=== PATIENT | female | born 2000 | race Caucasian/White ===

== ENCOUNTER 2022-11-02 23:27 | Emergency (ER) | payer MEDICAID, SELFPAY ==
--- NOTE | ~2022-11-02 | XR_ITS ---
EXAMINATION: XR FOOT, RIGHT XR ANKLE, RIGHT CLINICAL INFORMATION: Injury. Pain. Trauma. COMPARISON: None TECHNIQUE: 3 views of the right foot. 2 additional views of the right ankle. FINDINGS: Right foot: No fracture or dislocation. Alignment maintained. Joint spaces maintained. The soft tissues are unremarkable. Right ankle: No fracture or dislocation. The ankle mortise is congruent. No ankle joint effusion. The soft tissues are unremarkable. XR/XR ankle RT 2V IMPRESSION: No fracture or malalignment involving the right foot or ankle.
--- NOTE | ~2022-11-02 | XR_ITS ---
EXAMINATION: XR FOOT, RIGHT XR ANKLE, RIGHT CLINICAL INFORMATION: Injury. Pain. Trauma. COMPARISON: None TECHNIQUE: 3 views of the right foot. 2 additional views of the right ankle. FINDINGS: Right foot: No fracture or dislocation. Alignment maintained. Joint spaces maintained. The soft tissues are unremarkable. Right ankle: No fracture or dislocation. The ankle mortise is congruent. No ankle joint effusion. The soft tissues are unremarkable. XR/XR foot RT min 3V IMPRESSION: No fracture or malalignment involving the right foot or ankle.
[2022-11-02 23:39] VITALS: BP 138/95; PULSE 101; RESP 16; O2SAT 99; BMI 25.7
--- NOTE | 2022-11-02 23:54 | ED.LOWEXIN ---
HPI - Extremity Injury (Lower) General Chief Complaint: Extremity Injury, Lower Stated Complaint: R foot pain/Work Inj Time Seen by Provider: 11/02/22 23:48 Source: patient Mode of arrival: ambulatory Limitations: no limitations History of Present Illness HPI Narrative: 22-year-old female came in for evaluation of right foot/right ankle injury happened at work today. Patient was trying to push a metal door at work open using the dorsal aspect of the right foot, patient initially was able to ambulate and bear weight but progressively the pain is getting worse and patient now is unable to bear weight. Related Data Allergies Allergy/AdvReac Type Severity Reaction Status Date / Time No Known Allergies Allergy Verified 11/02/22 23:52 Review of Systems Review of Systems: All other systems are reviewed and are negative Constitutional: Reports as per HPI and Reports no additional constitutional complaints Eyes: Reports as per HPI and Reports no additional eye complaints Reports system reviewed and no additional complaints, except as documented Cardiovascular: Reports as per HPI and Reports no additional cardiovascular complaints Respiratory: Reports as per HPI and Reports no additional respiratory complaints Gastrointestinal: Reports as per HPI and Reports no additional gastrointestinal complaints Genitourinary: Reports no additional female genitourinary complaints Musculoskeletal: Reports no additional musculoskeletal complaints Skin/Breast: Reports system reviewed and no additional complaints, except as docu Psychiatric: Reports no additional psychiatric complaints Endocrine: Reports no additional endocrine complaints Hematologic/Lymphatic: Reports no additional hematologic/lymphatic complaints Allergic/Immunologic: Reports no additional allergic/immunologic complaints Reports system reviewed and no additional complaints, except as documented and Reports Abnormal speech present Physical Exam Vital Signs: Vital Signs: Last Vital Signs Pulse 101 H 11/02/22 23:39 Resp 16 11/02/22 23:39 BP 138/95 H 11/02/22 23:39 Pulse Ox 99 11/02/22 23:39 O2 Del Method 11/02/22 23:39 BMI result Body Mass Index 25.7 Vital signs have been reviewed as appeared to be correct. Blood pressure normal. Heart rate normal. Respiration rate normal. Temperature normal. Oxygen saturation normal. Appearance: Alert. Oriented X3. No acute distress. Head: Normal external exam. Normocephalic. Atraumatic. No Nam signs noted. No raccoon eyes noted Eyes: PERRLA. EOMI. Conjunctiva and sclera normal. Eyelids normal. ENT: TM's Normal. Pharynx normal. Uvula midline. Moist mucous membranes. No trismus noted. No drooling noted. No muffled voice noted. Neck: Normal inspection. Neck supple. FROM. No adenopathy. Thyroid Normal. No meningeal signs. No neck mass noted. CVS: Normal heart rate and rhythm. Heart sound normal. No murmurs noted. Pulses normal throughout. Respiratory: No respiratory distress. Painless inspiration. Breath sounds normal. No wheezes/rales/rhonchi noted. Chest nontender. No accessory muscle usage noted or decreased air movement noted. Abdomen: Soft and nontender. Bowel sounds normal in all 4 quadrants. No distention noted. No organomegaly noted. No visible injury noted. Back: No CVA tenderness. Full range of motion noted. Skin: Skin warm and dry. Normal skin color. Normal skin turgor. No rashes/lesions/lacerations noted. Extremities: Right foot/ankle exam, no deformity, normal neurovascular exam, full range of motion with tenderness, able to wiggle all toes. Neuro: Oriented X 3. Cranial nerve exam: II-XII are grossly intact No motor deficit. No sensory deficit. Reflexes normal. Course Course Course Narrative: 22-year-old female status post a work injury to the right foot, negative fracture on the x-ray. Mark bandage wrap, apply ice, NSAIDs. Medical Decision Making Differential Diagnosis Differential Diagnoses: The differential diagnosis associated with the presentation includes Right foot sprain, right ankle sprain, right foot fracture, right ankle fracture. Independent Interpretation I performed an independent interpretation of an: Plain X-Ray (Right foot/right ankle: No acute fracture or dislocation.) Radiology Impression Discussion of test interpretation with radiology: I have reviewed the radiologist's reading. Discharge Plan Discharge Clinical Impression: Ankle sprain and strain Patient Disposition: Home, Self-Care Instructions: Ankle Strain (ED) Referrals: Oliverio Moon MD [Physician] - Stand Alone Forms: Work/School Release
[2022-11-03] MEDS: Ibuprofen 600 MG TABLET PO (00:10)
--- NOTE | 2022-11-03 00:35 | MHC.EDTECH ---
ana lilia wrap applied to right ankle per Dr Rodriguez.
--- OUTSIDE RECORDS SUMMARY | 2022-11-03 00:36 | XMS_ITS | Continuity of Care Document ---
:2000 Author Organization Address [address] [place] [address]- Care Team Providers Name Role Phone Not on Staff, PCP Primary Care Physician Unavailable [place] [facility] [place]/09/22 - 04/10/[address] [address]- Discharge Disposition: A-D/C Home Attending Physician: Goldy Schuler MD Admitting Physician: Goldy Schuler MD Referring Physician: Not on Staff, Referring MD Allergies, Adverse Reactions, Alerts No Known Allergies Immunizations Given and Recorded Vaccine Date Status Refusal Reason Menactra (oldterm)1 08/18/11 Given Varicella Virus Vaccine2 08/18/11 Given Varicella Virus Vaccine 06/02/01 Given Tet/Diphth/Acel, Pertussis (oldterm)3 08/18/11 Given influenza virus vaccine, inactivated4 08/18/11 Given influenza virus vaccine, inactivated5 08/19/10 Given Measles/Mumps/Rubella Virus Vaccine 06/10/04 Given Measles/Mumps/Rubella Virus Vaccine 06/02/01 Given Poliovirus Vaccine, Inactivated 06/10/04 Given Poliovirus Vaccine, Inactivated 00 Given Poliovirus Vaccine, Inactivated 00 Given Poliovirus Vaccine, Inactivated 00 Given diphtheria/tetanus/pertussis, acel(DTaP) 05/16/04 Given diphtheria/tetanus/pertussis, acel(DTaP) 03/23/03 Given diphtheria/tetanus/pertussis, acel(DTaP) 03/18/01 Given diphtheria/tetanus/pertussis, acel(DTaP) 00 Given diphtheria/tetanus/pertussis, acel(DTaP) 00 Given Haemophilus B conjugate (HbOC) vaccine 01/03/02 Given Haemophilus B conjugate (HbOC) vaccine 00 Given Haemophilus B conjugate (HbOC) vaccine 00 Given Haemophilus B conjugate (HbOC) vaccine 00 Given hepatitis B pediatric vaccine 00 Given hepatitis B pediatric vaccine 00 Given hepatitis B pediatric vaccine 00 Given 1Admin Note: vis Admin Note: vis 11/24/82Admin Note: vis 08/01/84Admin Note: vis [id number] Note: vis 04/23/10 Medications Aerochamber Aerochamber, See Instructions, # 2 each, Refills 0, Tot. Refills 0, Maintenance, Please dispense onefor school and one for home. Dx: asthma, 08/18/11 11:18:51 Start Date: 08/18/11 Status: Orderedalbuterol CFC free 90 mcg/inh inhalation aerosol 2 puffs, Inhalation, Every 4 hours, PRN for wheezing, use with spacer chamber. (Please provide [place]er instructions, dispense 2 inhalers- one for school and one for home), # 2 each, 5 Refills, Maintenance, Aerosol Start Date: 09/09/12 Stop Date: 03/08/13 Status: Orderedfluoride 1 mg oral tablet, chewable 1 tablet = 1 mg, By Mouth, Daily at bedtime, (Please provide [place]er instructions), # 30 tablet, 11 Refills, Maintenance Start Date: 08/18/11 Stop Date: 08/12/12 Status: Orderedibuprofen 400 mg oral tablet 1 tablet = 400 mg, By Mouth, Every 6 hours, PRN for pain, with food or milk, # 60 tablet, 0 Refills,Maintenance, 03/11/15 21:08:06, Tablet Start Date: 03/11/15 Status: OrderedZofran 4 mg oral tablet 1 tablet = 4 mg, By Mouth, Every 8 hours, PRN as needed for nausea/vomiting, for 3 days, # 10 tablet, 0 Refills, Acute 04/12/22 23:39:00 EDT, 04/09/22 23:39:00 EDT, Tablet, [id number],Partial fill upon patient request if the prescrip... Start Date: 04/09/22 Stop Date: 04/12/22 Status: Ordered Problem List Condition Effective Dates Status Health Status Informant Asthma(Confirmed) Active Neutropenia(Confirmed) Active Proteinuria(Confirmed) Active Results Radiology Reports Exam Date Time Procedure Performing Provider Status 04/09/22 10:13 PM Chest 2 Views Frontal and Lat Leandro Greer (Verified) Notes:(Chest 2 Views Frontal and Lat) Reason For Exam: Shortness of Breath, Fever;Other:RESULT: Chest 2 Views Frontal and Lat Chest 2 Views Frontal and Lat Hx of Present Illness: Pt c o constipation , shortness of breath , chills, body aches with Nausea and vomiting for a couple of days. Pt reports she has had history of constipation for along time but has not seen GI Dr as of yet.; Reason: Other:; Shortness of Breath, Fever; Clinical Question(s): Pneumonia COMPARISON: None. FINDINGS: LINES AND TUBES: None. LUNGS AND PLEURA: Clear lungs. Normal pulmonary vascularity. No pleural effusion. No pneumothorax. HEART, MEDIASTINUM AND OLU: Heart is normal in size. Normal upper mediastinal and hilar contour. BONES AND SOFT TISSUES: No acute abnormality. IMPRESSION: No acute abnormality. WSN: [id number] Ordering Physician: Goldy Schuler Dictated By: Leonel Desouza MD Dictated Date/Time: 04/09/22 10:20 p Reviewed By: Leonel Desouza MD Signed By: Leonel Desouza MD Signed Date/Time: 04/09/22 10:20 pm Transcribed By: LUC Transcribed Date/Time: 04/09/22 10:20 pm Vital Signs Most recent to oldest 1 2 3 [Reference Range]: Height 160 cm 160 cm 160 cm (04/09/22 6:01 PM) (04/09/22 5:57 PM) (04/09/22 5:4 0 PM) Weight 64 kg 64 kg 64 kg (04/09/22 6:01 PM) (04/09/22 5:57 PM) (04/09/22 5:4 0 PM) Oxygen Saturation [94-100 100 % 99 % 100 % %] (04/09/22 11:37 PM) (04/09/22 8:34 PM) (04/09/22 7: 00 PM) Pulse Rate [55-90 bpm] 93 bpm 117 bpm 117 bpm *H* *H* *H* (04/09/22 11:37 PM) (04/09/22 8:34 PM) (04/09/22 7: 00 PM) Body Mass Index 25 25 [18.5-24.99] *H* *H* (04/09/22 5:57 PM) (04/09/22 2:56 PM) Blood Pressure 111/70 mm Hg 122/54 mm Hg 123/86 mm Hg [90-138/55-84 mm Hg] (04/09/22 11:37 PM) (04/09/22 8:34 PM) ( 7:00 PM) Respiratory Rate [16-30 18 br/min 16 br/min br/min] (04/09/22 5:57 PM) (04/09/22 2:56 PM) Temperature [96.8-100.4 100 DegF 99.2 DegF 99.0 Deg F DegF] (04/09/22 11:37 PM) (04/09/22 8:34 PM) (04/09/22 7: 00 PM) Mode of Delivery (Oxygen) Room air Room air Room a ir (04/09/22 11:37 PM) (04/09/22 8:34 PM) (04/09/22 7: 00 PM) Blood pressure sites Arm, left Arm, left Arm, left (04/09/22 11:37 PM) (04/09/22 8:34 PM) (04/09/22 7: 00 PM) Temperature Route Temporal Oral Oral (04/09/22 11:37 PM) (04/09/22 8:34 PM) (04/09/22 7: 00 PM) Dry Weight 64 kg 64 kg 64 kg (04/09/22 6:01 PM) (04/09/22 5:57 PM) (04/09/22 5:4 0 PM) Weight Obtained Via Patient/family stated (04/09/22 2:56 PM) Social History Social History Type Response Smoking Status Never smoker; Tobacco user i n household: No entered on: 11/09/15 Sex
--- OUTSIDE RECORDS SUMMARY | 2022-11-03 00:36 | XMS_ITS | Continuity of Care Document ---
:2000 Author Organization [facility] Address [address] [place] [address]- Care Team Providers Name Role Phone Not on Staff, PCP Primary Care Physician Unavailable Encounter [facility] Date(s): 01/23/20 - 01/23/[address] [address]- [facility] Encounter Diagnosis Knee sprain (Final) - 01/23/20 Discharge Disposition: A-D/C Home Attending Physician: Rosamaria Webster MD Admitting Physician: Rosamaria Webster MD Referring Physician: Not on Staff, Referring MD Allergies, Adverse Reactions, Alerts Substance Reaction Severity Status NKA Active Immunizations Given and Recorded Vaccine Date Status [...] vis 11/24/82Admin Note: vis 08/01/84Admin Note: vis [id number] Note: vis 04/23/10 Medications Aerochamber Aerochamber, See Instructions, # 2 each, Refills 0, Tot. Refills 0, Maintenance, Please dispense onefor school and one for home. Dx: asthma, 08/18/11 11:18:51 Start Date: 08/18/11 Status: Orderedalbuterol CFC free 90 mcg/inh inhalation aerosol 2 puffs, Inhalation, Every 4 hours, PRN for wheezing, use with spacer chamber. (Please provide [place] instructions, dispense 2 inhalers- one for school and one for home), # 2 each, 5 Refills, Maintenance, Aerosol Start Date: 09/09/12 Stop Date: 03/08/13 Status: Orderedfluoride 1 mg oral tablet, chewable 1 tablet = 1 mg, By Mouth, Daily at bedtime, (Please provide [place] instructions), # 30 tablet, 11 Refills, Maintenance Start Date: 08/18/11 Stop Date: 08/12/12 Status: Orderedibuprofen 400 mg oral tablet 1 tablet = 400 mg, By Mouth, Every 6 hours, PRN for pain, with food or milk, # 60 tablet, 0 Refills,Maintenance, 03/11/15 21:08:06, Tablet Start Date: 03/11/15 Status: OrderedZofran ODT 4 mg oral tablet, disintegrating 1 tablet = 4 mg, By Mouth, Every 8 hours, PRN Nausea & Vomiting, # 10 tablet, 0 Refills, Acute 08/25/25 12:00:00, 08/06/15 9:57:10, Tablet Start Date: 08/06/15 Stop Date: 08/25/25 Status: Ordered Problem List Condition Effective Dates Status Health Status Informant Asthma(Confirmed) Active Neutropenia(Confirmed) Active Proteinuria(Confirmed) Active Results Radiology Reports Exam Date Time Procedure Performing Provider Status 01/23/20 6:39 PM Knee 1 or 2 Views Left Laisha Palmer; Crispin (Verified) Notes:(Knee 1 or 2 Views Left) Reason For Exam: with Pain;TraumaRESULT: Knee 1 or 2 Views Left Knee 1 or 2 Views Left, 2 views Reason: Trauma; with Pain; Clinical Question(s): Fracture; COMPARISON: None. FINDINGS: There is no evidence of acute or healing fracture, dislocation or bone lesion. No arthritic changes. No osteochondral defects or intra-articular loose bodies. No evidence of joint effusion. IMPRESSION: No acute osseous injury identified. WSN: [id number] Ordering Physician: Ramon Hartman MD Dictated By: Luciano Alcantara MD Dictated Date/Time: 01/23/20 6:41 pm Reviewed By: Luciano Alcantara MD Signed By: Luciano Alcantara MD Signed Date/Time: 01/23/20 6:41 pm Transcribed By: LUC Transcribed Date/Time: 01/23/20 6:40 pm Vital Signs Most recent to oldest [Reference Range]: 1 2 Oxygen Saturation [94-100 %] 100 % 100 % (01/23/20 7:39 PM) (01/23/20 5:18 PM) Pulse Rate [55-90 bpm] 90 bpm 80 bpm (01/23/20 7:39 PM) (01/23/20 5:18 PM) Blood Pressure [90-138/55-84 mm Hg] 121/74 mm Hg (01/23/20 5:18 PM) Respiratory Rate [16-30 br/min] 18 br/min 14 br/mi n (01/23/20 7:39 PM) *L* (01/23/20 5:18 PM) Temperature [96.8-100.4 DegF] 99.1 DegF (01/23/20 5:18 PM) Mode of Delivery (Oxygen) Room air Room air (01/23/20 7:39 PM) (01/23/20 5:18 PM) Blood pressure sites Arm, right (01/23/20 5:18 PM) Temperature Route Oral (01/23/20 5:18 PM) Social History Social History Type Response Smoking Status Never smoker; Tobacco user i n household: No entered on: 11/09/15 Sex
== END 2022-11-03 00:53 | disposition home or self-care (01) ==
PROVIDERS: Emergency Provider Emergency Medicine
DX: M25.571 Pain in right ankle and joints of right foot (principal)
CPT/HCPCS: 73600; 73630; 99283

== ENCOUNTER 2023-02-12 15:20 | Outpatient (REF) | payer MEDICAID, SELFPAY ==
--- NOTE | ~2023-02-12 | US_ITS ---
EXAMINATION: US PELVIS CLINICAL INFORMATION: Pelvic and perineal pain. COMPARISON: None available. TECHNIQUE: Ultrasound of the pelvis is performed using both transabdominal and transvaginal transducers along with Doppler. Transvaginal imaging is performed due to inadequate visualization transabdominally. FINDINGS: Uterus: The uterus is anteverted, anteflexed and measures 8.1 x 3.1 x 4.6 cm. There is question of arcuate uterus based on fundal appearance. The double wall endometrial thickness is 0.3 cm. The uterus is smooth in contour and has normal myometrial echogenicity. No visible fibroid. There is trace fluid in the cervical canal. Adnexa: Both ovaries are visualized. There is normal color flow to the adnexa. There is no ovarian torsion. There is no pelvic ascites or fluid collection. Right ovary measures 3.4 x 1.9 x 1.7 cm and volume 5.8 mL. There is an ovoid mass similar to ovarian tissue. Likely paraovarian complex cyst, less likely solid mass. There are small follicles in the right ovary. Left ovary measures 3.6 x 1.4 x 1.9 cm and volume 5.0 mL. It appears unremarkable. There is no free fluid in the cul-de-sac. US/US pelvic and transvaginal IMPRESSION: Unremarkable uterus. Question arcuate uterus. Minimal fluid in the cervical canal. Unremarkable left ovary. Ovoid mass in right adnexa similar in appearance to ovary, question complex exophytic cyst, less likely solid mass.
== END 2023-02-12 15:21 | disposition home or self-care (01) ==
LOC: HO.US 15:20
PROVIDERS: PCP Registered Nurse; Visit Provider Registered Nurse
DX: R10.2 Pelvic and perineal pain (principal)
CPT/HCPCS: 76830; 76856

== ENCOUNTER 2024-10-12 15:53 | Outpatient (REF) | payer SELFPAY ==
[2024-10-12 17:35] LABS: MANUAL DIFF FLAG NO
--- OUTSIDE RECORDS SUMMARY | 2024-10-12 17:39 | XMS_ITS | Encounter Summary ---
Author Organization [email or web address] Address [address] [place] [address] [address] [place] [address] Care Team Providers Care Patent Agent Name Role Phone [facility] Primary Care Provider [phone] Reason for Visit * Reason Onset Date Comments triage 11/10/2022 Encounter Details Date Type Department Care Team ([facility] st Contact Info) Description 11/10/2022 Telephone [facility] [address] [place], [place] [phone] [facility] [address] [place], [place] [phone] triage Social History Tobacco Use Types Packs/Day Years Used Date Smoking Tobacco: Never Assessed Comments Unknown Sex and Gender Information Value Date Recorded Sex Assigned at Female 07/14/2022 10:40 AM EDT Legal Sex Female 10:40 AM EDT Gender Identity Choose not to disclose 10:40 AM EDT Sexual Orientation Choose not to disclose 2021 10:40 AM EDT COVID-19 Exposure Response Date Recorded In the last 10 days, have yo u been in contact with someone who was confirmed or suspected to have Coronavirus/COVID-19? No / Unsure 11/13/2022 3:04 PM EST documented as of this encounter Miscellaneous Notes * Telephone Encounter - Jolynn Eugene RN - 11/10/2022 1:12 PM EST Call returned to patient for triage. No answer LVM to return call to [facility] triage line. Nothing sooner with PCP than scheduled appt on 11/13/22 * Telephone Encounter - Daphne Hodgson - 11/10/2022 10:51 AM EST Symptom: Foot or Ankle Swelling Outcome: Schedule an urgent appointment (within 1 hour) or talk to a nurse or provider soon Reason: Trouble walking The caller accepted this outcome States has an appt 11/13/22 but would like to get sooner due to hurting her ankle this weekend again . documented in this encounter Plan of Treatment Not on file documented as of this encounter Visit Diagnoses Not on filedocumented in this encounter Care Teams Patent Agent Relationship Specialty Start Date End Date Inna Gallagher FNP [address] [place] [id number] PCP - General Family Medicine 07/03/22 documented as of this encounter
--- OUTSIDE RECORDS SUMMARY | 2024-10-12 17:39 | XMS_ITS | Encounter Summary ---
Author Organization [employer] Address [address] [facility] [address] [place] [address] Care Team Providers Care Spinner Frame Name Role Phone [facility] Primary Care Provider [phone] Encounter Details Date Type Department Care Team (Late st Contact Info) Description 10/12/2024 2:30 PM EST Office Visit [facility] [address] [place], [place] [address] [facility] [address] [place] [address] Acute lower GI bleeding (Primary Dx); Hemorrhoids, unspecified hemorrhoid type Social History Tobacco Use Types Packs/Day Years Used Date Smoking Tobacco: Never Passive Smoke Exposure: Never Smokeless Tobacco: Never Tobacco Cessation:Counseling Given: Not Answered Alcohol Use Standard Drinks/Week Comments Never 0 (1 standard drink = 0.6 oz pur e alcohol) Depression Answer Date Recorded Patient Health Questionnaire-9 Score 8 06/01/2024 Patient Health Questionnaire-9 Score 8 06/01/2024 Last PHQ-9: Questionnaire Data Not on file 0 06/01/2024 Housing Stability Answer Date Recorded What is your housing situation today? I have brenna winters 06/01/[address] you li ve. Do you have problems with any of the following? None of the above 06/01/2024 Food Insecurity Answer Date Recorded Within the past 12 months, y ou worried that your food would run out before you got money to buy more: Never True 06/01/2024 Within the past 12 months,th e food you bought just didn't last and you didn't have enough money to get more: Never True Transportation Answer Date Recorded In the past 12 months, has l ack of transportation kept you from medical appts, meetings, work or from getting things needed for daily living? No 06/01/2024 Utilities Answer Date Recorded In the past 12 months, has t he electric, gas, oil or water company threatened to shut off services in your home? No 06/01/2024 Depression Answer Date Recorded Patient Health Questionnaire-2 Score 2 06/01/2024 Internet Access Answer Date Recorded Internet Access Q1 Yes 06/01/2024 Internet Access Q2 Not on file 06/01/2024 Comments No Sex and Gender Information Value Date Recorded Sex Assigned at Female 07/14/2022 10:40 AM EDT Legal Sex Female 10:40 AM EDT Gender Identity Choose not to disclose 10:40 AM EDT Sexual Orientation Choose not to disclose 2021 10:40 AM EDT documented as of this encounter Last Filed Vital Signs Vital Sign Reading Time Taken Comments Blood Pressure 126/76 10/12/2024 2:47 PM EST Pulse 92 10/12/2024 2:47 PM EST Temperature 36.5 ??C (97.7 ??F) 10/12/2024 2:47 PM ES T Respiratory Rate 20 10/12/2024 2:47 PM EST Oxygen Saturation - - Inhaled Oxygen Concentration - - Weight 68.1 kg (150 lb 3.2 oz) 10/12/2024 2:47 P M EST Height 160 cm (5' 3 ) 10/12/2024 2:47 PM EST Body Mass Index 26.61 10/12/2024 2:47 PM EST documented in this encounter Plan of Treatment Scheduled Orders Name Type Priority Associated Diagnoses Orde r Schedule CBC auto differential Lab Routine Acute lower GI bleeding Expected: 10/12/2024 (Approximate), Expires: 10/12/2025 Comprehensive Metabolic Panel Lab Routine Acute lower GI bleeding Expected: 10/12/2024 (Approximate), Expires: 10/12/2025 Prothrombin Time-INR Lab Routine Acute lower GI bleeding Expected: 10/12/2024, Expires: 10/12/2025 documented as of this encounter Visit Diagnoses Diagnosis Acute lower GI bleeding- Primary Unspecified, hemorrhage of gastrointestinal tract Hemorrhoids, unspecified hemorrhoid type documented in this encounter Additional Health Concerns Assessment Noted Time PHQ-9 Depression Total Score: 8 06/01/20 24 11:29 AM EDT documented as of this encounter Care Teams Spinner Frame Relationship Specialty Start Date End Date Inna Gallagher FNP [address] [place] [id number] PCP - General Family Medicine 07/03/22 documented as of this encounter
--- OUTSIDE RECORDS SUMMARY | 2024-10-12 17:39 | XMS_ITS | Clinical Summary ---
Author Organization [employer] Address [address] [facility] 7t [place] [address] Care Team Providers Care Choir Teacher Name Role Phone Inna Gallagher SAMPLE EXAMINER Primary Care Provider Allergies No known active allergies Medications diphenhydrAMINE (BENADryl) 25 MG tabletIndication s:Insect stings, accidental or unintentional, initial encounter Take 1-2 tab(s) as needed, Carry with you in case of allergic reaction 20 tablet 03/03/20 23 Active cyclobenzaprine (Flexeril) 5 MG tabletIndication s:Muscle spasm Take 1 tablet (5 mg) by mouth at bedtime. 30 tablet 06/01/20 24 Active lidocaine (Lidoderm) 5 % patchIndications :Muscle spasm Apply topically to affected areas. Leave on for up to 12 hours 30 patch 1 06/01/20 24 Active albuterol (ProAir HFA) 108 (90 Base) MCG/ACT inhalerIndicatio ns:Mild intermittent asthma without complication INHALE 2 PUFFS BY MOUTH EVERY 4 HOURS IF NEEDED 18 g 3 07/11/20 24 Active albuterol (ProAir HFA) 108 (90 Base) MCG/ACT inhalerIndicatio ns:Mild intermittent asthma without complication Inhale 2 puffs every 4 (four) hours. 18 g 3 07/11/20 24 Active cetirizine (ZyrTEC) 10 MG tabletIndication s:Insect stings, accidental or unintentional, initial encounter Take 1 tablet (10 mg) by mouth Once per day. 90 tablet 3 07/11/20 24 025 Active budesonide-formo terol (Symbicort) 80-4.5 MCG/ACT inhalerIndicatio ns:Mild intermittent asthma without complication Inhale 2 puffs every 4-6 hours as needed for cough, shortness of breath 1 each 11 08/22/20 24 Active albuterol (2.5 MG/3ML) 0.083% nebulizer solutionIndicati ons:Mild intermittent asthma without complication Take 3 mL (2.5 mg) by nebulization every 4 (four) hours if needed for wheezing. 75 mL 3 08/22/20 24 025 Active escitalopram (Lexapro) 10 MG tabletIndication s:Anxiety Take 1 tablet (10 mg) by mouth Once per day. 30 tablet 2 08/29/20 24 025 Active hydrocortisone (Anusol-HC) 25 MG suppositoryIndic ations:Hemorrhoi ds, unspecified hemorrhoid type Insert 1 suppository (25 mg) into the rectum every 12 (twelve) hours for 5 days. 10 suppository 10/12/19 25 025 Active polycarbophil (FiberCon) 625 MG tabletIndication s:Hemorrhoids, unspecified hemorrhoid type Take 1 tablet (625 mg) by mouth Once per day. 30 tablet 11 10/12/19 25 026 Active Active Problems Problem Noted Date Diagnosed Date PTSD (post-traumatic stress disorder) 08/25/2024 Abnormal uterine bleeding 02/01/2023 Overview (02/01/2023): ?? Irregular menses since menarche ?? Menses q. 2-3 months and then will occur q. 2 weeks ?? CBC WNL 05/2022 Anxiety 02/01/2023 Overview (02/01/2023): ?? Established with therapist Chronic abdominal pain 11/14/2022 Overview (02/01/2023): ?? Hx of bloating/constipation ?? Referred to GI 05/2022 Asthma 06/03/2022 Overview (02/01/2023): ?? Mild intermittent ?? PRN albuterol Encounters Date Type Department Care Team Description 10/12/2024 2:30 PM EST Office Visit [facility] [address] [place] [address] [facility] Acute lower GI bleeding (Primary Dx); Hemorrhoids, unspecified hemorrhoid type 10/12/2024 Refill [facility] [address] [place] [address] [facility] Hemorrhoids, unspecified hemorrhoid type 10/12/2024 Travel 10/07/[address] [place] [address] [facility] Nurse Triage 08/29/2024 11:15 AM EST Telemedicine [facility] [place] [address] [facility] Anxiety (Primary Dx) 08/29/2024 Travel 08/22/2024 11:30 AM EST Office Visit [facility] [place] [address] [facility] Mild intermittent asthma without complication (Primary Dx); PTSD (post-traumatic stress disorder); Mild episode of recurrent major depressive disorder (CMS/HCC); Sprain of left ankle, unspecified ligament, initial encounter 08/22/2024 Travel 07/18/2024 Telephone [facility] [address] [place] [address] Crow[facility] telephone call 07/13/2024 2:00 PM EDT Procedure Visit [facility] [place] [address] Rukhsana Carmona CNM Family planning counseling (Primary Dx); Nexplanon insertion 07/13/2024 Travel from Last 3 Months Immunizations Name Administration Dates Next Due [id number] Combined 2000 HPV 9-Valent 06/05/2017,03/05/2016,05/11/2013 Hep A, ped/adol, 2 dose 03/05/2016 Hep B, Unspecified 2000,2000 HiB, unspecified 01/03/2002,2000 Hib (PRP-T) 2000 IPV 06/10/2004,2000,2000 Influenza injectable quadriv alent preservative free 06/03/2022 MMR 06/10/2004,06/02/2001 Meningococcal B, Omv 05/27/2019,04/26/2019,08/18 Meningococcal MCV4P ACYW-135 04/26/2019,08/18/20 Pfizer Covid-19 Vaccine 12+ 04/05/2022,0 10/30/2021,02/07/2021,12/20 Pneumococcal Conjugate PCV 13 03/11/2016 Tdap 03/05/2016,03/03/2014 Varicella 08/19/2011,06/02/2001 Social History Tobacco Use Types Packs/Day Years [...] not to disclose 2021 10:40 AM EDT Last Filed Vital Signs Vital Sign Reading Time Taken Comments Blood Pressure 126/76 10/12/2024 2:47 PM EST Pulse 92 10/12/2024 2:47 PM EST Temperature 36.5 ??C (97.7 ??F) 10/12/2024 2:47 PM ES T Respiratory Rate 20 10/12/2024 2:47 PM EST Oxygen Saturation 98% 08/22/2024 11:28 AM EST Inhaled Oxygen Concentration - - Weight 68.1 kg (150 lb 3.2 oz) 10/12/2024 2:47 P M EST Height 160 cm (5' 3 ) 10/12/2024 2:47 PM EST Body Mass Index 26.61 10/12/2024 2:47 PM EST Plan of Treatment Health Maintenance Due Date Last Done Comments Pneumococcal Vaccine: Pediatrics (0 to 5 Years) and At-Risk Patients (6 to 49) Years) (2 of 2 - PPSV23) 05/06/2016 03/11/2016 Hepatitis A Vaccines (2 of 2 - 2-dose series) 09/04/2016 03/05/2016 COVID-19 Vaccine ( season) 2024 04/05/2022, 10/30/2021, 02/07/2021, Additional history exists Influenza Vaccine (#1) 2024 2, 08/06/2015, 08/18/2011, Additional history exists Depression Screening 06/01/2025 06/01/2024, 06/01/20 24 SDOH Screening 06/01/2025 06/01/2024 Family Planning (PISQ) 07/13/2025 07/13/2024 Alcohol/Substance Use Screening 10/12/2025 10/12/2024 Tobacco Screening 10/12/2025 10/12/2024 Pap Smear 02/27/2026 02/27/2023, 02/27/2023 DTaP/Tdap/Td Vaccines (7 - Td or Tdap) 03/05/2026 03/05/2016, 03/03/2014, 05/16/2004, Additional history exists Zoster Vaccines (1 of 2) 2050 RSV Patients and Patients Aged 60 years or older (1 - 1-dose 75+ series) 2075 Hepatitis B Vaccines Completed 2000, 2000, 2000, Additional history exists HIB Vaccines Completed 01/03/2002, 10/2000, 2000, Additional history exists IPV Vaccines Completed 06/10/2004, 10/2000, 2000, Additional history exists HPV Vaccines Completed 06/05/2017, 02/13, 03/05/2016, Additional history exists Meningococcal Vaccine Completed 04/26/2019 , 03/05/2016, 08/18/2011, Additional history exists HIV Screening Completed 06/03/2022 Hepatitis C Screening Completed 06/03/2022 RSV under 20 months Aged Out No longe r eligible based on patient's age to complete this topic Rotavirus Vaccines Aged Out No longer eligible based on patient's age to complete this topic Procedures Procedure Name Priority Date/Time Associated Diagnosis Comments POCT , URINE Routine 07/13/2024 2:42 PM EDT Family planning counseling FIREAR[employer] SPECIALIST INSERTION/REMOVAL OF CONTRACEPTIVE CAPSULE Routine 07/13/2024 2:30 PM EDT Nexplanon insertion IMAGE-GUIDED PAP W/AGE BASED SCR,W/CT/NG/TRICH Routine 02/27/2023 2:22 PM EDT Cervical cancer screening ZZZ HISTORICAL HEPATITIS C AB W/REFL TO HCV RNA, QN, PCR Routine 06/03/2022 10:56 AM EDT HIV 1/2 ANTIGEN/ANTIBODY, FOURTH GENERATION W/RFL Routine 06/03/2022 10:56 AM EDT from Last 3 Months or Most Recently Relevant to Health Maintenance Results * POCT , urine manually resulted (07/13/2024 2:42 PM EDT) Preg Test, Ur Negative Negative, Indeterminate, None Detected, Invalid, Specimen unsatisfactory for evaluation, Weakly Positive QC Media Lot # [id number] Lot# Expiration Date ,360 Urine 07/13/2024 2:42 PM EDT us Rukhsana Carmona CNM POINT OF CARE TEST ENTER/ EDIT ORDERABLES Final Result * Insertion/Removal of Contraceptive Capsule (07/13/2024 2:30 PM EDT) Narrative Rukhsana Carmona CNM - 07/13/2024 2:30 PM EDT Rukhsana Carmona CNM ? 07/13/2024 ??3:06 PM Insertion/Removal of Contraceptive Capsule Date/Time: 07/13/2024 2:30 PM Performed by: Rukhsana Carmona CNM Authorized by: Rukhsana Carmona CNM ?? Confirmed correct patient, procedure, site, and patient consented: Yes ?? Participating Staff: ??Rukhsana Carmona CNM Consent: ??Consent obtained: ??Verbal and written ??Consent given by: ??Patient ??Procedural risks and benefits discussed: Yes ?Patient questions answered: yes ?Patient agrees, verbalizes understanding, and wants to proceed: yes ?Educational handouts given: yes ?Instructions and paperwork completed: yes ?? Indication: ??Indication: insertion of non-biodegradable drug delivery implant ?? Pre-procedure: ??Pre-procedure timeout performed: yes ?Prepped with: povidone-iodine ?Local anesthetic: 2ml 2% lidocaine. ??The site was cleaned and prepped in a sterile fashion: yes ?? Procedure: ??Procedure: ??Insertion ??Small stab incision was made in arm: no ?Left/right: ??Left ??Preloaded contraceptive capsule trocar was placed subdermally: yes ?Visualization of implant was obtained: yes ?Contraceptive capsule was inserted and trocar removed: yes ?Visualization of notch in stylet and palpation of device: yes ?Palpation confirms placement by provider and patient: yes ?Site was closed with steri-strips and pressure bandage applied: yes ?? Rukhsana Carmona CNM IN CLINIC/BEDSIDE ORDERAB LES Final Result * Image-Guided Pap with Age-Based Screening??with CT/NG,??Trichomonas (02/27/2023 2:22 PM EDT) Comment [facility] Comment: This order for age-based cervical cancer and STI screening follows ACOG guidelines(PB 168, 140, IOM236). See individual assays for performing site location. Clinical Information: None given [employer] Diagnost LMP: NONE GIVEN [employer] [place] Prev. PAP: NONE GIVEN [facility] Prev. BX: NONE GIVEN [employer] SOURCE: None given [facility] Statement Of Adequacy: [facility] Comment: Satisfactory for evaluation. Endocervical/transformation zone component absent. Interpretation/Re sult: Negative for intraepithelial lesion or malignancy. [facility] COMMENT: This Pap test has been evaluated with computer assisted technology. [facility] Customer Equipment Engineer: Oziel [employer] Comment: BK,CT(ASCP) CT screening location: [address] Review Customer Equipment Engineer: [employer] Comment: ALS, CT(ASCP) CT screening location: [address] ??[id number] (Always Message) [employer] [employer] Comment: EXPLANATORY NOTE: The Pap is a screening test for cervical cancer. It is not a diagnostic test and is subject to false negative and false positive results. It is most reliable when a satisfactory sample, regularly obtained, is submitted with relevant clinical findings and history, and when the Pap result is evaluated along with historic and current clinical information. Chlamydia trachomatis RNA, TMA, Urogenital NOT DETECTED NOT DETECTED [employer] Neisseria gonorrhoeae RNA, TMA, Urogenital NOT DETECTED NOT DETECTED [facility] [place] (Always Message) Que [facility] [place] [id number] Comment: The analytical performance characteristics of this assay, when used to test SurePath(TM) specimens have been determined by [facility]. The modifications have not been cleared or approved by the FDA. This assay has been validated pursuant to the CLIA regulations and is used for clinical purposes. For additional information, please refer to https://[employer].Artisoft/faq/GVJ567 (This link is being provided for information/ educational purposes only.) Trichomonas vaginalis, QL, TMA, PAP Vial NOT DETECTED NOT DETECTED [facility] Comment: The analytical performance characteristics of this assay have been determined by [facility]. The modifications have not been cleared or approved by the FDA. This assay has been validated pursuant to the CLIA regulations and is used for clinical purposes. For additional information, please refer to http://[employer]/ faq/Trichomonastma (This link is being provided for information/ educational purposes only.) Cervix 02/27/2023 2:22 PM EDT 02/28/2023 3:51 AM EDT [facility] LAB CYTOLOGY ORDERABLES Final Result [facility] [address], [place] [address] [facility] [place] [facility] [address] [place] [address] * HEPATITIS C AB W/REFL TO HCV RNA, QN, PCR (06/03/2022 10:56 AM EDT) HEPATITIS C ANTIBODY NON-REACT [facility] NON-REACT [facility] INDEX 0.04 <1.00 [facility] Comment: ?? HCV antibody was non-reactive. There is no laboratory ?? evidence of HCV infection. ?? In most cases, no further action is required. However, if recent HCV exposure is suspected, a test for HCV RNA (test code 79921) is suggested. ?? For additional information please refer to http://[employer].Artisoft/faq/PML00x4 (This link is being provided for informational/ educational purposes only.) ?? 06/03/2022 10:5 6 AM EDT [facility] SAMPLE EXAMINER HISTORICAL/NON ORDERABLE LABS Final Result Performing Organization Address [facility] de Phone Number [facility] [address] * HIV 1/2 ANTIGEN/ANTIBODY,FOURTH GENERATION W/RFL (06/03/2022 10:56 AM EDT) HIV-1/2 ANTIGEN AND ANTIBODIES, 4TH GENERATION W/ REFLEX NON-REACT NAYA NON-REACT NAYA [facility] Comment: HIV-1 antigen and HIV-1/HIV-2 antibodies were not detected. There is no laboratory evidence of HIV infection. ?? PLEASE NOTE: This information has been disclosed to you from records whose confidentiality may be protected by state law. ??If your state requires such protection, then the state law prohibits you from making any further disclosure of the information without the specific written consent of the person to whom it pertains, or as otherwise permitted by law. A general authorization for the release of medical or other information is NOT sufficient for this purpose. ? For additional information please refer to http://education.Artisoft/faq/TKG901 (This link is being provided for informational/ educational purposes only.) ? The performance of this assay has not been clinically validated in patients less than 2 years old. ?? 06/03/2022 10:5 6 AM EDT [facility] LAB BLOOD ORDERABLES Final Re sult Performing Organization Address [facility] de Phone Number [facility] [address] from Last 3 Months or Most Recently Relevant to Health Maintenance [facility] [place] [id number] [place] [id number] Care Teams Choir Teacher Relationship Specialty Start Date End Date Inna Gallagher FNP [address] [place] [phone] PCP - General Family Medicine 07/03/22
--- OUTSIDE RECORDS SUMMARY | 2024-10-12 17:39 | XMS_ITS | Encounter Summary ---
Author Organization [employer] Address [address] [facility] 7t [place] [address] Care Team Providers Care Health Club Manager Name Role Phone Inna Gallagher COMMERCIAL ACCOUNT EXECUTIVE Primary Care Provider [phone] Encounter Details Date Type Department Care Team (Latest Contact Info) Description 10/12/2024 Travel Social History Tobacco Use Types Packs/Day Years Used Date Smoking Tobacco: Never Passive Smoke Exposure: Never Smokeless Tobacco: Never Alcohol Use Standard Drinks/Week Comments Never 0 (1 standard drink = 0.6 oz pur e alcohol) Depression Answer Date Recorded Patient Health Questionnaire-9 Score 8 06/01/2024 Patient Health Questionnaire-9 Score 8 06/01/2024 Last PHQ-9: Questionnaire Data Not on file 0 06/01/2024 Housing Stability Answer Date Recorded What is your housing situation today? I have brennarachel winters 06/01/[address] you [...] AM EDT documented as of this encounter Plan of Treatment Not on file documented as of this encounter Visit Diagnoses Not on filedocumented in this encounter Additional Health Concerns Assessment Noted Time PHQ-9 Depression Total Score: 8 06/01/20 24 11:29 AM EDT documented as of this encounter Care Teams Health Club Manager Relationship Specialty Start Date End Date Inna Gallagher FNP [address] [place] [phone] PCP - General Family Medicine 07/03/22 documented as of this encounter
--- OUTSIDE RECORDS SUMMARY | 2024-10-12 17:39 | XMS_ITS | Encounter Summary ---
Author Organization [employer] Address [address] [facility] 7t [place] [address] Care Team Providers Care Field Care Coordinator Name Role Phone [facility] Primary Care Provider [phone] Reason for Visit * Reason Onset Date Comments Nurse Triage 10/07/2024 Encounter Details Date Type Department Care Team ([facility] st Contact Info) Description 10/07/2024 Telephone [facility] [address] [place], [place] [phone] [facility] [address] [place], [place] [phone] Nurse Triage Social History Tobacco Use Types Packs/Day Years Used Date Smoking Tobacco: Never Smokeless Tobacco: Never Alcohol Use Standard Drinks/Week Comments Never 0 (1 standard drink = 0.6 oz pur e alcohol) Depression Answer Date Recorded Patient Health Questionnaire-9 Score 8 06/01/2024 Patient Health Questionnaire-9 Score 8 06/01/2024 Last PHQ-9: Questionnaire Data Not on file 0 06/01/2024 Housing Stability Answer Date Recorded What is your housing situation today? I have brenna singh 06/01/[address] you li [...] AM EDT documented as of this encounter Miscellaneous Notes * Telephone Encounter - Elin Gibson RN - 10/11/2024 3:04 PM EST Called pt. No answer. Pt. Has been requesting appt. With PCP only and an opening came up for tomorrow 10/12/24 at 230pm with PCP. No answer but, I left a message for pt. That appt. Was made to see PCPtomorrow 10/12/24 at 230pm and if she cannot make appt. To please call back [facility] nurses to cancel appt. RE: Rectal Bleeding. Called pt. Back and she did get message and [facility] * Telephone Encounter - Jolynn Eugene RN - 10/10/2024 2:19 PM EST Incoming call form pt regarding below. Offered availability with team providers for tomorrow or Thursday as PCP has no openings. Wishes to see PCP only. Advsied sick on site for Thursday not yet available. Will need to call on Thursday for scheduling. Will set reminder for team to follow up. PCP [facility] on site Rectal bleeding. Declines [facility] or team provider visit. * Telephone Encounter - Elin Gibson RN - 10/10/2024 9:01 AM EST Called pt. No answer. Pt looking for appt Thursday-Thursday this week RE: Rectal bleeding. * Telephone Encounter - Elin Gibson RN - 10/07/2024 11:44 AM EST Called pt. She states that she has been bleeding x 2 weeks when she has a BM. There are blood clots, blood on toilet paper and some blood in toilet. Pt states she has BM's daily usually 1-2 times. Sometimes hard and she does have Hx. Of external hemorrhoids but cannot feel any. Wondering if she hasinternal hemorrhoids. Wants to see PCP. Pt. Only has rectal bleeding when she has a BM. No weaknessor dizziness noted. Advised to use Pear nectar daily from [employer] 1-2 ounces daily for a naturalalternative and to also increase water intake. Pt. Wants to see PCP and does not have availability today or tomorrow. Requesting appt. For Thursday -Thursday. Advised if worsens or gets faint, dizzy, sweaty to go to ED for evaluation or C walk in today or tomorrow.. Otherwise, I will keep pt. In my in basket and call her on 10/10/24 to book appt in 24-48 hour sick on site slot for next week with provider. Pt. Is in agreement. Protocol Used: Rectal Bleeding (Adult) Protocol-Based Disposition: See in Office or Video Visit Today Video visit offer not recorded Positive Triage Questions: * Moderate rectal bleeding (small blood clots, passing blood without stool, or toilet water turns red) * Rectal bleeding is minimal (e.g., blood just on toilet paper, a few drops in toilet bowl), and bleeding recurs 3 or more times using Care Advice * Rectal bleeding is a chronic symptom (recurrent or ongoing AND present > 4 weeks) * All higher-acuity triage questions were negative Care Advice Discussed: * Warm Saline Sitz Baths - For Rectal Symptoms * To Soften Stools and Treat Constipation * High Fiber Diet * Telephone Encounter - Ioana Nuñez - 10/07/2024 11:38 AM EST Symptom: Vaginal Bleeding - Not Outcome: Talk to a nurse or provider within 15 minutes Reason: Heavy bleeding The caller accepted this outcome. documented in this encounter Plan of Treatment Not on file documented as of this encounter Visit Diagnoses Not on filedocumented in this encounter Additional Health Concerns Assessment Noted Time PHQ-9 Depression Total Score: 8 06/01/20 11:29 AM EDT documented as of this encounter Care Teams Field Care Coordinator Relationship Specialty Start Date End Date Inna Gallagher FNP [address] [place] [phone] PCP - General Family Medicine 07/03/22 documented as of this encounter
[2024-10-12 17:58] LABS: INTERNATIONAL NORM RATIO 0.9 (0.9-1.1)
[2024-10-12 18:08] LABS: Alanine Aminotransferase 22 U/L (0-31); Albumin Level 4.5 g/dL (3.5-5.0); Alkaline Phosphatase 51 U/L (39-117); Anion Gap 9 (12-20); Aspartate Amino Transferase 18 U/L (5-31); Bilirubin Total 0.5 mg/dL (0.0-1.0); Blood Urea Nitrogen 9 mg/dL (9-16); Calcium 9.4 mg/dL (8.4-10.2); Carbon Dioxide 25 mmol/L (22-29); Chloride 106 mmol/L (96-108); Estimated Glomerular Filt Rate > 60; Glucose Random 115 mg/dL (60-115); Potassium 4.1 mmol/L (3.3-5.1); Sodium 136 mmol/L (135-145); Total Protein 7.7 g/dL (6.5-8.0)
[2024-10-12 18:21] LABS: Basophils Percent Auto 0.5 % (0-2); Eosinophils Absolute Auto 0.1 X10*3/uL (0.0-0.4); Eosinophils Percent Auto 1.8 % (0-4); Hematocrit 37.9 % (37.0-47.0); Hemoglobin 12.7 g/dl (12.0-16.0); Imm Gran Abs Auto 0.01 X10*3/uL (0.00-0.03); Imm Gran Pct Auto 0.3 % (0.0-0.4); Lymphocytes Absolute Auto 1.4 X10*3/uL (1.2-4.9); Lymphocytes Percent Auto 36.6 % (20-40); Mean Corpuscular HGB Conc 33.5 g/dl (31.0-35.0); Mean Corpuscular Hemoglobin 31.1 pg (27.0-33.0); Mean Corpuscular Volume 92.7 fL (80.0-98.0); Mean Platelet Volume 10.6 fL (9.4-12.3); Monocytes Absolute Auto 0.2 X10*3/uL (0.1-1.2); Monocytes Percent Auto 5.8 % (2-11); Neutrophils Absolute Auto 2.1 x10*3/uL (2.0-8.3); Platelet Count 227 X10*3/uL (160-400); Red Blood Count 4.09 X10*6/uL (4.20-5.50); Red Cell Distribution Width 13.5 % (11.0-16.0); White Blood Count 3.8 X10*3/uL (4.8-10.8)
== END 2024-10-12 15:54 | disposition home or self-care (01) ==
LOC: HO.HHCL 15:53
PROVIDERS: Visit Provider Registered Nurse
DX: K92.2 Gastrointestinal hemorrhage, unspecified (principal)
CPT/HCPCS: 36415; 80053; 85025; 85610

== ENCOUNTER 2024-11-03 09:56 | Outpatient (REF) | payer MEDICAID, SELFPAY ==
[2024-11-03 11:45] LABS: MANUAL DIFF FLAG NO
[2024-11-03 12:31] LABS: Basophils Percent Auto 0.8 % (0-2); Eosinophils Absolute Auto 0.1 X10*3/uL (0.0-0.4); Eosinophils Percent Auto 2.5 % (0-4); Hematocrit 38.2 % (37.0-47.0); Hemoglobin 13.1 g/dl (12.0-16.0); Imm Gran Abs Auto 0.01 X10*3/uL (0.00-0.03); Imm Gran Pct Auto 0.3 % (0.0-0.4); Lymphocytes Absolute Auto 1.3 X10*3/uL (1.2-4.9); Lymphocytes Percent Auto 31.6 % (20-40); Mean Corpuscular HGB Conc 34.3 g/dl (31.0-35.0); Mean Corpuscular Volume 93.4 fL (80.0-98.0); Mean Platelet Volume 10.4 fL (9.4-12.3); Monocytes Absolute Auto 0.2 X10*3/uL (0.1-1.2); Monocytes Percent Auto 5.3 % (2-11); Neutrophils Absolute Auto 2.4 x10*3/uL (2.0-8.3); Neutrophils Percent Auto 59.5 % (45-73); Platelet Count 249 X10*3/uL (160-400); Red Blood Count 4.09 X10*6/uL (4.20-5.50); Red Cell Distribution Width 13.6 % (11.0-16.0)
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
--- OUTSIDE RECORDS SUMMARY | 2024-11-03 12:35 | XMS_ITS ---
Care Plan - [facility] Created on: November 03, 2024 Sharla Gallegos : 2000 Sex: Female Author Organization [facility] Address [address] [place] [address] Phone Care Team Providers Care Kiln Setter Name Role Phone [facility], Unavailable [phone] [place] TRANSMISSION SUPERVISOR, Inna Primary Care Provider [phone]
--- OUTSIDE RECORDS SUMMARY | 2024-11-03 12:35 | XMS_ITS | Encounter Summary ---
Author Organization [employer] Address [address] [facility] 7t [place] [address] Care Team Providers Care Senior Business Development Manager Name Role Phone Inna Gallagher FINISHING AREA OPERATOR Primary Care Provider [phone] Encounter Details Date Type Department Care Team [...] documented as of this encounter Care Teams Senior Business Development Manager Relationship Specialty Start Date End Date Inna Gallagher FNP [address] [place] [phone] PCP - General Family Medicine 07/03/22 documented as of this encounter
--- OUTSIDE RECORDS SUMMARY | 2024-11-03 12:35 | XMS_ITS | Encounter Summary ---
Author Organization [employer] Address [address] [facility] 7t [place] [address] Care Team Providers Care Clerk To Justice Name Role Phone Inna Gallagher MANAGER CONTINUOUS IMPROVEMENT Primary Care Provider [phone] Reason for Visit * Reason Onset Date Comments Results 10/17/2024 Encounter Details Date Type Department Care Team ([facility] Contact Info) Description 10/17/[address] [facility] MEDICINE [address] [place] [address] Suzanne Sher, ROSALINA Results Social History Tobacco [...] 6:31 PM EST TC placed to patient [phone] in regards to below message. Patient verbalized understanding padma she already received a call with GI appointment date and time. Patient aware to repeat BW in 1-2 weeks and will receive a call with new results once available. Patient to f/u PRN. ----- Message from [employer] sent at 10/17/2024 9:18 AM EST ----- [...] provider as per below. VM left with [facility] contact info for return call. Will re attempt Re GI referral: approved for 6 visits. ----- Message from [employer] sent at 10/17/2024 9:18 AM EST ----- [...] as of this encounter Care Teams Clerk To Justice Relationship Specialty Start Date End Date Inna Gallagher FNP [address] [place] [id number] PCP - General Family Medicine 07/03/22 documented as of this encounter
--- OUTSIDE RECORDS SUMMARY | 2024-11-03 12:35 | XMS_ITS | Encounter Summary ---
Author Organization [employer] Address [address] [facility] 7t [place] [address] Care Team Providers Care Umbrella Supervisor Name Role Phone [place] [facility] Primary Care Provider [phone] Reason for Visit * Reason Comments Med Change Request Encounter Details Date Type Department Care Team ([facility] st Contact Info) Description 10/12/2024 Refill [facility] MEDICINE [address] [place] [address] [facility] [address] [place], [place] [phone] Hemorrhoids, unspecified hemorrhoid type Social History Tobacco [...] documented as of this encounter Care Teams Umbrella Supervisor Relationship Specialty Start Date End Date Inna Gallagher FNP [address] [place] [address] PCP - General Family Medicine 07/03/22 documented as of this encounter
--- OUTSIDE RECORDS SUMMARY | 2024-11-03 12:35 | XMS_ITS | Clinical Summary ---
Author Organization [employer] Address [address] [facility] 7t [place] [address] Care Team Providers Care Microfilm Technician Name Role Phone Inna Gallagher SERVICE CLERK Primary Care Provider [phone] Allergies No known active allergies Medications diphenhydrAMINE [...] Encounters Date Type Department Care Team Description 11/03/2024 Orders Only GENERIC EXTERNAL DATA DEPARTMENT Provider, Generic External Data 10/17/[address] [address] Suzanne Sher, RN Results 10/17/2024 Orders Only [facility] [address] [place] [address] Inna Gallagher FNP Leukopenia, unspecified type (Primary Dx) 10/12/2024 2:30 PM EST Office [address] [place] [address] Inna Gallagher FNP Acute lower GI bleeding (Primary Dx); Hemorrhoids, unspecified hemorrhoid type 10/12/[address] [address] Inna Gallagher FNP Hemorrhoids, unspecified hemorrhoid type 10/12/2024 Travel 10/07/2024 Telephone [facility] [place] [address] Inna Gallagher FNP Nurse Triage 08/29/2024 11:15 AM EST Telemedicine [address] [facility] [place] [address] Inna Gallagher FNP Anxiety (Primary Dx) 08/29/2024 Travel 08/22/2024 11:30 AM EST Office Visit [address] [place] [address] Inna Gallagher FNP Mild intermittent asthma without complication (Primary Dx); PTSD (post-traumatic stress disorder); Mild episode of recurrent major depressive disorder (CMS/HCC); Sprain of left ankle, unspecified ligament, initial encounter 08/22/2024 Travel from Last 3 Months Immunizations Name Administration Dates Next Due [id number] Combined 2000 HPV 9-Valent 06/05/2017,03/05/2016,05/11/2013 Hep A, [...] Diagnosis Comments CBC WITH AUTO DIFFERENTIAL Routine 11/03/2024 11:42 AM EST PROTHROMBIN TIME-INR Routine 10/12/2024 3:59 PM EST [...] Maintenance Results * (ABNORMAL) CBC auto differential (11/03/2024 11:42 AM EST) Only the most recent of2 resultswithin the time period is included. White Blood Count 4.0(L) 4.8 - 10.8 X10*3/uL [facility] Red Blood Count 4.09(L) 4.20 - 5.50 X10*6/uL [facility] Hemoglobin 13.1 12.0 - 16.0 g/dl [facility] Hematocrit 38.2 37.0 - 47.0 % [facility] Mean Corpuscular Volume 93.4 80.0 - 98.0 fL [facility] Mean Corpuscular Hemoglobin 32.0 27.0 - 33.0 pg [facility] Mean Corpuscular HGB Conc 34.3 31.0 - 35.0 g/dl [facility] Red Cell Distribution Width 13.6 11.0 - 16.0 % [facility] Platelet Count 249 160 - 400 X10*3/uL [facility] Mean Platelet Volume 10.4 9.4 - 12.3 fL [facility] Neutrophils Percent Auto 59.5 45 - 73 % [facility] Imm Gran Pct Auto 0.3 0.0 - 0.4 % [facility] Lymphocytes Percent Auto 31.6 20 - 40 % [facility] Monocytes Percent Auto 5.3 2 - 11 % [facility] Eosinophils Percent Auto 2.5 0 - 4 % [facility] Basophils Percent Auto 0.8 0 - 2 % [facility] NRBC Pct Auto 0.0 0.0 - 0.2 /100WBC [facility] Neutrophils Absolute Auto 2.4 2.0 - 8.3 x10*3/uL [facility] Imm Gran Abs Auto 0.01 0.00 - 0.03 X10*3/uL [facility] Lymphocytes Absolute Auto 1.3 1.2 - 4.9 X10*3/uL [facility] Monocytes Absolute Auto 0.2 0.1 - 1.2 X10*3/uL [facility] Eosinophils Absolute Auto 0.1 0.0 - 0.4 X10*3/uL [facility] Basophils Absolute Auto 0.0 0.0 - 0.2 X10*3/uL [facility] NRBC Abs Auto 0.000 0.0 - 0.012 X10*3/uL [facility] 11/03/2024 11:4 2 AM EST 11/03/2024 11:42 AM EST Generic External Data Provider LAB BLOOD ORDERAB LES Final Result [facility] [address] [place] [address] [phone] * Prothrombin Time-INR (10/12/2024 3:59 PM EST) Prothrombin Time 11.0 10.9 - 12.4 SEC [facility] INTERNATIONAL NORM RATIO 0.9 0.9 - 1.1 [facility] Comment:INTERNATIONAL NORMAL IZED RATIO (INR) [...] 3:59 PM EST 10/12/2024 5:32 PM EST [facility] LAB BLOOD ORDERABLES Final Re sult Performing Organization Address City/[facility]/ZIP Co de Phone Number [facility] [address] [place] [address] [phone] * (ABNORMAL) Comprehensive Metabolic Panel (10/12/2024 3:59 PM EST) Sodium 136 135 - 145 mmol/L [facility] Potassium 4.1 3.3 - 5.1 mmol/L [facility] Chloride 106 96 - 108 mmol/L [facility] Carbon Dioxide 25 22 - 29 mmol/L [facility] Anion Gap 9(L) 12 - 20 [facility] Urea Nitrogen (BUN) 9 9 - 16 mg/dL [facility] Creatinine, Serum 0.59 0.5 - 1.4 mg/dL [facility] Estimated Glomerular Filt Rate >60 [facility] Comment:Chronic Kidney Disea se: Estimated GFR < 60 mL/min/1.16p2Vzmxse Kidney Disease: Estimated GFR < 15 mL/min/1.73m2 Glucose 115 60 - 115 mg/dL [facility] Calcium 9.4 8.4 - 10.2 mg/dL [facility] Bilirubin, Total 0.5 0.0 - 1.0 mg/dL [facility] Aspartate Amino Transferase 18 5 - 31 U/L [facility] Alanine Aminotransferase 22 0 - 31 U/L [facility] Total Protein 7.7 6.5 - 8.0 g/dL [facility] Albumin Level 4.5 3.5 - 5.0 g/dL [facility] Alkaline Phosphatase 51 39 - 117 U/L [facility] Blood Venous blood specimen / Unknown 10/12/2024 3:59 PM EST 10/12/2024 5:32 PM EST [facility] LAB BLOOD ORDERABLES Final Re sult [facility] [address] [place] [address] [phone] * Image-Guided Pap with Age-Based Screening??with CT/NG,??Trichomonas (02/27/2023 2:22 PM EDT) Comment [employer] Comment: This order for age-based cervical cancer and STI screening follows ACOG guidelines(PB 168, 140, UTQ352). See individual assays for performing site location. Clinical Information: None given [facility] LMP: NONE GIVEN [employer] Prev. PAP: NONE GIVEN [employer] Prev. BX: NONE GIVEN [employer] SOURCE: None given [employer] Statement Of Adequacy: [employer] Comment: Satisfactory for evaluation. Endocervical/transformation zone component absent. Interpretation/Re sult: Negative for intraepithelial lesion or malignancy. [employer] COMMENT: This Pap test has been evaluated with computer assisted technology. [employer] [place] [employer] Human Performance Professor: [employer] Comment: BK,CT(ASCP) CT screening location: [address] Review Human Performance Professor: [employer] [place] [employer] Comment: ALS, CT(ASCP) CT screening location: [address] ??[phone] (Always Message) Que [employer] Comment: EXPLANATORY NOTE: The Pap is a [...] RNA, TMA, Urogenital NOT DETECTED NOT DETECTED [employer] Neisseria gonorrhoeae RNA, TMA, Urogenital NOT DETECTED NOT DETECTED [employer] (Always Message) Que st [employer] Comment: The analytical performance characteristics of this assay, when used to test SurePath(TM) specimens have been determined by [employer]. The modifications have not been cleared or approved by the FDA. This assay has been validated pursuant to the CLIA regulations and is used for clinical purposes. For additional information, please refer to https://JobApp.RedCap/faq/JAA853 (This link is being provided for information/ educational purposes only.) Trichomonas vaginalis, QL, TMA, PAP Vial NOT DETECTED NOT DETECTED [employer] - innovate | mentor | invest-[employer] Comment: The analytical performance characteristics of this assay have been determined by [employer]. The modifications have not been cleared or approved by the FDA. This assay has been validated pursuant to the CLIA regulations and is used for clinical purposes. For additional information, please refer to http://JobApp.RedCap/ faq/Trichomonastma (This link is being provided for information/ educational purposes only.) Cervix 02/27/2023 2:22 PM EDT 02/28/2023 3:51 AM EDT [facility] LAB CYTOLOGY ORDERABLES Final Result [facility] [address], [place] [address] [employer] [place] [employer] [address] [place] [address] * HEPATITIS C AB W/REFL TO HCV RNA, QN, PCR (06/03/2022 10:56 AM EDT) HEPATITIS C ANTIBODY NON-REACT NAYA NON-REACT NAYA [facility] INDEX 0.04 <1.00 [facility] Comment: ?? HCV antibody was non-reactive. There is no laboratory ?? evidence of HCV infection. ?? In most cases, no further action is required. However, if recent HCV exposure is suspected, a test for HCV RNA (test code 54913) is suggested. ?? For additional information please refer to http://JobApp.RedCap/faq/NTM55r8 (This link is being provided for informational/ educational purposes only.) ?? 06/03/2022 10:5 6 AM EDT us Inna Elliott SERVICE CLERK HISTORICAL/NON ORDERABLE LABS Final Result Performing Organization Address [facility]/ZIP Co de Phone Number [facility] [address] * HIV 1/2 ANTIGEN/ANTIBODY,FOURTH GENERATION W/RFL (06/03/2022 10:56 AM EDT) HIV-1/2 ANTIGEN AND ANTIBODIES, 4TH GENERATION W/ REFLEX NON-REACT NAYA NON-REACT NAYA [facility] Comment: HIV-1 antigen and HIV-1/HIV-2 [...] ? For additional information please refer to http://education.RedCap/faq/JKT421 (This link is being provided for informational/ educational purposes only.) ? The performance of this assay has not been clinically validated in patients less than 2 years old. ?? 06/03/2022 10:5 6 AM EDT [facility] SERVICE CLERK LAB BLOOD ORDERABLES Final Re sult Performing Organization Address [facility] de Phone Number [facility] [address] from Last 3 Months or Most Recently Relevant to [place] [id number] Care Teams Microfilm Technician Relationship Specialty Start Date End Date [place] Inna, [facility] [address] [place] [phone] PCP - General Family Medicine 07/03/22"
--- OUTSIDE RECORDS SUMMARY | 2024-11-03 12:35 | XMS_ITS | Encounter Summary ---
Author Organization [employer] Address [address] [facility] 7t [place] [address] Care Team Providers Care Framework Developer Name Role Phone [facility] Primary Care Provider [phone] Reason for Visit * Reason Onset Date Comments Nurse Triage 10/07/2024 Encounter Details Date Type Department Care Team ([facility] st Contact Info) Description 10/07/2024 Telephone [facility] [address] [place], [place] [phone] [facility] [address] [place], [place] [phone] Nurse Triage Social History Tobacco Use Types [...] appt. To please call back [facility] nurses to cancel appt. RE: Rectal Bleeding. Called pt. Back and she did get message and will be [facility] * Telephone Encounter - Jolynn [...] reminder for team to follow up. PCP [facility] on site Rectal bleeding. Declines [facility] or team provider visit. * Telephone [...] documented as of this encounter Care Teams Framework Developer Relationship Specialty Start Date End Date Inna Gallagher FNP [address] [place] [phone] PCP - General Family Medicine 07/03/22 documented as of this encounter
--- OUTSIDE RECORDS SUMMARY | 2024-11-03 12:35 | XMS_ITS | Encounter Summary ---
Author Organization [employer] Address [address] [facility] [address] 7t [place] [address] Care Team Providers Care Comptroller Name Role Phone [place] [facility] Primary Care Provider [phone] Encounter Details Date Type Department Care Team ([facility] st Contact Info) Description 10/17/2024 Orders Only [facility] [address] [place], [place] [phone] [facility] [address] [place] [address] Leukopenia, unspecified type (Primary Dx) Social History [...] documented as of this encounter Care Teams Comptroller Relationship Specialty Start Date End Date Inna Gallagher FNP [address] [place] [phone] PCP - General Family Medicine 07/03/22 documented as of this encounter
--- OUTSIDE RECORDS SUMMARY | 2024-11-03 12:35 | XMS_ITS | Encounter Summary ---
Author Organization [employer] Address [address] [place] [address] 7t [place] [address] Care Team Providers Care Creative Project Manager Name Role Phone [place] [facility] Primary Care Provider [phone] Reason for Visit * Reason Onset Date Comments triage 11/10/2022 Encounter Details Date Type Department Care Team ([facility] st Contact Info) Description 11/10/2022 Telephone [facility] [address] [place], [place] [phone] [facility] 230 [place], [place] [phone] triage Social History Tobacco Use Types Packs/Day [...] No answer LVM to return call to [facility] triage line. Nothing sooner with PCP [...] on filedocumented in this encounter Care Teams Creative Project Manager Relationship Specialty Start Date End Date Inna Gallagher FNP [address] [place] [phone] PCP - General Family Medicine 07/03/22 documented as of this encounter
--- OUTSIDE RECORDS SUMMARY | 2024-11-03 12:35 | XMS_ITS | Encounter Summary ---
Author Organization [employer] Address [address] [place] [address] 7 [place] [address] Care Team Providers Care Hat Presser Name Role Phone Inna Gallagher Primary Care Provider [phone] Reason for Referral * Consultation (STAT) - Authorized Specialty Diagnoses / Procedures Referred By Miya ragland Referred To Contact Gastroenterology Diagnoses Acute lower GI bleeding Inna Gallagher FNP [address] [place] [address] Phone: tel: fax: [facility] [address] [place] [address] 2nd Floor [place], [place] Phone: tel: fax: Referral ID Status Reason Start Date Expiration Date Visits Requested Visits Authorized [id number] Authorized Specialty Services Required 10/14/2024 10/14/2025 6 6 Encounter Details Date Type Department Care Team (Late st Contact Info) Description 10/12/2024 2:30 PM EST Office Visit [facility] [address] [place], [place] [phone] Inna Gallagher FNP [address] [place] [address] Acute lower GI bleeding (Primary Dx); Hemorrhoids, [...] documented in this encounter Progress Notes * [facility], LEARNING SUPPORT SERVICES DIRECTOR - 10/12/2024 2:30 PM EST SUBJECTIVE: Sharla [...] Temp: 97.7 ??F (36.5 ??C) Physical Exam Inspector And Tester present: declines. Constitutional: General: Sharla is not [...] Prothrombin Time 11.0 10.9 - 12.4 SEC [facility] INTERNATIONAL NORM RATIO 0.9 0.9 - 1.1 [facility] Comment:INTERNATIONAL NORMAL IZED RATIO (INR) [...] 3:59 PM EST 10/12/2024 5:32 PM EST [facility] LAB BLOOD ORDERABLES Final Re sult [facility] [address] [place] [address] [phone] * (ABNORMAL) Comprehensive Metabolic Panel (10/12/2024 3:59 PM EST) Sodium 136 135 - 145 mmol/L [facility] Potassium 4.1 3.3 - 5.1 mmol/L [facility] Chloride 106 96 - 108 mmol/L [facility] Carbon Dioxide 25 22 - 29 mmol/L [facility] Anion Gap 9(L) 12 - 20 [facility] Urea Nitrogen (BUN) 9 9 - 16 mg/dL [facility] Creatinine, Serum 0.59 0.5 - 1.4 mg/dL [facility] Estimated Glomerular Filt Rate >60 [facility] Comment:Chronic Kidney Disea se: Estimated GFR < 60 mL/min/1.21c6Vdmftm Kidney Disease: Estimated GFR < 15 mL/min/1.73m2 Glucose 115 60 - 115 mg/dL [facility] Calcium 9.4 8.4 - 10.2 mg/dL [facility] Bilirubin, Total 0.5 0.0 - 1.0 mg/dL [facility] Aspartate Amino Transferase 18 5 - 31 U/L [facility] Alanine Aminotransferase 22 0 - 31 U/L [facility] Total Protein 7.7 6.5 - 8.0 g/dL [facility] Albumin Level 4.5 3.5 - 5.0 g/dL [facility] Alkaline Phosphatase 51 39 - 117 U/L [facility] Blood Venous blood specimen / Unknown 10/12/2024 3:59 PM EST 10/12/2024 5:32 PM EST [facility] LAB BLOOD ORDERABLES Final Re sult [facility] [address] [place] [phone] [phone] * (ABNORMAL) CBC auto differential (10/12/2024 3:59 PM EST) White Blood Count 3.8(L) 4.8 - 10.8 X10*3/uL [facility] Red Blood Count 4.09(L) 4.20 - 5.50 X10*6/uL [facility] Hemoglobin 12.7 12.0 - 16.0 g/dl [facility] Hematocrit 37.9 37.0 - 47.0 % [facility] Mean Corpuscular Volume 92.7 80.0 - 98.0 fL [facility] Mean Corpuscular Hemoglobin 31.1 27.0 - 33.0 pg [facility] Mean Corpuscular HGB Conc 33.5 31.0 - 35.0 g/dl [facility] Red Cell Distribution Width 13.5 11.0 - 16.0 % [facility] Platelet Count 227 160 - 400 X10*3/uL [facility] Mean Platelet Volume 10.6 9.4 - 12.3 fL [facility] Neutrophils Percent Auto 55.0 45 - 73 % [facility] Imm Gran Pct Auto 0.3 0.0 - 0.4 % [facility] Lymphocytes Percent Auto 36.6 20 - 40 % [facility] Monocytes Percent Auto 5.8 2 - 11 % [facility] Eosinophils Percent Auto 1.8 0 - 4 % [facility] Basophils Percent Auto 0.5 0 - 2 % [facility] NRBC Pct Auto 0.0 0.0 - 0.2 /100WBC [facility] Neutrophils Absolute Auto 2.1 2.0 - 8.3 x10*3/uL [facility] Imm Gran Abs Auto 0.01 0.00 - 0.03 X10*3/uL [facility] Lymphocytes Absolute Auto 1.4 1.2 - 4.9 X10*3/uL [facility] Monocytes Absolute Auto 0.2 0.1 - 1.2 X10*3/uL [facility] Eosinophils Absolute Auto 0.1 0.0 - 0.4 X10*3/uL [facility] Basophils Absolute Auto 0.0 0.0 - 0.2 X10*3/uL [facility] NRBC Abs Auto 0.000 0.0 - 0.012 X10*3/uL [facility] Blood Venous blood specimen / Unknown 10/12/2024 3:59 PM EST 10/12/2024 5:32 PM EST [facility] LAB BLOOD ORDERABLES Final Re sult [facility] [address] [place] [phone] [phone] documented in this encounter Visit Diagnoses Diagnosis Acute lower GI bleeding- Primary Unspecified, hemorrhage of gastrointestinal tract Hemorrhoids, unspecified hemorrhoid type documented in this encounter Additional Health Concerns Assessment Noted Time PHQ-9 Depression Total Score: 8 06/01/20 24 11:29 AM EDT documented as of this encounter Care Teams Hat Presser Relationship Specialty Start Date End Date [place] LEARNING SUPPORT SERVICES DIRECTOR [address] [place] [address] PCP - General Family Medicine 07/03/22 documented as of this encounter
--- OUTSIDE RECORDS SUMMARY | 2024-11-03 12:35 | XMS_ITS | Clinical Summary ---
Author Organization [facility] Address [address] [place] [address] Phone Care Team Providers Care Solar Sales Advisor Name Role Phone [facility] Un[facility] [phone] [address]er PRODUCTION TOOL ENGINEER, Inna Primary Care Provider [phone] Reason for Visit and Chief Complaint Established Patient Plan of Treatment Pending Tests Order Diagnosis Results Due Ordering Nella york Follow Up - Appointment 1 Month Sprain o f medial collateral ligament of right knee, init 01/12/23 Maria Luisa DUNCAN Last Documented On 3 10:03AM ; [facility] In House X-Rays - X-Rays Calcameus, left, 2 views ([id number]) Sprain of medial collateral ligament of right knee, init 01/14/23 Maria Luisa DUNCAN Last Documented On 3 10:03AM ; [facility] Assessments Includes: Assessments from this encounter No Assessments Recorded Medical Equipment - Implanted Devices Includes: Current Devices No Medical Equipment Recorded Medications Includes: Medications discussed during this encounter and other current Medications Current Medications (continue as prescribed) Ibuprofen Oral Tablet 12/11/2022 Provider: Diagnosis: Last Documented On 3 10:55AM By Valerio Smith ; [facility] Medications Administered Includes: Administered Medications from this encounter No Administered Medications Recorded Vital Signs Includes: Vital Signs from this encounter Vital Name 01/12/2023 09:36A Blood Pressure Sitting (mmHg) 126/80 Pulse Rate-Sitting (bpm) 97 Temp-Temporal 98.1 Height (in) 66 Weight (lb) 149 Body Mass Index 24 Body Surface Area 1.8 Oxygen Saturation (%) 98 Last Documented: On 01/12/2023 9:37AM ; [facility], Results Includes: Results discussed during this encounter [...] of the fracture boot. She should continue [id number] analgesics as needed. Patient is cautioned to [...] Time Diagnosis Established Patient Maria Luisa DUNCAN [facility], 01/13/20 23 9:20AM 9:51AM Insurance Includes: Active Insurance Policies Plan Name Member ID Group # Subscriber Relationship Effect bernardo Dates 1 - Health Safety Net - [facility] [id number] Sharla Landis Clinical Notes Includes: Clinical Notes from this encounter * Progress note Date Encounter Last Documented by 01/12/2023 Established Patient Allan boyer on 01/12/2023; 10:04 AM, Maria Luisa DUNCAN; [facility], Physical Findings - Vitals taken 01/12/2023 09:36 am BP-Sitting 126/80 mmHg Pulse Rate-Sitting 97 bpm Temp-Temporal 98.1 F Height 66 in Weight 149 lbs Body Mass Index 24 kg/m2 Body Surface Area 1.8 m2 Oxygen Saturation 98 % Plan StartCited - Sprain of medial collateral ligament of right knee, init Follow Up/Appointment: 1 Month In House X-Rays/X-Rays: Calcameus, left, 2 views ([id number]) EndCited User Defined 4 Chief complaint: Right [...] of the fracture boot. She should continue mfvz-bze-kenahck analgesics as needed. Patient is cautioned to avoid reinjury. Patient should follow-up in 4 weeks with repeat x-rays right ankle 3 views. Patient understands agrees with this plan.
--- OUTSIDE RECORDS SUMMARY | 2024-11-03 12:36 | XMS_ITS | Clinical Summary ---
Author Organization [facility] Address [address] [place] [address] Phone Care Team Providers Care Tamping Machine Operator Road Forms Name Role Phone [facility] Un[facility] [phone] [place] DENTAL PRACTICE MANAGER, Inna Primary Care Provider [phone] Reason for Visit and Chief Complaint Established Patient Plan of Treatment 1. Resume activities as tolerated. 2. Discharge from our care 3. Return on an as-needed basis only - Last Documented On 02/18/2023 10:58AM ; [facility] Pending Tests Order Diagnosis Results Due Ordering [place] Follow Up - Appointment PRN Unsp fra cture of lower end of right tibia, init for clos fx 02/18/23 Hunter Cummins MD Last Documented On 10:58AM ; [facility] Assessments Includes: Assessments from this encounter No Assessments Recorded Medical Equipment - Implanted Devices Includes: Current Devices No Medical Equipment Recorded Medications Includes: Medications discussed during this encounter and other current Medications Current Medications (continue as prescribed) Ibuprofen Oral Tablet 12/11/2022 Provider: Diagnosis: Last Documented On 10:55AM By Valerio Smith ; [facility] Medications Administered Includes: Administered Medications from this encounter No Administered Medications Recorded Vital Signs Includes: Vital Signs from this encounter Vital Name 02/17/2023 10:34A Blood Pressure Sitting (mmHg) 141/70 Pulse Rate-Sitting (bpm) 83 Temp-Temporal 97.3 Height (in) 66 Weight (lb) 148 Body Mass Index 23.9 Body Surface Area 1.8 Oxygen Saturation (%) 99 Last Documented: On 02/17/2023 10:34A M ; [facility], Results Includes: Results discussed during this [...] Time Diagnosis Established Patient Hunter Cummins MD [facility], 02/18/20 10:20AM 11:15AM Insurance Includes: Active Insurance Policies Plan Name Member ID Group # Subscriber Relationship Effect bernardo Dates 1 - [facility] [id number] Sharla Baires Self Clinical Notes Includes: Clinical Notes from this encounter * Progress note Date Encounter Last Documented by 02/17/2023 Established Patient Allan boyer on 02/18/2023; 10:58 AM, Hunter Cummins MD; [facility], Chief Complaint 1. Nondisplaced intra-articular fracture involving [...]
--- OUTSIDE RECORDS SUMMARY | 2024-11-03 12:36 | XMS_ITS ---
Author Organization [facility] Address [address] [place] [address] Phone Care Team Providers Care Electrical Instrument Repairer Name Role Phone [facility] Unavailable [phone] [place] LODGE ATTENDANT, Inna Primary Care Provider [phone] Plan of Treatment No Plan of Treatment Recorded Assessments Includes: Assessments for all patient encounters No Assessments Recorded Medical Equipment - Implanted Devices Includes: Current and historical Devices No Medical Equipment Recorded Medications Includes: Current and historical Medications Current Medications (continue as prescribed) Ibuprofen Oral Tablet 12/11/2022 Provider: Diagnosis: Last Documented On 3 10:55AM By Valerio Smith ; [facility] [place] Medications Administered Includes: Administered Medications in patient's [...] Dates 1 - [employer] [facility] - [facility] [id number] Sharla Baires Self Clinical Notes Includes: Signed Clinical Notes starting from 08/24/2022 No Clinical Notes Recorded
[2024-11-03 13:13] LABS: Ferritin 49 ng/mL (10-122); TSH reflex Free T4 1.75 uIU/mL (0.32-4.0); Vitamin D 25-OH Total 17.7 ng/mL (>30)
[2024-11-03 13:21] LABS: Folate 12.6 ng/mL (> or = 4.0); Vitamin B12 357 pg/mL (200-900)
[2024-11-04 20:59] LABS: Transglutaminase IgA <1.0 U/mL
[2024-11-05 23:24] LABS: Immunoglobulin A 275 mg/dL (47-310)
== END 2024-11-03 09:57 | disposition home or self-care (01) ==
LOC: HO.LAB 09:56
PROVIDERS: PCP Registered Nurse; Visit Provider Internal Medicine Gastroenterology
DX: K59.09 Other constipation (principal); K62.5 Hemorrhage of anus and rectum
CPT/HCPCS: 36415; 82306; 82607; 82728; 82746; 82784; 84443; 85025; 86364

== ENCOUNTER 2024-11-03 09:56 | Outpatient (AMB) | payer MEDICAID, SELFPAY ==
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
[2024-11-03 10:21] VITALS: BP 127/83; PULSE 76; BMI 28.3
--- OUTSIDE RECORDS SUMMARY | 2024-11-03 10:48 | XMS_ITS ---
Care Plan - [facility] Created on: November 03, 2024 Sharla Gallegos : 2000 Sex: Female Author Organization [facility] Address [address] [place] [address] Phone Care Team Providers Care Church Administrator Name Role Phone [facility], Unavailable [phone] [place] FRONT DESK SPECIALIST, Inna Primary Care Provider [phone]
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
--- OUTSIDE RECORDS SUMMARY | 2024-11-03 10:49 | XMS_ITS | Encounter Summary ---
Author Organization [employer] Address [address] [place] [address] 7 [place] [address] Care Team Providers Care Sample Selector Name Role Phone Inna Gallagher Primary Care Provider [phone] Reason for Referral * Consultation (STAT) - Authorized Specialty Diagnoses / Procedures Referred By Miya ragland Referred To Contact Gastroenterology Diagnoses Acute lower GI bleeding Inna Gallagher FNP [address] [place] [address] Phone: tel: fax: [facility] [address] [place] [address] 2nd Floor [place], [place] Phone: tel: fax: Referral ID Status Reason Start Date Expiration Date Visits Requested Visits Authorized [id number] Authorized Specialty Services Required 10/14/2024 10/14/2025 6 6 Encounter Details Date Type Department Care Team (Late st Contact Info) Description 10/12/2024 2:30 PM EST Office Visit [facility] [address] [place], [place] [phone] Inna Gallagher FNP [address] [place] [address] Acute lower GI bleeding (Primary Dx); Hemorrhoids, [...] 2:47 PM EST documented in this encounter Progress Notes * [facility], TAX AUDITOR - 10/12/2024 2:30 PM EST SUBJECTIVE: Sharla Baires is a 24 y.o. year old adult with no significant past medical history who presents for evaluation of rectal bleeding. HPI Patient presents with daily painless rectal bleeding associated with bowel movements x 2 weeks. Blood appears bright red and stains entire toilet bowl. Has also had several episodes of small blood clots pass per rectum. Occasional spotting between bowel movements. Bowel movements are soft and occur1-2 times per day. She does have a history of hemorrhoids. Denies pain, burning, itching. No fever,chills. No recent travel. She does have a history of dyspepsia and abdominal bloating however the symptoms have remained unchanged since onset of rectal bleeding. Denies recent injury to rectum. No recent anal intercourse Patient Active Problem List Diagnosis Asthma Chronic abdominal pain Abnormal uterine bleeding Anxiety PTSD (post-traumatic stress disorder) Review of Systems Constitutional: Negative for activity change, appetite change, fatigue, fever and unexpected weightchange. HENT: Negative for ear pain and hearing loss. Eyes: Negative for pain and visual disturbance. Respiratory: Negative for chest tightness and shortness of breath. Cardiovascular: Negative for chest pain. Gastrointestinal: Positive for anal bleeding and blood in stool. Negative for abdominal pain, diarrhea, nausea and vomiting. Genitourinary: Negative. Musculoskeletal: Negative. Skin: Negative. Neurological: Negative for dizziness, weakness, light-headedness and headaches. Hematological: Negative. Psychiatric/Behavioral: Negative. OBJECTIVE: Vitals: 10/12/24 1447 BP: 126/76 Pulse: 92 Resp: 20 Temp: 97.7 ??F (36.5 ??C) Physical Exam [employer] Tr[employer] present: declines. Constitutional: General: Sharla is not in acute distress. Appearance: Normal appearance. HENT: Head: Normocephalic. Right Ear: External ear normal. Left Ear: External ear normal. Eyes: Conjunctiva/sclera: Conjunctivae normal. Cardiovascular: Rate and Rhythm: Normal rate and regular rhythm. Heart sounds: Normal heart sounds. Pulmonary: Effort: Pulmonary effort is normal. Abdominal: General: Bowel sounds are normal. There is no distension. Palpations: Abdomen is soft. There is no mass. Tenderness: There is no abdominal tenderness. There is no guarding or rebound. Hernia: No hernia is present. Genitourinary: Rectum: External hemorrhoid present. No mass, tenderness, anal fissure or internal hemorrhoid. Normal anal tone. Skin: General: Skin is warm and dry. Neurological: General: No focal deficit present. Mental Status: Sharla is alert and oriented to person, place, and time. Psychiatric: Mood and Affect: Mood normal. Behavior: Behavior normal. ASSESSMENT/PLAN 1. Acute lower GI bleeding (Primary) -Vital signs stable. Patient with no dizziness or weakness. - she showed picture of a blood clot that passed per rectum approximately 1 x 2 cm in size - Strong suspicion for acute diverticular lower GI bleed - Rectal exam with nonthrombosed external hemorrhoid. Exam otherwise unremarkable. I do not think that external hemorrhoid is etiology of bleed however will treat with Anusol and fiber. - blood work today to confirm hemodynamic stability -Stat referral to GI for colonoscopy -ED precautions advised - CBC auto differential; Future - Comprehensive Metabolic Panel; Future - Prothrombin Time-INR; Future - CBC auto differential - Comprehensive Metabolic Panel - Prothrombin Time-INR - Referral to Gastroenterology; Future - Referral to Gastroenterology 2. Hemorrhoids, unspecified hemorrhoid type - hydrocortisone (Anusol-HC) 25 MG suppository; Insert 1 suppository (25 mg) into the rectum every 12 (twelve) hours for 5 days. Dispense: 10 suppository; Refill: 0 - polycarbophil (FiberCon) 625 MG tablet; Take 1 tablet (625 mg) by mouth Once per day. Dispense: 30 tablet; Refill: 11 Follow Up: Pending lab results. Current Outpatient Medications on File Prior to Visit Medication Sig Dispense Refill albuterol (2.5 MG/3ML) 0.083% nebulizer solution Take 3 mL (2.5 mg) by nebulization every 4 (four) hours if needed for wheezing. 75 mL 3 albuterol (ProAir HFA) 108 (90 Base) MCG/ACT inhaler INHALE 2 PUFFS BY MOUTH EVERY 4 HOURS IF NEEDED 18 g 3 albuterol (ProAir HFA) 108 (90 Base) MCG/ACT inhaler Inhale 2 puffs every 4 (four) hours. 18 g 3 budesonide-formoterol (Symbicort) 80-4.5 MCG/ACT inhaler Inhale 2 puffs every 4- 6 hours as needed for cough, shortness of breath 1 each 11 cetirizine (ZyrTEC) 10 MG tablet Take 1 tablet (10 mg) by mouth Once per day. 90 tablet 3 cyclobenzaprine (Flexeril) 5 MG tablet Take 1 tablet (5 mg) by mouth at bedtime. 30 tablet 0 diphenhydrAMINE (BENADryl) 25 MG tablet Take 1-2 tab(s) as needed, Carry with you in case of allergic reaction 20 tablet 0 escitalopram (Lexapro) 10 MG tablet Take 1 tablet (10 mg) by mouth Once per day. 30 tablet 2 lidocaine (Lidoderm) 5 % patch Apply topically to affected areas. Leave on for up to 12 hours 30 patch 1 No current facility-administered medications on file prior to visit. documented in this encounter Plan of Treatment Scheduled Referrals Name Type Priority Associated Diagnoses Order Schedule Referral to Gastroenterology Outpatient Referral STAT Acute lower GI bleeding Expected: 10/12/2024 (Approximate), Expires: 10/12/2025 documented as of this encounter Procedures Procedure Name Priority Date/Time Associated Diagnosis Comments CBC WITH AUTO DIFFERENTIAL Routine 10/12/2024 3:59 PM EST Acute lower GI bleeding PROTHROMBIN TIME-INR Routine 10/12/2024 3:59 PM EST Acute lower GI bleeding COMPREHENSIVE METABOLIC PANEL Routine 10/12/2024 3:59 PM EST Acute lower GI bleeding documented in this encounter Results * Prothrombin Time-INR (10/12/2024 3:59 PM EST) Prothrombin Time 11.0 10.9 - 12.4 SEC [facility] INTERNATIONAL NORM RATIO 0.9 0.9 - 1.1 [facility] Comment:INTERNATIONAL NORMAL IZED RATIO (INR) REFERENCE RANGES Reference RangeFor patients not on anticoagulant therapy: 0.9 - 1.1INR ranges for oral anticoagulanttherapy:For prevention and treatment of venous thrombosis and pulmonary embolism: 2.0 - 3.0For acute myocardial infarction with aspirin therapy: 2.0 - 3.0For acute myocardial infarction without aspirin therapy: 3.0 - 4.0For patients with mechanical prosthetic heart valves: 2.5 - 3.5 Blood Venous blood specimen / Unknown 10/12/2024 3:59 PM EST 10/12/2024 5:32 PM EST [facility] LAB BLOOD ORDERABLES Final Re sult [facility] [address] [place] [address] [phone] * (ABNORMAL) Comprehensive Metabolic Panel (10/12/2024 3:59 PM EST) Sodium 136 135 - 145 mmol/L [facility] Potassium 4.1 3.3 - 5.1 mmol/L [facility] Chloride 106 96 - 108 mmol/L [facility] Carbon Dioxide 25 22 - 29 mmol/L [facility] Anion Gap 9(L) 12 - 20 [facility] Urea Nitrogen (BUN) 9 9 - 16 mg/dL [facility] Creatinine, Serum 0.59 0.5 - 1.4 mg/dL [facility] Estimated Glomerular Filt Rate >60 [facility] Comment:Chronic Kidney Disea se: Estimated GFR < 60 mL/min/[id number] Kidney Disease: Estimated GFR < 15 mL/min/1.73m2 Glucose 115 60 - 115 mg/dL [facility] Calcium 9.4 8.4 - 10.2 mg/dL [facility] Bilirubin, Total 0.5 0.0 - 1.0 mg/dL [facility] Aspartate Amino Transferase 18 5 - 31 U/L [facility] Alanine Aminotransferase 22 0 - 31 U/L [facility] Total Protein 7.7 6.5 - 8.0 g/dL [facility] Albumin Level 4.5 3.5 - 5.0 g/dL [facility] Alkaline Phosphatase 51 39 - 117 U/L [facility] Blood Venous blood specimen / Unknown 10/12/2024 3:59 PM EST 10/12/2024 5:32 PM EST [facility] BLOOD ORDERABLES Final Re sult [facility] [address] [place] [address] [phone] * (ABNORMAL) CBC auto differential (10/12/2024 3:59 PM EST) White Blood Count 3.8(L) 4.8 - 10.8 X10*3/uL [facility] Red Blood Count 4.09(L) 4.20 - 5.50 X10*6/uL [facility] Hemoglobin 12.7 12.0 - 16.0 g/dl [facility] Hematocrit 37.9 37.0 - 47.0 % [facility] Mean Corpuscular Volume 92.7 80.0 - 98.0 fL [facility] Mean Corpuscular Hemoglobin 31.1 27.0 - 33.0 pg [facility] Mean Corpuscular HGB Conc 33.5 31.0 - 35.0 g/dl [facility] Red Cell Distribution Width 13.5 11.0 - 16.0 % [facility] Platelet Count 227 160 - 400 X10*3/uL [facility] Mean Platelet Volume 10.6 9.4 - 12.3 fL [facility] Neutrophils Percent Auto 55.0 45 - 73 % [facility] Imm Gran Pct Auto 0.3 0.0 - 0.4 % [facility] Lymphocytes Percent Auto 36.6 20 - 40 % [facility] Monocytes Percent Auto 5.8 2 - 11 % [facility] Eosinophils Percent Auto 1.8 0 - 4 % [facility] Basophils Percent Auto 0.5 0 - 2 % [facility] NRBC Pct Auto 0.0 0.0 - 0.2 /100WBC [facility] Neutrophils Absolute Auto 2.1 2.0 - 8.3 x10*3/uL [facility] Imm Gran Abs Auto 0.01 0.00 - 0.03 X10*3/uL [facility] Lymphocytes Absolute Auto 1.4 1.2 - 4.9 X10*3/uL [facility] Monocytes Absolute Auto 0.2 0.1 - 1.2 X10*3/uL [facility] Eosinophils Absolute Auto 0.1 0.0 - 0.4 X10*3/uL [facility] Basophils Absolute Auto 0.0 0.0 - 0.2 X10*3/uL [facility] NRBC Abs Auto 0.000 0.0 - 0.012 X10*3/uL [facility] Blood Venous blood specimen / Unknown 10/12/2024 3:59 PM EST 10/12/2024 5:32 PM EST [facility] BLOOD ORDERABLES Final Re sult [facility] [address] [place] [address] [phone] documented in this encounter Visit Diagnoses Diagnosis Acute lower GI bleeding- Primary Unspecified, hemorrhage of gastrointestinal tract Hemorrhoids, unspecified hemorrhoid type documented in this encounter Additional Health Concerns Assessment Noted Time PHQ-9 Depression Total Score: 8 06/01/20 24 11:29 AM EDT documented as of this encounter Care Teams Sample Selector Relationship Specialty Start Date End Date [place] TAX AUDITOR [address] [place] [address] PCP - General Family Medicine 07/03/22 documented as of this encounter
--- OUTSIDE RECORDS SUMMARY | 2024-11-03 10:49 | XMS_ITS | Encounter Summary ---
Author Organization [employer] Address [address] [place] [address] Care Team Providers Care Director Internal Communications Name Role Phone Inna Gallagher ARNP Primary Care Provider [phone] Encounter Details Date Type Department Care Team [...] documented as of this encounter Care Teams Director Internal Communications Relationship Specialty Start Date End Date Inna Gallagher FNP [address] [place] [phone] PCP - General Family Medicine 07/03/22 documented as of this encounter
--- OUTSIDE RECORDS SUMMARY | 2024-11-03 10:49 | XMS_ITS | Clinical Summary ---
Author Organization [employer] Address [address] [facility] 7t [place] [address] Care Team Providers Care Lens Fabricating Machine Tender Name Role Phone Inna Gallagher RETIREMENT SPECIALIST Primary Care Provider [phone] Allergies No known active allergies Medications diphenhydrAMINE (BENADryl) 25 MG tabletIndicatio ns:Insect stings, accidental or unintentional, initial encounter Take 1-2 tab(s) as needed, Carry with you in case of allergic reaction 20 tablet 023 Active cyclobenzaprine (Flexeril) 5 MG tabletIndicatio ns:Muscle spasm Take 1 tablet (5 mg) by mouth at bedtime. 30 tablet 024 Active lidocaine (Lidoderm) 5 % patchIndication s:Muscle spasm Apply topically to affected areas. Leave on for up to 12 hours 30 patch 1 024 Active albuterol (ProAir HFA) 108 (90 Base) MCG/ACT inhalerIndicati ons:Mild intermittent asthma without complication INHALE 2 PUFFS BY MOUTH EVERY 4 HOURS IF NEEDED 18 g 3 024 Active albuterol (ProAir HFA) 108 (90 Base) MCG/ACT inhalerIndicati ons:Mild intermittent asthma without complication Inhale 2 puffs every 4 (four) hours. 18 g 3 024 Active cetirizine (ZyrTEC) 10 MG tabletIndicatio ns:Insect stings, accidental or unintentional, initial encounter Take 1 tablet (10 mg) by mouth Once per day. 90 tablet 3 024 2024 Active budesonide-form oterol (Symbicort) 80-4.5 MCG/ACT inhalerIndicati ons:Mild intermittent asthma without complication Inhale 2 puffs every 4-6 hours as needed for cough, shortness of breath 1 each 11 Active albuterol (2.5 MG/3ML) 0.083% nebulizer solutionIndicat ions:Mild intermittent asthma without complication Take 3 mL (2.5 mg) by nebulization every 4 (four) hours if needed for wheezing. 75 mL 3 024 2024 Active escitalopram (Lexapro) 10 MG tabletIndicatio ns:Anxiety Take 1 tablet (10 mg) by mouth Once per day. 30 tablet 2 024 2024 Active polycarbophil (FiberCon) 625 MG tabletIndicatio ns:Hemorrhoids, unspecified hemorrhoid type Take 1 tablet (625 mg) by mouth Once per day. 30 tablet 11 025 2025 Active hydrocortisone (Anusol-HC) 2.5 % rectal creamIndication s:Hemorrhoids, unspecified hemorrhoid type Insert Rectall EVERY TWELVE HOURS TIME 5 DAYS 30 g 025 Active hydrocortisone (Anusol-HC) 25 MG suppositoryIndi cations:Hemorrh oids, unspecified hemorrhoid type Insert 1 suppository (25 mg) into the rectum every 12 (twelve) hours for 5 days. 10 suppository 025 2024 Discontinued Active Problems Problem Noted Date Diagnosed Date [...] Encounters Date Type Department Care Team Description 10/17/2024 Telephone [facility] [address] [place] [phone] Suzanne Sher, RN Results 10/17/2024 Orders Only [facility] [address] [place] [address] [facility]ukopenia, unspecified type (Primary Dx) 10/12/2024 2:30 PM EST Office Visit [address] [address] ElliottInna argueta [facility] Acute lower GI bleeding (Primary Dx); Hemorrhoids, unspecified hemorrhoid type 10/12/[address] [address] [facility] Hemorrhoids, unspecified hemorrhoid type 10/12/2024 Travel 10/07/[address] [address] ElliottInna argueta [facility] Nurse Triage 08/29/2024 11:15 AM EST Telemedicine [address] [address] Inna Gallagher [facility] Anxiety (Primary Dx) 08/29/2024 Travel 08/22/2024 11:30 AM EST Office Visit [address] [address] ShinnstonInna [facility] Mild intermittent asthma without complication (Primary Dx); PTSD (post-traumatic stress disorder); Mild episode of recurrent major depressive disorder (CMS/HCC); Sprain of left ankle, unspecified ligament, initial encounter 08/22/2024 Travel from Last 3 Months Immunizations Name Administration Dates Next Due TDAI-HLS-FLP-HEPB Combined 2000 HPV 9-Valent 06/05/2017,03/05/2016,05/11/2013 Hep A, [...] t he electric, gas, oil or water [employer] threatened to shut off services in your [...] Procedure Name Priority Date/Time Associated Diagnosis Comments PROTHROMBIN TIME-INR Routine 10/12/2024 3:59 PM EST Acute lower GI bleeding COMPREHENSIVE METABOLIC PANEL Routine 10/12/2024 3:59 PM EST Acute lower GI bleeding CBC WITH AUTO DIFFERENTIAL Routine 10/12/2024 3:59 PM EST Acute lower GI bleeding IMAGE-GUIDED PAP W/AGE BASED SCR,W/CT/NG/TRICH Routine 02/27/2023 2:22 PM EDT Cervical cancer screening ZZZ HISTORICAL HEPATITIS C AB W/REFL TO HCV RNA, QN, PCR Routine 06/03/2022 10:56 AM EDT HIV 1/2 ANTIGEN/ANTIBODY, FOURTH GENERATION W/RFL Routine 06/03/2022 10:56 AM EDT from Last 3 Months or Most Recently Relevant to Health Maintenance Results * (ABNORMAL) CBC auto differential (10/12/2024 3:59 PM EST) White Blood Count 3.8(L) 4.8 - 10.8 X10*3/uL [facility] Red Blood Count 4.09(L) 4.20 - 5.50 X10*6/uL [facility] Hemoglobin 12.7 12.0 - 16.0 g/dl [facility] Hematocrit 37.9 37.0 - 47.0 % [facility] Mean Corpuscular Volume 92.7 80.0 - 98.0 fL [facility] Mean Corpuscular Hemoglobin 31.1 27.0 - 33.0 pg [facility] Mean Corpuscular HGB Conc 33.5 31.0 - 35.0 g/dl [facility] Red Cell Distribution Width 13.5 11.0 - 16.0 % [facility] Platelet Count 227 160 - 400 X10*3/uL [facility] Mean Platelet Volume 10.6 9.4 - 12.3 fL [facility] Neutrophils Percent Auto 55.0 45 - 73 % [facility] Imm Gran Pct Auto 0.3 0.0 - 0.4 % [facility] Lymphocytes Percent Auto 36.6 20 - 40 % [facility] Monocytes Percent Auto 5.8 2 - 11 % [facility] Eosinophils Percent Auto 1.8 0 - 4 % [facility] Basophils Percent Auto 0.5 0 - 2 % [facility] NRBC Pct Auto 0.0 0.0 - 0.2 /100WBC [facility] Neutrophils Absolute Auto 2.1 2.0 - 8.3 x10*3/uL [facility] Imm Gran Abs Auto 0.01 0.00 - 0.03 X10*3/uL [facility] Lymphocytes Absolute Auto 1.4 1.2 - 4.9 X10*3/uL [facility] Monocytes Absolute Auto 0.2 0.1 - 1.2 X10*3/uL [facility] Eosinophils Absolute Auto 0.1 0.0 - 0.4 X10*3/uL [facility] Basophils Absolute Auto 0.0 0.0 - 0.2 X10*3/uL [facility] NRBC Abs Auto 0.000 0.0 - 0.012 X10*3/uL [facility] Blood Venous blood specimen / Unknown 10/12/2024 3:59 PM EST 10/12/2024 5:32 PM EST [facility] LAB BLOOD ORDERABLES Final Re sult Performing Organization Address [facility] Co de Phone Number [facility] [address] [place] [phone] * Prothrombin Time-INR (10/12/2024 3:59 PM EST) Prothrombin Time 11.0 10.9 - 12.4 SEC [facility] INTERNATIONAL NORM RATIO 0.9 0.9 - 1.1 [facility] Comment:INTERNATIONAL NORMAL IZED RATIO (INR) [...] 3:59 PM EST 10/12/2024 5:32 PM EST [facility] LAB BLOOD ORDERABLES Final Re sult Performing Organization Address [facility]/ZIP Co de Phone Number [facility] [address] [place] [phone] * (ABNORMAL) Comprehensive Metabolic Panel (10/12/2024 3:59 PM EST) Sodium 136 135 - 145 mmol/L [facility] Potassium 4.1 3.3 - 5.1 mmol/L [facility] Chloride 106 96 - 108 mmol/L [facility] Carbon Dioxide 25 22 - 29 mmol/L [facility] Anion Gap 9(L) 12 - 20 [facility] Urea Nitrogen (BUN) 9 9 - 16 mg/dL [facility] Creatinine, Serum 0.59 0.5 - 1.4 mg/dL [facility] Estimated Glomerular Filt Rate >60 [facility] Comment:Chronic Kidney Disea se: Estimated GFR < 60 mL/min/1.21r1Lvcilo Kidney Disease: Estimated GFR < 15 mL/min/1.73m2 Glucose 115 60 - 115 mg/dL [facility] Calcium 9.4 8.4 - 10.2 mg/dL [facility] Bilirubin, Total 0.5 0.0 - 1.0 mg/dL [facility] Aspartate Amino Transferase 18 5 - 31 U/L [facility] Alanine Aminotransferase 22 0 - 31 U/L [facility] Total Protein 7.7 6.5 - 8.0 g/dL [facility] Albumin Level 4.5 3.5 - 5.0 g/dL [facility] Alkaline Phosphatase 51 39 - 117 U/L [facility] Blood Venous blood specimen / Unknown 10/12/2024 3:59 PM EST 10/12/2024 5:32 PM EST [facility] RETIREMENT SPECIALIST LAB BLOOD ORDERABLES Final Re sult [facility] [address] [place] [phone] [phone] * Image-Guided Pap with Age-Based Screening??with CT/NG,??Trichomonas (02/27/2023 2:22 PM EDT) Comment [facility] Comment: This order for age-based cervical cancer and STI screening follows ACOG guidelines(PB 168, 140, LNG747). See individual assays for performing site location. Clinical Information: None given [email or web address] LMP: NONE GIVEN [facility] [place] [facility] Prev. PAP: NONE GIVEN [facility] [place] [facility] Prev. BX: NONE GIVEN [facility] [place] [facility] SOURCE: None given [facility] [place] [facility] Statement Of Adequacy: [facility] [place] [facility] Comment: Satisfactory for evaluation. Endocervical/transformation zone component absent. Interpretation/Re sult: Negative for intraepithelial lesion or malignancy. [facility] [place] [facility] COMMENT: This Pap test has been evaluated with computer assisted technology. [facility] [place] [facility] Operations Research Analyst: [employer] [place] [facility] Comment: BK,CT(ASCP) CT screening location: [address] Review Operations Research Analyst: [facility] [place] [facility] Comment: ALS, CT(ASCP) CT screening location: [address] ??[phone] (Always Message) Que st [email or web address] [place] [facility] Comment: EXPLANATORY NOTE: The Pap is a [...] RNA, TMA, Urogenital NOT DETECTED NOT DETECTED [facility] [place] [facility] Neisseria gonorrhoeae RNA, TMA, Urogenital NOT DETECTED NOT DETECTED [facility] [place] [facility] (Always Message) Que st [facility] Comment: The analytical performance characteristics of this assay, when used to test SurePath(TM) specimens have been determined by [facility]. The modifications have not been cleared or approved by the FDA. This assay has been validated pursuant to the CLIA regulations and is used for clinical purposes. For additional information, please refer to https://education.[employer]/faq/GTD002 (This link is being provided for information/ educational purposes only.) Trichomonas vaginalis, QL, TMA, PAP Vial NOT DETECTED NOT DETECTED [facility] Comment: The analytical performance characteristics of this assay have been determined by [facility]. The modifications have not been cleared or approved by the FDA. This assay has been validated pursuant to the CLIA regulations and is used for clinical purposes. For additional information, please refer to http://[employer]/ faq/Trichomonastma (This link is being provided for information/ educational purposes only.) Cervix 02/27/2023 2:22 PM EDT 02/28/2023 3:51 AM EDT [facility] LAB CYTOLOGY ORDERABLES Final Result Performing Organization Address City/[facility]/ZIP Co de Phone Number [facility] [address], [place] [address] [facility] [address] [place] [address] * HEPATITIS C AB W/REFL TO HCV RNA, QN, PCR (06/03/2022 10:56 AM EDT) HEPATITIS C ANTIBODY NON-REACT NAYA NON-REACT NAYA [facility] INDEX 0.04 <1.00 [facility] Comment: ?? HCV antibody was non-reactive. There is no laboratory ?? evidence of HCV infection. ?? In most cases, no further action is required. However, if recent HCV exposure is suspected, a test for HCV RNA (test code 99085) is suggested. ?? For additional information please refer to http://[employer]/faq/MWV69j5 (This link is being provided for informational/ educational purposes only.) ?? 06/03/2022 10:5 6 AM EDT [facility] HISTORICAL/NON ORDERABLE LABS Final Result Performing Organization Address City/[facility]/ZIP Co de Phone Number [facility] [address] * HIV 1/2 ANTIGEN/ANTIBODY,FOURTH GENERATION W/RFL (06/03/2022 10:56 AM EDT) HIV-1/2 ANTIGEN AND ANTIBODIES, 4TH GENERATION W/ REFLEX NON-REACT NAYA NON-REACT NAYA [facility] Comment: HIV-1 antigen and HIV-1/HIV-2 [...] ? For additional information please refer to http://education.[employer]/faq/PYU914 (This link is being provided for informational/ educational purposes only.) ? The performance of this assay has not been clinically validated in patients less than 2 years old. ?? 06/03/2022 10:5 6 AM EDT [facility] LAB BLOOD ORDERABLES Final Re sult [facility] [address] from Last 3 Months or Most Recently Relevant to Health Maintenance Insurance [employer] [facility] [place] [address] Care Teams Lens Fabricating Machine Tender Relationship Specialty Start Date End Date [place] Inna, [facility] [address] [place] [phone] PCP - General Family Medicine 07/03/22
--- OUTSIDE RECORDS SUMMARY | 2024-11-03 10:49 | XMS_ITS | Encounter Summary ---
Author Organization [employer] Address [address] [facility] 7t [place] [address] Care Team Providers Care Mobile Home Installer Name Role Phone [facility] Primary Care Provider [phone] Reason for Visit * Reason Comments Med Change Request Encounter Details Date Type Department Care Team ([facility] st Contact Info) Description 10/12/2024 Refill [facility] [address] [place] [address] [facility] [address] [place], [place] [phone] Hemorrhoids, unspecified hemorrhoid type Social History Tobacco [...] encounter Miscellaneous Notes * Telephone Encounter - Barbara Narayan RN - 10/12/2024 5:03 PM EST Triage call to Pt regarding Pt portal message 10/07/24 with triage done. Pt reports already seen by PCP today. No further questions. Protocol Used: No Contact or Duplicate Contact Call (Adult) Protocol-Based Disposition: Duplicate Contact Call Positive Triage Question: * Caller has already spoken with the PCP (or office), and has no further questions * All higher-acuity triage questions were negative * Telephone Encounter - Barbara Narayan RN - 10/12/2024 5:01 PM EST ----- Message from Nurse Jolynn Ortega sent at 10/10/2024 2:21 PM EST ----- Regarding: Call for Sick on Site Inna 10/14/24 See Nurse Triage note 10/07/24. Pt only wishes to see PCP. Rectal Bleeding documented in this encounter Plan of Treatment Not on file documented as of this encounter Visit Diagnoses Diagnosis Hemorrhoids, unspecified hemorrhoid type documented in this encounter Additional Health Concerns Assessment Noted Time PHQ-9 Depression Total Score: 8 06/01/20 24 11:29 AM EDT documented as of this encounter Care Teams Mobile Home Installer Relationship Specialty Start Date End Date Inna Gallagher FNP [address] [place] [address] PCP - General Family Medicine 07/03/22 documented as of this encounter
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
--- OUTSIDE RECORDS SUMMARY | 2024-11-03 10:49 | XMS_ITS | Encounter Summary ---
Author Organization [employer] Address [address] [facility] [address] [place] [address] Care Team Providers Care Clerk Rating Name Role Phone Inna Gallagher QUALITY ASSURANCE CONSULTANT Primary Care Provider [phone] Reason for Visit * Reason Onset Date Comments Results 10/17/2024 Encounter Details Date Type Department Care Team ([facility] Contact Info) Description 10/17/2024 Telephone [facility] [address] [place] [address] Suzanne Sher, ROSALINA Results Social History Tobacco Use Types Packs/Day Years [...] encounter Miscellaneous Notes * Telephone Encounter - Keya Nuno RN - 10/17/2024 6:31 PM EST TC placed to patient [phone] in regards to below message. Patient verbalized understanding padma she already received a call with GI appointment date and time. Patient aware to repeat BW in 1-2 weeks and will receive a call with new results once available. Patient to f/u PRN. ----- Message from [employer] sent at 10/17/2024 9:18 AM EST ----- Please let patient know that labs did not show anemia. Her white blood cell count was low this may be due to recent illness please advise patient to come to lab to repeat in 1 to 2 weeks. Please alsocheck on status of stat GI referral due to concern for acute lower GI bleed. Thank you! * Telephone Encounter - Suzanne Sher RN - 10/17/2024 9:25 AM EST TC to pt to relay message from provider as per below. VM left with [facility] contact info for return call. Will re attempt Re GI referral: approved for 6 visits. ----- Message from [employer] sent at 10/17/2024 9:18 AM EST ----- Please let patient know that labs did not show anemia. Her white blood cell count was low this may be due to recent illness please advise patient to come to lab to repeat in 1 to 2 weeks. Please alsocheck on status of stat GI referral due to concern for acute lower GI bleed. Thank you! documented in this encounter Plan of Treatment Not on file documented as of this encounter Visit Diagnoses Not on filedocumented in this encounter Additional Health Concerns Assessment Noted Time PHQ-9 Depression Total Score: 8 06/01/20 24 11:29 AM EDT documented as of this encounter Care Teams Clerk Rating Relationship Specialty Start Date End Date Inna Gallagher FNP [address] [place] [phone] PCP - General Family Medicine 07/03/22 documented as of this encounter
--- OUTSIDE RECORDS SUMMARY | 2024-11-03 10:49 | XMS_ITS | Encounter Summary ---
Author Organization [employer] Address [address] [facility] [address] [facility] [address] [place] [address] Care Team Providers Care Interior Mechanic Name Role Phone [place] [facility] Primary Care Provider [phone] Encounter Details Date Type Department Care Team ([facility] st Contact Info) Description 10/17/2024 Orders Only [facility] [address] [place], [place] [phone] [facility] [address] [place] [address] Leukopenia, unspecified type (Primary Dx) Social History Tobacco Use Types Packs/Day Years [...] as of this encounter Plan of Treatment Scheduled Orders Name Type Priority Associated Diagnoses Orde r Schedule CBC auto differential Lab Routine Leukopenia, unspecified type Expected: 10/17/2024 (Approximate), Expires: 10/17/2025 documented as of this encounter Visit Diagnoses Diagnosis Leukopenia, unspecified type- Primary documented in this encounter Additional Health Concerns Assessment Noted Time PHQ-9 Depression Total Score: 8 06/01/20 24 11:29 AM EDT documented as of this encounter Care Teams Interior Mechanic Relationship Specialty Start Date End Date Inna Gallagher FNP [address] [place] [id number] PCP - General Family Medicine 07/03/22 documented as of this encounter
--- OUTSIDE RECORDS SUMMARY | 2024-11-03 10:49 | XMS_ITS | Encounter Summary ---
Author Organization [employer] Address [address] [facility] 7t [place] [address] Care Team Providers Care Code Number Stamper Name Role Phone [place] [facility] Primary Care Provider [phone] Reason for Visit * Reason Onset Date Comments Nurse Triage 10/07/2024 Encounter Details Date Type Department Care Team ([facility] st Contact Info) Description 10/07/2024 Telephone [facility] MEDICINE [address] [place], [place] [phone] [facility] [address] [place], [place] [phone] Nurse Triage Social History Tobacco Use Types [...] cannot make appt. To please call back [facility] nurses to cancel appt. RE: Rectal Bleeding. Called pt. Back and she did get message and [facility] * Telephone Encounter - [...] reminder for team to follow up. PCP [facility] on site Rectal bleeding. Declines [facility] or team provider visit. * Telephone Encounter [...] documented as of this encounter Care Teams Code Number Stamper Relationship Specialty Start Date End Date Inna Gallagher FNP [address] [place] [id number] PCP - General Family Medicine 07/03/22 documented as of this encounter
--- OUTSIDE RECORDS SUMMARY | 2024-11-03 10:49 | XMS_ITS ---
Author Organization [facility] [employer] Address [address] [place] [address] Phone Care Team Providers Care Surgical Technician Name Role Phone [facility] Unavailable [phone] [place] PHOTOLITHOGRAPHER, Inna Primary Care Provider [phone] Plan of Treatment No Plan of Treatment Recorded Assessments Includes: Assessments for all patient encounters No Assessments Recorded Medical Equipment - Implanted Devices Includes: Current and historical Devices No Medical Equipment Recorded Medications Includes: Current and historical Medications Current Medications (continue as prescribed) Ibuprofen Oral Tablet 12/11/2022 Provider: Diagnosis: Last Documented On 3 10:55AM By Valerio Smith ; [facility] Medications Administered Includes: Administered Medications in patient's chart No Administered Medications Recorded Results Includes: Results from 11/03/2023 through 11/03/2024 No Results Recorded For Specified Dates History of Present Illness History of Present Illness not supported for this document type No History of Present Illness Recorded Social History No Social History Recorded - Smoking Status Unknown Medical History Includes: Medical History in patient's chart No Medical History Recorded Family History Includes: Family History in patient's chart No Family History Recorded Review of Systems Review of Systems not supported for this document type No Review of Systems Recorded Mental Status No Mental Status Recorded Functional Status No Functional Status Recorded Physical Exam Physical Exam not supported for this document type No Physical Exam Recorded Insurance Includes: Active Insurance Policies Plan Name Member ID Group # Subscriber Relationship Effect bernardo Dates 1 - Health Safety Net - [facility] [id number] Sharla Baires Self Clinical Notes Includes: Signed Clinical Notes starting from 08/24/2022 No Clinical Notes Recorded
--- OUTSIDE RECORDS SUMMARY | 2024-11-03 10:49 | XMS_ITS | Encounter Summary ---
Author Organization [employer] Address [address] [place] [address] 7t [place] [address] Care Team Providers Care Orchid Superintendent Name Role Phone [place] [facility] Primary Care Provider [phone] Reason for Visit * Reason Onset Date Comments triage 11/10/2022 Encounter Details Date Type Department Care Team ([facility] st Contact Info) Description 11/10/2022 Telephone [facility] MEDICINE [address] [place], [place] [phone] [facility] [address] [place], [place] [phone] triage Social History Tobacco Use Types Packs/Day [...] No answer LVM to return call to [facility] triage line. Nothing sooner with PCP than [...] on filedocumented in this encounter Care Teams Orchid Superintendent Relationship Specialty Start Date End Date Inna Gallagher FNP [address] [place] [id number] PCP - General Family Medicine 07/03/22 documented as of this encounter
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
== END 2024-11-03 10:54 | disposition home or self-care (01) ==
PROVIDERS: PCP Registered Nurse; Visit Provider Internal Medicine Gastroenterology
DX: K62.5 Hemorrhage of anus and rectum (principal); K59.09 Other constipation
CPT/HCPCS: 99204

== ENCOUNTER 2025-02-05 08:58 | Emergency (ER) | payer MEDICAID, SELFPAY ==
[2025-02-05] VITALS (8 sets, daily range): BP systolic 109–141; BP diastolic 72–110; PULSE 68–88; RESP 14–99; TEMP 36.5–36.9; O2SAT 98–100; BMI 26.7
--- NOTE | ~2025-02-05 | CT_ITS ---
CLINICAL HISTORY: brbpr w clots. small ext hemorrhoids. abd pain CT angio abdomen and pelvis with and without contrast Comparison: None Findings: No consolidation at the lung bases. Unremarkable gallbladder and bladder. 2.1 cm fluid attenuation lesion in the right ovary is likely a dominant follicle. The other solid organs are unremarkable. No intraluminal increased attenuation which appears after the administration of intravenous contrast and changes or moves on the delayed images to indicate acute gastrointestinal hemorrhage. Dilated pelvic vessels are visualized adjacent to the rectum which are likely internal hemorrhoids. There is increased attenuation within the vagina on the postcontrast images. No bowel wall thickening or dilation. The appendix is not visualized. No secondary signs of acute appendicitis. No intramural hematoma, dissection flap, stenosis, occlusion or aneurysm. No calcified atherosclerotic disease. No lymphadenopathy. No ascites. No acute osseous abnormality. Impression: Internal hemorrhoids are present. Increased attenuation is present in the vagina on the postcontrast images which could be due to enhancement or blood pooling from external hemorrhoids. This document has been electronically signed by: Lani Scott MD on 02/05/2025 13:15:20
--- NOTE | 2025-02-05 09:29 | ED_ITS ---
HPI - GI Bleed General Chief complaint: GI Bleed Stated complaint: rectal bleeding Time Seen by Provider: 02/05/25 09:29 Source: patient, RN notes reviewed and old records reviewed Mode of arrival: ambulatory History of Present Illness ED Provider: Jayshree Merchant PA-C HPI Narrative: 24-year-old female with a past medical history PTSD, anxiety, asthma, presenting to the ED complaining of brbpr x this a.m. with clots. Reports lower abdominal cramping/discomfort. States this morning bleeding persisted for 1 hour after BM. Admits to similar symptoms in the past with history of hemorrhoids, was scheduled for colonoscopy, however missed appointment. Denies anticoagulation use. Reports associated lightheadedness/fatigue and nausea. Denies fever, chills, vomiting, vaginal bleeding, dysuria/hematuria Related Data Home Medications ?Medication ?Instructions ?Recorded ?Confirmed albuterol sulfate 2.5 mg/3 mL 2.5 mg inhalation Q4-6H PRN 10/25/24 11/03/24 (0.083 %) solution for nebulization albuterol sulfate 90 mcg/actuation 2 puff inhalation Q4-6H PRN 10/25/24 11/03/24 aerosol inhaler budesonide-formoterol HFA 80 2 puff inhalation BID 10/25/24 11/03/24 mcg-4.5 mcg/actuation aerosol inhaler (Symbicort) cetirizine 10 mg tablet (Zyrtec) 10 mg PO DAILY PRN 10/25/24 11/03/24 diphenhydramine HCl 25 mg capsule 25 mg PO BEDTIME PRN 10/25/24 11/03/24 (Benadryl) hydrocortisone acetate 25 mg 25 mg NC BID 10/25/24 11/03/24 rectal suppository (Anusol-HC) lidocaine 5 % topical patch 1 patch topical DAILY 10/25/24 11/03/24 (Lidoderm) Previous Rx's ?Medication ?Instructions ?Recorded hydrocortisone 2.5 % topical cream 1 appl NC BID-QID PRN hemorrhoids 11/03/24 with perineal applicator 30 days #30 grams sennosides 8.6 mg-docusate sodium 2 tab-cap (2 x 8.6-50 mg) PO 11/03/24 50 mg capsule (Senna Plus) BEDTIME 60 days #120 caps hydrocortisone 1 % topical cream 1 appl topical TID PRN hemorrhoids 02/05/25 (Preparation H Hydrocortisone) #28.35 grams Allergies Allergy/AdvReac Type Severity Reaction Status Date / Time No Known Allergies Allergy Verified 02/05/25 09:16 Review of Systems 2 Review of Systems: Yes all other systems are reviewed and are negative Constitutional: Constitutional: Reports as per [facility] Past Medical History Attestation statement: The following information was validated with the patient. Source: old records reviewed Surgical History History of facial surgery Family History Family History Maternal Grandfather Diabetes Mother Depression Anemia HTN (hypertension) Social History Social History Household Members: Family Alcohol intake: current Alcohol type: hard liquor Patient Tobacco Use Status: Never used Tobacco Substance Use Type: Marijuana Physical Exam 2 Vital Signs: Vital Signs: Last Vital Signs Temp 97.7 F 02/05/25 14:49 Pulse 87 02/05/25 14:49 Resp 14 02/05/25 14:49 BP 114/73 02/05/25 14:49 Pulse Ox 98 02/05/25 14:49 O2 Del Method Room Air 02/05/25 14:49 BMI result Body Mass Index 26.7 Const: General: cooperative, healthy appearing and no acute distress O rientation/consciousness: patient oriented x3 Limitations: no limitations HEENT: Head: Yes normal to inspection and Yes atraumatic Ears: hearing grossly normal bilaterally General nose exam: Normal external nose present Face and sinus: Yes normal facial exam Eyes: General: appearance normal, both eyes and all related structures EOM: EOMs intact bilaterally Neck: Neck: Yes normal visual inspection and Yes no meningeal signs Resp: Effort & Inspection: normal respiratory effort and no respiratory distress Cardio: Rate: regular rate GI: Inspection: Yes normal to inspection Palpation (GI): Soft to palpation, nontender, no guarding and not rigid Rectal Exam - Female: External hemorrhoid(s) present (Without thrombosis or active bleeding) and No fecal impaction : General: Yes no CVA tenderness Back/Spine/Pelvis: Back: no CVA tenderness Skin: Rashes: no rashes Wounds: no wounds Neuro: General: patient oriented x3, tone normal and no meningeal signs C ranial nerves: Yes CN's II-XII intact bilaterally Gait exam (Neuro): Normal gait present Extrem: General: Yes normal to inspection Course Course Course Narrative: -chronic leukopenia. H&H at patient's baseline. Labs otherwise reassuring. -UA with RBCs/blood, not infected -occult stool positive CT gi bleed abd pel wo/w IVcon Impression: Internal hemorrhoids are present. Increased attenuation is present in the vagina on the postcontrast images which could be due to enhancement or blood pooling from external hemorrhoids. > there is no vaginal bleeding on exam. H/H is stable, will obtain 4 hour repeat CBC. Bleeding confirmed to be hemorrhoidal in source. Patient denies active spontaneous bleeding since ED arrival, states only bleeds when has BM, otherwise reports bleeding has been improving -1445--H&H has remained stable, no drop upon repeat. Patient is safe for discharge home at this time with GI follow-up. Results discussed with patient including worrisome signs and symptoms and strict return precautions, and when to return to the emergency department. They verbalized understanding and feel safe for discharge at this time. Medications Administered Discontinued Medications Generic Name Dose Route Start Last Admin Trade Name Zoltanq PRN Reason Stop Dose Admin Sodium Chloride 1,000 mls @ 999 mls/hr 02/05/25 09:45 02/05/25 12:24 Ns IV 02/05/25 10:45 Infused .Q1H1M CRISTINO Infusion Iohexol 85 ml 02/05/25 11:02 02/05/25 11:02 Iohexol 350 Mg/Ml 100 Ml Infus..Btl IV 02/05/25 11:03 85 ml ONCE ONE Administration Medical Decision Making Medical Decision Making [facility] Narrative: 24-year-old female with a past medical history PTSD, anxiety, asthma, presenting to the ED complaining of brbpr x this a.m. with clots. States this morning bleeding persisted for 1 hour after BM. Reports associated lightheadedness/fatigue and nausea. On exam hypertensive, NAD, nontoxic appearing, abdomen is soft and nontender, on rectal exam small external hemorrhoids appreciated without thrombosis or active bleeding. Bright red blood noted on rectal. Concern for GI bleed vs hemorrhoidal bleeding. Rule out anemia and metabolic abnormalities. Lower suspicion for acute appendicitis/diverticulitis or ovarian pathology Plan: Labs, UA, , occult stool, CT AP, IVF, re-evaluate Please refer to course for remaining clinical decision making, interpretation of labs/imaging results, and discussions with consultants and/or family members. Differential Diagnosis Differential Diagnoses: The differential diagnosis associated with the presentation includes As above Admission/Observation Consideration of admission/observation: Escalation of care including admission/observation considered Lab Data MDM Lab Attestation statement: I reviewed the patient's lab results. 02/05/25 14:08 02/05/25 09:26 Labs: Lab Results 02/05/25 02/05/25 02/05/25 Range/Units 09:26 09:56 12:29 WBC 3.7 L (4.8-10.8) X10*3/uL RBC 4.16 L (4.20-5.50) X10*6/uL Hgb 13.5 (12.0-16.0) g/dl Hct 37.9 (37.0-47.0) % MCV 91.1 (80.0-98.0) fL MCH 32.5 (27.0-33.0) pg MCHC 35.6 H (31.0-35.0) g/dl RDW 13.1 (11.0-16.0) % Plt Count 253 (160-400) X10*3/uL MPV 9.5 (9.4-12.3) fL Immature Gran % (Auto) 0.0 (0.0-0.4) % Neut % (Auto) 62.9 (45-73) % Lymph % (Auto) 28.7 (20-40) % [place] % (Auto) 7.0 (2-11) % Eos % (Auto) 1.1 (0-4) % Baso % (Auto) 0.3 (0-2) % Lymph # (Auto) 1.1 L (1.2-4.9) X10*3/uL [place] # (Auto) 0.3 (0.1-1.2) X10*3/uL Eos # (Auto) 0.0 (0.0-0.4) X10*3/uL Baso # (Auto) 0.0 (0.0-0.2) X10*3/uL Abs Immat Gran (auto) 0.00 (0.00-0.03) X10*3/uL Absolute Neuts (auto) 2.3 (2.0-8.3) x10*3/uL Absolute Nucleated RBC 0.000 (0.0-0.012) X10*3/uL Nucleated RBC % (auto) 0.0 (0.0-0.2) /100WBC PT 12.1 (10.9-12.4) SEC INR 1.1 (0.9-1.1) Sodium 139 (135-145) mmol/L Potassium 4.3 (3.3-5.1) mmol/L Chloride 108 (96-108) mmol/L Carbon Dioxide 24 (22-29) mmol/L Anion Gap 11 L (12-20) BUN 10 (9-16) mg/dL Creatinine 0.51 (0.5-1.4) mg/dL Estim Creat Clear Calc 157.9 Estimated GFR > 60 Random Glucose 98 (60-115) mg/dL Calcium 9.4 (8.4-10.2) mg/dL Magnesium 1.8 (1.6-2.6) mg/dL Total Bilirubin 1.0 (0.0-1.0) mg/dL AST 18 (5-31) U/L ALT 22 (0-31) U/L Alkaline Phosphatase 52 (39-117) U/L Total Protein 7.6 (6.5-8.0) g/dL Albumin 4.7 (3.5-5.0) g/dL Lipase 8 (8-78) U/L Beta HCG, Quant < 2 mIU/mL Urine Color Yellow Urine Appearance Clear Urine pH 8.0 (5.0-9.0) Ur Specific [place] >= 1.030 H (1.005-1.025) Urine Protein Trace (Neg-Trace) mg/dL Urine Glucose (UA) Negative (Negative) mg/dL Urine Ketones Trace (Negative) mg/dL Urine Blood Large (3+) H (Negative) Urine Nitrite Negative (Negative) Ur Leukocyte Esterase Negative (Negative) Urine RBC 3-5 H (0-2) /HPF Urine WBC 0-5 (0-5) /HPF Ur Squamous Epith Cells 3-5 (0-2) /HPF Urine Bacteria 1+ (None Seen) Hyaline Casts 0-2 (0-2) /LPF Stool Occult Blood POSITIVE (NEGATIVE) 02/05/ Range/Units 14:08 WBC 3.9 L (4.8-10.8) X10*3/uL RBC 4.04 L (4.20-5.50) X10*6/uL Hgb 13.1 (12.0-16.0) g/dl Hct 36.2 L (37.0-47.0) % MCV 89.6 (80.0-98.0) fL MCH 32.4 (27.0-33.0) pg MCHC 36.2 H (31.0-35.0) g/dl RDW 12.9 (11.0-16.0) % Plt Count 242 (160-400) X10*3/uL MPV 9.8 (9.4-12.3) fL Immature Gran % (Auto) 0.3 (0.0-0.4) % Neut % (Auto) 57.5 (45-73) % Lymph % (Auto) 34.7 (20-40) % [place] % (Auto) 6.0 (2-11) % Eos % (Auto) 1.0 (0-4) % Baso % (Auto) 0.5 (0-2) % Lymph # (Auto) 1.3 (1.2-4.9) X10*3/uL [place] # (Auto) 0.2 (0.1-1.2) X10*3/uL Eos # (Auto) 0.0 (0.0-0.4) X10*3/uL Baso # (Auto) 0.0 (0.0-0.2) X10*3/uL Abs Immat Gran (auto) 0.01 (0.00-0.03) X10*3/uL Absolute Neuts (auto) 2.2 (2.0-8.3) x10*3/uL Absolute Nucleated RBC 0.000 (0.0-0.012) X10*3/uL Nucleated RBC % (auto) 0.0 (0.0-0.2) /100WBC PT (10.9-12.4) SEC INR (0.9-1.1) Sodium (135-145) mmol/L Potassium (3.3-5.1) mmol/L Chloride (96-108) mmol/L Carbon Dioxide (22-29) mmol/L Anion Gap (12-20) BUN (9-16) mg/dL Creatinine (0.5-1.4) mg/dL Estim Creat Clear Calc Estimated GFR Random Glucose (60-115) mg/dL Calcium (8.4-10.2) mg/dL Magnesium (1.6-2.6) mg/dL Total Bilirubin (0.0-1.0) mg/dL AST (5-31) U/L ALT (0-31) U/L Alkaline Phosphatase (39-117) U/L Total Protein (6.5-8.0) g/dL Albumin (3.5-5.0) g/dL Lipase (8-78) U/L Beta HCG, Quant mIU/mL Urine Color Urine Appearance Urine pH (5.0-9.0) Ur Specific [place] (1.005-1.025) Urine Protein (Neg-Trace) mg/dL Urine Glucose (UA) (Negative) mg/dL Urine Ketones (Negative) mg/dL Urine Blood (Negative) Urine Nitrite (Negative) Ur Leukocyte Esterase (Negative) Urine RBC (0-2) /HPF Urine WBC (0-5) /HPF Ur Squamous Epith Cells (0-2) /HPF Urine Bacteria (None Seen) Hyaline Casts (0-2) /LPF Stool Occult Blood (NEGATIVE) Independent Interpretation I performed an independent interpretation of an: CT Scan Radiology Impression Discussion of test interpretation with radiology: I have reviewed the radiologist's reading. External Record Review External record reviewed: Inpatient record, Office record, Outpatient record, Prior outpatient labs, Prior outpatient radiology, Primary care record and Outside ED record Tests considered The following testing was considered but not selected: As above Prescription Management I considered prescription management with: Pain Medication and Other Chronic Conditions Patient?s care impacted by: Other Social Determinants Patient?s care significantly limited by Social Determinants of Health including: Other Social Determinant of Health Discharge Plan Discharge Clinical Impression: Bleeding hemorrhoids Patient Disposition: Home, Self-Care Instructions: Rectal Bleeding (ED) Additional Instructions: Your blood work is reassuring. Your CAT scan confirms hemorrhoidal bleeding Please use hydrocortisone cream as prescribed You need to follow-up with gastroenterology. You need a colonoscopy If her symptoms persist or worsen, bleeding increases, you develop abdominal pain, rectal pain, you are unable to have a bowel movement, lightheadedness/dizziness or passing out episodes return to the ED Prescriptions: New hydrocortisone [Preparation H Hydrocortisone] 1 % cream 1 appl topical TID PRN (Reason: hemorrhoids) Qty: 28.35 0RF No Action albuterol sulfate 2.5 mg /3 mL (0.083 %) solution for nebulization 2.5 mg inhalation Q4-6H PRN albuterol sulfate 90 mcg/actuation HFA aerosol inhaler 2 puff inhalation Q4-6H PRN budesonide-formoterol [Symbicort] 80-4.5 mcg/actuation HFA aerosol inhaler 2 puff inhalation BID cetirizine [Zyrtec] 10 mg tablet 10 mg PO DAILY PRN diphenhydramine HCl [Benadryl] 25 mg capsule 25 mg PO BEDTIME PRN lidocaine [Lidoderm] 5 % adhesive patch,medicated 1 patch topical DAILY Rx Instructions: leave on most painful area for up to 12 hrs hydrocortisone acetate [Anusol-HC] 25 mg suppository 25 mg NC BID Senna Plus 8.6-50 mg capsule 2 tab-cap PO BEDTIME 60 Days Qty: 120 1RF hydrocortisone 2.5 % cream with perineal applicator 1 appl NC BID-QID PRN (Reason: hemorrhoids) 30 Days Qty: 30 1RF Referrals: [facility] – [place] [facility] [Provider Group] - 1 week Inna Gallagher FNP [Primary Care Provider] - 5 days Interventions: ED Discharge Assessment Last Done: 02/05/25 14:49 Discharge Date/Time: 02/05/25 14:59 Print Language: Finnish
[2025-02-05 09:31] LABS: MANUAL DIFF FLAG NO
[2025-02-05 09:32] LABS: Basophils Percent Auto 0.3 % (0-2); Eosinophils Percent Auto 1.1 % (0-4); Hematocrit 37.9 % (37.0-47.0); Hemoglobin 13.5 g/dl (12.0-16.0); Lymphocytes Absolute Auto 1.1 X10*3/uL (1.2-4.9); Lymphocytes Percent Auto 28.7 % (20-40); Mean Corpuscular HGB Conc 35.6 g/dl (31.0-35.0); Mean Corpuscular Hemoglobin 32.5 pg (27.0-33.0); Mean Corpuscular Volume 91.1 fL (80.0-98.0); Mean Platelet Volume 9.5 fL (9.4-12.3); Monocytes Absolute Auto 0.3 X10*3/uL (0.1-1.2); Neutrophils Absolute Auto 2.3 x10*3/uL (2.0-8.3); Neutrophils Percent Auto 62.9 % (45-73); Platelet Count 253 X10*3/uL (160-400); Red Blood Count 4.16 X10*6/uL (4.20-5.50); Red Cell Distribution Width 13.1 % (11.0-16.0); White Blood Count 3.7 X10*3/uL (4.8-10.8)
--- NOTE | 2025-02-05 09:37 | PC.NURSE ---
Patient presents to ED from home c/o rectal bleeding with lower abd cramping. Patient has hx of bleeding but says it usually stops on its own, blood is bright red, patient states I felt it dripping , no blood thinners. Patient was scheduled for colonoscopy but missed the appt. Patient slightly hypertensive but all other VSS. Jayshree provider in with patient at this time.
[2025-02-05 09:53] LABS: Alanine Aminotransferase 22 U/L (0-31); Albumin Level 4.7 g/dL (3.5-5.0); Alkaline Phosphatase 52 U/L (39-117); Anion Gap 11 (12-20); Aspartate Amino Transferase 18 U/L (5-31); Blood Urea Nitrogen 10 mg/dL (9-16); Calcium 9.4 mg/dL (8.4-10.2); Carbon Dioxide 24 mmol/L (22-29); Chloride 108 mmol/L (96-108); Creatinine Clr Calc Pharmacy 157.9; Estimated Glomerular Filt Rate > 60; Glucose Random 98 mg/dL (60-115); Potassium 4.3 mmol/L (3.3-5.1); Sodium 139 mmol/L (135-145); Total Protein 7.6 g/dL (6.5-8.0)
[2025-02-05 09:54] LABS: Lipase 8 U/L (8-78); Magnesium 1.8 mg/dL (1.6-2.6)
[2025-02-05 10:24] LABS: HCG Quantitative < 2 mIU/mL
[2025-02-05 10:29] LABS: INTERNATIONAL NORM RATIO 1.1 (0.9-1.1); Prothrombin Time 12.1 SEC (10.9-12.4)
[2025-02-05] MEDS: 0.9 % Sodium Chloride 1,000 ML 999 ML IV (10:49)
--- NOTE | 2025-02-05 10:51 | PC.NURSE ---
IV 20G placed in Right forearm Currently infusing 1L NaCL on pause r/t patient receiving CT scan
[2025-02-05 10:54] LABS: OBS Int Ctl Valid YES; OBS1 POSITIVE (NEGATIVE)
[2025-02-05] MEDS: iohexoL 350 MG/ML 100 ML INFUS..BTL 85 ML IV (11:02)
--- NOTE | 2025-02-05 12:28 | PC.NURSE ---
Urine sample collected, urine pale yellow no sediment, sent to lab
[2025-02-05 12:35] LABS: Appearance Urine Clear; Color Urine Yellow; Glucose Urine UA Negative (Negative); Leukocyte Esterase Urine Negative (Negative); Nitrite Urine Negative (Negative); Specific Gravity - Urine >= 1.030 (1.005-1.025); UMIC TRIGGER UACC YES; Urine Blood Large (3+) (Negative); Urine Ketones Trace mg/dL (Negative); Urine Protein Trace mg/dL (Neg-Trace)
[2025-02-05 12:42] LABS: Bacteria Urine 1+ (None Seen); Hyaline Casts Urine 0-2 /LPF (0-2); WBC Urine 0-5 /HPF (0-5)
--- NOTE | 2025-02-05 14:10 | PC.NURSE ---
CT scan revealed internal hemorrhoids. blood collected/ sent.
[2025-02-05 14:20] LABS: MANUAL DIFF FLAG NO
[2025-02-05 14:23] LABS: Basophils Percent Auto 0.5 % (0-2); Hematocrit 36.2 % (37.0-47.0); Hemoglobin 13.1 g/dl (12.0-16.0); Imm Gran Abs Auto 0.01 X10*3/uL (0.00-0.03); Imm Gran Pct Auto 0.3 % (0.0-0.4); Lymphocytes Absolute Auto 1.3 X10*3/uL (1.2-4.9); Lymphocytes Percent Auto 34.7 % (20-40); Mean Corpuscular HGB Conc 36.2 g/dl (31.0-35.0); Mean Corpuscular Hemoglobin 32.4 pg (27.0-33.0); Mean Corpuscular Volume 89.6 fL (80.0-98.0); Mean Platelet Volume 9.8 fL (9.4-12.3); Monocytes Absolute Auto 0.2 X10*3/uL (0.1-1.2); Neutrophils Absolute Auto 2.2 x10*3/uL (2.0-8.3); Neutrophils Percent Auto 57.5 % (45-73); Platelet Count 242 X10*3/uL (160-400); Red Blood Count 4.04 X10*6/uL (4.20-5.50); Red Cell Distribution Width 12.9 % (11.0-16.0); White Blood Count 3.9 X10*3/uL (4.8-10.8)
== END 2025-02-05 14:59 | disposition home or self-care (01) ==
PROVIDERS: Physician Assistant; Emergency Provider Emergency Medicine; PCP Registered Nurse
DX: K64.8 Other hemorrhoids (principal); R10.2 Pelvic and perineal pain; R42 Dizziness and giddiness; R11.0 Nausea; R53.83 Other fatigue; Z79.899 Other long term (current) drug therapy
CPT/HCPCS: 36415; 74178; 80053; 81001; 82272; 83690; 83735; 84702; 85025; 85610; 96360; 96361; 99284; 99285; Q9967

== ENCOUNTER → 2025-02-05 09:45 | Outpatient (BNV) | payer MEDICAID, SELFPAY | PROVIDERS: Emergency Provider Emergency Medicine; PCP Registered Nurse; Visit Provider Radiology Diagnostic Radiology | DX: K64.9 Unspecified hemorrhoids (principal) | CPT/HCPCS: 74178 ==

== ENCOUNTER 2025-02-12 13:43 | Emergency (ER) | payer MEDICAID, SELFPAY ==
--- NOTE | 2025-02-12 13:46 | ED_ITS ---
HPI - General Adult General Chief complaint: Medical Clearance Stated complaint: ANXIETY ATTACK/SOB 100% RA,IN [employer] CUSTODY PER EMS Time Seen by Provider: 02/12/25 13:45 Source: patient, EMS and police Mode of arrival: EMS Limitations: no limitations History of Present Illness ED Provider: VIDA DUFFY PA-C HPI narrative: 24 year old female with pmhx significant for asthma, anxiety, PTSD presents to the ED today your PD custody for evaluation of panic attack . Patient states that while being arrested this afternoon, she began to feel anxious and started to have a panic attack. Reports hyperventilating with associated chest tightness. States she feels short of breath. PD then brought her to the emergency department to be medically cleared to continue booking. Admits to history of anxiety/depression/PTSD which used to be managed with lexapro. She is not currently on any medication for anxiety. She also endorses an abrasion to the outer aspect of her left ankle that she reports she sustained while being detained by PD. Reports burning sensation to the abrasion. Denies any difficulty or pain on ROM of left ankle. Denies any difficulty ambulating. Related Data Home Medications ?Medication ?Instructions ?Recorded ?Confirmed albuterol sulfate 2.5 mg/3 mL 2.5 mg inhalation Q4-6H PRN 10/25/24 11/03/24 (0.083 %) solution for nebulization albuterol sulfate 90 mcg/actuation 2 puff inhalation Q4-6H PRN 10/25/24 11/03/24 aerosol inhaler budesonide-formoterol HFA 80 2 puff inhalation BID 10/25/24 11/03/24 mcg-4.5 mcg/actuation aerosol inhaler (Symbicort) cetirizine 10 mg tablet (Zyrtec) 10 mg PO DAILY PRN 10/25/24 11/03/24 diphenhydramine HCl 25 mg capsule 25 mg PO BEDTIME PRN 10/25/24 11/03/24 (Benadryl) hydrocortisone acetate 25 mg 25 mg NE BID 10/25/24 11/03/24 rectal suppository (Anusol-HC) lidocaine 5 % topical patch 1 patch topical DAILY 10/25/24 11/03/24 (Lidoderm) Previous Rx's ?Medication ?Instructions ?Recorded hydrocortisone 2.5 % topical cream 1 appl NE BID-QID PRN hemorrhoids 11/03/24 with perineal applicator 30 days #30 grams sennosides 8.6 mg-docusate sodium 2 tab-cap (2 x 8.6-50 mg) PO 11/03/24 50 mg capsule (Senna Plus) BEDTIME 60 days #120 caps hydrocortisone 1 % topical cream 1 appl topical TID PRN hemorrhoids 02/05/25 (Preparation H Hydrocortisone) #28.35 grams Allergies Allergy/AdvReac Type Severity Reaction Status Date / Time No Known Allergies Allergy Verified 02/12/25 14:00 Review of Systems 2 Review of Systems: Constitutional: No fever, chills, fatigue, night sweats, weight changes ENT/Mouth: No ear pain, hearing loss, nasal congestion, sinus pain, rhinorrhea, sore throat Eyes: No eye pain, swelling, redness, vision changes, discharge Cardio: No chest pain, palpitations, COV[place]UBI[place], orthopnea, peripheral edema Pulm: No SOB, cough, sputum, wheezing, dyspnea, hemoptysis GI: No nausea, vomiting, hematemesis, abdominal pain, diarrhea, constipation, hematochezia, melena : No irregular bleeding, dysuria, frequency, urgency, hesitancy, hematuria, flank pain, urinary flow changes, urinary incontinence or retention MSK: No back pain, neck pain, joint pain, myalgias Skin: No lesions, rashes Neuro: No weakness, numbness, paresthesias, LOC, dizziness, headache Psych: No depression, SI/HI, AH/VH, +anxiety/panic All other systems reviewed and are negative. [facility] Past Medical History Attestation statement: The following information was validated with the patient. Source: old records reviewed and nursing notes reviewed Surgical History History of facial surgery Family History Family History Maternal Grandfather Diabetes Mother Depression Anemia HTN (hypertension) Social History Social History Household Members: Family Alcohol intake: current Alcohol type: hard liquor Patient Tobacco Use Status: Never used Tobacco Smoked in Last 30 Days: No Use of substances other than those prescribed or required for medical reasons: No Substance Use Type: Marijuana Advance Directives: No Advance Directives Information Provided: Yes Do you have a plan to hurt others: No Plan Physical Exam ED Vital Signs: Vital Signs - 24 hr 02/12/25 13:57 02/12/25 14:51 Temperature 98.3 F 99.2 F Pulse Rate 116 H 112 H Respiratory Rate 20 18 Blood Pressure 127/73 122/76 Pulse Oximetry 100 Oxygen Delivery Method Room Air Room Air BMI result Body Mass Index 25.8 patient is tachycardic, satting 100% on RA General: hyperventilating, appears anxious Skin: Warm, dry, intact. No rashes or lesions. Head: Normocephalic, atraumatic. EENT: Hearing is intact b/l. Conjunctiva clear. PERRLA. EOM intact. Moist mucous membranes.? Neck: Supple without LAD Cardiac: Chest wall symmetric. RRR Lungs: Normal respiratory effort without accessory muscle use. CTA bilaterally. Abdomen: Soft, non-tender, non-distended. No rebound tenderness or guarding. Positive BS x4. Ext: +two small abrasions noted to left lateral malleolus. no overlying swelling/deformity. no active bleeding. FROM intact to L ankle and all toes on L foot. 2+ dp pulse intact. Neuro: AOx3. Normal speech. Strength 5/5 intact throughout. Sensation intact to light touch. NV intact distally. Ambulating with steady gait. Course Course Course Narrative: CBC without leukocytosis or left shift. h&h stable. chemistry showing CO2 of 15, likey secondary to hyperventilation. no destiny. normal liver function. trop wnl. ekg showing sinus tachycardia, rate 128 bpm, no [id number]. > on re-evaluation, patient resting comfortably in bed. States she feels more relaxed, symptoms improved after receiving Atarax. Likely anxiety secondary to being arrested. asks What are we waiting on , would like to leave. I feel this is reasonable. she has remained tachycardic to low 110s. she tells me she has tachycardia at baseline, my hear trate elevates with certain movements . I do not have concern for ACS v PE. She will be discharged into PD custody, PD at bedside. Patient has remained stable throughout ED visit today. Discussed worrisome signs and symptoms and when to return to the ED. All questions answered at this time. Patient is agreeable with disposition and stable for discharge. Medications Administered Discontinued Medications Generic Name Dose Route Start Last Admin Trade Name Eunice PRN Reason Stop Dose Admin Bacitracin 1 appl 02/12/25 14:07 02/12/25 14:25 Bacitracin Oint 0.9 Gm Packet TOPICAL 02/12/25 14:08 1 appl ONCE ONE Administration Protocol Hydroxyzine HCl 25 mg 02/12/25 14:07 02/12/25 14:26 Hydroxyzine Hcl 25 Mg Tablet PO 02/12/25 14:08 25 mg ONCE ONE Administration Medical Decision Making Medical Decision Making [facility] Narrative: 24 year old female with pmhx significant for asthma, anxiety, PTSD presents to the ED today your [employer] custody for evaluation of panic attack . on arrival she is tachycardic to 110s, not hypoxic. She is quite anxious appearing, hyperventilating. satting 100% on RA. lungs are cta b/l without adventitious breath sounds. On exam of LLE, two small abrasions noted to left lateral malleolus. no overlying swelling/deformity. no active bleeding. FROM intact to L ankle and all toes on L foot. 2+ dp pulse intact. ambulating with steady gait. This patient presents with symptoms consistent with acute anxiety reaction / panic attack. Low suspicion for acute cardiopulmonary process including ACS, PE, or thoracic aortic dissection. Denies any ingestions or any other medical complaints. No evidence of alcohol withdrawal symptoms. Presentation not consistent with overt toxidrome or ingestion. Presentation not consistent with organic or medical emergency at this time. No acute indication for psychiatric consultation (denies SI/HI, AH/VH). Will obtain screening labs, EKG. Atarax ordered for anxiety. Will re-evaluate. Exam consistent with abrasion to left ankle. i do not have suspicion for fracture/discloation as she has full ROM, ambulating w/ steady gait. no imaging warranted at this time. bacitracin ordered, bandage applied. Differential Diagnosis Differential Diagnoses: The differential diagnosis associated with the presentation includes as above. Admission/Observation not indicated Lab Data [facility] Lab Attestation statement: I reviewed the patient's lab results. as above 02/12/25 14:25 02/12/25 14:25 Labs: Lab Results 02/12/25 Range/Units 14:25 WBC 7.7 (4.8-10.8) X10*3/uL RBC 4.19 L (4.20-5.50) X10*6/uL Hgb 13.6 (12.0-16.0) g/dl Hct 36.8 L (37.0-47.0) % MCV 87.8 (80.0-98.0) fL MCH 32.5 (27.0-33.0) pg MCHC 37.0 H (31.0-35.0) g/dl RDW 12.7 (11.0-16.0) % Plt Count 280 (160-400) X10*3/uL MPV 9.8 (9.4-12.3) fL Immature Gran % (Auto) 0.4 (0.0-0.4) % Neut % (Auto) 72.5 (45-73) % Lymph % (Auto) 20.5 (20-40) % [place] % (Auto) 6.1 (2-11) % Eos % (Auto) 0.1 (0-4) % Baso % (Auto) 0.4 (0-2) % Lymph # (Auto) 1.6 (1.2-4.9) X10*3/uL [place] # (Auto) 0.5 (0.1-1.2) X10*3/uL Eos # (Auto) 0.0 (0.0-0.4) X10*3/uL Baso # (Auto) 0.0 (0.0-0.2) X10*3/uL Abs Immat Gran (auto) 0.03 (0.00-0.03) X10*3/uL Absolute Neuts (auto) 5.6 (2.0-8.3) x10*3/uL Absolute Nucleated RBC 0.000 (0.0-0.012) X10*3/uL Nucleated RBC % (auto) 0.0 (0.0-0.2) /100WBC Sodium 141 (135-145) mmol/L Potassium 3.4 D (3.3-5.1) mmol/L Chloride 110 H (96-108) mmol/L Carbon Dioxide 15 L (22-29) mmol/L Anion Gap 19 (12-20) BUN 13 (9-16) mg/dL Creatinine 0.93 (0.5-1.4) mg/dL Estim Creat Clear Calc 85.2 Estimated GFR > 60 Random Glucose 104 (60-115) mg/dL Calcium 10.2 D (8.4-10.2) mg/dL Magnesium 1.7 (1.6-2.6) mg/dL Total Bilirubin 1.0 (0.0-1.0) mg/dL AST 23 (5-31) U/L ALT 19 (0-31) U/L Alkaline Phosphatase 60 (39-117) U/L Troponin I High Sens 8.3 (<3.5-17.0) ng/L Total Protein 7.7 (6.5-8.0) g/dL Albumin 4.9 (3.5-5.0) g/dL Independent Interpretation I performed an independent interpretation of an: EKG Interpretation: ekg showing sinus tachycardia, rate of 120 beats per minute, QT 308, QTC 449, no acute ischemic changes or ST elevation Independent Historian Clinical information obtained from an independent historian. History obtained from or confirmed by: EMS and Other (PD) Chronic Conditions Patient?s care impacted by: Other (anxiety, panic attacks, ptsd) Social Determinants Patient?s care significantly limited by Social Determinants of Health including: Other Social Determinant of Health Critical Care Time Critical Care Time Critical Care Time: No Discharge Plan Discharge Clinical Impression: Shortness of breath Patient Disposition: Home, Self-Care Instructions: Anxiety (ED) Additional Instructions: You were evaluated in the ED today for symptoms of a panic attack. Your symptoms improved with anti-anxiety meds today. Your work up is reassuring. Return with new or worsening symptoms. In the case of an emergency call 911. Prescriptions: No Action hydrocortisone [Preparation H Hydrocortisone] 1 % cream 1 appl topical TID PRN (Reason: hemorrhoids) Qty: 28.35 0RF albuterol sulfate 2.5 mg /3 mL (0.083 %) solution for nebulization 2.5 mg inhalation Q4-6H PRN albuterol sulfate 90 mcg/actuation HFA aerosol inhaler 2 puff inhalation Q4-6H PRN budesonide-formoterol [Symbicort] 80-4.5 mcg/actuation HFA aerosol inhaler 2 puff inhalation BID cetirizine [Zyrtec] 10 mg tablet 10 mg PO DAILY PRN diphenhydramine HCl [Benadryl] 25 mg capsule 25 mg PO BEDTIME PRN lidocaine [Lidoderm] 5 % adhesive patch,medicated 1 patch topical DAILY Rx Instructions: leave on most painful area for up to 12 hrs hydrocortisone acetate [Anusol-HC] 25 mg suppository 25 mg NE BID Senna Plus 8.6-50 mg capsule 2 tab-cap PO BEDTIME 60 Days Qty: 120 1RF hydrocortisone 2.5 % cream with perineal applicator 1 appl NE BID-QID PRN (Reason: hemorrhoids) 30 Days Qty: 30 1RF Referrals: [place] [Primary Care Provider] - Print Language: Turkmen
[2025-02-12 13:49] VITALS: BP 124/74; PULSE 106; O2SAT 100
[2025-02-12 13:57] VITALS: BP 127/73; PULSE 116; RESP 20; TEMP 36.8; O2SAT 100; BMI 25.8
--- NOTE | 2025-02-12 14:01 | ECG_ITS ---
Test Reason : PANIC ATTACK Blood Pressure : */* mmHG Vent. Rate : 128 BPM Atrial Rate : 128 BPM P-R Int : 122 ms QRS Dur : 74 ms QT Int : 308 ms P-R-T Axes : 46 51 18 degrees QTcB Int : 449 ms Sinus tachycardia Nonspecific ST and T wave abnormality Borderline ECG No previous ECGs available Referred By: Shona Lucas Electronically Signed By: CAROLINE GALLEGO
[2025-02-12] MEDS: Bacitracin Oint 0.9 GM PACKET 1 APPL TOPICAL (14:25)
[2025-02-12] MEDS: hydrOXYzine HCL 25 MG TABLET PO (14:26)
[2025-02-12 14:30] LABS: MANUAL DIFF FLAG NO
[2025-02-12 14:32] LABS: Basophils Percent Auto 0.4 % (0-2); Eosinophils Percent Auto 0.1 % (0-4); Hematocrit 36.8 % (37.0-47.0); Hemoglobin 13.6 g/dl (12.0-16.0); Imm Gran Abs Auto 0.03 X10*3/uL (0.00-0.03); Imm Gran Pct Auto 0.4 % (0.0-0.4); Lymphocytes Absolute Auto 1.6 X10*3/uL (1.2-4.9); Lymphocytes Percent Auto 20.5 % (20-40); Mean Corpuscular Hemoglobin 32.5 pg (27.0-33.0); Mean Corpuscular Volume 87.8 fL (80.0-98.0); Mean Platelet Volume 9.8 fL (9.4-12.3); Monocytes Absolute Auto 0.5 X10*3/uL (0.1-1.2); Monocytes Percent Auto 6.1 % (2-11); Neutrophils Absolute Auto 5.6 x10*3/uL (2.0-8.3); Neutrophils Percent Auto 72.5 % (45-73); Platelet Count 280 X10*3/uL (160-400); Red Blood Count 4.19 X10*6/uL (4.20-5.50); Red Cell Distribution Width 12.7 % (11.0-16.0); White Blood Count 7.7 X10*3/uL (4.8-10.8)
[2025-02-12 14:51] VITALS: BP 122/76; PULSE 112; RESP 18; TEMP 37.3
[2025-02-12 14:54] LABS: Troponin-I High Sensitivity 8.3 ng/L (<3.5-17.0)
[2025-02-12 14:55] LABS: Alanine Aminotransferase 19 U/L (0-31); Albumin Level 4.9 g/dL (3.5-5.0); Alkaline Phosphatase 60 U/L (39-117); Anion Gap 19 (12-20); Aspartate Amino Transferase 23 U/L (5-31); Blood Urea Nitrogen 13 mg/dL (9-16); Calcium 10.2 mg/dL (8.4-10.2); Carbon Dioxide 15 mmol/L (22-29); Chloride 110 mmol/L (96-108); Creatinine Clr Calc Pharmacy 85.2; Estimated Glomerular Filt Rate > 60; Glucose Random 104 mg/dL (60-115); Magnesium 1.7 mg/dL (1.6-2.6); Potassium 3.4 mmol/L (3.3-5.1); Sodium 141 mmol/L (135-145); Total Protein 7.7 g/dL (6.5-8.0)
--- NOTE | 2025-02-12 15:51 | PC.NURSE ---
Informed provider of pt. temp. Provider aware and no new orders.
[2025-02-12 15:52] VITALS: BP 122/76; PULSE 112; RESP 18; TEMP 37.3
== END 2025-02-12 15:54 | disposition home or self-care (01) ==
PROVIDERS: Physician Assistant Medical; Emergency Provider Emergency Medicine
DX: R06.02 Shortness of breath (principal); R07.89 Other chest pain; F41.0 Panic disorder [episodic paroxysmal anxiety]
CPT/HCPCS: 36415; 80053; 83735; 84484; 85025; 93005; 99283; 99284

== ENCOUNTER → 2025-02-12 14:01 | Outpatient (BNV) | payer MEDICAID, SELFPAY | PROVIDERS: Emergency Provider Emergency Medicine; Visit Provider Internal Medicine | DX: R00.0 Tachycardia, unspecified (principal) | CPT/HCPCS: 93010 ==

== ENCOUNTER 2025-06-13 13:04 | Outpatient (REF) | payer MEDICAID, SELFPAY ==
--- NOTE | ~2025-06-13 | US_ITS ---
CLINICAL HISTORY: PELVIC PAIN US pelvis transabdominal and transvaginal with Doppler Comparison: CT/SR - CT GI BLEED ABD PEL WO/W IVCON - 02/05/25 10:50 EDT US/NE/SR - US PELVIS TRANSABDOMINAL AND TRANSVAGINAL - 02/12/23 15:33 EDT Findings: Transabdominal scanning performed for overall anatomy. Transvaginal scanning performed for additional detail. Uterus is 8.6 cm length. Possible arcuate uterus. Normal myometrium. Endometrium 5 mm thickness. Right ovary 2.8 x 1.5 x 1.9 cm. 1.3 x 0.8 x 1.3 cm adnexal lesion with similar echotexture to the ovary, 1.5 x 1.1 x 1.4 cm on the prior ultrasound. Left ovary 4.7 x 3.2 x 3.2 cm. 3.2 x 2.2 x 2.6 cm simple cyst. Normal color Doppler with arterial/venous spectral tracing of both ovaries. No free fluid. IMPRESSION: No evidence of ovarian torsion. Possible arcuate uterus. Possible right supernumerary ovary. MRI evaluation as indicated. Left ovarian cyst. This document has been electronically signed by: Garrett Smith MD on 06/14/2025 14:17:12
--- OUTSIDE RECORDS SUMMARY | 2025-06-13 14:15 | XMS_ITS | Clinical Summary ---
Author Organization [employer] Address [address] [place] [address] 7t [place] [address] Care Team Providers Care Dance Master Name Role Phone Inna Gallagher DANCE MASTER Primary Care Provider Allergies No known active allergies Medications diphenhydrAMINE (BENADryl) 25 MG tabletIndication s:Insect stings, accidental or unintentional, initial encounter Take 1-2 tab(s) as needed, Carry with you in case of allergic reaction 20 tablet 3 Active Additional Information Patient not taking.Reported on 02/24/2025 cyclobenzaprine (Flexeril) 5 MG tabletIndication s:Muscle spasm Take 1 tablet (5 mg) by mouth at bedtime. 30 tablet 4 Active Additional Information Patient not taking.Reported on 02/24/2025 lidocaine (Lidoderm) 5 % patchIndications :Muscle spasm Apply topically to affected areas. Leave on for up to 12 hours 30 patch 1 4 Active albuterol (ProAir HFA) 108 (90 Base) MCG/ACT inhalerIndicatio ns:Mild intermittent asthma without complication INHALE 2 PUFFS BY MOUTH EVERY 4 HOURS IF NEEDED 18 g 3 4 Active albuterol (ProAir HFA) 108 (90 Base) MCG/ACT inhalerIndicatio ns:Mild intermittent asthma without complication Inhale 2 puffs every 4 (four) hours. 18 g 3 4 Active cetirizine (ZyrTEC) 10 MG tabletIndication s:Insect stings, accidental or unintentional, initial encounter Take 1 tablet (10 mg) by mouth Once per day. 90 tablet 3 4 025 Active Additional Information Patient not taking.Reported on 02/24/2025 budesonide-formo terol (Symbicort) 80-4.5 MCG/ACT inhalerIndicatio ns:Mild intermittent asthma without complication Inhale 2 puffs every 4-6 hours as needed for cough, shortness of breath 1 each 11 4 Active albuterol (2.5 MG/3ML) 0.083% nebulizer solutionIndicati ons:Mild intermittent asthma without complication Take 3 mL (2.5 mg) by nebulization every 4 (four) hours if needed for wheezing. 75 mL 3 4 025 Active Additional Information Patient not taking.Reported on 02/24/2025 escitalopram (Lexapro) 10 MG tabletIndication s:Anxiety Take 1 tablet (10 mg) by mouth Once per day. 30 tablet 2 4 Active polycarbophil (FiberCon) 625 MG tabletIndication s:Hemorrhoids, unspecified hemorrhoid type Take 1 tablet (625 mg) by mouth Once per day. 30 tablet 11 5 026 Active hydrocortisone (Anusol-HC) 2.5 % rectal creamIndications :Hemorrhoids, unspecified hemorrhoid type Insert Rectall EVERY TWELVE HOURS TIME 5 DAYS 30 g 5 Active Additional Information Patient not taking.Reported on 02/24/2025 ibuprofen 800 MG tabletIndication s:Menorrhagia with irregular cycle Take 1 tablet (800 mg) by mouth every 8 (eight) hours if needed for moderate pain. 30 tablet 2 5 026 Active Active Problems Problem Noted Date Diagnosed Date Neutropenia 11/24/2024 Proteinuria 11/24/2024 PTSD (post-traumatic stress disorder) 08/25/2024 Abnormal uterine bleeding 02/01/2023 Overview (02/01/2023): Irregular menses since menarche Menses q. 2-3 months and then will occur q. 2 weeks CBC WNL 05/2022 Anxiety 02/01/2023 Overview (02/01/2023): Established with therapist Chronic abdominal pain 11/14/2022 Overview (02/01/2023): Hx of bloating/constipation Referred to GI 05/2022 Asthma 06/03/2022 Overview (02/01/2023): Mild intermittent PRN albuterol Encounters Date Type Department Care Team Description 06/09/2025 Patient Outreach [facility] [address] [place] [address] Inna Gallagher FNP Care Management (C3CM- F/U call) 06/09/2025 Orders Only [facility] [address] [place] [address] Inna Gallagher FNP 06/08/[address] [address] Inna Gallagher FNP Medication Question 06/07/2025 11:00 AM EDT Office Visit [address] [address] Inna Gallagher FNP Menorrhagia with irregular cycle (Primary Dx); Pelvic pain 06/07/2025 Travel 06/05/[address] [address] Inna Gallagher FNP Nurse Triage 05/17/2025 Patient Outreach [address] [address] Inna Gallagher FNP Care Management (C3CM- F/U call # 2) 04/14/2025 Patient Outreach [address] [address] Inna Gallagher FNP Care Management (C3CM- F/U call # 2) 04/12/2025 Patient Outreach [address] [address] Inna Gallagher FNP Care Management (C3CM- F/U call # 2) 03/22/2025 4:00 PM EDT Telemedicine [address] [address] Inna Gallagher FNP Anxiety (Primary Dx); PTSD (post-traumatic stress disorder) 03/22/2025 Travel 03/13/2025 Orders Only [facility] [address] [place] [address] ElliottInna argueta FNP Encounter for routine eye and vision examination (Primary Dx) from Last 3 Months Immunizations Immunization Administration Dates Next Due [id number] Combined 2000 HPV 9-Valent 06/05/2017,03/05/2016,05/11/2013 Hep A, [...] Answer Date Recorded Patient Health Questionnaire-9 Score 6 02/24/2025 Patient Health Questionnaire-9 Score 6 02/24/2025 Last PHQ-9: Questionnaire Data Not on file 0 02/24/2025 Housing Stability Answer Date Recorded What is your housing situation today? I have brenna winters 06/01/[address] you li ve. Do you have problems with any of the following? None of the above 06/01/2024 Food Insecurity Answer Date Recorded Within the past 12 months, y ou worried that your food would run out before you got money to buy more: Sometimes True 2024 Within the past 12 months,th e food you bought just didn't last and you didn't have enough money to get more: Sometimes True 02/08/2025 Transportation Answer Date Recorded In the past 12 months, has l ack of transportation kept you from medical appts, meetings, work or from getting things needed for daily living? No 06/01/2024 Intimate Partner Violence Answer Date R ecorded Within the last year, have y ou been afraid of your partner or ex-partner? 2 02/27/2025 Within the last year, have y ou been humiliated or emotionally abused in other ways by your partner or ex-partner? 2 Within the last year, have y ou been kicked, hit, slapped, or otherwise physically hurt by your partner or ex-partner? 2 02/27/2025 Within the last year, have y ou been raped or forced to have any kind of sexual activity by your partner or ex-partner? 2 02/27/2025 Utilities Answer Date Recorded In the past 12 months, has t he electric, gas, oil or water company threatened to shut off services in your home? No 06/01/2024 Depression Answer Date Recorded Patient Health Questionnaire-2 Score 1 02/24/2025 Internet Access Answer Date Recorded Internet Access [...] Sign Reading Time Taken Comments Blood Pressure 110/80 06/07/2025 11:44 AM EDT Pulse 86 06/07/2025 11:44 AM EDT Temperature 36.7 C (98 F) 06/07/2025 11:44 AM EDT Respiratory Rate 12 06/07/2025 11:44 AM EDT Oxygen Saturation 98% 08/22/2024 11:28 AM EST Inhaled Oxygen Concentration - - Weight 65.3 kg (144 lb) 06/07/2025 11:44 AM EDT Height 160 cm (5' 3 ) 06/07/2025 11:44 AM EDT Body Mass Index 25.51 06/07/2025 11:44 AM EDT Plan of Treatment Upcoming Encounters Date Type Department Care Team (Late st Contact Info) Description 07/03/2025 11:15 AM EDT Office Visit [facility] [address] [place] [address] Elana Sabillon, OD [address] [place] [address] Health Maintenance Due Date Last Done Comments Disability Screening 2000 Pneumococcal Vaccine: Pediatrics (0 to 5 Years) and At-Risk Patients (6 to 49) Years (2 of 2 - PPSV23) 05/06/2016 03/11/2016 Hepatitis A Vaccines (2 of 2 - 2-dose series) 09/04/2016 03/05/2016 COVID-19 Vaccine ( - season) 2025 04/05/2022, 10/30/2021, 02/07/2021, Additional history exists Influenza Vaccine (#1) 2025 , 08/06/2015, 08/18/2011, Additional history exists Family Planning (PISQ) 07/13/2025 07/13/2024 Alcohol/Substance Use Screening 10/12/2025 10/12/2024 SDOH Screening 02/08/2026 02/08/2025 Depression Screening 02/24/2026 02/24/2025, 02/25/20 25 Pap Smear 02/27/2026 02/27/2023, 02/27/2023 DTaP/Tdap/Td Vaccines (7 - Td or Tdap) 03/05/2026 03/05/2016, 03/03/2014, 05/16/2004, Additional history exists Tobacco Screening 06/09/2026 06/09/2025 Zoster Vaccines (1 of 2) 2050 RSV [...] 04/26/2019 , 03/05/2016, 08/18/2011, Additional history exists Meningococcal B Vaccine Completed 05/27/20 19, 04/26/2019, 08/18/2001 HIV Screening Completed 06/03/2022 Hepatitis C Screening Completed 06/03/2022 RSV under 20 months Aged Out No longe r eligible based on patient's age to complete this topic Rotavirus Vaccines Aged Out No longer eligible based on patient's age to complete this topic Procedures Procedure Name Priority Date/Time Associated Diagnosis Comments IMAGE-GUIDED PAP W/AGE BASED SCR,W/CT/NG/TRICH Routine 02/27/2023 2:22 PM EDT Cervical cancer screening ZZZ HISTORICAL HEPATITIS C AB W/REFL TO HCV RNA, QN, PCR Routine 06/03/2022 10:56 AM EDT HIV 1/2 ANTIGEN/ANTIBODY, FOURTH GENERATION W/RFL Routine 06/03/2022 10:56 AM EDT from Last 3 Months or Most Recently Relevant to Health Maintenance Results * Image-Guided Pap with Age-Based Screening??with CT/NG,??Trichomonas (02/27/2023 2:22 PM EDT) Comment Make My plate Comment: This order for age-based cervical cancer and STI screening follows ACOG guidelines(PB 168, 140, FRZ063). See individual assays for performing site location. Clinical Information: None given [facility] LMP: NONE GIVEN [employer] Prev. PAP: NONE GIVEN [employer] Prev. BX: NONE GIVEN [facility] [place] [employer] SOURCE: None given [facility] [place] [employer] Statement Of Adequacy: [facility] [place] [facility] Comment: Satisfactory for evaluation. Endocervical/transformation zone component absent. Interpretation/Re sult: Negative for intraepithelial lesion or malignancy. [facility] [employer] [facility] COMMENT: This Pap test has been evaluated with computer assisted technology. [facility] Director Of Infection Prevention: Qu est [employer] [place] [facility] Comment: BK,CT(ASCP) CT screening location: [address] Review Director Of Infection Prevention: [facility] [place] [facility] Comment: ALS, CT(ASCP) CT screening location: [address] [address] (Always Message) Que st [employer] [place] [facility] Comment: EXPLANATORY NOTE: The Pap is a [...] RNA, TMA, Urogenital NOT DETECTED NOT DETECTED [facility] Neisseria gonorrhoeae RNA, TMA, Urogenital NOT DETECTED NOT DETECTED [facility] [place] [facility] (Always Message) Que st [employer] [place] [facility] Comment: The analytical performance characteristics of this assay, when used to test SurePath(TM) specimens have been determined by [facility]. The modifications have not been cleared or approved by the FDA. This assay has been validated pursuant to the CLIA regulations and is used for clinical purposes. For additional information, please refer to https://ShopYourWorld.SHIMAUMA Print System/faq/WRJ393 (This link is being provided for information/ educational purposes only.) Trichomonas vaginalis, QL, TMA, PAP Vial NOT DETECTED NOT DETECTED [facility] [place] [facility] Comment: The analytical performance characteristics of this assay have been determined by [facility]. The modifications have not been cleared or approved by the FDA. This assay has been validated pursuant to the CLIA regulations and is used for clinical purposes. For additional information, please refer to http://education.SHIMAUMA Print System/ faq/Trichomonastma (This link is being provided for information/ educational purposes only.) Cervix 02/27/2023 2:22 PM EDT 02/28/2023 3:51 AM EDT [facility] LAB CYTOLOGY ORDERABLES Final Result Performing Organization Address City/[facility]/ZIP Co de Phone Number [facility] [address], [place] [address] [facility] [address] [place] [address] * HEPATITIS C AB W/REFL TO HCV RNA, QN, PCR (06/03/2022 10:56 AM EDT) HEPATITIS C ANTIBODY NON-REACT NAYA NON-REACT NAYA [facility] INDEX 0.04 <1.00 [facility] Comment: HCV antibody was non-reactive. There is no laboratory evidence of HCV infection. In most cases, no further action is required. However, if recent HCV exposure is suspected, a test for HCV RNA (test code 26012) is suggested. For additional information please refer to http://ShopYourWorld.Luxoft.Design A/faq/LBL28t0 (This link is being provided for informational/ educational purposes only.) 06/03/2022 10:5 6 AM EDT [facility] HISTORICAL/NON ORDERABLE LABS Final Result [facility] [address] * HIV 1/2 ANTIGEN/ANTIBODY,FOURTH GENERATION W/RFL (06/03/2022 10:56 AM EDT) HIV-1/2 ANTIGEN AND ANTIBODIES, 4TH GENERATION W/ REFLEX NON-REACT NAYA NON-REACT NAYA [facility] Comment: HIV-1 antigen and HIV-1/HIV-2 antibodies were not detected. There is no laboratory evidence of HIV infection. PLEASE NOTE: This information has been disclosed to you from records whose confidentiality may be protected by state law. If your state requires such protection, then the state law prohibits you from making any further disclosure of the information without the specific written consent of the person to whom it pertains, or as otherwise permitted by law. A general authorization for the release of medical or other information is NOT sufficient for this purpose. For additional information please refer to http://education.Luxoft.Design A/faq/DRW517 (This link is being provided for informational/ educational purposes only.) The performance of this assay has not been clinically validated in patients less than 2 years old. 06/03/2022 10:5 6 AM EDT [facility] LAB BLOOD ORDERABLES Final Re sult [facility] [address] from Last 3 Months or Most Recently Relevant to Health Maintenance Insurance [employer] [facility] Care Teams Dance Master Relationship Specialty Start Date End Date [place] Inna [facility] [address] [place] [address] PCP - General Family Medicine 07/03/22
--- OUTSIDE RECORDS SUMMARY | 2025-06-13 14:15 | XMS_ITS | Encounter Summary ---
Author Organization [employer] Address [address] [place] [address] 7 [place] [address] Care Team Providers Care Stud Sheep Farmer Name Role Phone [facility] Primary Care Provider [phone] Reason for Visit * Reason Onset Date Comments triage 11/10/2022 Encounter Details Date Type Department Care Team ([facility] st Contact Info) Description 11/10/2022 Telephone [facility] [address] [place], [place] [phone] [facility] [address] [place], [place] [phone] triage Social History Tobacco Use Types Packs/Day [...] No answer LVM to return call to [facility] triage line. Nothing sooner with PCP [...] documented in this encounter Plan of Treatment Upcoming Encounters Date Type Department Care Team (Late st Contact Info) Description 07/03/2025 11:15 AM EDT Office Visit [facility] [address] [place] [address] Elana Sabillon OD [address] [place] [address] documented as of this encounter Visit Diagnoses Not on filedocumented in this encounter Care Teams Stud Sheep Farmer Relationship Specialty Start Date End Date Inna Gallagher FNP [address] [place] [address] PCP - General Family Medicine 07/03/22 documented as of this encounter
--- OUTSIDE RECORDS SUMMARY | 2025-06-13 14:16 | XMS_ITS ---
Author Organization [employer] Address [address] [place] [address] 7 [place] [address] Care Team Providers Care Law Examiner Name Role Phone [facility] Primary Care Provider [phone] CM Complex Status:Closed (Closed) Start date:12/20/2024 Enrollment date:02/24/2025 Enrollment reason:ADT Feed End date:06/09/2025 Close reason:Goals Met Overview ED- Pt went to [facility] ED on 12/19/24. Continued Care and Services Coordination
--- OUTSIDE RECORDS SUMMARY | 2025-06-13 14:16 | XMS_ITS | Encounter Summary ---
Author Organization [employer] Address [address] [facility] 7t [place] [address] Care Team Providers Care Oil Change Technician Name Role Phone [facility] Primary Care Provider [phone] Encounter Details Date Type Department Care Team ([facility] st Contact Info) Description 06/09/2025 Orders Only [facility] [address] [place], [place] [phone] [facility] [address] [place] [address] Social History Tobacco Use Types Packs/Day Years [...] as of this encounter Plan of Treatment Upcoming Encounters Date Type Department Care Team (Late st Contact Info) Description 07/03/2025 11:15 AM EDT Office Visit [facility] [address] [place] [address] Elana Sabillon, RICHARD [address] [place] [address] documented as of this encounter Visit Diagnoses Not on filedocumented in this encounter Additional Health Concerns Assessment Noted Time PHQ-9 Depression Total Score: 6 02/25/20 25 10:55 AM EDT documented as of this encounter Care Teams Oil Change Technician Relationship Specialty Start Date End Date [place] TEVIN Keith [address] [place] [address] PCP - General Family Medicine 07/03/22 documented as of this encounter
--- OUTSIDE RECORDS SUMMARY | 2025-06-13 14:16 | XMS_ITS ---
Author Organization [employer] Address [address] [place] [address] 7 [place] [address] Care Team Providers Care Red Hat Linux Administrator Name Role Phone Inna Gallagher [facility] Primary Care Provider [phone] [facility] Complex Status:Enrolled (Active) Start date:12/20/2024 Enrollment date:12/29/2024 Enrollment reason:ADT Feed Overview ED- Pt went to [facility] ED on 12/19/24. Case Team Name Relationship Phone Lorrie Pandey(Responsible Staff) [phone] Continued Care and Services Coordination
--- OUTSIDE RECORDS SUMMARY | 2025-06-13 14:16 | XMS_ITS | Encounter Summary ---
Author Organization [employer] Address [address] [facility] 7 [place] [address] Care Team Providers Care Sales Support Coordinator Name Role Phone [facility] Primary Care Provider [phone] Reason for Visit * Reason Comments Care Management C3CM- F/U call Encounter Details Date Type Department Care Team ([facility] Contact Info) Description 06/09/2025 Patient Outreach [facility] [address] [place] [address] [facility] [address] [place] [address] Care Management (C3CM- F/U call) Social History Tobacco Use Types Packs/Day Years [...] the past 12 months, has t he [employer], gas, oil or water [employer] threatened to shut off services in your [...] AM EDT documented as of this encounter Progress Notes * Mike Lowry RN - 06/09/2025 10:12 AM EDT RAYO Lowry RN placed outbound call to patient. Patient's name, and address confirmed. Patient states is doing well with no recent illnesses or emergency room visits. Patient reports experiencing severe ramps. Patient reports her menstrual cycle has been irregular for a while, but she recently got her period. Patient reports that she saw her PCP on 9/24/25, who recommended prescribing ibuprofen 800 mg for pain relief and ordering an ultrasound. This was suggested due to previous ultrasound from 2 years ago showed a small cyst. Patient reports that [facility] pharmacy has not yet received the prescription. Patient reports that her asthma is controlled. Patient reports that she is no longer having abdominal pain. Patient reports that her depression and anxiety is controlled. Patient continues speaking with her therapist. Patient reports that she is working again and is staying busy. Patient was informed by floor nurse that ibuprofen 800 mg prescription was sent to her pharmacy. CM reminded pt of eye exam on 07/03 @ 11:15 AM. CM informed pt that she is on the [facility] dental waiting list and should be receiving a call soon. CM informed pt that call was placed to [facility] office and wasleft to give CM a call back. No further questions or concerns. CM reinforced direct contact information or CHW for any additional questions or concerns. Education provided on Walk-In Urgent Care located in [facility] of [facility]. Patient provided with after-hours line for [facility], , which offer night time triage service and option to transfer to classification control clerk provider if needed. CM discussed with the patient progress made towards established goals. Patient notified is being graduated from the Care Management Program. Patient was educated on how to receive care management services in the future. Patient agrees with the plan and will contact us if any future needs arise. CM called [facility] to assist in rescheduling missed appointment from November 2024. No answer, LVM to RTC. CM called [facility] dental, spoke with Dania who state that pt is already on the wait list and should be receiving a call soon. * Mike Lowry RN - 06/09/2025 10:12 AM EDT RAYO Lowry RN, sent notification to PCP TEVIN Nguyen to inform that patient has completed [facility] program with goals partially/fully met at this time. documented in this encounter Plan of Treatment Upcoming Encounters Date Type Department Care Team (Late st Contact Info) Description 07/03/2025 11:15 AM EDT Office Visit [facility] [address] [place] [address] Elana Sabillon, OD [address] [place] [address] documented as of this encounter Visit Diagnoses Not on filedocumented in this encounter Additional Health Concerns Assessment Noted Time PHQ-9 Depression Total Score: 6 02/25/20 25 10:55 AM EDT documented as of this encounter Care Teams Sales Support Coordinator Relationship Specialty Start Date End Date Inna Gallagher FNP [address] [place] [address] PCP - General Family Medicine 07/03/22 documented as of this encounter
--- OUTSIDE RECORDS SUMMARY | 2025-06-13 14:16 | XMS_ITS | Encounter Summary ---
Author Organization [employer] Address [address] [facility] 7 [place] [address] Care Team Providers Care Coordinator Hotels Name Role Phone [facility] Primary Care Provider [phone] Reason for Visit * Reason Onset Date Comments Medication Question 06/08/2025 Encounter Details Date Type Department Care Team ([facility] st Contact Info) Description 06/08/2025 Telephone [facility] MEDICINE [address] [place], [place] [phone] [facility] [address] [place], [place] [phone] Medication Question Social History Tobacco Use Types Packs/Day Years [...] the past 12 months, has t he [employer], gas, oil or water company threatened to [...] Telephone Encounter - Keya Nuno RN - 06/09/2025 11:45 AM EDT TC placed to patient [phone] in regards to below message. Patient verbalized understanding. Patient to f/u PRN. * Telephone Encounter - Tran Pandey - 06/08/2025 10:08 AM EDT Tc from stating PCP inform her that she was going to prescribed medication Tylenol 800mg , pt when pick it up at the pharmacy and there nothing there. Contact pt at [phone] documented in this encounter Plan of Treatment Upcoming Encounters Date Type Department Care Team ([facility] st Contact Info) Description 07/03/2025 11:15 AM EDT Office Visit [facility] OPT[facility] [address] [place], [place] [phone] TarkaElana, OD [address] [place] [address] documented as of this encounter Visit Diagnoses Not on filedocumented in this encounter Additional Health Concerns Assessment Noted Time PHQ-9 Depression Total Score: 6 02/25/20 25 10:55 AM EDT documented as of this encounter Care Teams Coordinator Hotels Relationship Specialty Start Date End Date Inna Gallagher FNP [address] [place] [id number] PCP - General Family Medicine 07/03/22 documented as of this encounter
--- OUTSIDE RECORDS SUMMARY | 2025-06-13 14:16 | XMS_ITS | Encounter Summary ---
Author Organization [employer] Address [address] [place] [address] 7 [place] [address] Care Team Providers Care Chief Technology Officer Name Role Phone [facility] Primary Care Provider [phone] Reason for Visit * Reason Onset Date Comments Nurse Triage 06/05/2025 Encounter Details Date Type Department Care Team ([facility] st Contact Info) Description 06/05/2025 Telephone [facility] MEDICINE [address] [place], [place] [phone] [facility] [address] [place], [place] [phone] Nurse Triage Social History Tobacco Use Types [...] the past 12 months, has t he [employer], gas, oil or water company threatened to [...] Telephone Encounter - Barbara Narayan RN - 06/05/2025 11:28 AM EDT Triage call Pt reports 2-3 weeks ago sx of nausea, abdominal bloating and discomfort which radiatesto low back has been increasing. Pt reports periods have always been regular but, since April havebeen changing and irregular. Pt reports nexplanon for control last inserted 07/13/24 noted onchart. Pt denies vaginal discharge or odor but, does report that periods have had a brownish discharge toward the end . Pt denies has not been sexually active for last 4 months. ASK apt with PCP Elliott 06/07/25 @ 1100am. Pt agrees with this disposition and insurance is verified as activeprior to booking. Protocol Used: Nausea (Adult) Protocol-Based Disposition: See in Office or Video Visit within 3 Days Video visit not offered Positive Triage Question: * Nausea lasts > 1 week * All higher-acuity triage questions were negative Care Advice Discussed: * Drink Clear Fluids * Telephone Encounter - Julio De Paz - 06/05/2025 10:53 AM EDT Tc stating she is experiencing nausea , bloating , severe cramps , back pain Contact pt at [phone] documented in this encounter Plan of Treatment Upcoming Encounters Date Type Department Care Team (Late st Contact Info) Description 07/03/2025 11:15 AM EDT Office Visit [facility] OPTOMETRY [address] [place] [address] Elana Sabillon, OD [address] [place] [address] documented as of this encounter Visit Diagnoses Not on filedocumented in this encounter Additional Health Concerns Assessment Noted Time PHQ-9 Depression Total Score: 6 02/25/20 10:55 AM EDT documented as of this encounter Care Teams Chief Technology Officer Relationship Specialty Start Date End Date Inna Gallagher FNP [address] [place] [address] PCP - General Family Medicine 07/03/22 documented as of this encounter
== END 2025-06-13 13:05 | disposition home or self-care (01) ==
LOC: HO.US 13:04
PROVIDERS: PCP Registered Nurse; Visit Provider Registered Nurse
DX: R10.2 Pelvic and perineal pain (principal)
CPT/HCPCS: 76830; 76856

== ENCOUNTER → 2025-06-13 13:08 | Outpatient (BNV) | payer MEDICAID, SELFPAY | PROVIDERS: PCP Registered Nurse; Visit Provider Nuclear Medicine | DX: N83.202 Unspecified ovarian cyst, left side (principal); R10.2 Pelvic and perineal pain | CPT/HCPCS: 76830; 76856 ==

== ENCOUNTER 2025-07-20 12:18 | Outpatient (REF) | payer MEDICAID, SELFPAY ==
[2025-07-20 14:15] LABS: Hematocrit 39.1 % (37.0-47.0); Hemoglobin 13.5 g/dl (12.0-16.0); Mean Corpuscular HGB Conc 34.5 g/dl (31.0-35.0); Mean Corpuscular Hemoglobin 32.1 pg (27.0-33.0); Mean Corpuscular Volume 93.1 fL (80.0-98.0); NRBC Abs Auto 0.000 X10*3/uL (0.0-0.012); NRBC Pct Auto 0.0 /100WBC (0.0-0.2); Platelet Count 244 X10*3/uL (160-400); Red Blood Count 4.20 X10*6/uL (4.20-5.50); White Blood Count 5.3 X10*3/uL (4.8-10.8)
[2025-07-21 04:14] LABS: CT PCR NOT DETECTED (Not Detect.); NG PCR NOT DETECTED (Not Detect.)
== END 2025-07-20 12:19 | disposition home or self-care (01) ==
LOC: HO.LAB 12:18
PROVIDERS: PCP Registered Nurse; Visit Provider Obstetrics & Gynecology
DX: N94.89 Other specified conditions associated with female genital organs and menstrual cycle (principal); N93.9 Abnormal uterine and vaginal bleeding, unspecified
CPT/HCPCS: 36415; 84443; 84702; 85027; 87491; 87591; 87626; 88175; 99202

== ENCOUNTER 2025-07-20 12:18 | Outpatient (AMB) | payer MEDICAID, SELFPAY ==
[2025-07-20 12:21] VITALS: BP 120/56; BMI 26.2
--- NOTE | 2025-07-20 12:21 | MHC.OFFVIS ---
Vital Signs 07/20/25 12:21 Height 5 ft 3 in Weight 148 lb BMI 26.2 BP 120/56 L Blood Pressure Location Lt brachial Position Sitting Intake Visit Reasons: adnexal mass Intake Note: rt. side adnexal mass Research Laboratory Technician Required: No Allergies No Known Allergies Allergy (Verified 07/20/25 12:23) Medication List - Last Reconciled 07/20/25 by Gissel Ortega LPN albuterol sulfate 90 mcg/actuation 2 puffs inhalation Q4-6H PRN albuterol sulfate 2.5 mg inhalation Q4-6H PRN budesonide-formoterol 80-4.5 mcg/actuation (Symbicort) 2 puffs inhalation BID cetirizine (Zyrtec) 10 mg PO DAILY PRN diphenhydramine HCl (Benadryl) 25 mg PO BEDTIME PRN hydrocortisone 1% (Preparation H Hydrocortisone) 1 appl topical TID PRN hydrocortisone 2.5% 1 appl SD BID-QID PRN 30 days hydrocortisone acetate (Anusol-HC) 25 mg SD BID lidocaine 5% (Lidoderm) 1 patch topical DAILY sennosides-docusate sodium 8.6-50 mg (Senna Plus) 2 tab-caps (2 x 8.6-50 mg) PO BEDTIME 60 days Is last menstrual period known: Yes Last menstrual period: 06/28/25 Post menopausal: No Do you need a note to return to daycare/school/sports/work: Yes HPI Comments Details: Presenting referred from PCP regarding hormonal pelvic ultrasound finding. The patient is on Nexplanon is having irregular menstrual cycle. Pelvic ultrasound done on 06/14/2025 showed the following: Transabdominal scanning performed for overall anatomy. Transvaginal scanning performed for additional detail. Uterus is 8.6 cm length. Possible arcuate uterus. Normal myometrium. Endometrium 5 mm thickness. Right ovary 2.8 x 1.5 x 1.9 cm. 1.3 x 0.8 x 1.3 cm adnexal lesion with similar echotexture to the ovary, 1.5 x 1.1 x 1.4 cm on the prior ultrasound. Left ovary 4.7 x 3.2 x 3.2 cm. 3.2 x 2.2 x 2.6 cm simple cyst. Normal color Doppler with arterial/venous spectral tracing of both ovaries. No free fluid. IMPRESSION: No evidence of ovarian torsion. Possible arcuate uterus. Possible right supernumerary ovary. MRI evaluation as indicated. Left ovarian cyst. MRI of pelvis scheduled on 07/25/2025 [facility] Surgical History History of facial surgery Family History Maternal Grandfather Diabetes Mother Depression Anemia HTN (hypertension) Social History Household Members: Family Alcohol intake: current Alcohol type: hard liquor Patient Tobacco Use Status: Never used Tobacco Substance Use Type: Marijuana Female Reproductive History Menstrual Age of Menarche: 13 Duration of menses: other (3-10 days at times) Date of last menstrual period: 06/28/25 control method: implanted Total pregnancies: 0 History of abnormal pap smear: No History of STI: No Review of Systems Const All systems reviewed & are unremarkable except as noted in HPI and below Physical Exam Vital Signs: Last Vital Signs BP 120/56 L 07/20/25 12:21 BMI result Body Mass Index 26.2 General: Yes no CVA tenderness External Female Exam: normal external appearance and normal appearance of the urethra Speculum Exam - Vagina: normal appearance of the vagina, normal palpation, no lesions and no masses Speculum Exam - Cervix: normal appearance of the cervix, normal palpation, no lesions, no masses and nontender Bimanual exam- vagina & uterus: normal bimanual exam, normal palpation, uterine size normal, normal palpation, uterine shape normal, No Cervical tenderness present and non-tender Bimanual Exam- Adnexa, other: normal adnexae Back/Spine/Pelvis Back: no CVA tenderness Assessment & Plan Assessment & Plan (1) Abnormal uterine bleeding: Code(s): N93.9 - Abnormal uterine and vaginal bleeding, unspecified Category: Medical Plan: Pap done, GC and chlamydia taken CBC, TSH, HCG ordered. Discussed with the patient the different causes of abnormal bleeding including thyroid disorders, uterine and ovarian pathology and other potential causes. Discussed with the patient the work up including CBC (to r/o anemia), TSH, pelvic Ultrasound. All questions answered and the patient verbalized understanding. Instructed the patient to schedule an appointment for follow-up in 2 weeks. (2) Adnexal mass: Code(s): N94.89 - Other specified conditions associated with female genital organs and menstrual cycle Category: Medical Plan: Discussed with the patient the results the ultrasound, MRI scheduled on 07/25/2025. Instructions given the patient to schedule MRI follow-up appointment. All questions answered, the patient verbalized understanding Orders: Orders Complete Blood Count no Diff Today N93.9 - Abnormal uterine and vaginal bleeding, unspecified HCG Quantitative Today N93.9 - Abnormal uterine and vaginal bleeding, unspecified TSH reflex Free T4 Today N93.9 - Abnormal uterine and vaginal bleeding, unspecified Coding Level of Care Code New Pt Level 3 (42813) Diagnoses Abnormal uterine bleeding N93.9 Adnexal mass N94.89
--- OUTSIDE RECORDS SUMMARY | 2025-07-20 15:14 | XMS_ITS ---
Author Organization [employer] Address [address] [place] [address] 7 [place] [address] Care Team Providers Care Tradeshow Worker Name Role Phone Inna Gallagher [facility] Primary Care Provider [phone] [facility] Status:Enrolled (Active) Start date:12/20/2024 Enrollment date:12/29/2024 Enrollment reason:ADT Feed Overview ED- Pt went to [facility] ED on 12/19/24. Case Team Name Relationship Phone Lorrie Pandey(Responsible Staff) [phone] Continued Care and Services Coordination
--- OUTSIDE RECORDS SUMMARY | 2025-07-20 15:14 | XMS_ITS | Encounter Summary ---
Author Organization [employer] Address [address] [facility] [address] [place] [address] Care Team Providers Care Alumni Secretary Name Role Phone Inna Gallagher INFORMATION SCIENTIST Primary Care Provider [phone] Encounter Details Date Type Department Care Team ([facility] st Contact Info) Description 07/20/2025 Orders Only GENERIC EXTERNAL DATA DEPARTMENT Provider, Generic External Data Social History Tobacco Use Types Packs/Day Years [...] on file documented as of this encounter Procedures Procedure Name Priority Date/Time Associated Diagnosis Comments CBC Routine 07/20/2025 1:07 PM EST documented in this encounter Results * CBC (07/20/2025 1:07 PM EST) White Blood Count 5.3 4.8 - 10.8 X10*3/uL [facility] Red Blood Count 4.20 4.20 - 5.50 X10*6/uL [facility] Hemoglobin 13.5 12.0 - 16.0 g/dl [facility] Hematocrit 39.1 37.0 - 47.0 % [facility] Mean Corpuscular Volume 93.1 80.0 - 98.0 fL [facility] Mean Corpuscular Hemoglobin 32.1 27.0 - 33.0 pg [facility] Mean Corpuscular HGB Conc 34.5 31.0 - 35.0 g/dl [facility] Red Cell Distribution Width 12.6 11.0 - 16.0 % [facility] Platelet Count 244 160 - 400 X10*3/uL [facility] Mean Platelet Volume 10.3 9.4 - 12.3 fL [facility] NRBC Pct Auto 0.0 0.0 - 0.2 /100WBC [facility] NRBC Abs Auto 0.000 0.0 - 0.012 X10*3/uL [facility] 07/20/2025 1:07 PM EST 07/20/2025 1:07 PM EST us Generic External Data Provider LAB BLOOD ORDERAB LES Final Result [facility] [address] [place] [address] [phone] documented in this encounter Visit Diagnoses Not on filedocumented in this encounter Additional Health Concerns Assessment Noted Time PHQ-9 Depression Total Score: 6 02/25/20 25 10:55 AM EDT documented as of this encounter Care Teams Alumni Secretary Relationship Specialty Start Date End Date Inna Gallagher FNP [address] [place] [address] PCP - General Family Medicine 07/03/22 documented as of this encounter
--- OUTSIDE RECORDS SUMMARY | 2025-07-20 15:14 | XMS_ITS | Clinical Summary ---
Author Organization [employer] Address [address] [place] [address] 7[address] [place] [address] Care Team Providers Care Batch Analyst Name Role Phone Inna Gallagher FURNITURE L[employer]BER PRODUCTION WORKER Primary Care Provider [phone] Allergies No known active allergies Medications diphenhydrAMINE [...] Once per day. 90 tablet 3 4 Active Additional Information Patient not taking.Reported [...] Encounters Date Type Department Care Team Description 07/20/2025 Orders Only GENERIC EXTERNAL DATA DEPARTMENT Provider, Generic External Data 07/03/2025 11:15 AM EDT Office Visit [facility] [address] [place] [address] TarkaElana, OD Myopia, bilateral (Primary Dx); Encounter for examination of eyes and vision without abnormal findings 07/03/2025 Travel 06/19/2025 Results Follow-Up [facility] [address] [place] [phone] Inna Gallagher FNP US Pelvis Transvaginal 06/09/2025 Patient Outreach [facility] [address] [place], [place] [phone] Inna Gallagher FNP Care Management (C3CM- F/U call) 06/09/2025 Orders Only [facility] [address] [place] [address] Inna Gallagher FNP Adnexal mass (Primary Dx); Pelvic pain 06/08/2025 Telephone [facility] [address] [place] [phone] Inna Gallagher FNP Medication Question 06/07/2025 11:00 AM EDT Office Visit [facility] [address] [place] [phone] Inna Gallagher FNP Menorrhagia with irregular cycle (Primary Dx); Pelvic pain 06/07/2025 Travel 06/05/2025 Telephone [facility] [address] [place] [phone] Inna Gallagher FNP Nurse Triage 05/17/2025 Patient Outreach [address] [address] Inna Gallagher FNP Care Management (C3CM- F/U call # [phone]) from Last 3 Months Immunizations Immunization Administration Dates Next Due [id number]-HEPB Combined 2000 HPV 9-Valent 06/05/2017,03/05/2016,05/11/2013 Hep A, [...] 06/07/2025 11:44 AM EDT Plan of Treatment Health Maintenance Due Date Last Done Comments Disability Screening 2000 Family Planning (PISQ) 2015 Pneumococcal Vaccine: Pediatrics (0 to 5 Years) and At-Risk Patients (6 to 49) Years (2 of 2 - PPSV23) 05/06/2016 03/11/2016 Hepatitis A Vaccines (2 of 2 - 2-dose series) 09/04/2016 03/05/2016 COVID-19 Vaccine ( season) 2025 04/05/2022, 10/30/2021, 02/07/2021, Additional history exists Influenza Vaccine (#1) 2025 , 08/06/2015, 08/18/2011, Additional history exists Alcohol/Substance Use Screening 10/12/2025 10/12/2024 SDOH Screening 02/08/2026 02/08/2025 Depression Screening 02/24/2026 02/24/2025, 02/25/20 25 Pap Smear 02/27/2026 02/27/2023, 02/27/2023 DTaP/Tdap/Td Vaccines (7 - Td or Tdap) 03/05/2026 03/05/2016, 03/03/2014, 05/16/2004, Additional history exists Tobacco Screening 07/03/2026 07/03/2025 Zoster Vaccines (1 of 2) 2050 RSV [...] Comments CBC Routine 07/20/2025 1:07 PM EST US PELVIS TRANSVAGINAL Urgent 06/14/2025 2:17 PM EDT Pelvic pain IMAGE-GUIDED PAP W/AGE BASED SCR,W/CT/NG/TRICH Routine 02/27/2023 2:22 PM EDT Cervical cancer screening ZZZ HISTORICAL HEPATITIS C AB W/REFL TO HCV RNA, QN, PCR Routine 06/03/2022 10:56 AM EDT HIV 1/2 ANTIGEN/ANTIBODY, FOURTH GENERATION W/RFL Routine 06/03/2022 10:56 AM EDT from Last 3 Months or Most Recently Relevant to Health Maintenance Results * CBC (07/20/2025 1:07 PM EST) White Blood Count 5.3 4.8 - 10.8 X10*3/uL [facility] Red Blood Count 4.20 4.20 - 5.50 X10*6/uL [facility] Hemoglobin 13.5 12.0 - 16.0 g/dl [facility] Hematocrit 39.1 37.0 - 47.0 % [facility] Mean Corpuscular Volume 93.1 80.0 - 98.0 fL [facility] Mean Corpuscular Hemoglobin 32.1 27.0 - 33.0 pg [facility] Mean Corpuscular HGB Conc 34.5 31.0 - 35.0 g/dl [facility] Red Cell Distribution Width 12.6 11.0 - 16.0 % [facility] Platelet Count 244 160 - 400 X10*3/uL [facility] Mean Platelet Volume 10.3 9.4 - 12.3 fL [facility] NRBC Pct Auto 0.0 0.0 - 0.2 /100WBC [facility] NRBC Abs Auto 0.000 0.0 - 0.012 X10*3/uL [facility] 07/20/2025 1:07 PM EST 07/20/2025 1:07 PM EST us Generic External Data Provider LAB BLOOD ORDERAB LES Final Result Performing Organization Address City/State/[facility] Co de Phone Number [facility] [address] [place] [phone] * US Pelvis Transvaginal (06/14/2025 2:17 PM EDT) Anatomical Region Laterality Modality Pelvis Ultrasound 06/14/2025 2:17 PM EDT Narrative 06/14/2025 2:18 PM EDT [address] [address] Ultrasound Report Signed Patient: Sharla Loera MR#: [id number] : 2000 Acct:[id number] Age/Sex: 25 / F ADM Date: 06/13/25 Loc: HO. Attending Dr: Inna ABARCA Ordering Physician: Inna Gallagher Date of Service: 06/13/25 Procedure(s): US pelvic and transvaginal Accession Number(s): [id number] cc: Inna Gallagher FURNIT[employer]ODUCTION WORKER Reason for Exam: PELVIC PAIN CLINICAL HISTORY: PELVIC PAIN US pelvis transabdominal and transvaginal with Doppler Comparison: CT/SR - CT GI BLEED ABD PEL WO/W IVCON - 02/05/25 10:50 EDT US/NE/SR - US PELVIS TRANSABDOMINAL AND TRANSVAGINAL - 02/12/23 15:33 EDT Findings: Transabdominal scanning performed for overall anatomy. Transvaginal scanning performed for additional detail. Uterus is 8.6 cm length. Possible arcuate uterus. Normal myometrium. Endometrium 5 mm thickness. Right ovary 2.8 x 1.5 x 1.9 cm. 1.3 x 0.8 x 1.3 cm adnexal lesion with similar echotexture to the ovary, 1.5 x 1.1 x 1.4 cm on the prior ultrasound. Left ovary 4.7 x 3.2 x 3.2 cm. 3.2 x 2.2 x 2.6 cm simple cyst. Normal color Doppler with arterial/venous spectral tracing of both ovaries. No free fluid. IMPRESSION: No evidence of ovarian torsion. Possible arcuate uterus. Possible right supernumerary ovary. MRI evaluation as indicated. Left ovarian cyst. This document has been electronically signed by: Garrett Smith MD on 06/14/2025 14:17:12 Dictated By: Garrett Smith MD Signed By: <Electronically signed by Garrett Smith MD in OV> 06/14/251416 DD/ 16 TD/TT: 06/14/251416 Out Patient Therapist: Procedure Note Donotuseinterpreter, Image - 06/14/2025 [place] [id number] Ultrasound Report Signed Patient: Sharla Loera DMR#: [id number] : 2000Acct:[id number] Age/Sex: Date: 06/13/25 Loc: . Attending Dr: Inna ABARCA Ordering Physician: Inna Gallagher Date of Service: 06/13/25 Procedure(s): US pelvic and transvaginal Accession Number(s): [id number] cc: Inna Gallagher Reason for Exam: PELVIC PAIN CLINICAL HISTORY: PELVIC PAIN US pelvis transabdominal and transvaginal with Doppler Comparison: CT/SR - CT GI BLEED ABD PEL WO/W IVCON - 02/05/25 10:50 EDT US/NE/SR - US PELVIS TRANSABDOMINAL AND TRANSVAGINAL - 02/12/23 15:33 EDT Findings: Transabdominal scanning performed for overall anatomy. Transvaginal scanning performed for additional detail. Uterus is 8.6 cm length. Possible arcuate uterus. Normal myometrium. Endometrium 5 mm thickness. Right ovary 2.8 x 1.5 x 1.9 cm. 1.3 x 0.8 x 1.3 cm adnexal lesion with similar echotexture to the ovary, 1.5 x 1.1 x 1.4 cm on the prior ultrasound. Left ovary 4.7 x 3.2 x 3.2 cm. 3.2 x 2.2 x 2.6 cm simple cyst. Normal color Doppler with arterial/venous spectral tracing of both ovaries. No free fluid. IMPRESSION: No evidence of ovarian torsion. Possible arcuate uterus. Possible right supernumerary ovary. MRI evaluation as indicated. Left ovarian cyst. This document has been electronically signed by: Garrett Smith MD on 06/14/2025 14:17:12 Dictated By: Garrett Smith MD Signed By: <Electronically signed by Garrett Smith MD in OV> 06/14/251416 DD/ 16 TD/TT: 06/14/251416 Out Patient Therapist: [facility] IMG US PROCEDURES Final Resul t * Image-Guided Pap with Age-Based Screening??with CT/NG,??Trichomonas (02/27/2023 2:22 PM EDT) Comment [employer] Comment: This order for age-based cervical cancer and STI screening follows ACOG guidelines(PB 168, 140, XRV004). See individual assays for performing site location. Clinical Information: None given [employer] LMP: NONE GIVEN [employer] Prev. PAP: NONE GIVEN [employer] Prev. BX: NONE GIVEN [employer] SOURCE: None given [employer] Statement Of Adequacy: [employer] Comment: Satisfactory for evaluation. Endocervical/transformation zone component absent. Interpretation/Re sult: Negative for intraepithelial lesion or malignancy. [employer] COMMENT: This Pap test has been evaluated with computer assisted technology. [employer] Double Needle Operator: Oziel Plethorat Comment: BK,CT(ASCP) CT screening location: [address] Review Double Needle Operator: [employer] Comment: ALS, CT(ASCP) CT screening location: [address] [address] (Always Message) [employer] Comment: EXPLANATORY NOTE: The Pap is a [...] RNA, TMA, Urogenital NOT DETECTED NOT DETECTED [employer] Neisseria gonorrhoeae RNA, TMA, Urogenital NOT DETECTED NOT DETECTED [employer] Comment [employer] Comment: The analytical performance characteristics of this assay, when used to test SurePath(TM) specimens have been determined by [employer]. The modifications have not been cleared or approved by the FDA. This assay has been validated pursuant to the CLIA regulations and is used for clinical purposes. For additional information, please refer to https://[email or web address].WillCall/faq/SHO919 (This link is being provided for information/ educational purposes only.) Trichomonas vaginalis, QL, TMA, PAP Vial NOT DETECTED NOT DETECTED [employer] Comment: The analytical performance characteristics of this assay have been determined by [employer]. The modifications have not been cleared or approved by the FDA. This assay has been validated pursuant to the CLIA regulations and is used for clinical purposes. For additional information, please refer to http://[email or web address].WillCall/ faq/Trichomonastma (This link is being provided for information/ educational purposes only.) Cervix 02/27/2023 2:22 PM EDT 02/28/2023 3:51 AM EDT [facility] LAB CYTOLOGY ORDERABLES Final Result POLLY Love [address], [place] [address] [employer] [address] [place] [address] * HEPATITIS C AB W/REFL TO HCV RNA, QN, PCR (06/03/2022 10:56 AM EDT) HEPATITIS C ANTIBODY NON-REACT NAYA NON-REACT NAYA [facility] INDEX 0.04 <1.00 [facility] Comment: HCV antibody was non-reactive. There is no laboratory evidence of HCV infection. In most cases, no further action is required. However, if recent HCV exposure is suspected, a test for HCV RNA (test code 10482) is suggested. For additional information please refer to http://Lab21.WillCall/faq/OPX95w7 (This link is being provided for informational/ educational purposes only.) 06/03/2022 10:5 6 AM EDT [facility] HISTORICAL/NON ORDERABLE LABS Final Result [facility] [address] * HIV 1/2 ANTIGEN/ANTIBODY,FOURTH GENERATION W/RFL (06/03/2022 10:56 AM EDT) HIV-1/2 ANTIGEN AND ANTIBODIES, 4TH GENERATION W/ REFLEX NON-REACT NAYA NON-REACT NAYA [facility] Comment: HIV-1 antigen and HIV-1/HIV-2 [...] purpose. For additional information please refer to http://Lab21.WillCall/faq/TTA572 (This link is being provided for informational/ educational purposes only.) The performance of this assay has not been clinically validated in patients less than 2 years old. 06/03/2022 10:5 6 AM EDT [facility] LAB BLOOD ORDERABLES Final Re sult [facility] [address] from Last 3 Months or Most Recently Relevant to Health Maintenance Insurance [facility] [place] [id number] Care Teams Batch Analyst Relationship Specialty Start Date End Date [place] [facility] [address] [place] [phone] PCP - General Family Medicine 07/03/22
--- OUTSIDE RECORDS SUMMARY | 2025-07-20 15:14 | XMS_ITS | Encounter Summary ---
Author Organization [employer] Address [address] [place] [address] [address] [place] [address] Care Team Providers Care Pipe Processor Name Role Phone [place] [facility] Primary Care Provider [phone] Reason for Visit * Reason Onset Date Comments triage 11/10/2022 Encounter Details Date Type Department Care Team ([facility] st Contact Info) Description 11/10/2022 Telephone [facility] [address] [place], [place] [phone] [facility] [address] [place], [place] [phone] triage Social History Tobacco Use Types Packs/Day [...] No answer LVM to return call to [facility] triage line. Nothing sooner with [...] on filedocumented in this encounter Care Teams Pipe Processor Relationship Specialty Start Date End Date Inna Gallagher FNP [address] [place] [phone] PCP - General Family Medicine 07/03/22 documented as of this encounter
== END 2025-07-20 12:49 | disposition home or self-care (01) ==
LOC: HO.HWS 12:18
PROVIDERS: PCP Registered Nurse; Visit Provider Obstetrics & Gynecology
DX: N93.9 Abnormal uterine and vaginal bleeding, unspecified (principal); N94.89 Other specified conditions associated with female genital organs and menstrual cycle
CPT/HCPCS: 99203

== ENCOUNTER 2025-07-22 23:58 | Emergency (ER) | payer MEDICAID, SELFPAY ==
--- NOTE | ~2025-07-22 | CT_ITS ---
CLINICAL HISTORY: LUQ LLQ Pain; Left Flank Pain; N V CT abdomen and pelvis with IV contrast Comparison: US/SR - US PELVIC AND TRANSVAGINAL - 06/13/25 13:[address]/SR - CT GI BLEED ABD PEL WO/W IVCON - 02/05/25 10:50 EDT Findings: Lung bases show no active disease. No dependent layering pleural effusions. The heart is not enlarged. Liver normal size and contour. No focal hepatic lesions. Patent hepatic and portal veins. Physiologic distention of the gallbladder with no radiopaque gallstones. Homogeneous enhancement of the pancreas. No splenomegaly. Normal adrenal glands. Symmetrical renal excretion with no segmental or diffuse renal parenchymal disease or evidence of obstructive uropathy/hydroureteronephrosis. Normal caliber abdominal aorta. Bowel demonstrates a nonobstructive pattern. No free air. Increased stool burden. Appendix not visualized.No significant diverticular disease. No intraperitoneal, retroperitoneal, pelvic or inguinal masses lymphadenopathy or abnormal fluid collections. Normal CT appearance of the left ovary. 3 cm probable cyst right adnexa. Partially decompressed urinary bladder. No vertebral body compression fractures or spondylolisthesis. No bony destructive lesions. Impression: 1. No renal parenchymal disease or evidence of obstructive uropathy. 2. Increased stool burden. No significant diverticular disease. 3. Normal CT appearance left ovary. Right adnexal cyst. This document has been electronically signed by: Antony Purdy MD on 07/23/2025 07:58:58
[2025-07-23 00:01] VITALS: BP 118/66; PULSE 79; RESP 18; TEMP 36.7; O2SAT 99; BMI 24.8
[2025-07-23 00:36] LABS: MANUAL DIFF FLAG NO
[2025-07-23 00:37] LABS: Hematocrit 35.1 % (37.0-47.0); Hemoglobin 12.0 g/dl (12.0-16.0); Imm Gran Abs Auto 0.01 X10*3/uL (0.00-0.03); Imm Gran Pct Auto 0.2 % (0.0-0.4); Lymphocytes Absolute Auto 1.4 X10*3/uL (1.2-4.9); Mean Corpuscular HGB Conc 34.2 g/dl (31.0-35.0); Mean Corpuscular Hemoglobin 31.8 pg (27.0-33.0); Mean Corpuscular Volume 93.1 fL (80.0-98.0); NRBC Abs Auto 0.000 X10*3/uL (0.0-0.012); NRBC Pct Auto 0.0 /100WBC (0.0-0.2); Platelet Count 212 X10*3/uL (160-400); Red Blood Count 3.77 X10*6/uL (4.20-5.50); White Blood Count 5.3 X10*3/uL (4.8-10.8)
[2025-07-23 00:51] LABS: Alanine Aminotransferase 10 U/L (0-31); Albumin Level 4.3 g/dL (3.5-5.0); Alkaline Phosphatase 42 U/L (39-117); Anion Gap 11 (12-20); Aspartate Amino Transferase 16 U/L (5-31); Blood Urea Nitrogen 8 mg/dL (9-16); Calcium 9.1 mg/dL (8.4-10.2); Carbon Dioxide 23 mmol/L (22-29); Chloride 109 mmol/L (96-108); Creatinine Clr Calc Pharmacy 145.5; Estimated Glomerular Filt Rate > 60; Potassium 4.0 mmol/L (3.3-5.1); Sodium 139 mmol/L (135-145); Total Protein 6.7 g/dL (6.5-8.0)
--- OUTSIDE RECORDS SUMMARY | 2025-07-23 02:15 | XMS_ITS | Clinical Summary ---
Author Organization [employer] Address [address] [place] [address] 7t [place] [address] Care Team Providers Care Addiction Professional Name Role Phone Inna Gallagher PORTRAIT PAINTER Primary Care Provider [phone] Allergies No known active allergies Medications diphenhydrAMINE [...] Encounters Date Type Department Care Team Description 07/23/2025 Orders Only GENERIC EXTERNAL DATA DEPARTMENT Provider, Generic External Data 07/20/2025 Orders Only GENERIC EXTERNAL DATA DEPARTMENT Provider, Generic External Data 07/03/2025 11:15 AM EDT Office Visit [facility] [address] [place] [address] Elana Sabillon, OD Myopia, bilateral (Primary Dx); Encounter for examination of eyes and vision without abnormal findings 07/03/2025 Travel 06/19/2025 Results Follow-Up [facility] [address] [place] [phone] Inna Gallagher FNP US Pelvis Transvaginal 06/09/2025 Patient Outreach [facility] [address] [place], [place] [phone] Inna Gallagher FNP Care Management (C3CM- F/U call) 06/09/2025 Orders Only [facility] [address] [place] [address] Inna Gallagher FNP Adnexal mass (Primary Dx); Pelvic pain 06/08/2025 Telephone [facility] [address] [place] [phone] Inna Gallagher FNP Medication Question 06/07/2025 11:00 AM EDT Office Visit [address] [address] Inna Gallagher FNP Menorrhagia with irregular cycle (Primary Dx); Pelvic pain 06/07/2025 Travel 06/05/[address] [phone] Inna Gallagher FNP Nurse Triage 05/17/2025 Patient Outreach [address] [address] [facility] Care Management (C3CM- F/U call # [phone]) from Last 3 Months Immunizations Immunization Administration Dates Next Due LAON-FGF-IBA-HEPB Combined 2000 HPV 9-Valent 06/05/2017,03/05/2016,05/11/2013 Hep A, [...] the past 12 months, has t he [employer], gas, oil or water company threatened to [...] Procedure Name Priority Date/Time Associated Diagnosis Comments COMPREHENSIVE METABOLIC PANEL Routine 07/23/2025 12:32 AM EST CBC WITH AUTO DIFFERENTIAL Routine 07/23/2025 12:32 AM EST HCG, TOTAL, QN Routine 07/20/2025 1:07 PM EST TSH W/REFLEX TO FT4 Routine 07/20/2025 1 :07 PM EST CBC Routine 07/20/2025 1:07 PM EST CHLAMYDIA/N. GONORRHOEAE RNA, TMA, UROGENITAL Routine 07/20/2025 12:30 PM EST US PELVIS TRANSVAGINAL Urgent 2:17 PM EDT Pelvic pain IMAGE-GUIDED PAP W/AGE BASED SCR,W/CT/NG/TRICH Routine 02/27/2023 2:22 PM EDT Cervical cancer screening [facility] HISTORICAL HEPATITIS C AB W/REFL TO HCV RNA, QN, PCR Routine 06/03/2022 10:56 AM EDT HIV 1/2 ANTIGEN/ANTIBODY, FOURTH GENERATION W/RFL Routine 06/03/2022 10:56 AM EDT from Last 3 Months or Most Recently Relevant to Health Maintenance Results * (ABNORMAL) CBC auto differential (07/23/2025 12:32 AM EST) White Blood Count 5.3 4.8 - 10.8 X10*3/uL [facility] Red Blood Count 3.77(L) 4.20 - 5.50 X10*6/uL [facility] Hemoglobin 12.0 12.0 - 16.0 g/dl [facility] Hematocrit 35.1(L) 37.0 - 47.0 % [facility] Mean Corpuscular Volume 93.1 80.0 - 98.0 fL [facility] Mean Corpuscular Hemoglobin 31.8 27.0 - 33.0 pg [facility] Mean Corpuscular HGB Conc 34.2 31.0 - 35.0 g/dl [facility] Red Cell Distribution Width 12.7 11.0 - 16.0 % [facility] Platelet Count 212 160 - 400 X10*3/uL [facility] Mean Platelet Volume 10.0 9.4 - 12.3 fL [facility] Neutrophils Percent Auto 67.0 45 - 73 % [facility] Imm Gran Pct Auto 0.2 0.0 - 0.4 % [facility] Lymphocytes Percent Auto 25.8 20 - 40 % [facility] Monocytes Percent Auto 5.7 2 - 11 % [facility] Eosinophils Percent Auto 1.1 0 - 4 % [facility] Basophils Percent Auto 0.2 0 - 2 % [facility] NRBC Pct Auto 0.0 0.0 - 0.2 /100WBC [facility] Neutrophils Absolute Auto 3.5 2.0 - 8.3 x10*3/uL [facility] Imm Gran Abs Auto 0.01 0.00 - 0.03 X10*3/uL [facility] Lymphocytes Absolute Auto 1.4 1.2 - 4.9 X10*3/uL [facility] Monocytes Absolute Auto 0.3 0.1 - 1.2 X10*3/uL [facility] Eosinophils Absolute Auto 0.1 0.0 - 0.4 X10*3/uL [facility] Basophils Absolute Auto 0.0 0.0 - 0.2 X10*3/uL [facility] NRBC Abs Auto 0.000 0.0 - 0.012 X10*3/uL [facility] 07/23/2025 12:3 2 AM EST 07/23/2025 12:35 AM EST us Generic External Data Provider LAB BLOOD ORDERAB LES Final Result [facility] [address] [place] [address] [phone] * (ABNORMAL) Comprehensive Metabolic Panel (07/23/2025 12:32 AM EST) Sodium 139 135 - 145 mmol/L [facility] Potassium 4.0 3.3 - 5.1 mmol/L [facility] Chloride 109(H) 96 - 108 mmol/L [facility] Carbon Dioxide 23 22 - 29 mmol/L [facility] Anion Gap 11(L) 12 - 20 [facility] Urea Nitrogen (BUN) 8(L) 9 - 16 mg/dL [facility] Creatinine, Serum 0.53 0.5 - 1.4 mg/dL [facility] Creatinine Clr Calc Pharmacy 145.5 [facility] Comment:Provided height and weight: 160.02 cm,63.503 kg.eGFR (calculated from the MDRD study equation) and eCrCl(calculated from the Cockcroft-Gault equation) are based ondifferent parameters and may not yield comparable results.If eCrCl result is absurd, please check patient'sheight/weight. Estimated Glomerular Filt Rate >60 [facility] Comment:Chronic Kidney Disea se: Estimated GFR < 60 mL/min/1.56f1Eujtxw Kidney Disease: Estimated GFR < 15 mL/min/1.73m2 Glucose 107 60 - 115 mg/dL [facility] Calcium 9.1 8.4 - 10.2 mg/dL [facility] Bilirubin, Total 0.6 0.0 - 1.0 mg/dL [facility] Aspartate Amino Transferase 16 5 - 31 U/L [facility] Alanine Aminotransferase 10 0 - 31 U/L [facility] Total Protein 6.7 6.5 - 8.0 g/dL [facility] Albumin Level 4.3 3.5 - 5.0 g/dL [facility] Alkaline Phosphatase 42 39 - 117 U/L [facility] 07/23/2025 12:3 2 AM EST 07/23/2025 12:35 AM EST us Generic External Data Provider LAB BLOOD ORDERAB LES Final Result Performing Organization Address [facility]/ZIP Co de Phone Number [facility] [address] [place] [phone] * TSH with Reflex to Free T4 (07/20/2025 1:07 PM EST) Pathologist [facility] TSH reflex Free T4 0.51 0.32 - 4.0 uIU/mL [facility] 07/20/2025 1:07 PM EST 07/20/2025 1:07 PM EST Generic External Data Provider LAB BLOOD ORDERAB LES Final Result Performing Organization Address City/[facility] Co de Phone Number [facility] [address] [place] [phone] * CBC (07/20/2025 1:07 PM EST) Pathologist [facility] White Blood Count 5.3 4.8 - 10.8 X10*3/uL [facility] Red Blood Count 4.20 4.20 - 5.50 X10*6/uL [facility] Hemoglobin 13.5 12.0 - 16.0 g/dl [facility] Hematocrit 39.1 37.0 - 47.0 % [facility] Mean Corpuscular Volume 93.1 80.0 - 98.0 fL [facility] Mean Corpuscular Hemoglobin 32.1 27.0 - 33.0 pg [facility] Mean Corpuscular HGB Conc 34.5 31.0 - 35.0 g/dl [facility] Red Cell Distribution Width 12.6 11.0 - 16.0 % [facility] Platelet Count 244 160 - 400 X10*3/uL [facility] Mean Platelet Volume 10.3 9.4 - 12.3 fL [facility] NRBC Pct Auto 0.0 0.0 - 0.2 /100WBC [facility] NRBC Abs Auto 0.000 0.0 - 0.012 X10*3/uL [facility] 07/20/2025 1:07 PM EST 07/20/2025 1:07 PM EST Generic External Data Provider LAB BLOOD ORDERAB LES Final Result Performing Organization Address [facility] de Phone Number [facility] [address] [place] [phone] * hCG, Total, Quantitative (07/20/2025 1:07 PM EST) HCG Quantitative <2 mIU/mL [facility] Comment:Weeks post LMP Appro ximate hCG(Last Menstrual Period) Range (mIU/ml)3 - 4 weeks 9 - 1304 - 5 weeks 75 - 2,6005 - 6 weeks 850 - 20,8006 - 7 weeks 4000 - 100,2007 - 12 weeks 11,500 - 289,91434 - 16 weeks 18,300 - 137,95253 - 29 weeks (2nd trimester) 1,400 - 53,30986 - 41 weeks (3rd trimester) 940 - 60,000The Hugo B- hCG assay is used for the early detection ofpregnancy; it cannot be used to diagnose any conditionunrelated to . If a B-hCG level is not supportedby the clinical evidence, results should be confirmed by analternative method (qualitative urine hCG, for example). 07/20/2025 1:07 PM EST 07/20/2025 1:07 PM EST Generic External Data Provider LAB BLOOD ORDERAB LES Final Result Performing Organization Address [facility] Co de Phone Number [facility] [address] [place] [phone] * Chlamydia/N. Gonorrhoeae RNA, TMA, Urogenitial (07/20/2025 12:30 PM EST) CT PCR NOT DETECTED Not Detect. [facility] Comment:A not detected test result does not exclude the possibilityof infection because test results can be affected byimproper specimen collection, concurrent antibiotic therapy,or the number of organisms in the specimen which may bebelow the sensitivity of the test. As with many diagnostictests, results from the Xpert CT/NG assay should beinterpreted in conjunction with other laboratory andclinical data available to the clinician.Xpert CT/NG performance has not been evaluated in patientsless than 14 years of age. The assay should not be used forthe evaluationof suspected sexual abuse or for other medico-legalindications. Additional testing is recommended in anycircumstance when false positive or false negative resultscould lead to adverse medical, social or psychologicalconsequences. NG PCR NOT DETECTED Not Detect. [facility] Comment:A not detected test result does not exclude the possibilityof infection because test results can be affected byimproper specimen collection, concurrent antibiotic therapy,or the number of organisms in the specimen which may bebelow the sensitivity of the test. As with many diagnostictests, results from the Xpert CT/NG assay should beinterpreted in conjunction with other laboratory andclinical data available to the clinician.Xpert CT/NG performance has not been evaluated in patientsless than 14 years of age. The assay should not be used forthe evaluationof suspected sexual abuse or for other medico-legalindications. Additional testing is recommended in anycircumstance when false positive or false negative resultscould lead to adverse medical, social or psychologicalconsequences. 07/20/2025 12:3 0 PM EST 07/20/2025 3:11 PM EST us Generic External Data Provider LAB MICROBIOLOGY - GENERAL ORDERABLES Final Result [facility] [address] [place] [phone] * US Pelvis Transvaginal (06/14/2025 2:17 PM EDT) Anatomical Region Laterality Modality Pelvis Ultrasound 06/14/2025 2:17 PM EDT Narrative 06/14/2025 2:18 PM EDT [place] [address] Ultrasound Report Signed Patient: Sharla Loera MR#: [id number] : 2000 Acct:[id number] Age/Sex: 25 / F ADM Date: 06/13/25 Loc: HO.US Attending Dr: Inna ABARAC Ordering Physician: Inna Gallagher Date of Service: 06/13/25 Procedure(s): US pelvic and transvaginal Accession Number(s): [id number] cc: Inna Gallagher Reason for Exam: PELVIC PAIN CLINICAL HISTORY: PELVIC PAIN US pelvis transabdominal and transvaginal with Doppler Comparison: CT/SR - CT GI BLEED ABD PEL WO/W IVCON - 02/05/25 10:50 EDT US/NH/SR - US PELVIS TRANSABDOMINAL AND TRANSVAGINAL - [...] signed by Garrett Smith MD in OV> 06/14/25 1417 DD/ 16 TD/TT: 06/14/251416 Dental Ceramist: Procedure Note Donotuseinterpreter, Image - 06/14/2025 [place] [address] Ultrasound Report Signed Patient: Sharla Loera DMR#: [id number] : 2000Acct:[id number] Age/Sex: 25 / FADM Date: 06/13/25 Loc: HO.US Attending Dr: Inna ABARCA Ordering Physician: Inna Gallagher Date of Service: 06/13/25 Procedure(s): US pelvic and transvaginal Accession Number(s): [id number] cc: Inna Gallagher Reason for Exam: PELVIC PAIN CLINICAL HISTORY: PELVIC PAIN US pelvis transabdominal and transvaginal with Doppler Comparison: CT/SR - CT GI BLEED ABD PEL WO/W IVCON - 02/05/25 10:50 EDT US/NH/SR - US PELVIS TRANSABDOMINAL AND TRANSVAGINAL - [...] MD in OV> 06/14/251416 DD/ 16 TD/TT: 10/01/25 1417 Dental Ceramist: [facility] PORTRAIT PAINTER IMG US PROCEDURES Final Resul t * Image-Guided Pap with Age-Based Screening??with CT/NG,??Trichomonas (02/27/2023 2:22 PM EDT) Comment Light Extraction Comment: This order for age-based cervical cancer and STI screening follows ACOG guidelines(PB 168, 140, HZL251). See individual assays for performing site location. Clinical Information: None given [employer] LMP: NONE GIVEN ZAOZAOt Prev. PAP: NONE GIVEN ZAOZAOt Prev. BX: NONE GIVEN ZAOZAOt SOURCE: None given Light Extraction Statement Of Adequacy: Light Extraction Comment: Satisfactory for evaluation. Endocervical/transformation zone component absent. Interpretation/Re sult: Negative for intraepithelial lesion or malignancy. Light Extraction COMMENT: This Pap test has been evaluated with computer assisted technology. [employer] Manager: Etopus Comment: BK,CT(ASCP) CT screening location: [address] [employer] Manager: Z[employer]ZAOt Comment: ALS, CT(ASCP) CT screening location: [address] [address] (Always Message) [employer] Comment: EXPLANATORY NOTE: The Pap is a [...] RNA, TMA, Urogenital NOT DETECTED NOT DETECTED [employer] Neisseria gonorrhoeae RNA, TMA, Urogenital NOT DETECTED NOT DETECTED [employer] Comment Light Extraction Comment: The analytical performance characteristics of this assay, when used to test SurePath(TM) specimens have been determined by [employer]. The modifications have not been cleared or approved by the FDA. This assay has been validated pursuant to the CLIA regulations and is used for clinical purposes. For additional information, please refer to https://MyForce.appssavvy/faq/NWT770 (This link is being provided for information/ educational purposes only.) Trichomonas vaginalis, QL, TMA, PAP Vial NOT DETECTED NOT DETECTED Light Extraction Comment: The analytical performance characteristics of this assay have been determined by [employer]. The modifications have not been cleared or approved by the FDA. This assay has been validated pursuant to the CLIA regulations and is used for clinical purposes. For additional information, please refer to http://MyForce.appssavvy/ faq/Trichomonastma (This link is being provided for information/ educational purposes only.) Cervix 02/27/2023 2:22 PM EDT 02/28/2023 3:51 AM EDT [facility] LAB CYTOLOGY ORDERABLES Final Result [facility] [address], [place] [address] [employer] [facility] [address] [place] [phone] * HEPATITIS C AB W/REFL TO HCV RNA, QN, PCR (06/03/2022 10:56 AM EDT) HEPATITIS C ANTIBODY NON-REACT NAYA NON-REACT NAYA [facility] INDEX 0.04 <1.00 [facility] Comment: HCV antibody was non-reactive. There is no laboratory evidence of HCV infection. In most cases, no further action is required. However, if recent HCV exposure is suspected, a test for HCV RNA (test code 48025) is suggested. For additional information please refer to http://MyForce.appssavvy/faq/AUJ23b3 (This link is being provided for informational/ educational purposes only.) 06/03/2022 10:5 6 AM EDT [facility] HISTORICAL/NON ORDERABLE LABS Final Result Performing Organization Address [facility] Co de Phone Number [facility] [address] * HIV 1/2 ANTIGEN/ANTIBODY,FOURTH GENERATION W/RFL [...] purpose. For additional information please refer to http://education.appssavvy/faq/XMP980 (This link is being provided for informational/ educational purposes only.) The performance of this assay has not been clinically validated in patients less than 2 years old. 06/03/2022 10:5 6 AM EDT [facility] LAB BLOOD ORDERABLES Final Re sult Performing Organization Address [facility] Co de Phone Number [facility] [address] from Last 3 Months or Most Recently Relevant to Health Maintenance Insurance [email or web address] Care Teams Addiction Professional Relationship Specialty Start Date End Date Inna Gallagher FNP [address] [place] [address] PCP - General Family Medicine 07/03/22
--- OUTSIDE RECORDS SUMMARY | 2025-07-23 02:15 | XMS_ITS | Encounter Summary ---
Author Organization [employer] Address [address] [place] [address] 7 [place] [address] Care Team Providers Care Camp Head Counselor Name Role Phone Charlo [facility] Primary Care Provider [phone] Reason for Visit * Reason Onset Date Comments triage 11/10/2022 Encounter Details Date Type Department Care Team ([facility] st Contact Info) Description 11/10/2022 Telephone [facility] [address] [place], [place] [phone] [facility] [address] [place], [place] [phone] triage Social History Tobacco Use Types Packs/Day [...] No answer LVM to return call to [facility] triage line. Nothing sooner with PCP than [...] on filedocumented in this encounter Care Teams Camp Head Counselor Relationship Specialty Start Date End Date Inna Gallagher FNP [address] [place] [phone] PCP - General Family Medicine 07/03/22 documented as of this encounter
--- OUTSIDE RECORDS SUMMARY | 2025-07-23 02:15 | XMS_ITS ---
Author Organization [employer] Address [address] [place] [address] 7 [place] [address] Care Team Providers Care Dermatology Procedural Physician Name Role Phone Inna Gallagher [facility] Primary Care Provider [phone] [phone] Status:Enrolled (Active) Start date:12/20/2024 Enrollment date:12/29/2024 Enrollment reason:ADT Feed Overview ED- Pt went to [facility] ED on 12/19/24. Case Team Name Relationship Phone Lorrie Pandey(Responsible Staff) Continued Care and Services Coordination
--- OUTSIDE RECORDS SUMMARY | 2025-07-23 02:15 | XMS_ITS | Encounter Summary ---
Author Organization [employer] Address [address] [facility] 7[address] [place] [address] Care Team Providers Care Analytical Data Scientist Name Role Phone Inna Gallagher PRESSER HAND Primary Care Provider [phone] Encounter Details Date Type Department Care Team ([facility] st Contact Info) Description 07/20/2025 Orders Only [...] Procedure Name Priority Date/Time Associated Diagnosis Comments TSH W/REFLEX TO FT4 Routine 07/20/2025 1 :07 PM EST CBC Routine 07/20/2025 1:07 PM EST HCG, TOTAL, QN Routine 07/20/2025 1:07 PM EST CHLAMYDIA/N. GONORRHOEAE RNA, TMA, UROGENITAL Routine 07/20/2025 12:30 PM EST documented in this encounter Results * hCG, Total, Quantitative (07/20/2025 1:07 PM EST) HCG Quantitative <2 mIU/mL [facility] Comment:Weeks post LMP Appr oximate hCG(Last Menstrual Period) Range (mIU/ml)3 - 4 weeks 9 - 1304 - 5 weeks 75 - 2,6005 - 6 weeks 850 - 20,8006 - 7 weeks 4000 - 100,2007 - 12 weeks 11,500 - 289,19926 - 16 weeks 18,300 - 137,76144 - 29 weeks (2nd trimester) 1,400 - 53,97186 - 41 weeks (3rd trimester) 940 - 60,000The Hugo B-hCG assay is used for the early detection ofpregnancy; it cannot be used to diagnose any conditionunrelated to . If a B-hCG level is not supportedby the clinical evidence, results should be confirmed by analternative method (qualitative urine hCG, for example). 07/20/2025 1:07 PM EST 07/20/2025 1:07 PM EST Generic External Data Provider LAB BLOOD ORDERAB LES Final Result Performing Organization Address [facility]/ZIP Co de Phone Number [facility] [address] [place] [phone] * TSH with Reflex to Free T4 (07/20/2025 1:07 PM EST) Pathologist [facility] TSH reflex Free T4 0.51 0.32 - 4.0 uIU/mL [facility] 07/20/2025 1:07 PM EST 07/20/2025 1:07 PM EST Generic External Data Provider LAB BLOOD ORDERAB LES Final Result Performing Organization Address [facility]/ZIP Co de Phone Number [facility] [address] [place] [phone] * CBC (07/20/2025 1:07 PM EST) White Blood Count 5.3 4.8 - 10.8 X10*3/uL [facility] Red Blood Count 4.20 4.20 - 5.50 X10*6/uL [facility] Hemoglobin 13.5 12.0 - 16.0 g/dl [facility] Hematocrit 39.1 37.0 - 47.0 % [facility] Mean Corpuscular Volume 93.1 80.0 - 98.0 fL [facility] Mean Corpuscular Hemoglobin 32.1 27.0 - 33.0 pg [facility] Mean Corpuscular HGB Conc 34.5 31.0 - 35.0 g/dl [facility] Red Cell Distribution Width 12.6 11.0 - 16.0 % [facility] Platelet Count 244 160 - 400 X10*3/uL [facility] Mean Platelet Volume 10.3 9.4 - 12.3 fL [facility] NRBC Pct Auto 0.0 0.0 - 0.2 /100WBC [facility] NRBC Abs Auto 0.000 0.0 - 0.012 X10*3/uL [facility] 07/20/2025 1:07 PM EST 07/20/2025 1:07 PM EST us Generic External Data Provider LAB BLOOD ORDERAB LES Final Result [facility] [address] [place] [phone] * Chlamydia/N. Gonorrhoeae RNA, TMA, Urogenitial (07/20/2025 12:30 PM EST) CT PCR NOT DETECTED Not Detect. [facility] Comment:A not detected test result does [...] psychologicalconsequences. NG PCR NOT DETECTED Not Detect. [facility] Comment:A not detected test result does [...] LAB MICROBIOLOGY - GENERAL ORDERABLES Final Result [facility] [address] [place] [phone] documented in this encounter Visit Diagnoses Not on filedocumented in this encounter Additional Health Concerns Assessment Noted Time PHQ-9 Depression Total Score: 6 02/25/20 25 10:55 AM EDT documented as of this encounter Care Teams Analytical Data Scientist Relationship Specialty Start Date End Date Inna Gallagher FNP [address] [place] [phone] PCP - General Family Medicine 07/03/22 documented as of this encounter
--- OUTSIDE RECORDS SUMMARY | 2025-07-23 02:15 | XMS_ITS | Encounter Summary ---
Author Organization [employer] Address [address] [facility] [address] [place] [address] Care Team Providers Care Gwot Ia/Ilo Intelligence Support Name Role Phone Inna Gallagher NURSE SUBSTANCE ABUSE Primary Care Provider [phone] Encounter Details Date Type Department Care Team ([facility] st Contact Info) Description 07/23/2025 Orders Only GENERIC EXTERNAL DATA [...] Diagnosis Comments CBC WITH AUTO DIFFERENTIAL Routine 07/23/2025 12:32 AM EST COMPREHENSIVE METABOLIC PANEL Routine 07/23/2025 12:32 AM EST documented in this encounter Results * (ABNORMAL) Comprehensive Metabolic Panel (07/23/2025 12:32 AM EST) Sodium 139 135 - 145 mmol/L [facility] Potassium 4.0 3.3 - 5.1 mmol/L [facility] Chloride 109(H) 96 - 108 mmol/L [facility] Carbon Dioxide 23 22 - 29 mmol/L [facility] Anion Gap 11(L) 12 - 20 [facility] Urea Nitrogen (BUN) 8(L) 9 - 16 mg/dL [facility] Creatinine, Serum 0.53 0.5 - 1.4 mg/dL [facility] Creatinine Clr Calc Pharmacy 145.5 [facility] Comment:Provided height and weight: 160.02 cm,63.503 kg.eGFR (calculated from the MDRD study equation) and eCrCl(calculated from the Cockcroft-Gault equation) are based ondifferent parameters and may not yield comparable results.If eCrCl result is absurd, please check patient'sheight/weight. Estimated Glomerular Filt Rate >60 [facility] Comment:Chronic Kidney Disea se: Estimated GFR < 60 mL/min/1.78e9Gvryae Kidney Disease: Estimated GFR < 15 mL/min/1.73m2 Glucose 107 60 - 115 mg/dL [facility] Calcium 9.1 8.4 - 10.2 mg/dL [facility] Bilirubin, Total 0.6 0.0 - 1.0 mg/dL [facility] Aspartate Amino Transferase 16 5 - 31 U/L [facility] Alanine Aminotransferase 10 0 - 31 U/L [facility] Total Protein 6.7 6.5 - 8.0 g/dL [facility] Albumin Level 4.3 3.5 - 5.0 g/dL [facility] Alkaline Phosphatase 42 39 - 117 U/L [facility] 07/23/2025 12:3 2 AM EST 07/23/2025 12:35 AM EST us Generic External Data Provider LAB BLOOD ORDERAB LES Final Result [facility] [address] [place] [phone] * (ABNORMAL) CBC auto differential (07/23/2025 12:32 AM EST) White Blood Count 5.3 4.8 - 10.8 X10*3/uL [facility] Red Blood Count 3.77(L) 4.20 - 5.50 X10*6/uL [facility] Hemoglobin 12.0 12.0 - 16.0 g/dl [facility] Hematocrit 35.1(L) 37.0 - 47.0 % [facility] Mean Corpuscular Volume 93.1 80.0 - 98.0 fL [facility] Mean Corpuscular Hemoglobin 31.8 27.0 - 33.0 pg [facility] Mean Corpuscular HGB Conc 34.2 31.0 - 35.0 g/dl [facility] Red Cell Distribution Width 12.7 11.0 - 16.0 % [facility] Platelet Count 212 160 - 400 X10*3/uL [facility] Mean Platelet Volume 10.0 9.4 - 12.3 fL [facility] Neutrophils Percent Auto 67.0 45 - 73 % [facility] Imm Gran Pct Auto 0.2 0.0 - 0.4 % [facility] Lymphocytes Percent Auto 25.8 20 - 40 % [facility] Monocytes Percent Auto 5.7 2 - 11 % [facility] Eosinophils Percent Auto 1.1 0 - 4 % [facility] Basophils Percent Auto 0.2 0 - 2 % [facility] NRBC Pct Auto 0.0 0.0 - 0.2 /100WBC [facility] Neutrophils Absolute Auto 3.5 2.0 - 8.3 x10*3/uL [facility] Imm Gran Abs Auto 0.01 0.00 - 0.03 X10*3/uL [facility] Lymphocytes Absolute Auto 1.4 1.2 - 4.9 X10*3/uL [facility] Monocytes Absolute Auto 0.3 0.1 - 1.2 X10*3/uL [facility] Eosinophils Absolute Auto 0.1 0.0 - 0.4 X10*3/uL [facility] Basophils Absolute Auto 0.0 0.0 - 0.2 X10*3/uL [facility] NRBC Abs Auto 0.000 0.0 - 0.012 X10*3/uL [facility] 07/23/2025 12:3 2 AM EST 07/23/2025 12:35 AM EST us Generic External Data Provider LAB BLOOD ORDERAB LES Final Result [facility] [address] [place] [phone] documented in this encounter Visit Diagnoses Not on filedocumented in this encounter Additional Health Concerns Assessment Noted Time PHQ-9 Depression Total Score: 6 02/25/20 25 10:55 AM EDT documented as of this encounter Care Teams [employer] Support Relationship Specialty Start Date End Date Inna Gallagher FNP [address] [place] [phone] PCP - General Family Medicine 07/03/22 documented as of this encounter
[2025-07-23 02:19] VITALS: BP 100/56; PULSE 84; RESP 16; TEMP 36.8; O2SAT 100
--- NOTE | 2025-07-23 02:46 | ED_ITS ---
HPI - Abdominal Pain General Chief Complaint: Abdominal Pain Stated Complaint: ABD PAIN Time Seen by Provider: 07/23/25 02:44 Source: patient Mode of arrival: ambulatory Limitations: no limitations History of Present Illness ED Provider: Ryan DUNCAN HPI narrative: The patient is a 25-year-old female presenting to the ED for evaluation of left lower quadrant abdominal pain which radiates towards her left flank. The patient reports a history of recurrent constipation, reports she did move her bowels this morning, describes a paced like stool without associated hematochezia or melena. The patient reports associated nausea without associated vomiting. Patient denies associated fever/chills, chest pain, shortness of breath, dysuria, hematuria, recent sick contacts, or recent trauma. The patient denies any surgical abdominal history. Related Data Home Medications ?Medication ?Instructions ?Recorded ?Confirmed albuterol sulfate 2.5 mg/3 mL 2.5 mg inhalation Q4-6H PRN 10/25/24 07/20/25 (0.083 %) solution for nebulization albuterol sulfate 90 mcg/actuation 2 puff inhalation Q 4-6H PRN 10/25/24 07/20/25 aerosol inhaler budesonide-formoterol HFA 80 2 puff inhalation BID 08/0807/20/25 mcg-4.5 mcg/actuation aerosol inhaler (Symbicort) cetirizine 10 mg tablet (Zyrtec) 10 mg PO DAILY PRN 07/20/25 diphenhydramine HCl 25 mg capsule 25 mg PO BEDTIME PRN 10/25/24 07/20/25 (Benadryl) hydrocortisone acetate 25 mg 25 mg SC BID 10/25/2403/08 rectal suppository (Anusol-HC) lidocaine 5 % topical patch 1 patch topical DAILY 10/1507/20/25 (Lidoderm) Previous Rx's ?Medication ?Instructions ?Recorded hydrocortisone 2.5 % topical cream 1 appl SC BID-QID P RN hemorrhoids 11/03/24 with perineal applicator 30 days #30 grams sennosides 8.6 mg-docusate sodium 2 tab-cap (2 x 8.6-5 0 mg) PO 11/03/24 50 mg capsule (Senna Plus) BEDTIME 60 days #120 caps hydrocortisone 1 % topical cream 1 appl topical TID SC N hemorrhoids 02/05/25 (Preparation H Hydrocortisone) #28.35 grams Allergies Allergy/AdvReac Type Severity Reaction Status Date / Time No Known Allergies Allergy Verified 07/23/25 00:02 Review of Systems Review of Systems Yes all other systems are reviewed and are negative [facility] Past Medical History Surgical History History of facial surgery Family History Family History Maternal Grandfather Diabetes Mother Depression Anemia HTN (hypertension) Social History Social History Household Members: Family Alcohol intake: current Alcohol type: hard liquor Patient Tobacco Use Status: Never used Tobacco Smoked in Last 30 Days: No Substance Use Type: Marijuana Advance Directives: No Advance Directives Information Provided: Yes Do you have a plan to hurt others: No Plan Physical Exam ED Vital Signs: Vital Signs - 24 hr 07/23/25 00:01 07/23/25 02:19 07/23/25 03:27 Temperature 98.1 F 98.3 F Pulse Rate 79 84 75 Respiratory Rate 18 16 14 Blood Pressure 118/66 100/56 L 110/68 Pulse Oximetry 99 100 98 Oxygen Delivery Method Room Air Room Air Room Air 07/23/25 06:33 07/23/25 09:28 Temperature 98.4 F Pulse Rate 67 74 Respiratory Rate 16 19 Blood Pressure 103/59 L 110/69 Pulse Oximetry 97 97 Oxygen Delivery Method Room Air Room Air BMI result Body Mass Index 24.8 CONSTITUTIONAL: The patient appears non-toxic, well nourished and in no acute distress. Vital signs as documented. HEAD: Atraumatic, normocephalic. EYES: EOMs grossly intact, pupils equal, conjunctiva clear, no exudate. ENT: Nares patent, no discharge. Airway patent, no audible stridor, visible mucosa is pink and moist without noted lesions. NECK: Trachea is midline, no obvious masses or gross abnormalities. CHEST: Symmetric movement, normal appearance. LUNGS: LS present and CTAB, no w/r/r. Non-labored work of breathing. CARDIAC: Regular Rhythm, S1/S2 appreciated, no murmurs, rubs or gallops. ABDOMEN: Abdomen soft x4 quadrants, positive tenderness to palpation of the left upper and left lower quadrants, negative rebound, no palpable masses or organomegaly. Equivocal CVAT on the left, negative on the right. : Deferred. EXTREMITIES: Normal tone, moves all extremities spontaneously without reported pain. No obvious acute injury or deformity noted. NEURO: Alert and oriented x3, CN II-XII appear grossly intact. Cerebellar Functioning grossly intact. No obvious sensory or motor deficits. Speech clear and appropriate. PSYCH: normal affect, appropriate eye contact, fluid speech, with appropriate response to questioning. No reported suicidality or homicidality. SKIN: Warm, dry, color appropriate, normal turgor. No rashes noted. Medical Decision Making Medical Decision Making MDM Narrative: 3:24 AM 07/23/2025 (Felicia DUNCAN): The patient is a 25-year-old female presenting to the ED for evaluation of left lower quadrant abdominal pain which radiates towards her left flank. The patient reports a history of recurrent constipation, reports she did move her bowels this morning, describes a paced like stool without associated hematochezia or melena. The patient reports associated nausea without associated vomiting. Patient denies associated fever/chills, chest pain, shortness of breath, dysuria, hematuria, recent sick contacts, or recent trauma. The patient denies any surgical abdominal history. On exam patient has tenderness of the left upper and left lower quadrants without rebound, with a equivocal left-sided CVAT, negative on the right. The patient's laboratory evaluation shows no leukocytosis, significant anemia, electrolyte abnormality, or GLO. The patient's LFTs are unremarkable. The patient is hemodynamically stable, without fever, tachycardia, or hypoxia. Due to patient's abdominal tenderness we will obtain CT abdomen and pelvis with IV contrast to evaluate for intra-abdominal pathology versus possible nephrolithiasis. Patient will have a urinalysis and urine added on. Patient was offered IV fluid hydration, pain management, and antiemetics, patient declined pain medication or antiemetics but agreed to IV fluid hydration. Time: 09:37 Date: 07/23/25 Provider: Magdy López MD I assumed care of this patient from my colleague, physician hotel assistant manager Ryan Cole pending her CT abdomen pelvis results. Patient presented with left lower quadrant pain started 2 nights prior, intermittent, patient has had similar pain in the past in his being evaluated by gynecology. Patient states that she does have constipation and has been taking a fiber supplement that has not moved her bowels in 24 hours. Patient did not want any pain medications. On my examination the patient has mild diffuse tenderness with mild to moderate left lower quadrant tenderness with no rebound, normoactive bowel sounds. She was treated with normal saline IV x1 L. CBC, CMP, urinalysis in your test was were all unremarkable. CT scan of the abdomen pelvis did not reveal any clear cause for her pain. I did discuss the workup negative workup for the patient. Told her that this time I do not have a clear etiology for her pain but she should continue to follow up with her black jack dealer for further evaluation. Patient was advised to take ibuprofen and Tylenol for pain. She was also advised to continue taking your fires supplement, increase your fluid intake and to take extra-strength Senokot 1 pill b.i.d. for 4 days to help with her constipation. She was given printed and verbal instructions and discharged home. Admission/Observation Consideration of admission/observation: Escalation of care including admission/observation considered Lab Data MDM Lab Attestation statement: I reviewed the patient's lab results. 07/23/25 00:32 07/23/25 00:32 Labs: Lab Results 07/23/25 07/23/25 Range/Units 00:32 05:19 WBC 5.3 (4.8-10.8) X10*3/uL RBC 3.77 L (4.20-5.50) X10*6/uL Hgb 12.0 (12.0-16.0) g/dl Hct 35.1 L (37.0-47.0) % MCV 93.1 (80.0-98.0) fL MCH 31.8 (27.0-33.0) pg MCHC 34.2 (31.0-35.0) g/dl RDW 12.7 (11.0-16.0) % Plt Count 212 (160-400) X10*3/uL MPV 10.0 (9.4-12.3) fL Immature Gran % (Auto) 0.2 (0.0-0.4) % Neut % (Auto) 67.0 (45-73) % Lymph % (Auto) 25.8 (20-40) % [place] % (Auto) 5.7 (2-11) % Eos % (Auto) 1.1 (0-4) % Baso % (Auto) 0.2 (0-2) % Lymph # (Auto) 1.4 (1.2-4.9) X10*3/uL [place] # (Auto) 0.3 (0.1-1.2) X10*3/uL Eos # (Auto) 0.1 (0.0-0.4) X10*3/uL Baso # (Auto) 0.0 (0.0-0.2) X10*3/uL Abs Immat Gran (auto) 0.01 (0.00-0.03) X10*3/uL Absolute Neuts (auto) 3.5 (2.0-8.3) x10*3/uL Absolute Nucleated RBC 0.000 (0.0-0.012) X10*3/uL Nucleated RBC % (auto) 0.0 (0.0-0.2) /100WBC Sodium 139 (135-145) mmol/L Potassium 4.0 (3.3-5.1) mmol/L Chloride 109 H (96-108) mmol/L Carbon Dioxide 23 (22-29) mmol/L Anion Gap 11 L (12-20) BUN 8 L (9-16) mg/dL Creatinine 0.53 (0.5-1.4) mg/dL Estim Creat Clear Calc 145.5 Estimated GFR > 60 Random Glucose 107 (60-115) mg/dL Calcium 9.1 D (8.4-10.2) mg/dL Total Bilirubin 0.6 (0.0-1.0) mg/dL AST 16 (5-31) U/L ALT 10 (0-31) U/L Alkaline Phosphatase 42 (39-117) U/L Total Protein 6.7 (6.5-8.0) g/dL Albumin 4.3 (3.5-5.0) g/dL Urine Color Yellow Urine Appearance Clear Urine pH 5.5 (5.0-9.0) Ur Specific [place] 1.010 (1.005-1.025) Urine Protein Negative (Neg-Trace) mg/dL Urine Glucose (UA) Negative (Negative) mg/dL Urine Ketones Trace (Negative) mg/dL Urine Blood Negative (Negative) Urine Nitrite Negative (Negative) Ur Leukocyte Esterase Negative (Negative) Urine Test NEGATIVE (NEGATIVE) Radiology Impression Discussion of test interpretation with radiology: I have reviewed the radiologist's reading. Radiologist Impression: CT abdomen and pelvis with IV contrast Comparison: US/SR - US PELVIC AND TRANSVAGINAL - 06/13/25 13:[address]/SR - CT GI BLEED ABD PEL WO/W IVCON - 02/05/25 10:50 EDT Findings: Lung bases show no active disease. No dependent layering pleural effusions. The heart is not enlarged. Liver normal size and contour. No focal hepatic lesions. Patent hepatic and portal veins. Physiologic distention of the gallbladder with no radiopaque gallstones. Homogeneous enhancement of the pancreas. No splenomegaly. Normal adrenal glands. Symmetrical renal excretion with no segmental or diffuse renal parenchymal disease or evidence of obstructive uropathy/hydroureteronephrosis. Normal caliber abdominal aorta. Bowel demonstrates a nonobstructive pattern. No free air. Increased stool burden. Appendix not visualized.No significant diverticular disease. No intraperitoneal, retroperitoneal, pelvic or inguinal masses lymphadenopathy or abnormal fluid collections. Normal CT appearance of the left ovary. 3 cm probable cyst right adnexa. Partially decompressed urinary bladder. No vertebral body compression fractures or spondylolisthesis. No bony destructive lesions. Impression: 1. No renal parenchymal disease or evidence of obstructive uropathy. 2. Increased stool burden. No significant diverticular disease. 3. Normal CT appearance left ovary. Right adnexal cyst. This document has been electronically signed by: Antony Purdy MD on 07/23/2025 07:58:58 External Record Review External record reviewed: Outpatient record and Prior outpatient labs Prescription Management I considered prescription management with: Pain Medication Medications Administered Discontinued Medications Generic Name Dose Route Start Last Admin Trade Name Freq PRN Reason Stop Dose Admin Sodium Chloride 1,000 mls @ 999 mls/hr 07/23/25 03:30 07/23/25 04:51 Ns IV 07/23/25 04:30 Infused .Q1H1M CRISTINO Infusion Iohexol 100 ml 07/23/25 05:53 07/23/25 05:53 Iohexol 350 Mg/Ml 100 Ml Infus..Btl IV 07/23/25 05:54 85 ml ONCE ONE Administration Discharge Plan Discharge Clinical Impression: Abdominal pain Qualifiers: Abdominal location: left lower quadrant Qualified Code(s): R10.32 - Left lower quadrant pain Constipation Qualifiers: Constipation type: unspecified constipation type Qualified Code(s): K59.00 - Constipation, unspecified Patient Disposition: Home, Self-Care Instructions: Constipation (ED) Additional Instructions: Your blood work included a CBC, CMP, urinalysis and urine test. All of these tests were normal which is reassuring. You had a CT scan of your abdomen pelvis that did not reveal a cause for your abdominal pain. Take ibuprofen 200 mg pills, 2 pills every 6 hours as needed for pain or fever. Take Tylenol (acetaminophen) 500 mg pills, 2 pills every 6 hours as needed for pain or fever. Increase your fluid intake and continue taking your fiber supplement. For severe constipation take extra-strength Senokot 1 pill twice a day for 4 days. You should not take this medication for more than 4 days in a row in you should be off the medication for at least 3 days before you take it again. Follow-up with your doctor in 2 days. Please return to the emergency department if your symptoms get worse or if you develop any symptoms that are concerning to you. Prescriptions: No Action hydrocortisone [Preparation H Hydrocortisone] 1 % cream 1 appl topical TID PRN (Reason: hemorrhoids) Qty: 28.35 0RF albuterol sulfate 2.5 mg /3 mL (0.083 %) solution for nebulization 2.5 mg inhalation Q4-6H PRN albuterol sulfate 90 mcg/actuation HFA aerosol inhaler 2 puff inhalation Q4-6H PRN budesonide-formoterol [Symbicort] 80-4.5 mcg/actuation HFA aerosol inhaler 2 puff inhalation BID cetirizine [Zyrtec] 10 mg tablet 10 mg PO DAILY PRN diphenhydramine HCl [Benadryl] 25 mg capsule 25 mg PO BEDTIME PRN lidocaine [Lidoderm] 5 % adhesive patch,medicated 1 patch topical DAILY Rx Instructions: leave on most painful area for up to 12 hrs hydrocortisone acetate [Anusol-HC] 25 mg suppository 25 mg SC BID Senna Plus 8.6-50 mg capsule 2 tab-cap PO BEDTIME 60 Days Qty: 120 1RF hydrocortisone 2.5 % cream with perineal applicator 1 appl SC BID-QID PRN (Reason: hemorrhoids) 30 Days Qty: 30 1RF Print Language: Libyan
[2025-07-23 03:27] VITALS: BP 110/68; PULSE 75; RESP 14; O2SAT 98
[2025-07-23 05:25] LABS: Appearance Urine Clear; Glucose Urine UA Negative (Negative); PH 5.5 (5.0-9.0); Specific Gravity - Urine 1.010 (1.005-1.025)
[2025-07-23 05:38] LABS: UPreg QC Valid YES
[2025-07-23] MEDS: iohexoL 350 MG/ML 100 ML INFUS..BTL IV (05:53)
[2025-07-23 06:33] VITALS: BP 103/59; PULSE 67; RESP 16; O2SAT 97
[2025-07-23 09:28] VITALS: BP 110/69; PULSE 74; RESP 19; TEMP 36.9; O2SAT 97
[2025-07-23 10:07] VITALS: BP 110/69; PULSE 74; RESP 19; TEMP 36.9; O2SAT 97
== END 2025-07-23 10:08 | disposition home or self-care (01) ==
PROVIDERS: Emergency Medicine; Physician Assistant; Emergency Provider Emergency Medicine Emergency Medical Services; PCP Registered Nurse
DX: K59.00 Constipation, unspecified (principal); R10.32 Left lower quadrant pain; R10.812 Left upper quadrant abdominal tenderness
CPT/HCPCS: 36415; 74177; 80053; 81003; 81025; 85025; 96360; 99284; 99285; Q9967

== ENCOUNTER → 2025-07-23 03:23 | Outpatient (BNV) | payer MEDICAID, SELFPAY | PROVIDERS: Emergency Provider Emergency Medicine; PCP Registered Nurse; Visit Provider Radiology Diagnostic Radiology | DX: N83.291 Other ovarian cyst, right side (principal) | CPT/HCPCS: 74177 ==

== ENCOUNTER 2025-07-24 00:52 | Emergency (ER) | payer MEDICAID, SELFPAY ==
[2025-07-24 00:59] VITALS: BP 101/62; BP 138/70; PULSE 70; PULSE 98; RESP 18; TEMP 36.8; O2SAT 100; O2SAT 99; BMI 30.2
--- OUTSIDE RECORDS SUMMARY | 2025-07-24 01:16 | XMS_ITS ---
Author Organization [email or web address] Address [address] [place] [address] [address] [place] [address] Care Team Providers Care Physicist Nuclear Name Role Phone Inna Gallagher [facility] Primary Care Provider [phone] [facility] Status:Enrolled (Active) Start date:12/20/2024 Enrollment date:12/29/2024 Enrollment reason:ADT Feed Overview ED- Pt went to [facility] ED on 12/19/24. Case Team Name Relationship Phone Lorrie Pandey(Responsible Staff) [phone] Continued Care and Services Coordination
--- OUTSIDE RECORDS SUMMARY | 2025-07-24 01:16 | XMS_ITS | Clinical Summary ---
Author Organization [employer] Address [address] [place] [address] 7[address] [place] [address] Care Team Providers Care School Director Name Role Phone Inna Gallagher BOOK SALESMAN Primary Care Provider Allergies No known active [...] Data 07/03/2025 11:15 AM EDT Office Visit [facility] [address] [place] [address] Elana Sabillon, OD Myopia, bilateral (Primary Dx); Encounter for examination of eyes and vision without abnormal findings 07/03/2025 Travel 06/19/2025 Results Follow-Up [facility] [address] [place] [phone] Inna Gallagher FNP US Pelvis Transvaginal 06/09/2025 Patient Outreach [facility] [address] [place], [place] [phone] Inna Gallagher FNP Care Management (C3CM- F/U call) 06/09/2025 Orders Only [facility] [address] [place] [address] Inna Gallagher FNP Adnexal mass (Primary Dx); Pelvic pain 06/08/[address] [facility] [address] [place] [phone] Inna Gallagher FNP Medication Question 06/07/2025 11:00 AM EDT Office Visit [address] [address] Inna Gallagher FNP Menorrhagia with irregular cycle (Primary Dx); Pelvic pain 06/07/2025 Travel 06/05/[address] [phone] Inna Gallagher FNP Nurse Triage 05/17/2025 Patient Outreach [address] [address] [facility] Care Management (C3CM- F/U call # 2) from Last 3 Months Immunizations Immunization Administration Dates Next Due [id number]-HEPB Combined 2000 HPV 9-Valent 06/05/2017,03/05/2016,05/11/2013 Hep A, [...] the past 12 months, has t he [employer], gas, oil or water company threatened to [...] Additional history exists Meningococcal B Vaccine Completed 05/27/20, 04/26/2019, 08/18/2001 HIV Screening Completed 06/03/2022 Hepatitis C Screening Completed 06/03/2022 RSV under 20 months Aged Out No longe r eligible based on patient's age to complete this topic Rotavirus Vaccines Aged Out No longer eligible based on patient's age to complete this topic Procedures Procedure Name Priority Date/Time Associated Diagnosis Comments CT ABDOMEN PELVIS W CONTRAST Routine 07/23/2025 7:58 AM EST HCG, QL, URINE Routine 07/23/2025 5:19 AM EST URINALYSIS WITH REFLEX MICROSCOPIC Routine 07/23/2025 5:19 AM EST COMPREHENSIVE METABOLIC PANEL Routine 07/23/2025 [...] Recently Relevant to Health Maintenance Results * CT Abdomen Pelvis w/ Contrast (07/23/2025 7:58 AM EST) Anatomical Region Laterality Modality Body, Pelvis, Abdomen Computed T omography 07/23/2025 7:58 AM EST Narrative 07/23/2025 8:01 AM EST [place] [address] CT Scan Report Signed Patient: Sharla Loera MR#: [id number] : 2000 Acct:[id number] Age/Sex: 25 / F ADM Date: 07/23/25 Loc: HO.ED Attending Dr: Ordering Physician: Ryan Cole PA-C Date of Service: 07/23/25 Procedure(s): CT abdomen pelvis w IV con Accession Number(s): [id number] cc: Ryan Cole PA-C; [facility] Report Number: [id number]: Total DLP = 0.00 mGy-cm Reason for Exam: LUQ/LLQ Pain; Left Flank Pain; N/V CLINICAL HISTORY: LUQ LLQ Pain; Left Flank Pain; N V CT abdomen and pelvis with IV contrast Comparison: US/SR - US PELVIC AND TRANSVAGINAL - 06/13/25 13:[address]/SR - CT GI BLEED ABD PEL WO/W IVCON - 02/05/25 10:50 EDT Findings: Lung bases show no active disease. No dependent layering pleural effusions. The heart is not enlarged. Liver normal size and contour. No focal hepatic lesions. Patent hepatic and portal veins. Physiologic distention of the gallbladder with no radiopaque gallstones. Homogeneous enhancement of the pancreas. No splenomegaly. Normal adrenal glands. Symmetrical renal excretion with no segmental or diffuse renal parenchymal disease or evidence of obstructive uropathy/hydroureteronephrosis. Normal caliber abdominal aorta. Bowel demonstrates a nonobstructive pattern. No free air. Increased stool burden. Appendix not visualized.No significant diverticular disease. No intraperitoneal, retroperitoneal, pelvic or inguinal masses lymphadenopathy or abnormal fluid collections. Normal CT appearance of the left ovary. 3 cm probable cyst right adnexa. Partially decompressed urinary bladder. No vertebral body compression fractures or spondylolisthesis. No bony destructive lesions. Impression: 1. No renal parenchymal disease or evidence of obstructive uropathy. 2. Increased stool burden. No significant diverticular disease. 3. Normal CT appearance left ovary. Right adnexal cyst. This document has been electronically signed by: Antony Purdy MD on 07/23/2025 07:58:58 Dictated By: Antony Purdy MD Signed By: <Electronically signed by Antony Purdy MD in OV> 07/23/25 075 DD/ 7 TD/TT: 07/23/25757 Dealer Accounts Investigator: Procedure Note Donotuseinterpreter, Image - 07/23/[address] [place] [address] [address] Scan Report Signed Patient: Sharla Loera DMR#: [id number] : 2000Acct:[id number] Age/Sex: 25 / FADM Date: 07/23/25 Loc: HO.ED Attending Dr: Ordering Physician: Ryan Cole PA-C Date of Service: 07/23/25 Procedure(s): CT abdomen pelvis w IV con Accession Number(s): [id number] cc: Ryan Cole PA-C; [facility] Report Number: [id number]: Total DLP = 0.00 mGy-cm Reason for Exam: LUQ/LLQ Pain; Left Flank Pain; N/V CLINICAL HISTORY: LUQ LLQ Pain; Left Flank Pain; N V CT abdomen and pelvis with IV contrast Comparison: US/SR - US PELVIC AND TRANSVAGINAL - 06/13/25 13:[address]/SR - CT GI BLEED ABD PEL WO/W IVCON - 02/05/25 10:50 EDT Findings: Lung bases show no active disease. No dependent layering pleural effusions. The heart is not enlarged. Liver normal size and contour. No focal hepatic lesions. Patent hepatic and portal veins. Physiologic distention of the gallbladder with no radiopaque gallstones. Homogeneous enhancement of the pancreas. No splenomegaly. Normal adrenal glands. Symmetrical renal excretion with no segmental or diffuse renal parenchymal disease or evidence of obstructive uropathy/hydroureteronephrosis. Normal caliber abdominal aorta. Bowel demonstrates a nonobstructive pattern. No free air. Increased stool burden. Appendix not visualized.No significant diverticular disease. No intraperitoneal, retroperitoneal, pelvic or inguinal masses lymphadenopathy or abnormal fluid collections. Normal CT appearance of the left ovary. 3 cm probable cyst right adnexa. Partially decompressed urinary bladder. No vertebral body compression fractures or spondylolisthesis. No bony destructive lesions. Impression: 1. No renal parenchymal disease or evidence of obstructive uropathy. 2. Increased stool burden. No significant diverticular disease. 3. Normal CT appearance left ovary. Right adnexal cyst. This document has been electronically signed by: Antony Purdy MD on 07/23/2025 07:58:58 Dictated By: Antony Purdy MD Signed By: <Electronically signed by Antony Purdy MD in OV> 07/23/25 0759 DD/ 0758 TD/TT: 07/23/25 0758 Dealer Accounts Investigator: [facility] External Provider IMG CT PROCEDURES Final Result * HCG, Qualitative, Urine (07/23/2025 5:19 AM EST) Urine NEGATIVE NEGATIVE [facility] Comment:This test was develo ped to detect early . Falsenegative results may occur after the 5th - 7th week ofpregnancy when using this test method. If clinicallyindicated, consider a serum hCG. 07/23/2025 5:19 AM EST 07/23/2025 5:22 AM EST Generic External Data Provider LAB URINE ORDERAB LES Final Result [facility] [address] [place] [phone] * Urinalysis w/reflex microscopic (07/23/2025 5:19 AM EST) Color Urine Yellow [facility] Appearance Urine Clear [facility] PH 5.5 5.0 - 9.0 [facility] Glucose Urine UA Negative Negative mg/dL [facility] Urine Blood Negative Negative [facility] Specific Rake - Urine 1.010 1.005 - 1.025 [facility] Urine Protein Negative Neg-Trace mg/dL [facility] Urine Ketones Trace Negative mg/dL [facility] Nitrite Urine Negative Negative [facility] Leukocyte Esterase Urine Negative Negative [facility] 07/23/2025 5:19 AM EST 07/23/2025 5:22 AM EST Narrative [facility] - 07/23/2025 5:36 AM EST [id number], Clean Catch us Generic External Data Provider LAB URINE ORDERAB LES Final Result [facility] [address] [place] [phone] * (ABNORMAL) CBC auto differential (07/23/2025 12:32 AM EST) White Blood Count 5.3 4.8 - 10.8 X10*3/uL [facility] Red Blood Count 3.77(L) 4.20 - 5.50 X10*6/uL [facility] Hemoglobin 12.0 12.0 - 16.0 g/dl [facility] Hematocrit 35.1(L) 37.0 - 47.0 % [facility] Mean Corpuscular Volume 93.1 80.0 - 98.0 fL [facility] Mean Corpuscular Hemoglobin 31.8 27.0 - 33.0 pg [facility] Mean Corpuscular HGB Conc 34.2 31.0 - 35.0 g/dl [facility] Red Cell Distribution Width 12.7 11.0 - 16.0 % [facility] Platelet Count 212 160 - 400 X10*3/uL [facility] Mean Platelet Volume 10.0 9.4 - 12.3 fL [facility] Neutrophils Percent Auto 67.0 45 - 73 % [facility] Imm Gran Pct Auto 0.2 0.0 - 0.4 % [facility] Lymphocytes Percent Auto 25.8 20 - 40 % [facility] Monocytes Percent Auto 5.7 2 - 11 % [facility] Eosinophils Percent Auto 1.1 0 - 4 % [facility] Basophils Percent Auto 0.2 0 - 2 % [facility] NRBC Pct Auto 0.0 0.0 - 0.2 /100WBC [facility] Neutrophils Absolute Auto 3.5 2.0 - 8.3 x10*3/uL [facility] Imm Gran Abs Auto 0.01 0.00 - 0.03 X10*3/uL [facility] Lymphocytes Absolute Auto 1.4 1.2 - 4.9 X10*3/uL [facility] Monocytes Absolute Auto 0.3 0.1 - 1.2 X10*3/uL [facility] Eosinophils Absolute Auto 0.1 0.0 - 0.4 X10*3/uL [facility] Basophils Absolute Auto 0.0 0.0 - 0.2 X10*3/uL [facility] NRBC Abs Auto 0.000 0.0 - 0.012 X10*3/uL [facility] 07/23/2025 12:3 2 AM EST 07/23/2025 12:35 AM EST us Generic External Data Provider LAB BLOOD ORDERAB LES Final Result [facility] [address] [place] [phone] * (ABNORMAL) Comprehensive Metabolic Panel (07/23/2025 12:32 AM EST) Sodium 139 135 - 145 mmol/L [facility] Potassium 4.0 3.3 - 5.1 mmol/L [facility] Chloride 109(H) 96 - 108 mmol/L [facility] Carbon Dioxide 23 22 - 29 mmol/L [facility] Anion Gap 11(L) 12 - 20 [facility] Urea Nitrogen (BUN) 8(L) 9 - 16 mg/dL [facility] Creatinine, Serum 0.53 0.5 - 1.4 mg/dL [facility] Creatinine Clr Calc Pharmacy 145.5 [facility] Comment:Provided height and weight: 160.02 cm,63.503 kg.eGFR (calculated from the MDRD study equation) and eCrCl(calculated from the Cockcroft-Gault equation) are based ondifferent parameters and may not yield comparable results.If eCrCl result is absurd, please check patient'sheight/weight. Estimated Glomerular Filt Rate >60 [facility] Comment:Chronic Kidney Disea se: Estimated GFR < 60 mL/min/1.25c5Ekxvuc Kidney Disease: Estimated GFR < 15 mL/min/1.73m2 Glucose 107 60 - 115 mg/dL [facility] Calcium 9.1 8.4 - 10.2 mg/dL [facility] Bilirubin, Total 0.6 0.0 - 1.0 mg/dL [facility] Aspartate Amino Transferase 16 5 - 31 U/L [facility] Alanine Aminotransferase 10 0 - 31 U/L [facility] Total Protein 6.7 6.5 - 8.0 g/dL [facility] Albumin Level 4.3 3.5 - 5.0 g/dL [facility] Alkaline Phosphatase 42 39 - 117 U/L [facility] 07/23/2025 12:3 2 AM EST 07/23/2025 12:35 AM EST us Generic External Data Provider LAB BLOOD ORDERAB LES Final Result [facility] [address], [place] [phone] * TSH with Reflex to Free T4 (07/20/2025 1:07 PM EST) TSH reflex Free T4 0.51 0.32 - 4.0 uIU/mL [facility] 07/20/2025 1:07 PM EST 07/20/2025 1:07 PM EST us Generic External Data Provider LAB BLOOD ORDERAB LES Final Result Performing Organization Address City/[facility]/ZIP Co de Phone Number [facility] [address] [place] [phone] * CBC (07/20/2025 1:07 PM EST) White Blood Count 5.3 4.8 - 10.8 X10*3/uL [facility] Red Blood Count 4.20 4.20 - 5.50 X10*6/uL [facility] Hemoglobin 13.5 12.0 - 16.0 g/dl [facility] Hematocrit 39.1 37.0 - 47.0 % [facility] Mean Corpuscular Volume 93.1 80.0 - 98.0 fL [facility] Mean Corpuscular Hemoglobin 32.1 27.0 - 33.0 pg [facility] Mean Corpuscular HGB Conc 34.5 31.0 - 35.0 g/dl [facility] Red Cell Distribution Width 12.6 11.0 - 16.0 % [facility] Platelet Count 244 160 - 400 X10*3/uL [facility] Mean Platelet Volume 10.3 9.4 - 12.3 fL [facility] NRBC Pct Auto 0.0 0.0 - 0.2 /100WBC [facility] NRBC Abs Auto 0.000 0.0 - 0.012 X10*3/uL [facility] 07/20/2025 1:07 PM EST 07/20/2025 1:07 PM EST us Generic External Data Provider LAB BLOOD ORDERAB LES Final Result Performing Organization Address [facility]/ZIP Co de Phone Number [facility] [address] [place] [address] [phone] * hCG, Total, Quantitative (07/20/2025 1:07 PM EST) HCG Quantitative <2 mIU/mL [facility] Comment:Weeks post LMP Appro ximate hCG(Last Menstrual Period) Range (mIU/ml)3 - 4 weeks 9 - 1304 - 5 weeks 75 - 2,6005 - 6 weeks 850 - 20,8006 - 7 weeks 4000 - 100,2007 - 12 weeks 11,500 - 289,06572 - 16 weeks 18,300 - 137,84405 - 29 weeks (2nd trimester) 1,400 - 53,55237 - 41 weeks (3rd trimester) 940 - [...] Provider LAB BLOOD ORDERAB LES Final Result [facility] [address] [place] [phone] * Chlamydia/N. Gonorrhoeae RNA, TMA, Urogenitial (07/20/2025 12:30 PM EST) Pathologist [facility] CT PCR NOT DETECTED Not Detect. [facility] Comment:A not detected test result does [...] psychologicalconsequences. NG PCR NOT DETECTED Not Detect. [facility] Comment:A not detected test result does [...] LAB MICROBIOLOGY - GENERAL ORDERABLES Final Result Performing Organization Address City/State/[facility] Co de Phone Number [facility] [address] [place] [phone] * US Pelvis Transvaginal (06/14/2025 2:17 PM EDT) Anatomical Region Laterality Modality Pelvis Ultrasound 06/14/2025 2:17 PM EDT Narrative 06/14/2025 2:18 PM EDT [address] [address] Ultrasound Report Signed Patient: Sharla Loera MR#: [id number] : 2000 Acct:[id number] Age/Sex: 25 / F ADM Date: 06/13/25 Loc: HO. Attending Dr: Inna ABARCA Ordering Physician: Inna Gallagher Date of Service: 06/13/25 Procedure(s): US pelvic and transvaginal Accession Number(s): [id number] cc: Inna Gallagher Reason for Exam: PELVIC PAIN CLINICAL HISTORY: PELVIC PAIN US pelvis transabdominal and transvaginal with Doppler Comparison: CT/SR - CT GI BLEED ABD PEL WO/W IVCON - 02/05/25 10:50 EDT US/SD/SR - US PELVIS TRANSABDOMINAL AND TRANSVAGINAL - [...] in OV> 06/14/251416 DD/ 16 TD/TT: 06/14/251416 Dealer Accounts Investigator: Procedure Note Donotuseinterpreter, Image - 06/14/2025 [place] [address] Ultrasound Report Signed Patient: Sharla Loera [facility]#: [id number] : 2000Acct:[id number] Age/Sex: 25 / FADM Date: 06/13/25 Loc: HO.US Attending Dr: Inna ABARCA Ordering Physician: Inna Gallagher Date of Service: 06/13/25 Procedure(s): US pelvic and transvaginal Accession Number(s): [id number] cc: Inna Gallagher Reason for Exam: PELVIC PAIN CLINICAL HISTORY: PELVIC PAIN US pelvis transabdominal and transvaginal with Doppler Comparison: CT/SR - CT GI BLEED ABD PEL WO/W IVCON - 02/05/25 10:50 EDT US/SD/SR - US PELVIS TRANSABDOMINAL AND TRANSVAGINAL - [...] in OV> 06/14/251416 DD/ 16 TD/TT: 06/14/251416 Dealer Accounts Investigator: [facility] BOOK SALESMAN IMG US PROCEDURES Final Resul t * Image-Guided Pap with Age-Based Screening??with CT/NG,??Trichomonas (02/27/2023 2:22 PM EDT) Comment [employer]t Comment: This order for age-based cervical cancer and STI screening follows ACOG guidelines(PB 168, 140, GHL547). See individual assays for performing site location. Clinical Information: None given [facility] LMP: NONE GIVEN [facility] Prev. PAP: NONE GIVEN [facility] Prev. BX: NONE GIVEN [facility] SOURCE: None given [facility] Statement Of Adequacy: [facility] Comment: Satisfactory for evaluation. Endocervical/transformation zone component absent. Interpretation/Re sult: Negative for intraepithelial lesion or malignancy. [facility] [place] [facility] COMMENT: This Pap test has been evaluated with computer assisted technology. [facility] [place] [employer] Senior Restaurant Manager: Oziel Needl [place] [facility] Comment: BK,CT(ASCP) CT screening location: [address] Review Senior Restaurant Manager: [facility] [place] [facility] Comment: ALS, CT(ASCP) CT screening location: [address] [address] (Always Message) Que st [facility]wi [place] [facility] Comment: EXPLANATORY NOTE: The Pap is a [...] RNA, TMA, Urogenital NOT DETECTED NOT DETECTED [facility] [place] [facility] Neisseria gonorrhoeae RNA, TMA, Urogenital NOT DETECTED NOT DETECTED [facility] [place] [facility] Comment [facility] [place] [facility] Comment: The analytical performance characteristics of this assay, when used to test SurePath(TM) specimens have been determined by [employer]. The modifications have not been cleared or approved by the FDA. This assay has been validated pursuant to the CLIA regulations and is used for clinical purposes. For additional information, please refer to https://Handmark.Lalina/faq/PRR463 (This link is being provided for information/ educational purposes only.) Trichomonas vaginalis, QL, TMA, PAP Vial NOT DETECTED NOT DETECTED [facility] [place] [facility] Comment: The analytical performance characteristics of this assay have been determined by [employer]. The modifications have not been cleared or approved by the FDA. This assay has been validated pursuant to the CLIA regulations and is used for clinical purposes. For additional information, please refer to http://Handmark.Lalina/ faq/Trichomonastma (This link is being provided for information/ educational purposes only.) Cervix 02/27/2023 2:22 PM EDT 02/28/2023 3:51 AM EDT [facility] CYTOLOGY ORDERABLES Final Result [facility] [address] [place] [address] [facility] [address] [place] [phone] * HEPATITIS C AB W/REFL TO HCV RNA, QN, PCR (06/03/2022 10:56 AM EDT) HEPATITIS C ANTIBODY NON-REACT NAYA NON-REACT NAYA [facility] INDEX 0.04 <1.00 [facility] Comment: HCV antibody was non-reactive. There is no laboratory evidence of HCV infection. In most cases, no further action is required. However, if recent HCV exposure is suspected, a test for HCV RNA (test code 91513) is suggested. For additional information please refer to http://education.Lalina/faq/WTZ12r8 (This link is being provided for informational/ educational purposes only.) 06/03/2022 10:5 6 AM EDT [facility] HISTORICAL/NON ORDERABLE LABS Final Result Performing Organization Address City/[facility]/ZIP Co de Phone Number [facility] [address] * HIV 1/2 ANTIGEN/ANTIBODY,FOURTH GENERATION W/RFL (06/03/2022 10:56 AM EDT) HIV-1/2 ANTIGEN AND ANTIBODIES, 4TH GENERATION W/ REFLEX NON-REACT NAYA NON-REACT NAYA [facility] Comment: HIV-1 antigen and HIV-1/HIV-2 [...] purpose. For additional information please refer to http://education.Lalina/faq/JKP475 (This link is being provided for informational/ educational purposes only.) The performance of this assay has not been clinically validated in patients less than 2 years old. 06/03/2022 10:5 6 AM EDT [facility] LAB BLOOD ORDERABLES Final Re sult [facility] [address] from Last 3 Months or Most Recently Relevant [id number] [address] [facility] Care Teams School Director Relationship Specialty Start Date End Date ParkmanInna FNP [address] [place] [address] PCP - General Family Medicine 07/03/22
--- OUTSIDE RECORDS SUMMARY | 2025-07-24 01:16 | XMS_ITS | Encounter Summary ---
Author Organization [employer] Address [address] [facility] 7t [place] [address] Care Team Providers Care Rail Technician Name Role Phone Inna Gallagher ORAL SURGERY PHYSICIAN Primary Care Provider [phone] Encounter Details Date Type Department Care Team ([facility] st Contact Info) Description 07/23/2025 Orders [...] the past 12 months, has t he [employer], gas, oil or water company threatened to [...] REFLEX MICROSCOPIC Routine 07/23/2025 5:19 AM EST CBC WITH AUTO DIFFERENTIAL Routine 07/23/2025 12:32 AM EST COMPREHENSIVE METABOLIC PANEL Routine 07/23/2025 12:32 AM EST documented in this encounter Results * CT Abdomen Pelvis w/ Contrast (07/23/2025 7:58 AM EST) Anatomical Region Laterality Modality Body, Pelvis, Abdomen Computed T omography 07/23/2025 7:58 AM EST Narrative 07/23/2025 8:01 AM EST [address] [address] [address] Scan Report Signed Patient: Sharla Loera MR#: [id number] : 2000 Acct:[id number] Age/Sex: 25 / F ADM Date: 07/23/25 Loc: HO.ED Attending Dr: Ordering Physician: Ryan Cole PA-C Date of Service: 07/23/25 Procedure(s): CT abdomen pelvis w IV con Accession Number(s): [id number] cc: Ryan Cole PA-C; [facility] Report Number: [id number]: Total DLP = 0.00 mGy-cm Reason for [...] Purdy MD in OV> 07/23/25 0759 DD/ 7 TD/TT: 07/23/25757 Motion Picture Set Worker: Procedure Note Donotuseinterpreter, Image - 07/23/[address] [address] [address] Scan Report Signed Patient: Sharla Loera DMR#: [id number] : 2000Acct:[id number] Age/Sex: 25 / FADM Date: 07/23/25 Loc: .ED Attending Dr: Ordering Physician: Ryan Cole PA-C Date of Service: 07/23/25 Procedure(s): CT abdomen pelvis w IV con Accession Number(s): [id number] cc: Ryan Cole PA-C; [facility] Report Number: [id number]: Total DLP = 0.00 mGy-cm Reason for [...] Purdy MD in OV> 07/23/25 0759 DD/ 7 TD/TT: 07/23/25757 Motion Picture Set Worker: [facility] External Provider IMG CT PROCEDURES Final Result * HCG, Qualitative, Urine (07/23/2025 5:19 AM EST) Urine NEGATIVE NEGATIVE [facility] Comment:This test was develo ped to detect early . Falsenegative results may occur after the 5th - 7th week ofpregnancy when using this test method. If clinicallyindicated, consider a serum hCG. 07/23/2025 5:19 AM EST 07/23/2025 5:22 AM EST Generic External Data Provider LAB URINE ORDERAB LES Final Result [facility] [address] [place] [phone] * Urinalysis w/reflex microscopic (07/23/2025 5:19 AM EST) Color Urine Yellow [facility] Appearance Urine Clear [facility] PH 5.5 5.0 - 9.0 [facility] Glucose Urine UA Negative Negative mg/dL [facility] Urine Blood Negative Negative [facility] Specific [place] - Urine 1.010 1.005 - 1.025 [facility] Urine Protein Negative Neg-Trace mg/dL [facility] Urine Ketones Trace Negative mg/dL [facility] Nitrite Urine Negative Negative [facility] Leukocyte Esterase Urine Negative Negative [facility] 07/23/2025 5:19 AM EST 07/23/2025 5:22 AM EST Narrative [facility] - 07/23/2025 5:36 AM EST [id number], Clean Catch us Generic External Data Provider LAB URINE ORDERAB LES Final Result [facility] [address] [place] [phone] * (ABNORMAL) Comprehensive Metabolic Panel (07/23/2025 12:32 AM EST) Sodium 139 135 - 145 mmol/L [facility] Potassium 4.0 3.3 - 5.1 mmol/L [facility] Chloride 109(H) 96 - 108 mmol/L [facility] Carbon Dioxide 23 22 - 29 mmol/L [facility] Anion Gap 11(L) 12 - 20 [facility] Urea Nitrogen (BUN) 8(L) 9 - 16 mg/dL [facility] Creatinine, Serum 0.53 0.5 - 1.4 mg/dL [facility] Creatinine Clr Calc Pharmacy 145.5 [facility] Comment:Provided height and weight: 160.02 cm,63.503 kg.eGFR (calculated from the MDRD study equation) and eCrCl(calculated from the Cockcroft-Gault equation) are based ondifferent parameters and may not yield comparable results.If eCrCl result is absurd, please check patient'sheight/weight. Estimated Glomerular Filt Rate >60 [facility] Comment:Chronic Kidney Disea se: Estimated GFR < 60 mL/min/1.80s1Lmvinw Kidney Disease: Estimated GFR < 15 mL/min/1.73m2 Glucose 107 60 - 115 mg/dL [facility] Calcium 9.1 8.4 - 10.2 mg/dL [facility] Bilirubin, Total 0.6 0.0 - 1.0 mg/dL [facility] Aspartate Amino Transferase 16 5 - 31 U/L [facility] Alanine Aminotransferase 10 0 - 31 U/L [facility] Total Protein 6.7 6.5 - 8.0 g/dL [facility] Albumin Level 4.3 3.5 - 5.0 g/dL [facility] Alkaline Phosphatase 42 39 - 117 U/L [facility] 07/23/2025 12:3 2 AM EST 07/23/2025 12:35 AM EST us Generic External Data Provider LAB BLOOD ORDERAB LES Final Result [facility] [address] [place] [phone] * (ABNORMAL) CBC auto differential (07/23/2025 12:32 AM EST) White Blood Count 5.3 4.8 - 10.8 X10*3/uL [facility] Red Blood Count 3.77(L) 4.20 - 5.50 X10*6/uL [facility] Hemoglobin 12.0 12.0 - 16.0 g/dl [facility] Hematocrit 35.1(L) 37.0 - 47.0 % [facility] Mean Corpuscular Volume 93.1 80.0 - 98.0 fL [facility] Mean Corpuscular Hemoglobin 31.8 27.0 - 33.0 pg [facility] Mean Corpuscular HGB Conc 34.2 31.0 - 35.0 g/dl [facility] Red Cell Distribution Width 12.7 11.0 - 16.0 % [facility] Platelet Count 212 160 - 400 X10*3/uL [facility] Mean Platelet Volume 10.0 9.4 - 12.3 fL [facility] Neutrophils Percent Auto 67.0 45 - 73 % [facility] Imm Gran Pct Auto 0.2 0.0 - 0.4 % [facility] Lymphocytes Percent Auto 25.8 20 - 40 % [facility] Monocytes Percent Auto 5.7 2 - 11 % [facility] Eosinophils Percent Auto 1.1 0 - 4 % [facility] Basophils Percent Auto 0.2 0 - 2 % [facility] NRBC Pct Auto 0.0 0.0 - 0.2 /100WBC [facility] Neutrophils Absolute Auto 3.5 2.0 - 8.3 x10*3/uL [facility] Imm Gran Abs Auto 0.01 0.00 - 0.03 X10*3/uL [facility] Lymphocytes Absolute Auto 1.4 1.2 - 4.9 X10*3/uL [facility] Monocytes Absolute Auto 0.3 0.1 - 1.2 X10*3/uL [facility] Eosinophils Absolute Auto 0.1 0.0 - 0.4 X10*3/uL [facility] Basophils Absolute Auto 0.0 0.0 - 0.2 X10*3/uL [facility] NRBC Abs Auto 0.000 0.0 - 0.012 X10*3/uL [facility] 07/23/2025 12:3 2 AM EST 07/23/2025 12:35 AM EST us Generic External Data Provider LAB BLOOD ORDERAB LES Final Result Performing Organization Address City/State/[facility] Co de Phone Number [facility] [address] [place] [phone] documented in this encounter Visit Diagnoses Not on filedocumented in this encounter Additional Health Concerns Assessment Noted Time PHQ-9 Depression Total Score: 6 02/25/20 25 10:55 AM EDT documented as of this encounter Care Teams Rail Technician Relationship Specialty Start Date End Date Inna Gallagher FNP [address] [place] [address] PCP - General Family Medicine 07/03/22 documented as of this encounter
--- OUTSIDE RECORDS SUMMARY | 2025-07-24 01:16 | XMS_ITS | Encounter Summary ---
Author Organization [employer] Address [address] [place] [address] 7 [place] [address] Care Team Providers Care Gang Rider Name Role Phone [facility] Primary Care Provider [phone] Reason for Visit * Reason Onset Date Comments triage 11/10/2022 Encounter Details Date Type Department Care Team ([facility] st Contact Info) Description 11/10/2022 Telephone [facility] [address] [place], [place] [phone] [facility] [address] [place], [place] [phone] triage Social History Tobacco Use Types Packs/Day [...] No answer LVM to return call to [facility] triage line. Nothing sooner with PCP than [...] on filedocumented in this encounter Care Teams Gang Rider Relationship Specialty Start Date End Date Inna Gallagher FNP [address] [place] [phone] PCP - General Family Medicine 07/03/22 documented as of this encounter
--- OUTSIDE RECORDS SUMMARY | 2025-07-24 01:16 | XMS_ITS | Encounter Summary ---
Author Organization [employer] Address [address] [facility] 7t [place] [address] Care Team Providers Care Financial Cost Analyst Name Role Phone Inna Gallagher VIDEO ENGINEER Primary Care Provider [phone] Encounter Details Date Type Department Care Team ([facility] st Contact Info) Description 07/20/2025 Orders Only [...] 1:07 PM EST) HCG Quantitative <2 mIU/mL [facility] Comment:Weeks post LMP Appr oximate hCG(Last Menstrual Period) Range (mIU/ml)3 - 4 weeks 9 - 1304 - 5 weeks 75 - 2,6005 - 6 weeks 850 - 20,8006 - 7 weeks 4000 - 100,2007 - 12 weeks 11,500 - 289,98265 - 16 weeks 18,300 - 137,11698 - 29 weeks (2nd trimester) 1,400 - 53,19542 - 41 weeks (3rd trimester) 940 - [...] ORDERAB LES Final Result Performing Organization Address [facility]/ZIP Co de Phone Number [facility] [address] [place] [phone] * TSH with Reflex to Free T4 (07/20/2025 1:07 PM EST) Pathologist [facility] TSH reflex Free T4 0.51 0.32 - 4.0 uIU/mL [facility] 07/20/2025 1:07 PM EST 07/20/2025 1:07 PM EST Generic External Data Provider LAB BLOOD ORDERAB LES Final Result Performing Organization Address [facility]/ZIP Co de Phone Number [facility] [address] [place] [phone] * CBC (07/20/2025 1:07 PM EST) White Blood Count 5.3 4.8 - 10.8 X10*3/uL [facility] Red Blood Count 4.20 4.20 - 5.50 X10*6/uL [facility] Hemoglobin 13.5 12.0 - 16.0 g/dl [facility] Hematocrit 39.1 37.0 - 47.0 % [facility] Mean Corpuscular Volume 93.1 80.0 - 98.0 fL [facility] Mean Corpuscular Hemoglobin 32.1 27.0 - 33.0 pg [facility] Mean Corpuscular HGB Conc 34.5 31.0 - 35.0 g/dl [facility] Red Cell Distribution Width 12.6 11.0 - 16.0 % [facility] Platelet Count 244 160 - 400 X10*3/uL [facility] Mean Platelet Volume 10.3 9.4 - 12.3 fL [facility] NRBC Pct Auto 0.0 0.0 - 0.2 /100WBC [facility] NRBC Abs Auto 0.000 0.0 - 0.012 X10*3/uL [facility] 07/20/2025 1:07 PM EST 07/20/2025 1:07 PM EST us Generic External Data Provider LAB BLOOD ORDERAB LES Final Result [facility] [address] [place] [phone] * Chlamydia/N. Gonorrhoeae RNA, TMA, Urogenitial (07/20/2025 12:30 PM EST) CT PCR NOT DETECTED Not Detect. [facility] Comment:A not detected test result [...] psychologicalconsequences. NG PCR NOT DETECTED Not Detect. [facility] Comment:A not detected test result [...] LAB MICROBIOLOGY - GENERAL ORDERABLES Final Result [facility] [address] [place] [phone] documented in this encounter Visit Diagnoses Not on filedocumented in this encounter Additional Health Concerns Assessment Noted Time PHQ-9 Depression Total Score: 6 02/25/20 25 10:55 AM EDT documented as of this encounter Care Teams Financial Cost Analyst Relationship Specialty Start Date End Date Inna Gallagher FNP [address] [place] [phone] PCP - General Family Medicine 07/03/22 documented as of this encounter
[2025-07-24 04:12] VITALS: BP 96/55; PULSE 81; TEMP 36.7; O2SAT 97
--- NOTE | 2025-07-24 05:09 | ED_ITS ---
HPI - Abdominal Pain General Chief Complaint: Abdominal Pain Stated Complaint: LOW ABD PAIN,SEEN T-1 FOR CONSTPATION PER EMS Time Seen by Provider: 07/24/25 05:08 Source: patient and EMS Mode of arrival: EMS Limitations: no limitations History of Present Illness ED Provider: Dr. Reema Alexander HPI narrative: 25-year-old female with a history of asthma, PTSD, anxiety, chronic constipation and abdominal pain presenting with continued pelvic pain, nausea ongoing for the last several days. She was seen here yesterday for the same. Had a CAT scan of the abdomen and pelvis which showed significant constipation. She was discharged with symptomatic treatment but has not had a bowel movement since yesterday. She took laxatives and ibuprofen prior to arrival without any relief. Describes waxing and waning pain that is more global abdominal discomfort. Pain is worse with movement and eating. Pain is better with hot showers. Denies marijuana use. Denies Associated fever. No urinary complaints. Denies chest pain or difficulty breathing. Related Data Home Medications ?Medication ?Instructions ?Recorded ?Confirmed albuterol sulfate 2.5 mg/3 mL 2.5 mg inhalation Q4-6H PRN 10/25/24 07/20/25 (0.083 %) solution for nebulization albuterol sulfate 90 mcg/actuation 2 puff inhalation Q 4-6H PRN 10/25/24 07/20/25 aerosol inhaler budesonide-formoterol HFA 80 2 puff inhalation BID 08/0807/20/25 mcg-4.5 mcg/actuation aerosol inhaler (Symbicort) cetirizine 10 mg tablet (Zyrtec) 10 mg PO DAILY PRN 07/20/25 diphenhydramine HCl 25 mg capsule 25 mg PO BEDTIME PRN 10/25/24 07/20/25 (Benadryl) hydrocortisone acetate 25 mg 25 mg WV BID 10/25/2403/08 rectal suppository (Anusol-HC) lidocaine 5 % topical patch 1 patch topical DAILY 10/1507/20/25 (Lidoderm) Previous Rx's ?Medication ?Instructions ?Recorded hydrocortisone 2.5 % topical cream 1 appl WV BID-QID P RN hemorrhoids 11/03/24 with perineal applicator 30 days #30 grams sennosides 8.6 mg-docusate sodium 2 tab-cap (2 x 8.6-5 0 mg) PO 11/03/24 50 mg capsule (Senna Plus) BEDTIME 60 days #120 caps hydrocortisone 1 % topical cream 1 appl topical TID WV N hemorrhoids 02/05/25 (Preparation H Hydrocortisone) #28.35 grams dicyclomine 20 mg tablet 20 mg PO TID #10 tabs prochlorperazine 25 mg rectal 25 mg WV BID PRN nausea and 07/24/25 suppository (Compazine) vomiting #12 ea diphenhydramine HCl 25 mg capsule 25 mg PO Q6H 3 days #12 caps 07/25/25 (Benadryl) Allergies Allergy/AdvReac Type Severity Reaction Status Date / Time haloperidol (From Haldol) Allergy Unknown Verified 07/25/25 11:04 Review of Systems Review of Systems As per HPI, full review of systems performed and negative but for the above mentioned pertinent positives and negatives. [facility] Past Medical History Surgical History History of facial surgery Family History Family History Maternal Grandfather Diabetes Mother Depression Anemia HTN (hypertension) Social History Social History Household Members: Family Alcohol intake: current Alcohol intake frequency: holidays/special occasions only Alcohol type: hard liquor Patient Tobacco Use Status: Never used Tobacco Substance Use Type: Marijuana Physical Exam ED Exam Exam: GENERAL: Ill-Appearing, appears uncomfortable. SKIN: Normal skin color for ethnicity, warm, dry, no rashes noted. HEENT: Normocephalic, atraumatic, no stridor, dry mucous membranes, dentition intact, EOMI, PERRLA. NECK: Soft, supple, full ROM, midline structures nontender, no step-offs, no deformities, no lymphadenopathy. CHEST: Heart regular rhythm, no murmurs, symmetric chest rise and fall. PULMONARY: Clear to auscultation bilaterally, diminished at the bases, no labored breathing, no wheezes/rhales/rhonchi. ABDOMINAL: Soft, nondistended, diffusely tender to palpation without rebound or guarding, positive bowel sounds in all quadrants. : Deferred. MUSCULOSKELETAL: Normal tone, full range of motion, no deformities, no peripheral edema. NEURO: Alert and oriented x3, CN II through XII intact, equal strength and sensation bilateral upper and lower extremities, no focal neurologic deficits. PSYCHIATRIC: Flat affect, fluid speech, good eye contact and appropriate demeanor. Vital Signs: Vital Signs - 24 hr 07/24/25 00:59 07/24/25 04:12 Temperature 98.3 F 98.1 F Pulse Rate 70 81 Respiratory Rate 18 Blood Pressure 101/62 96/55 L Pulse Oximetry 99 97 Oxygen Delivery Method Room Air Room Air BMI result Body Mass Index 30.2 Medical Decision Making Medical Decision Making [facility] Narrative: This patient presents today with a chief complaint of abdominal pain. Differential diagnosis for this patient is broad. It includes appendicitis, cholecystitis, bowel obstruction, peptic ulcer disease, pyelonephritis, vascular pathology, chronic abdominal pain, cyclic abdominal pain and vomiting, cannabis hyperemesis syndrome, among many others. Patient had an extensive workup yesterday which was essentially negative except for constipation. She has not had a good bowel movement. She is feeling improved after Haldol and requesting discharge home. Using shared decision chacorta henderson, plan for discharge home to follow-up with primary care and/or specialist. Patient understands and agrees with plan for discharge. Discharged home in stable condition. Differential Diagnosis Differential Diagnoses: The differential diagnosis associated with the presentation includes (As above) Admission/Observation Consideration of admission/observation: Escalation of care including admission/observation considered Lab Data [facility] Lab Attestation statement: I reviewed the patient's lab results. Radiology Impression Discussion of test interpretation with radiology: I have reviewed the radiologist's reading. Independent Historian Clinical information obtained from an independent historian. History obtained from or confirmed by: EMS External Record Review External record reviewed: Inpatient record Prescription Management I considered prescription management with: Pain Medication and Other (Antiemetics) Chronic Conditions Patient?s care impacted by: Other (PTSD, anxiety) Social Determinants Patient?s care significantly limited by Social Determinants of Health including: Other Social Determinant of Health Medications Administered Discontinued Medications Generic Name Dose Route Start Last Admin Trade Name Freq PRN Reason Stop Dose Admin Haloperidol Lactate 5 mg 07/24/25 05:10 07/24/25 05:24 Haloperidol Lactate 5 Mg/Ml Vial IM 07/24/25 05:11 5 mg STAT STA Administration Discharge Plan Discharge Clinical Impression: Chronic pain in female pelvis Patient Disposition: Home, Self-Care Instructions: Pelvic Pain (ED) Additional Instructions: DIAGNOSIS & TREATMENT: You were seen in the Emergency Department for your acute exacerbation of chronic abdominal pain. Yesterday, you had laboratory work and a CT scan of your abdomen and pelvis which did not reveal any acute abnormalities that would explain your symptoms. Your pain may be related to endometriosis. The only way to evaluate for this is with surgery. Follow up with the ethnoarchaeologist about this. FURTHER CARE: We have not found any emergent physical exam or lab abnormalities that would require admission to the hospital today. Many people who come to the ER with abdominal pain do not leave with a specific diagnosis at the end of their visit. In the Emergency Department we try to make sure that there is no emergent problem that needs surgery or antibiotics right now. This does not mean that your evaluation is complete--please be sure to follow up with your regular doctor as additional testing as an outpatient may be indicated Please be certain to drink plenty of fluids over the next several. You should advance your diet as tolerated. You may wish to start with the BRAT diet (bananas, rice, applesauce, toast). WHEN YOU SHOULD BE SEEN NEXT: Please follow-up with your primary care provider within the next 2-3 days for reevaluation of your symptoms. WHEN TO RETURN TO THE ED: Monitor your symptoms closely and return to the emergency department immediately for any new/worsening symptoms, worsening abdominal pain, pain which changes location (particularly if it moved to the right lower quadrant), nausea, vomiting, blood in your stool, black/tarry stools, chest pain, shortness of breath, fevers, chills, night sweats, you are unable to arrange follow-up care, or any other concerning symptoms. Prescriptions: New dicyclomine 20 mg tablet 20 mg PO TID Qty: 10 0RF prochlorperazine [Compazine] 25 mg suppository 25 mg WV BID PRN (Reason: nausea and vomiting) Qty: 12 0RF No Action diphenhydramine HCl [Benadryl] 25 mg capsule 25 mg PO Q6H 3 Days Qty: 12 0RF hydrocortisone [Preparation H Hydrocortisone] 1 % cream 1 appl topical TID PRN (Reason: hemorrhoids) Qty: 28.35 0RF albuterol sulfate 2.5 mg /3 mL (0.083 %) solution for nebulization 2.5 mg inhalation Q4-6H PRN albuterol sulfate 90 mcg/actuation HFA aerosol inhaler 2 puff inhalation Q4-6H PRN budesonide-formoterol [Symbicort] 80-4.5 mcg/actuation HFA aerosol inhaler 2 puff inhalation BID cetirizine [Zyrtec] 10 mg tablet 10 mg PO DAILY PRN diphenhydramine HCl [Benadryl] 25 mg capsule 25 mg PO BEDTIME PRN lidocaine [Lidoderm] 5 % adhesive patch,medicated 1 patch topical DAILY Rx Instructions: leave on most painful area for up to 12 hrs hydrocortisone acetate [Anusol-HC] 25 mg suppository 25 mg WV BID Senna Plus 8.6-50 mg capsule 2 tab-cap PO BEDTIME 60 Days Qty: 120 1RF hydrocortisone 2.5 % cream with perineal applicator 1 appl W[place] BID-QID PRN (Reason: hemorrhoids) 30 Days Qty: 30 1RF Stand Alone Forms: Work/School Release Interventions: ED Discharge Assessment Last Done: 07/24/25 07:16 Discharge Date/Time: 07/24/25 07:17 Print Language: [place]
[2025-07-24 07:12] VITALS: BP 105/58; PULSE 74; RESP 18; TEMP 36.1; O2SAT 96
[2025-07-24 07:16] VITALS: BP 105/58; PULSE 74; RESP 18; TEMP 36.1; O2SAT 96
== END 2025-07-24 07:17 | disposition home or self-care (01) ==
PROVIDERS: Emergency Provider Emergency Medicine
DX: R10.23 Pelvic and perineal pain bilateral (principal); G89.29 Other chronic pain; R11.0 Nausea; J45.909 Unspecified asthma, uncomplicated; Z79.51 Long term (current) use of inhaled steroids; K59.00 Constipation, unspecified
CPT/HCPCS: 96372; 99284; J1630

== ENCOUNTER 2025-07-25 10:58 | Emergency (ER) | payer MEDICAID, SELFPAY ==
--- NOTE | 2025-07-25 11:00 | ED.GENADULT ---
HPI - General Adult General Chief complaint: General Medical Stated complaint: Lock jaw, Time Seen by Provider: 07/25/25 11:17 History of Present Illness ED Provider: Dr. Patterson HPI narrative: 25 y/o F patient; PMH PTSD, anxiety; presents from home reporting dystonic reaction after receiving haldol yesterday in the emergency department for acute on chronic abdominal pain. She did well at home until reaction started prior to arrival. Otherwise denies: fever or chills, nausea/vomiting, chest pain, SOB, cough/congestion, syncope. Related Data Home Medications ?Medication ?Instructions ?Recorded ?Confirmed albuterol sulfate 2.5 mg/3 mL 2.5 mg inhalation Q4-6H PRN 10/25/24 07/20/25 (0.083 %) solution for nebulization albuterol sulfate 90 mcg/actuation 2 puff inhalation Q4-6H PRN 10/25/24 07/20/25 aerosol inhaler budesonide-formoterol HFA 80 2 puff inhalation BID 10/25/24 07/20/25 mcg-4.5 mcg/actuation aerosol inhaler (Symbicort) cetirizine 10 mg tablet (Zyrtec) 10 mg PO DAILY PRN 10/25/24 07/20/25 diphenhydramine HCl 25 mg capsule 25 mg PO BEDTIME PRN 10/25/24 07/20/25 (Benadryl) hydrocortisone acetate 25 mg 25 mg MD BID 10/25/24 07/20/25 rectal suppository (Anusol-HC) lidocaine 5 % topical patch 1 patch topical DAILY 10/25/24 07/20/25 (Lidoderm) Previous Rx's ?Medication ?Instructions ?Recorded hydrocortisone 2.5 % topical cream 1 appl MD BID-QID PRN hemorrhoids 11/03/24 with perineal applicator 30 days #30 grams sennosides 8.6 mg-docusate sodium 2 tab-cap (2 x 8.6-50 mg) PO 11/03/24 50 mg capsule (Senna Plus) BEDTIME 60 days #120 caps hydrocortisone 1 % topical cream 1 appl topical TID PRN hemorrhoids 02/05/25 (Preparation H Hydrocortisone) #28.35 grams dicyclomine 20 mg tablet 20 mg PO TID #10 tabs 07/24/25 prochlorperazine 25 mg rectal 25 mg MD BID PRN nausea and 07/24/25 suppository (Compazine) vomiting #12 ea Allergies Allergy/AdvReac Type Severity Reaction Status Date / Time haloperidol (From Haldol) Allergy Unknown Verified 07/25/25 11:04 Review of Systems Review of Systems: Yes all other systems are reviewed and are negative [facility] Past Medical History Attestation statement: The following information was validated with the patient. Source: old records reviewed Surgical History History of facial surgery Family History Family History Maternal Grandfather Diabetes Mother Depression Anemia HTN (hypertension) Social History Social History Household Members: Family Alcohol intake: current Alcohol intake frequency: holidays/special occasions only Alcohol type: hard liquor Patient Tobacco Use Status: Never used Tobacco Substance Use Type: Marijuana Advance Directives: No Advance Directives Information Provided: Yes Do you have a plan to hurt others: No Plan Physical Exam ED Vital Signs: Vital Signs - 24 hr 07/25/25 11:01 07/25/25 11:24 Temperature 98.5 F Pulse Rate 198 H 87 Respiratory Rate 24 H 20 Blood Pressure 153/91 H 131/92 H Pulse Oximetry 84 L 100 Oxygen Delivery Method Room Air Oxygen Flow Rate 2 BMI result Body Mass Index 24.6 Patient is tachycardic, hypoxic. Const Other: Patient is writhing in bed, jaw is locked to the left, she is drooling and making gurgling noises. Orientation/consciousness: patient oriented x3 HENMT Head: Yes normal to inspection and Yes atraumatic Eyes General: appearance normal, both eyes and all related structures Pupils: Equal, round and reactive pupils present EOM: EOMs intact bilaterally Neck Neck: Yes normal visual inspection, Yes full ROM, Yes supple and No tender Chest Chest palpation & inspection: normal inspection of the chest and normal palpation of entire chest wall Resp Effort & Inspection: normal respiratory effort, able to speak in complete sentences and no cough Auscultation: clear to auscultation bilaterally Cardio Rate: tachycardic Rhythm: regular rhythm GI Inspection: No Abdominal wall edema and No distended Palpation (GI): Soft to palpation, not firm, nontender, no guarding and not rigid Auscultation: normal bowel sounds Back/Spine/Pelvis Back: No back tenderness Neuro General: patient oriented x3 Cranial nerves: Yes Equal, round and reactive pupils present Course Course Course Narrative: This is a rapid medical exam performed by Lakshmi Young DIRECTOR [employer] SALES: Additional HPI, ROS, PE not included below will be deferred to primary provider. Patient is 25y/o F seen in this ED yesterday, was given IM Haldol, now feeling as though her jaw is locking up and having difficulty swallowing. Very anxious in triage. Plan: EKG, medication Reevaluation(s) Reevaluation #1: Requested to see patient immediately due to concern for life threatening deterioration in condition. Patient is tachycardic, hypoxic, and staff have concerns she is not protecting her airway. On my arrival patient has her eyes rolled up, her jaw is open and forced to the left side, she is drooling and gurgling. IV access has been established, provided 50mg IV benadryl. Patient's status improved immediately, within 5min her vitals normalized and she is protecting her airway. Will require monitoring to ensure this does not reoccur. Will plan to place on standing QID benadryl for the next 72 hours. Patient re-evaluated multiple times with continued stable condition. All symptoms have improved. She is tolerating PO without difficulty. Plan: Discharge to home with PCP follow up Return precautions given Medications Administered Discontinued Medications Generic Name Dose Route Start Last Admin Trade Name Freq PRN Reason Stop Dose Admin Diphenhydramine HCl 25 mg 07/25/25 11:05 07/25/25 11:24 Diphenhydramine Hcl 50 Mg/Ml Vial IVPUSH 07/25/25 11:06 25 mg ONCE ONE Administration Sodium Chloride 1,000 mls @ 999 mls/hr 07/25/25 11:15 07/25/25 11:24 Ns IV 07/25/25 12:15 999 mls/hr .Q1H1M CRISTINO Administration Discharge Plan Discharge Clinical Impression: Dystonic drug reaction Patient Disposition: Home, Self-Care Instructions: Spasmodic Torticollis (ED) Additional Instructions: You were seen for a reaction called a dystonic reaction 2/2 to the haldol you received yesterday. In the emergency department you received 50mg Benadryl IV with improvement in your symptoms. For the next 3 days (Thursday, , Thursday) please take 25mg oral benadryl every 6 hours to prevent another reaction from occurring. Follow up with your primary doctor to discuss your recent emergency department visit and for a close re-evaluation. Prescriptions: No Action dicyclomine 20 mg tablet 20 mg PO TID Qty: 10 0RF prochlorperazine [Compazine] 25 mg suppository 25 mg MD BID PRN (Reason: nausea and vomiting) Qty: 12 0RF hydrocortisone [Preparation H Hydrocortisone] 1 % cream 1 appl topical TID PRN (Reason: hemorrhoids) Qty: 28.35 0RF albuterol sulfate 2.5 mg /3 mL (0.083 %) solution for nebulization 2.5 mg inhalation Q4-6H PRN albuterol sulfate 90 mcg/actuation HFA aerosol inhaler 2 puff inhalation Q4-6H PRN budesonide-formoterol [Symbicort] 80-4.5 mcg/actuation HFA aerosol inhaler 2 puff inhalation BID cetirizine [Zyrtec] 10 mg tablet 10 mg PO DAILY PRN diphenhydramine HCl [Benadryl] 25 mg capsule 25 mg PO BEDTIME PRN lidocaine [Lidoderm] 5 % adhesive patch,medicated 1 patch topical DAILY Rx Instructions: leave on most painful area for up to 12 hrs hydrocortisone acetate [Anusol-HC] 25 mg suppository 25 mg MD BID Senna Plus 8.6-50 mg capsule 2 tab-cap PO BEDTIME 60 Days Qty: 120 1RF hydrocortisone 2.5 % cream with perineal applicator 1 appl MD BID-QID PRN (Reason: hemorrhoids) 30 Days Qty: 30 1RF Print Language: Portuguese
[2025-07-25 11:01] VITALS: BP 153/91; PULSE 198; RESP 24; TEMP 36.9; O2SAT 84; BMI 24.6
[2025-07-25 11:24] VITALS: BP 131/92; PULSE 87; RESP 20; O2SAT 100
--- NOTE | 2025-07-25 11:37 | PC.NURSE ---
At arrival to room patient is holding jaw, unable to speak d/t tension in jaw, has light rash across chest, gurggling sound but handling secretions. skinpwd. uvula seemed slightly swollen and MD brought to bedside. MD assured patient was ok and full dose of 50 mg Benadryl given. At this time patient is much better. no pain, no jaw sx. no oropharengeal swelling. no rash. reports feeling dizzy.
[2025-07-25 13:32] VITALS: BP 131/92; PULSE 87; RESP 20; TEMP 37.1; O2SAT 100
--- OUTSIDE RECORDS SUMMARY | 2025-07-25 13:58 | XMS_ITS | Encounter Summary ---
Author Organization [employer] Address [address] [facility] 7t [place] [address] Care Team Providers Care Concrete Bucket Loader Name Role Phone Inna Gallagher AIRCRAFT ENGINE MECHANIC Primary Care Provider [phone] Encounter Details Date Type Department Care Team ([facility] st Contact Info) Description 07/20/2025 Orders Only [...] 1:07 PM EST) HCG Quantitative <2 mIU/mL [facility] Comment:Weeks post LMP Appr oximate hCG(Last Menstrual Period) Range (mIU/ml)3 - 4 weeks 9 - 1304 - 5 weeks 75 - 2,6005 - 6 weeks 850 - 20,8006 - 7 weeks 4000 - 100,2007 - 12 weeks 11,500 - 289,27888 - 16 weeks 18,300 - 137,05580 - 29 weeks (2nd trimester) 1,400 - 53,42281 - 41 weeks (3rd trimester) 940 - [...] ORDERAB LES Final Result Performing Organization Address [facility]/ZIP Co de Phone Number [facility] [address] [place] [phone] * TSH with Reflex to Free T4 (07/20/2025 1:07 PM EST) Pathologist [facility] TSH reflex Free T4 0.51 0.32 - 4.0 uIU/mL [facility] 07/20/2025 1:07 PM EST 07/20/2025 1:07 PM EST Generic External Data Provider LAB BLOOD ORDERAB LES Final Result Performing Organization Address [facility]/ZIP Co de Phone Number [facility] [address] [place] [phone] * CBC (07/20/2025 1:07 PM EST) White Blood Count 5.3 4.8 - 10.8 X10*3/uL [facility] Red Blood Count 4.20 4.20 - 5.50 X10*6/uL [facility] Hemoglobin 13.5 12.0 - 16.0 g/dl [facility] Hematocrit 39.1 37.0 - 47.0 % [facility] Mean Corpuscular Volume 93.1 80.0 - 98.0 fL [facility] Mean Corpuscular Hemoglobin 32.1 27.0 - 33.0 pg [facility] Mean Corpuscular HGB Conc 34.5 31.0 - 35.0 g/dl [facility] Red Cell Distribution Width 12.6 11.0 - 16.0 % [facility] Platelet Count 244 160 - 400 X10*3/uL [facility] Mean Platelet Volume 10.3 9.4 - 12.3 fL [facility] NRBC Pct Auto 0.0 0.0 - 0.2 /100WBC [facility] NRBC Abs Auto 0.000 0.0 - 0.012 X10*3/uL [facility] 07/20/2025 1:07 PM EST 07/20/2025 1:07 PM EST us Generic External Data Provider LAB BLOOD ORDERAB LES Final Result [facility] [address] [place] [phone] * Chlamydia/N. Gonorrhoeae RNA, TMA, Urogenitial (07/20/2025 12:30 PM EST) CT PCR NOT DETECTED Not Detect. [facility] Comment:A not detected test result [...] psychologicalconsequences. NG PCR NOT DETECTED Not Detect. [facility] Comment:A not detected test result [...] LAB MICROBIOLOGY - GENERAL ORDERABLES Final Result [facility] [address] [place] [phone] documented in this encounter Visit Diagnoses Not on filedocumented in this encounter Additional Health Concerns Assessment Noted Time PHQ-9 Depression Total Score: 6 02/25/20 25 10:55 AM EDT documented as of this encounter Care Teams Concrete Bucket Loader Relationship Specialty Start Date End Date Inna Gallagher FNP [address] [place] [phone] PCP - General Family Medicine 07/03/22 documented as of this encounter
--- OUTSIDE RECORDS SUMMARY | 2025-07-25 13:58 | XMS_ITS | Encounter Summary ---
Author Organization [employer] Address [address] [facility] 7 [place] [address] Care Team Providers Care Crm Architect Name Role Phone [facility] Primary Care Provider [phone] Reason for Visit * Reason Comments Care Coordination [facility] Lorrie reardon telephone call outreach Encounter Details Date Type Department Care Team (Latest Contact Info) Description 07/24/2025 Patient Outreach [facility] [address] [place] [address] [facility] [address] [place] [address] Care Coordination ([facility] Lorrie Pandey telephone call outreach) Social History Tobacco Use Types Packs/Day Years [...] the past 12 months, has t he [employer], gas, oil or water [employer] threatened to shut off services in your [...] as of this encounter Progress Notes * Lorrie Pandey - 07/24/2025 2:00 PM EST CHW Lorrie Pandey placed six outreach calls to patient to introduce Complex Care Program. LVM with each call describing the program and requesting call back to CHW's direct line, . Patient's name, and Address was not confirmed. CHW did not receive any return calls from the patient. Onlast call provided patient with direct contact information for future reference. Case closed due tounable to reach. documented in this encounter Plan of Treatment Not on file documented as of this encounter Visit Diagnoses Not on filedocumented in this encounter Additional Health Concerns Assessment Noted Time PHQ-9 Depression Total Score: 6 02/25/20 25 10:55 AM EDT documented as of this encounter Care Teams Crm Architect Relationship Specialty Start Date End Date Inna Gallagher FNP [address] [place] [phone] PCP - General Family Medicine 07/03/22 documented as of this encounter
--- OUTSIDE RECORDS SUMMARY | 2025-07-25 13:58 | XMS_ITS ---
Author Organization [employer] Address [address] [place] [address] 7 [place] [address] Care Team Providers Care Director Of Radiology Name Role Phone [facility] Primary Care Provider [phone] CH[facility] Complex Status:Closed (Closed) Start date:12/20/2024 Enrollment date:12/29/2024 Enrollment reason:ADT Feed End date:07/24/2025 Close reason:Lost Contact Overview ED- [place] [facility] [place]. Continued Care and Services Coordination
--- OUTSIDE RECORDS SUMMARY | 2025-07-25 13:58 | XMS_ITS | Encounter Summary ---
Author Organization [employer] Address [address] [facility] 7t [place] [address] Care Team Providers Care Learning Disabilities Resource Teacher Name Role Phone Inna Gallagher CHARACTER IMPERSONATOR Primary Care Provider [phone] Encounter Details Date Type Department Care Team ([facility] st Contact Info) Description 07/23/2025 [...] the past 12 months, has t he [employer], gas, oil or water company threatened to [...] AM EST Narrative 07/23/2025 8:01 AM EST [address] [address] [address] Scan Report Signed Patient: Sharla Loera MR#: [id number] : 2000 Acct:[id number] Age/Sex: 25 / F ADM Date: 07/23/25 Loc: HO.ED Attending Dr: Ordering Physician: Ryan Cole PA-C Date of Service: 07/23/25 Procedure(s): CT abdomen pelvis w IV con Accession Number(s): [id number] cc: Ryan Cole PA-C; [facility] Report Number: [id number]: Total DLP = 0.00 mGy-cm Reason for [...] OV> 07/23/25 0759 DD/ 7 TD/TT: 07/23/25757 [employer] Groom: Procedure Note Donotuseinterpreter, Image - 07/23/[address] [address] [address] Scan Report Signed Patient: Sharla Loear DMR#: [id number] : 2000Acct:[id number] Age/Sex: 25 / FADM Date: 07/23/25 Loc: .ED Attending Dr: Ordering Physician: Ryan Cole PA-C Date of Service: 07/23/25 Procedure(s): CT abdomen pelvis w IV con Accession Number(s): [id number] cc: Ryan Cole PA-C; [facility] Report Number: [id number]: Total DLP = 0.00 mGy-cm Reason for [...] OV> 07/23/25 0759 DD/ 7 TD/TT: 07/23/25757 [employer] Groom: [facility] External Provider IMG CT PROCEDURES Final Result * HCG, Qualitative, Urine (07/23/2025 5:19 AM EST) Urine NEGATIVE NEGATIVE [facility] Comment:This test was develo ped to detect early . Falsenegative results may occur after the 5th - 7th week ofpregnancy when using this test method. If clinicallyindicated, consider a serum hCG. 07/23/2025 5:19 AM EST 07/23/2025 5:22 AM EST Generic External Data Provider LAB URINE ORDERAB LES Final Result [facility] [address] [place] [phone] * Urinalysis w/reflex microscopic (07/23/2025 5:19 AM EST) Color Urine Yellow [facility] Appearance Urine Clear [facility] PH 5.5 5.0 - 9.0 [facility] Glucose Urine UA Negative Negative mg/dL [facility] Urine Blood Negative Negative [facility] Specific [place] - Urine 1.010 1.005 - 1.025 [facility] Urine Protein Negative Neg-Trace mg/dL [facility] Urine Ketones Trace Negative mg/dL [facility] Nitrite Urine Negative Negative [facility] Leukocyte Esterase Urine Negative Negative [facility] 07/23/2025 5:19 AM EST 07/23/2025 5:22 AM EST Narrative [facility] - 07/23/2025 5:36 AM EST [id number], [employer] us Generic External Data Provider LAB URINE ORDERAB LES Final Result [facility] [address] [place] [phone] * (ABNORMAL) Comprehensive Metabolic Panel (07/23/2025 12:32 AM EST) Sodium 139 135 - 145 mmol/L [facility] Potassium 4.0 3.3 - 5.1 mmol/L [facility] Chloride 109(H) 96 - 108 mmol/L [facility] Carbon Dioxide 23 22 - 29 mmol/L [facility] Anion Gap 11(L) 12 - 20 [facility] Urea Nitrogen (BUN) 8(L) 9 - 16 mg/dL [facility] Creatinine, Serum 0.53 0.5 - 1.4 mg/dL [facility] Creatinine Clr Calc Pharmacy 145.5 [facility] Comment:Provided height and weight: 160.02 cm,63.503 kg.eGFR (calculated from the MDRD study equation) and eCrCl(calculated from the Cockcroft-Gault equation) are based ondifferent parameters and may not yield comparable results.If eCrCl result is absurd, please check patient'sheight/weight. Estimated Glomerular Filt Rate >60 [facility] Comment:Chronic Kidney Disea se: Estimated GFR < 60 mL/min/1.10m4Mrefpt Kidney Disease: Estimated GFR < 15 mL/min/1.73m2 Glucose 107 60 - 115 mg/dL [facility] Calcium 9.1 8.4 - 10.2 mg/dL [facility] Bilirubin, Total 0.6 0.0 - 1.0 mg/dL [facility] Aspartate Amino Transferase 16 5 - 31 U/L [facility] Alanine Aminotransferase 10 0 - 31 U/L [facility] Total Protein 6.7 6.5 - 8.0 g/dL [facility] Albumin Level 4.3 3.5 - 5.0 g/dL [facility] Alkaline Phosphatase 42 39 - 117 U/L [facility] 07/23/2025 12:3 2 AM EST 07/23/2025 12:35 AM EST us Generic External Data Provider LAB BLOOD ORDERAB LES Final Result [facility] [address] [place] [phone] * (ABNORMAL) CBC auto differential (07/23/2025 12:32 AM EST) White Blood Count 5.3 4.8 - 10.8 X10*3/uL [facility] Red Blood Count 3.77(L) 4.20 - 5.50 X10*6/uL [facility] Hemoglobin 12.0 12.0 - 16.0 g/dl [facility] Hematocrit 35.1(L) 37.0 - 47.0 % [facility] Mean Corpuscular Volume 93.1 80.0 - 98.0 fL [facility] Mean Corpuscular Hemoglobin 31.8 27.0 - 33.0 pg [facility] Mean Corpuscular HGB Conc 34.2 31.0 - 35.0 g/dl [facility] Red Cell Distribution Width 12.7 11.0 - 16.0 % [facility] Platelet Count 212 160 - 400 X10*3/uL [facility] Mean Platelet Volume 10.0 9.4 - 12.3 fL [facility] Neutrophils Percent Auto 67.0 45 - 73 % [facility] Imm Gran Pct Auto 0.2 0.0 - 0.4 % [facility] Lymphocytes Percent Auto 25.8 20 - 40 % [facility] Monocytes Percent Auto 5.7 2 - 11 % [facility] Eosinophils Percent Auto 1.1 0 - 4 % [facility] Basophils Percent Auto 0.2 0 - 2 % [facility] NRBC Pct Auto 0.0 0.0 - 0.2 /100WBC [facility] Neutrophils Absolute Auto 3.5 2.0 - 8.3 x10*3/uL [facility] Imm Gran Abs Auto 0.01 0.00 - 0.03 X10*3/uL [facility] Lymphocytes Absolute Auto 1.4 1.2 - 4.9 X10*3/uL [facility] Monocytes Absolute Auto 0.3 0.1 - 1.2 X10*3/uL [facility] Eosinophils Absolute Auto 0.1 0.0 - 0.4 X10*3/uL [facility] Basophils Absolute Auto 0.0 0.0 - 0.2 X10*3/uL [facility] NRBC Abs Auto 0.000 0.0 - 0.012 X10*3/uL [facility] 07/23/2025 12:3 2 AM EST 07/23/2025 12:35 AM EST us Generic External Data Provider LAB BLOOD ORDERAB LES Final Result Performing Organization Address City/State/[facility] Co de Phone Number [facility] [address] [place] [phone] documented in this encounter Visit Diagnoses Not on filedocumented in this encounter Additional Health Concerns Assessment Noted Time PHQ-9 Depression Total Score: 6 02/25/20 25 10:55 AM EDT documented as of this encounter Care Teams Learning Disabilities Resource Teacher Relationship Specialty Start Date End Date Inna Gallagher FNP [address] [place] [address] PCP - General Family Medicine 07/03/22 documented as of this encounter
--- OUTSIDE RECORDS SUMMARY | 2025-07-25 13:58 | XMS_ITS | Clinical Summary ---
Author Organization [employer] Address [address] [place] [address] 7[address] [place] [address] Care Team Providers Care Baseball Scout Name Role Phone Inna Gallagher SURGICAL COORDINATOR Primary Care Provider [phone] Allergies No known active allergies Medications diphenhydrAMINE [...] Encounters Date Type Department Care Team Description 07/24/2025 Patient Outreach [facility] [address] [place] [address] Inna Gallagher FNP Care Coordination (C3 CM-W Lorrie Pandey telephone call outreach) 07/23/2025 Orders Only GENERIC EXTERNAL DATA DEPARTMENT Provider, Generic External Data 07/20/2025 Orders Only GENERIC EXTERNAL DATA DEPARTMENT Provider, Generic External Data 07/03/2025 11:15 AM EDT Office Visit [facility] [address] [place] [address] Elana Sabillon, OD Myopia, bilateral (Primary Dx); Encounter for examination of eyes and vision without abnormal findings 07/03/2025 Travel 06/19/2025 Results Follow-Up [facility] [address] [place] [address] Inna Gallagher FNP US Pelvis Transvaginal 06/09/2025 Patient Outreach [facility] [address] [place], [place] [phone] Inna Gallagher FNP Care Management (C3CM- F/U call) 06/09/2025 Orders Only [facility] [address] [place] [address] Inna Gallagher FNP Adnexal mass (Primary Dx); Pelvic pain 06/08/2025 Telephone [facility] [address] [place] [address] Inna Gallagher FNP Medication Question 06/07/2025 11:00 AM EDT Office Visit [facility] [address] [place] [address] Inna Gallagher FNP Menorrhagia with irregular cycle (Primary Dx); Pelvic pain 06/07/2025 Travel 06/05/2025 Telephone [facility] [address] [place] [address] [facility] Nurse Triage 05/17/2025 Patient Outreach [facility] [address] [place] [address] [facility] Care Management (C3CM- F/U call # 2) from Last 3 Months Immunizations Immunization Administration Dates Next Due [id number] Combined 2000 HPV 9-Valent 06/05/2017,03/05/2016,05/11/2013 Hep A, [...] AM EST Narrative 07/23/2025 8:01 AM EST [place] [address] CT Scan Report Signed Patient: Sharla Loera MR#: [id number] : 2000 Acct:[id number] Age/Sex: 25 / F ADM Date: 07/23/25 Loc: HO.ED Attending Dr: Ordering Physician: Ryan Cole PA-C Date of Service: 07/23/25 Procedure(s): CT abdomen pelvis w IV con Accession Number(s): [id number] cc: Ryan Cole PA-C; [facility] Report Number: [id number]: Total DLP = 0.00 mGy-cm Reason for [...] OV> 07/23/25 0759 DD/ 7 TD/TT: 07/23/25757 Director Industrial: Procedure Note Donotuseinterpreter, Image - 07/23/[address] [place] [address] [address] Scan Report Signed Patient: Sharla Loera DMR#: [id number] : 2000Acct:[id number] Age/Sex: 25 FADM Date: 07/23/25 Loc: .ED Attending Dr: Ordering Physician: Ryan Cole PA-C Date of Service: 07/23/25 Procedure(s): CT abdomen pelvis w IV con Accession Number(s): [id number] cc: Ryan Cole PA-C; [facility] Report Number: [id number]: Total DLP = 0.00 mGy-cm Reason for [...] 07/23/25 0759 DD/ 0758 TD/TT: 07/23/25 0758 Director Industrial: [facility] External Provider IMG CT PROCEDURES Final Result * HCG, Qualitative, Urine (07/23/2025 5:19 AM EST) Urine NEGATIVE NEGATIVE [facility] Comment:This test was develo ped to detect early . Falsenegative results may occur after the 5th - 7th week ofpregnancy when using this test method. If clinicallyindicated, consider a serum hCG. 07/23/2025 5:19 AM EST 07/23/2025 5:22 AM EST Generic External Data Provider LAB URINE ORDERAB LES Final Result [facility] [address] [place] [address] [phone] * Urinalysis w/reflex microscopic (07/23/2025 5:19 AM EST) Color Urine Yellow [facility] Appearance Urine Clear [facility] PH 5.5 5.0 - 9.0 [facility] Glucose Urine UA Negative Negative mg/dL [facility] Urine Blood Negative Negative [facility] Specific [place] - Urine 1.010 1.005 - 1.025 [facility] Urine Protein Negative Neg-Trace mg/dL [facility] Urine Ketones Trace Negative mg/dL [facility] Nitrite Urine Negative Negative [facility] Leukocyte Esterase Urine Negative Negative [facility] 07/23/2025 5:19 AM EST 07/23/2025 5:22 AM EST Narrative [facility] - 07/23/2025 5:36 AM EST [id number], Clean Catch us Generic External Data Provider LAB URINE ORDERAB LES Final Result [facility] [address] [place] [phone] * (ABNORMAL) CBC auto differential (07/23/2025 12:32 AM EST) White Blood Count 5.3 4.8 - 10.8 X10*3/uL [facility] Red Blood Count 3.77(L) 4.20 - 5.50 X10*6/uL [facility] Hemoglobin 12.0 12.0 - 16.0 g/dl [facility] Hematocrit 35.1(L) 37.0 - 47.0 % [facility] Mean Corpuscular Volume 93.1 80.0 - 98.0 fL [facility] Mean Corpuscular Hemoglobin 31.8 27.0 - 33.0 pg [facility] Mean Corpuscular HGB Conc 34.2 31.0 - 35.0 g/dl [facility] Red Cell Distribution Width 12.7 11.0 - 16.0 % [facility] Platelet Count 212 160 - 400 X10*3/uL [facility] Mean Platelet Volume 10.0 9.4 - 12.3 fL [facility] Neutrophils Percent Auto 67.0 45 - 73 % [facility] Imm Gran Pct Auto 0.2 0.0 - 0.4 % [facility] Lymphocytes Percent Auto 25.8 20 - 40 % [facility] Monocytes Percent Auto 5.7 2 - 11 % [facility] Eosinophils Percent Auto 1.1 0 - 4 % [facility] Basophils Percent Auto 0.2 0 - 2 % [facility] NRBC Pct Auto 0.0 0.0 - 0.2 /100WBC [facility] Neutrophils Absolute Auto 3.5 2.0 - 8.3 x10*3/uL [facility] Imm Gran Abs Auto 0.01 0.00 - 0.03 X10*3/uL [facility] Lymphocytes Absolute Auto 1.4 1.2 - 4.9 X10*3/uL [facility] Monocytes Absolute Auto 0.3 0.1 - 1.2 X10*3/uL [facility] Eosinophils Absolute Auto 0.1 0.0 - 0.4 X10*3/uL [facility] Basophils Absolute Auto 0.0 0.0 - 0.2 X10*3/uL [facility] NRBC Abs Auto 0.000 0.0 - 0.012 X10*3/uL [facility] 07/23/2025 12:3 2 AM EST 07/23/2025 12:35 AM EST us Generic External Data Provider LAB BLOOD ORDERAB LES Final Result [facility] [address] [place] [phone] * (ABNORMAL) Comprehensive Metabolic Panel (07/23/2025 12:32 AM EST) Sodium 139 135 - 145 mmol/L [facility] Potassium 4.0 3.3 - 5.1 mmol/L [facility] Chloride 109(H) 96 - 108 mmol/L [facility] Carbon Dioxide 23 22 - 29 mmol/L [facility] Anion Gap 11(L) 12 - 20 [facility] Urea Nitrogen (BUN) 8(L) 9 - 16 mg/dL [facility] Creatinine, Serum 0.53 0.5 - 1.4 mg/dL [facility] Creatinine Clr Calc Pharmacy 145.5 [facility] Comment:Provided height and weight: 160.02 cm,63.503 kg.eGFR (calculated from the MDRD study equation) and eCrCl(calculated from the Cockcroft-Gault equation) are based ondifferent parameters and may not yield comparable results.If eCrCl result is absurd, please check patient'sheight/weight. Estimated Glomerular Filt Rate >60 [facility] Comment:Chronic Kidney Disea se: Estimated GFR < 60 mL/min/1.15x4Ezdmgw Kidney Disease: Estimated GFR < 15 mL/min/1.73m2 Glucose 107 60 - 115 mg/dL [facility] Calcium 9.1 8.4 - 10.2 mg/dL [facility] Bilirubin, Total 0.6 0.0 - 1.0 mg/dL [facility] Aspartate Amino Transferase 16 5 - 31 U/L [facility] Alanine Aminotransferase 10 0 - 31 U/L [facility] Total Protein 6.7 6.5 - 8.0 g/dL [facility] Albumin Level 4.3 3.5 - 5.0 g/dL [facility] Alkaline Phosphatase 42 39 - 117 U/L [facility] 07/23/2025 12:3 2 AM EST 07/23/2025 12:35 AM EST us Generic External Data Provider LAB BLOOD ORDERAB LES Final Result [facility] [address] [place] [address] [phone] * TSH with Reflex to Free T4 (07/20/2025 1:07 PM EST) TSH reflex Free T4 0.51 0.32 - 4.0 uIU/mL [facility] 07/20/2025 1:07 PM EST 07/20/2025 1:07 PM EST us Generic External Data Provider LAB BLOOD ORDERAB LES Final Result Performing Organization Address City/[facility] Co de Phone Number [facility] [address] [place] [phone] * CBC (07/20/2025 1:07 PM EST) Pathologist [facility] White Blood Count 5.3 4.8 - 10.8 X10*3/uL [facility] Red Blood Count 4.20 4.20 - 5.50 X10*6/uL [facility] Hemoglobin 13.5 12.0 - 16.0 g/dl [facility] Hematocrit 39.1 37.0 - 47.0 % [facility] Mean Corpuscular Volume 93.1 80.0 - 98.0 fL [facility] Mean Corpuscular Hemoglobin 32.1 27.0 - 33.0 pg [facility] Mean Corpuscular HGB Conc 34.5 31.0 - 35.0 g/dl [facility] Red Cell Distribution Width 12.6 11.0 - 16.0 % [facility] Platelet Count 244 160 - 400 X10*3/uL [facility] Mean Platelet Volume 10.3 9.4 - 12.3 fL [facility] NRBC Pct Auto 0.0 0.0 - 0.2 /100WBC [facility] NRBC Abs Auto 0.000 0.0 - 0.012 X10*3/uL [facility] 07/20/2025 1:07 PM EST 07/20/2025 1:07 PM EST us Generic External Data Provider LAB BLOOD ORDERAB LES Final Result Performing Organization Address City/[facility]/ZIP Co de Phone Number [facility] [address] [place] [address] [phone] * hCG, Total, Quantitative (07/20/2025 1:07 PM EST) [facility] HCG Quantitative <2 mIU/mL [facility] Comment:Weeks post LMP Appro ximate hCG(Last Menstrual Period) Range (mIU/ml)3 - 4 weeks 9 - 1304 - 5 weeks 75 - 2,6005 - 6 weeks 850 - 20,8006 - 7 weeks 4000 - 100,2007 - 12 weeks 11,500 - 289,79973 - 16 weeks 18,300 - 137,84620 - 29 weeks (2nd trimester) 1,400 - 53,79329 - 41 weeks (3rd trimester) 940 - [...] ORDERAB LES Final Result Performing Organization Address [facility]/ZIP Co de Phone Number [facility] [address] [place] [address] [phone] * Chlamydia/N. Gonorrhoeae RNA, TMA, Urogenitial (07/20/2025 12:30 PM EST) [facility] CT PCR NOT DETECTED Not Detect. [facility] Comment:A not detected test result [...] psychologicalconsequences. NG PCR NOT DETECTED Not Detect. [facility] Comment:A not detected test result [...] GENERAL ORDERABLES Final Result Performing Organization Address City/State/[facility] Co de Phone Number [facility] [address] [place] [phone] * US Pelvis Transvaginal (06/14/2025 2:17 PM EDT) Anatomical Region Laterality Modality Pelvis Ultrasound 06/14/2025 2:17 PM EDT Narrative 06/14/2025 2:18 PM EDT [address] [address] Ultrasound Report Signed Patient: Sharla Loera MR#: [id number] : 2000 Acct:[id number] Age/Sex: 25 / F ADM Date: 06/13/25 Loc: HO.US Attending Dr: Inna ABARCA Ordering Physician: Inna Gallagher Date of Service: 06/13/25 Procedure(s): US pelvic and transvaginal Accession Number(s): [id number] cc: Inna Gallagher Reason for Exam: PELVIC PAIN CLINICAL HISTORY: PELVIC PAIN US pelvis transabdominal and transvaginal with Doppler Comparison: CT/SR - CT GI BLEED ABD PEL WO/W IVCON - 02/05/25 10:50 EDT US/MS/SR - US PELVIS TRANSABDOMINAL AND TRANSVAGINAL - [...] in OV> 06/14/251416 DD/ 16 TD/TT: 06/14/251416 Director Industrial: Procedure Note Donotuseinterpreter, Image - 06/14/2025 [place] [address] Ultrasound Report Signed Patient: Sharla Loera [facility]#: [id number] : 2000Acct:[id number] Age/Sex: 25 / FADM Date: 06/13/25 Loc: HO.US Attending Dr: Inna ABARCA Ordering Physician: Inna Gallagher Date of Service: 06/13/25 Procedure(s): US pelvic and transvaginal Accession Number(s): [id number] cc: [facility] Reason for Exam: PELVIC PAIN CLINICAL HISTORY: PELVIC PAIN US pelvis transabdominal and transvaginal with Doppler Comparison: CT/SR - CT GI BLEED ABD PEL WO/W IVCON - 02/05/25 10:50 EDT US/MS/SR - US PELVIS TRANSABDOMINAL AND TRANSVAGINAL - [...] OV> 06/14/25 1417 DD/ 16 TD/TT: 06/14/251416 Director Industrial: [facility] IMG US PROCEDURES Final Resul t * Image-Guided Pap with Age-Based Screening??with CT/NG,??Trichomonas (02/27/2023 2:22 PM EDT) Comment [employer] Comment: This order for age-based cervical cancer and STI screening follows ACOG guidelines(PB 168, 140, XQT870). See individual assays for performing site location. Clinical Information: None given [facility]ivat LMP: NONE GIVEN [facility] Prev. PAP: NONE GIVEN [facility] [place] [employer] [facility] Prev. BX: NONE GIVEN [facility] [place] [employer] Diagn[facility] SOURCE: None given [facility] [place] [employer] Statement Of Adequacy: [facility] [place] [employer] Comment: Satisfactory for evaluation. Endocervical/transformation zone component absent. Interpretation/Re sult: Negative for intraepithelial lesion or malignancy. [facility] [place] [employer] COMMENT: This Pap test has been evaluated with computer assisted technology. [facility] [place] [employer] Employment Adjudicator: [employer] [place] [employer] Comment: BK,CT(ASCP) CT screening location: [address] Review Employment Adjudicator: [facility] [place] [employer] Comment: ALS, CT(ASCP) CT screening location: [address] [address] (Always Message) [address] [facility] Comment: EXPLANATORY NOTE: The Pap is a [...] RNA, TMA, Urogenital NOT DETECTED NOT DETECTED [facility] [place] [employer] Neisseria gonorrhoeae RNA, TMA, Urogenital NOT DETECTED NOT DETECTED [facility] [place] [employer] Comment [facility] [place] [employer] Comment: The analytical performance characteristics of this assay, when used to test SurePath(TM) specimens have been determined by [facility]. The modifications have not been cleared or approved by the FDA. This assay has been validated pursuant to the CLIA regulations and is used for clinical purposes. For additional information, please refer to https://education.Project Repat.Notable Solutions/faq/ZSO470 (This link is being provided for information/ educational purposes only.) Trichomonas vaginalis, QL, TMA, PAP Vial NOT DETECTED NOT DETECTED [facility] Comment: The analytical performance characteristics of this assay have been determined by [facility]. The modifications have not been cleared or approved by the FDA. This assay has been validated pursuant to the CLIA regulations and is used for clinical purposes. For additional information, please refer to http://Core [employer].LimeTray/ faq/Trichomonastma (This link is being provided for information/ educational purposes only.) Cervix 02/27/2023 2:22 PM EDT 02/28/2023 3:51 AM EDT [facility] LAB CYTOLOGY ORDERABLES Final Result Performing Organization Address City/[facility]/ZIP Co de Phone Number [facility] [address], [place] [address] [facility] [address] [place] [phone] * HEPATITIS C AB W/REFL TO HCV [...] a test for HCV RNA (test code 27847) is suggested. For additional information please refer to http://[employer].Project [employer]/faq/VQJ27s1 (This link is being provided for informational/ educational purposes only.) 06/03/2022 10:5 6 AM EDT [facility] HISTORICAL/NON ORDERABLE LABS Final Result Performing Organization Address City/[facility] Co de Phone Number [facility] [address] * HIV 1/2 ANTIGEN/ANTIBODY,FOURTH GENERATION W/RFL (06/03/2022 10:56 AM EDT) HIV-1/2 ANTIGEN AND ANTIBODIES, 4TH GENERATION W/ REFLEX NON-REACT [facility] NON-REACT [facility] Comment: HIV-1 antigen and [...] purpose. For additional information please refer to http://education.LimeTray/faq/GUF885 (This link is being provided for informational/ educational purposes only.) The performance of this assay has not been clinically validated in patients less than 2 years old. 06/03/2022 10:5 6 AM EDT [facility] LAB BLOOD ORDERABLES Final Re sult [facility] [address] from Last 3 Months or Most Recently Relevant to Health Maintenance [facility] Care Teams Baseball Scout Relationship Specialty Start Date End Date Inna Gallagher FNP [address] [place] [phone] PCP - General Family Medicine 07/03/22
--- OUTSIDE RECORDS SUMMARY | 2025-07-25 13:58 | XMS_ITS | Encounter Summary ---
Author Organization [employer] Address [address] [place] [address] [address] [place] [address] Care Team Providers Care Commercial Estimator Name Role Phone [place] [facility] Primary Care Provider [phone] Reason for Visit * Reason Onset Date Comments triage 11/10/2022 Encounter Details Date Type Department Care Team ([facility] st Contact Info) Description 11/10/2022 Telephone [facility] [address] [place], [place] [phone] [facility] [place] [address] [place], [place] [phone] triage Social History Tobacco Use Types Packs/Day [...] No answer LVM to return call to [facility] triage line. Nothing sooner with PCP [...] on filedocumented in this encounter Care Teams Commercial Estimator Relationship Specialty Start Date End Date Inna Gallagher FNP [address] [place] [phone] PCP - General Family Medicine 07/03/22 documented as of this encounter
== END 2025-07-25 13:33 | disposition home or self-care (01) ==
PROVIDERS: Emergency Provider Emergency Medicine; PCP Registered Nurse
DX: G24.02 Drug induced acute dystonia (principal)
CPT/HCPCS: 96361; 96374; 99284; J1200

== ENCOUNTER 2025-08-11 15:54 | Outpatient (REF) | payer MEDICAID, SELFPAY ==
--- NOTE | ~2025-08-11 | MR_ITS ---
EXAMINATION: MR PELVIS WITHOUT AND WITH CONTRAST CLINICAL INFORMATION: Adnexal mass of female genital organs and menstrual cycle. Patient questionnaire : question endometriosis. Pain with menstrual cycles, intermittent for 2 to 3 months COMPARISON: Previous CT scans of the abdomen and pelvis most recent July 2025 and pelvic ultrasound most recent May 2025 TECHNIQUE: Sagittal axial and coronal sequences through the pelvis with and without contrast. Patient received 6.5 mL Gadavist this IV contrast. FINDINGS: The uterus is anteverted and measures 7.2 x 3.5 x 5.8 cm in dimension. No focal uterine lesion. The junctional zone does not appear thickened. Endometrial thickness is normal measuring 3 mm. No endometrial fluid or mass. The cervix is normal. The ovaries are normal appearing. The left ovary measures 3.7 x 1.8 x 1.8 cm. The right ovary measures 3.7 x 2 x 1.8 cm. No adnexal mass. The 3 cm right adnexal cyst seen on July 23, [address] scan has resolved. No abnormal signal in the pelvis to suggest endometriosis. Bladder is not optimally distended. Visualized bowel is normal. No ascites or adenopathy. Bone marrow signal is normal. No hernia. MR/MR pelvis wo/w con IMPRESSION: Unremarkable examination. No adnexal mass or evidence of endometriosis. Electronically signed by: Opal Hernandez MD 08/11/2025 05:02 PM [facility]
--- OUTSIDE RECORDS SUMMARY | 2025-08-11 16:02 | XMS_ITS | Encounter Summary ---
Author Organization [employer] Address [address] [place] [address] 7 [place] [address] Care Team Providers Care Oracle Identity Management Consultant Name Role Phone [place] [facility] Primary Care Provider [phone] Reason for Visit * Reason Onset Date Comments triage 11/10/2022 Encounter Details Date Type Department Care Team ([facility] st Contact Info) Description 11/10/2022 Telephone [facility] [address] [place], [place] [phone] [facility] [address] [place], [place] [phone] triage Social History Tobacco Use Types Packs/Day [...] No answer LVM to return call to [facility] triage line. Nothing sooner with PCP than [...] on filedocumented in this encounter Care Teams Oracle Identity Management Consultant Relationship Specialty Start Date End Date Inna Gallagher FNP [address] [place] [phone] PCP - General Family Medicine 07/03/22 documented as of this encounter
--- OUTSIDE RECORDS SUMMARY | 2025-08-11 16:02 | XMS_ITS | Clinical Summary ---
Author Organization [employer] Address [address] [place] [address] [address] [place] [address] Care Team Providers Care Power Generation Technician Name Role Phone Inna Gallagher BAG WORKER Primary Care Provider [phone] Allergies No known active allergies Medications diphenhydrAMINE [...] Department Care Team Description 07/24/2025 Patient Outreach [facility] [address] [place] [address] Inna Gallagher FNP Care Coordination (C3 CM-W Lorrie Pandey telephone call outreach) 07/23/2025 Orders Only GENERIC EXTERNAL DATA DEPARTMENT Provider, Generic External Data 07/20/2025 Orders Only GENERIC EXTERNAL DATA DEPARTMENT Provider, Generic External Data 07/03/2025 11:15 AM EDT Office Visit [facility] OPTOMET[facility] [address] [place] [address] Elana Sabillon, OD Myopia, bilateral (Primary Dx); Encounter for examination of eyes and vision without abnormal findings 07/03/2025 Travel 06/19/2025 Results Follow-Up [facility] [address] [place] [phone] Inna Gallagher FNP US Pelvis Transvaginal 06/09/2025 Patient Outreach [facility] [address] [place], [place] [phone] Inna Gallagher FNP Care Management (C3CM- F/U call) 06/09/2025 Orders Only [facility] [address] [place] [address] Inna Gallagher FNP Adnexal mass (Primary Dx); Pelvic pain 06/08/2025 Telephone [facility] MEDICINE [address] [place] [phone] Inna Gallagher FNP Medication Question 06/07/2025 11:00 AM EDT Office Visit [facility] [address] [place] [phone] Inna Gallagher FNP Menorrhagia with irregular cycle (Primary Dx); Pelvic pain 06/07/2025 Travel 06/05/2025 Telephone [facility] MEDIC[facility] [address] [place] [address] SapphireInna [facility] Nurse Triage 05/17/2025 Patient Outreach [facility] MEDICINE [address] [place] [address] SapphireInna [facility] Care Management (C3CM- F/U call # [phone]) from Last 3 Months Immunizations Immunization Administration Dates Next Due FEGI-OJI-JRE-HEPB Combined 2000 HPV 9-Valent 06/05/2017,03/05/2016,05/11/2013 Hep A, [...] to 49) Years (2 of 2 - PPSV23, PCV20, or PCV21) 05/06/2016 03/11/2016 Hepatitis A Vaccines (2 of 2 - 2-dose series) 09/04/2016 03/05/2016 COVID-19 Vaccine ( - season) 2025 04/05/2022, 10/30/2021, 02/07/2021, Additional history exists Influenza Vaccine (#1) 2025 , 08/06/2015, 08/18/2011, Additional history exists Alcohol/Substance Use Screening 10/12/2025 10/12/2024 SDOH Screening 02/08/2026 02/08/2025 Depression Screening 02/24/2026 02/24/2025, 02/25/20 25 DTaP/Tdap/Td Vaccines (7 - Td or Tdap) 03/05/2026 03/05/2016, 03/03/2014, 05/16/2004, Additional history exists Tobacco Screening 07/03/2026 07/03/2025 Pap Smear 07/20/2028 07/20/2025, 02/12, 02/27/2023 Zoster Vaccines (1 of 2) 2050 RSV [...] EST CBC Routine 07/20/2025 1:07 PM EST PAP SMEAR Routine 07/20/2025 12:54 PM EST HPV DNA, LOW/HIGH RISK Routine 12:54 PM EST CHLAMYDIA/N. GONORRHOEAE RNA, TMA, UROGENITAL Routine 07/20/2025 12:30 PM EST US PELVIS TRANSVAGINAL Urgent 2:17 PM EDT Pelvic pain ZZZ HISTORICAL HEPATITIS C AB W/REFL TO [...] AM EST Narrative 07/23/2025 8:01 AM EST [place] [address] CT Scan Report Signed Patient: Sharla Loera MR#: [id number] : 2000 Acct:[id number] Age/Sex: 25 / F ADM Date: 07/23/25 Loc: HO.ED Attending Dr: Ordering Physician: Ryan Cole PA-C Date of Service: 07/23/25 Procedure(s): CT abdomen pelvis w IV con Accession Number(s): [id number] cc: Ryan Cole PA-C; [facility] Report Number: [id number]: Total DLP = 0.00 mGy-cm Reason for [...] OV> 07/23/25 0759 DD/ 7 TD/TT: 07/23/25757 Global Logistics Manager: Procedure Note Donotuseinterpreter, Image - 07/23/[address] [place] [address] [address] Scan Report Signed Patient: Sharla Loera DMR#: [id number] : 2000Acct:[id number] Age/Sex: 25 / FADM Date: 07/23/25 Loc: .ED Attending Dr: Ordering Physician: Ryan Cole PA-C Date of Service: 07/23/25 Procedure(s): CT abdomen pelvis w IV con Accession Number(s): [id number] cc: Ryan Cole PA-C; [facility] Report Number: [id number]: Total DLP = 0.00 mGy-cm Reason for [...] OV> 07/23/25 0759 DD/ 7 TD/TT: 07/23/25757 Global Logistics Manager: [facility] External Provider IMG CT PROCEDURES Final Result * HCG, Qualitative, Urine (07/23/2025 5:19 AM EST) Urine NEGATIVE NEGATIVE [facility] Comment:This test was develo ped to detect early . Falsenegative results may occur after the 5th - 7th week ofpregnancy when using this test method. If clinicallyindicated, consider a serum hCG. 07/23/2025 5:19 AM EST 07/23/2025 5:22 AM EST Generic External Data Provider LAB URINE ORDERAB LES Final Result [facility] [address] [place] [phone] * Urinalysis w/reflex microscopic (07/23/2025 5:19 AM EST) Color Urine Yellow [facility] Appearance Urine Clear [facility] PH 5.5 5.0 - 9.0 [facility] Glucose Urine UA Negative Negative mg/dL [facility] Urine Blood Negative Negative [facility] Specific [place] - Urine 1.010 1.005 - 1.025 [facility] Urine Protein Negative Neg-Trace mg/dL [facility] Urine Ketones Trace Negative mg/dL [facility] Nitrite Urine Negative Negative [facility] Leukocyte Esterase Urine Negative Negative [facility] 07/23/2025 5:19 AM EST 07/23/2025 5:22 AM EST Narrative [facility] - 07/23/2025 5:36 AM EST [id number], Clean Catch us Generic External Data Provider LAB URINE ORDERAB LES Final Result Performing Organization Address [facility]/State/ZIP Co de Phone Number [facility] [address] [place] [phone] * (ABNORMAL) CBC auto differential (07/23/2025 12:32 AM EST) White Blood Count 5.3 4.8 - 10.8 X10*3/uL [facility] Red Blood Count 3.77(L) 4.20 - 5.50 X10*6/uL [facility] Hemoglobin 12.0 12.0 - 16.0 g/dl [facility] Hematocrit 35.1(L) 37.0 - 47.0 % [facility] Mean Corpuscular Volume 93.1 80.0 - 98.0 fL [facility] Mean Corpuscular Hemoglobin 31.8 27.0 - 33.0 pg [facility] Mean Corpuscular HGB Conc 34.2 31.0 - 35.0 g/dl [facility] Red Cell Distribution Width 12.7 11.0 - 16.0 % [facility] Platelet Count 212 160 - 400 X10*3/uL [facility] Mean Platelet Volume 10.0 9.4 - 12.3 fL [facility] Neutrophils Percent Auto 67.0 45 - 73 % [facility] Imm Gran Pct Auto 0.2 0.0 - 0.4 % [facility] Lymphocytes Percent Auto 25.8 20 - 40 % [facility] Monocytes Percent Auto 5.7 2 - 11 % [facility] Eosinophils Percent Auto 1.1 0 - 4 % [facility] Basophils Percent Auto 0.2 0 - 2 % [facility] NRBC Pct Auto 0.0 0.0 - 0.2 /100WBC [facility] Neutrophils Absolute Auto 3.5 2.0 - 8.3 x10*3/uL [facility] Imm Gran Abs Auto 0.01 0.00 - 0.03 X10*3/uL [facility] Lymphocytes Absolute Auto 1.4 1.2 - 4.9 X10*3/uL [facility] Monocytes Absolute Auto 0.3 0.1 - 1.2 X10*3/uL [facility] Eosinophils Absolute Auto 0.1 0.0 - 0.4 X10*3/uL [facility] Basophils Absolute Auto 0.0 0.0 - 0.2 X10*3/uL [facility] NRBC Abs Auto 0.000 0.0 - 0.012 X10*3/uL [facility] 07/23/2025 12:3 2 AM EST 07/23/2025 12:35 AM EST us Generic External Data Provider LAB BLOOD ORDERAB LES Final Result [facility] [address] [place] [address] [phone] * (ABNORMAL) Comprehensive Metabolic Panel (07/23/2025 12:32 AM EST) Sodium 139 135 - 145 mmol/L [facility] Potassium 4.0 3.3 - 5.1 mmol/L [facility] Chloride 109(H) 96 - 108 mmol/L [facility] Carbon Dioxide 23 22 - 29 mmol/L [facility] Anion Gap 11(L) 12 - 20 [facility] Urea Nitrogen (BUN) 8(L) 9 - 16 mg/dL [facility] Creatinine, Serum 0.53 0.5 - 1.4 mg/dL [facility] Creatinine Clr Calc Pharmacy 145.5 [facility] Comment:Provided height and weight: 160.02 cm,63.503 kg.eGFR (calculated from the MDRD study equation) and eCrCl(calculated from the Cockcroft-Gault equation) are based ondifferent parameters and may not yield comparable results.If eCrCl result is absurd, please check patient'sheight/weight. Estimated Glomerular Filt Rate >60 [facility] Comment:Chronic Kidney Disea se: Estimated GFR < 60 mL/min/1.70v4Taauiw Kidney Disease: Estimated GFR < 15 mL/min/1.73m2 Glucose 107 60 - 115 mg/dL [facility] Calcium 9.1 8.4 - 10.2 mg/dL [facility] Bilirubin, Total 0.6 0.0 - 1.0 mg/dL [facility] Aspartate Amino Transferase 16 5 - 31 U/L [facility] Alanine Aminotransferase 10 0 - 31 U/L [facility] Total Protein 6.7 6.5 - 8.0 g/dL [facility] Albumin Level 4.3 3.5 - 5.0 g/dL [facility] Alkaline Phosphatase 42 39 - 117 U/L [facility] 07/23/2025 12:3 2 AM EST 07/23/2025 12:35 AM EST us Generic External Data Provider LAB BLOOD ORDERAB LES Final Result [facility] [address] [place] [address] [phone] * TSH with Reflex to Free T4 (07/20/2025 1:07 PM EST) TSH reflex Free T4 0.51 0.32 - 4.0 uIU/mL [facility] 07/20/2025 1:07 PM EST 07/20/2025 1:07 PM EST us Generic External Data Provider LAB BLOOD ORDERAB LES Final Result [facility] [address] [place] [address] [phone] * CBC (07/20/2025 1:07 PM EST) Pathologist [facility] White Blood Count 5.3 4.8 - 10.8 X10*3/uL [facility] Red Blood Count 4.20 4.20 - 5.50 X10*6/uL [facility] Hemoglobin 13.5 12.0 - 16.0 g/dl [facility] Hematocrit 39.1 37.0 - 47.0 % [facility] Mean Corpuscular Volume 93.1 80.0 - 98.0 fL [facility] Mean Corpuscular Hemoglobin 32.1 27.0 - 33.0 pg [facility] Mean Corpuscular HGB Conc 34.5 31.0 - 35.0 g/dl [facility] Red Cell Distribution Width 12.6 11.0 - 16.0 % [facility] Platelet Count 244 160 - 400 X10*3/uL [facility] Mean Platelet Volume 10.3 9.4 - 12.3 fL [facility] NRBC Pct Auto 0.0 0.0 - 0.2 /100WBC [facility] NRBC Abs Auto 0.000 0.0 - 0.012 X10*3/uL [facility] 07/20/2025 1:07 PM EST 07/20/2025 1:07 PM EST us Generic External Data Provider LAB BLOOD ORDERAB LES Final Result [facility] [address] [place] [address] [phone] * hCG, Total, Quantitative (07/20/2025 1:07 PM EST) HCG Quantitative <2 mIU/mL [facility] Comment:Weeks post LMP Appro ximate hCG(Last Menstrual Period) Range (mIU/ml)3 - 4 weeks 9 - 1304 - 5 weeks 75 - 2,6005 - 6 weeks 850 - 20,8006 - 7 weeks 4000 - 100,2007 - 12 weeks 11,500 - 289,98329 - 16 weeks 18,300 - 137,25528 - 29 weeks (2nd trimester) 1,400 - 53,78650 - 41 weeks (3rd trimester) 940 - [...] ORDERAB LES Final Result Performing Organization Address City/[facility]/ZIP Co de Phone Number [facility] [address] [place] [phone] * HPV DNA, Low/High Risk (07/20/2025 12:54 PM EST) HPV High Risk Negative Negative [facility] HPV Genotype 16 Negative Negative [facility] HPV Genotype 18 Negative Negative [facility] Comment:HPV testing performe d at [facility] (CLIA#[id number]), [address] [place] [phone].Testing for HPV was performed using the [employer] Portal0system. The presence of HPV in the female genital tract isassociated with a number of diseases, including cervicalcarcinoma. The HPV DNA high risk pool tests for HPV 31, 33,35, 39, 45, 51, 52, 56, 58, 59, 66 and 68. The testing forHPV 16 and 18 genotypes has also been performed. A positiveresult indicates detection of nucleic acid sequences fromone or more subtypes, whereas a negative result indicatessuch sequences were not detected. 07/20/2025 12:5 4 PM EST 07/21/2025 8:12 AM EST us Generic External Data Provider LAB BLOOD ORDERAB LES Final Result Performing Organization Address City/State/[facility] Co de Phone Number [facility] [address] [place] [phone] * Pap Smear (07/20/2025 12:54 PM EST) 07/20/2025 12:5 4 PM EST 07/21/2025 8:12 AM EST Narrative [facility] - 07/28/2025 7:42 AM EST ----- ------- Name: Sharla Loera Age/Sex: 25/F : 2000 Unit#: [id number] Attend Dr: Carlos Eduardo Meyers MD Re07/20/25 Status: DEP REF Location: .LAB Disch: ----- ------- SPEC : [id number] RECD: 07/21/25 STATUS: KOKO DAVIES NUM: [id number] JOSE: 07/20/25-1254 [facility] DR: Carlos Eduardo Meyers MD ENTERED: 07/21/25 SP TYPE: Pap Smr OTHR DR: Inna Gallagher BAG WORKER ORDERED: Pap Smear, PAP path review Interpretation General Category: Negative for intraepithelial lesion/malignancy. Adequacy: Endocervical component present. Interpretation: Inflammation with associated cellular changes. HPV High Risk: Negative HPV Genotyping 16: Negative HPV Genotyping 18: Negative Clinical Information LMP: Unknown date Previous PAP test: 2 years ago, WNL Other history: Mass of uterine adnexa Material Received ThinPrep-Cervical PAP Disclaimer As of July 06, 2024, the technical services to include automated prescreening performed by the ThinPrep Imaging System, PAP screening and HPV testing will be performed at [facility] (CLIA #[id number]), [address] [place] [address]. Testing for HPV was performed using the [employer] 6800 system. The presence of HPV in the female genital tract is associated with a number of diseases, including cervical carcinoma. The HPV DNA high risk pool tests for HPV 31, 33, 35, 39, 45, 51, 52, 56, 58, 59, 66 and 68. The testing for HPV 16 and 18 genotypes has also been performed. A positive result indicates detection of nucleic acid sequences from one or more subtypes, whereas a negative result indicates such sequences were not detected. All professional services are performed by [facility] ([address] [place] [address]; ; CLIA #[id number]). The PAP Test is a screening procedure with the inherent possibility of both false negative and false positive results. Results should be interpreted in the context of historic and current clinical findings. Reliability of the PAP Test is enhanced by performing the test on a regular repetitive basis. CONTINUED ON NEXT PAGE ----- ------- Name: Sharla Loera Age/Sex: 25/F : 2000 Unit#: [id number] Attend Dr: Carlos Eduardo Meyers MD Re07/20/25 Status: DEP REF Location: [facility] Disch: ----- ------- SPEC : [id number] RECD: 07/21/25 STATUS: SHERRIJuana SAMSON NUM: [id number] JOSE: 07/20/25 [facility] DR: Carlos Eduardo Meyers MD ENTERED: 07/21/25 SP TYPE: Pap Smr OTHR DR: Inna Gallagher [facility] ORDERED: Pap Smear, PAP path review Copies To: Inna Gallagher [address] [address] Carlos Eduardo Meyers MD [facility] [address] [place] [address] Drive [address] [place] [phone] ----- ------- Signed (signature on file) Mickey Martin MD 07/28/25 0742 ----- ------- END OF REPORT us Generic External Data Provider LAB CYTOLOGY JEFF CLANCY Final Result [facility] [address] [place] [address] [phone] * Chlamydia/N. Gonorrhoeae RNA, TMA, Urogenitial (07/20/2025 12:30 PM EST) CT PCR NOT DETECTED Not Detect. [facility] Comment:A not detected test result [...] psychologicalconsequences. NG PCR NOT DETECTED Not Detect. [facility] Comment:A not detected test result [...] GENERAL ORDERABLES Final Result Performing Organization Address City/State/[facility] Co de Phone Number [facility] [address] [place] [phone] * US Pelvis Transvaginal (06/14/2025 2:17 PM EDT) Anatomical Region Laterality Modality Pelvis Ultrasound 06/14/2025 2:17 PM EDT Narrative 06/14/2025 2:18 PM EDT [address] [address] Ultrasound Report Signed Patient: Sharla Loera MR#: [id number] : 2000 Acct:[id number] Age/Sex: 25 / F ADM Date: 06/13/25 Loc: HO.US Attending Dr: Inna ABARCA Ordering Physician: Inna Gallagher Date of Service: 06/13/25 Procedure(s): US pelvic and transvaginal Accession Number(s): [id number] cc: Inna Gallagher Reason for Exam: PELVIC PAIN CLINICAL HISTORY: PELVIC PAIN US pelvis transabdominal and transvaginal with Doppler Comparison: CT/SR - CT GI BLEED ABD PEL WO/W IVCON - 02/05/25 10:50 EDT US/LA/SR - US PELVIS TRANSABDOMINAL AND TRANSVAGINAL - [...] in OV> 06/14/251416 DD/ 16 TD/TT: 06/14/251416 Global Logistics Manager: Procedure Note Donotuseinterpreter, Image - 06/14/2025 [place] [address] Ultrasound Report Signed Patient: Sharla Loera DMR#: [id number] : 2000Acct:[id number] Age/Sex: M Date: 06/13/25 Loc: HO.US Attending Dr: Inna ABARCA Ordering Physician: Inna Gallagher Date of Service: 06/13/25 Procedure(s): US pelvic and transvaginal Accession Number(s): [id number] cc: Inna Gallagher Reason for Exam: PELVIC PAIN CLINICAL HISTORY: PELVIC PAIN US pelvis transabdominal and transvaginal with Doppler Comparison: CT/SR - CT GI BLEED ABD PEL WO/W IVCON - 02/05/25 10:50 EDT US/LA/SR - US PELVIS TRANSABDOMINAL AND TRANSVAGINAL - [...] in OV> 06/14/251416 DD/ 16 TD/TT: 06/14/251416 Global Logistics Manager: [facility] IMG US PROCEDURES Final Resul t * HEPATITIS C AB W/REFL TO HCV RNA, QN, PCR (06/03/2022 10:56 AM EDT) HEPATITIS C ANTIBODY NON-REACT NAYA NON-REACT NAYA [facility] INDEX 0.04 <1.00 [facility] Comment: HCV antibody was non-reactive. There is no laboratory evidence of HCV infection. In most cases, no further action is required. However, if recent HCV exposure is suspected, a test for HCV RNA (test code 96901) is suggested. For additional information please refer to http://education.[facility]/faq/FKY44b5 (This link is being provided for informational/ educational purposes only.) 06/03/2022 10:5 6 AM EDT [facility] HISTORICAL/NON ORDERABLE LABS Final Result [facility] [address] * HIV 1/2 ANTIGEN/ANTIBODY,FOURTH GENERATION W/RFL (06/03/2022 10:56 AM EDT) HIV-1/2 ANTIGEN AND ANTIBODIES, 4TH GENERATION W/ REFLEX NON-REACT NAYA NON-REACT NAYA [facility] Comment: HIV-1 antigen and HIV-1/HIV-2 [...] purpose. For additional information please refer to http://education.[facility]/faq/UAL645 (This link is being provided for informational/ educational purposes only.) The performance of this assay has not been clinically validated in patients less than 2 years old. 06/03/2022 10:5 6 AM EDT [facility] LAB BLOOD ORDERABLES Final Re sult Performing Organization Address City/State/[facility] Co de Phone Number [facility] [address] from Last 3 Months or Most Recently Relevant to Health Maintenance Insurance [address] [address] [facility] Member Subscriber Plan / Payer (Ef fective 2023-Present) Name:Sharla Gallegos Relation to Subscriber:Self Name:Sharla Gallegos Payer ID:Not on file Group ID:Not on file Type:Medicaid Address: [facility] [id number] [place] [phone] [address] [address] DARWIN Ayon [address] Care Teams Power Generation Technician Relationship Specialty Start Date End Date SapphireInna BAG WORKER [address] [place] [phone] PCP - General Family Medicine 07/03/22
== END 2025-08-11 15:55 | disposition home or self-care (01) ==
LOC: HO.MRI 15:54
PROVIDERS: PCP Registered Nurse; Visit Provider Registered Nurse
DX: N94.89 Other specified conditions associated with female genital organs and menstrual cycle (principal)
CPT/HCPCS: 72197; A9585

== ENCOUNTER → 2025-08-11 15:55 | Outpatient (BNV) | payer MEDICAID, SELFPAY | PROVIDERS: PCP Registered Nurse; Visit Provider Radiology Diagnostic Radiology | DX: R19.09 Other intra-abdominal and pelvic swelling, mass and lump (principal) | CPT/HCPCS: 72197 ==

== ENCOUNTER 2025-08-15 11:53 | Outpatient (AMB) | payer MEDICAID, SELFPAY ==
--- NOTE | 2025-08-15 11:54 | MHC.OFFVIS ---
Intake Visit Reasons: emb results Utilization Review Coordinator Required: No Information Interpreted: non-clinical & clinical Allergies haloperidol (From Haldol) Allergy (Verified 08/15/25 11:54) Unknown HPI Comments Details: The patient is presenting for follow-up to discuss the results of her abnormal uterine bleeding workup and options of treatment. The following workup was done.: H&H= 35.1 TSH, hCG, GC and chlamydia were negative. Co testing was done was negative. 06/14/2025 Pelvic ultrasound showed the following: IMPRESSION: No evidence of ovarian torsion. Possible arcuate uterus. Possible right supernumerary ovary. MRI evaluation as indicated. Left ovarian cyst. 08/11/2025 Pelvic MRI showed the following: IMPRESSION: Unremarkable examination. No adnexal mass or evidence of endometriosis. [facility] Surgical History History of facial surgery Family History Maternal Grandfather Diabetes Mother Depression Anemia HTN (hypertension) Social History Household Members: Family Alcohol intake: current Alcohol intake frequency: holidays/special occasions only Alcohol type: hard liquor Patient Tobacco Use Status: Never used Tobacco Substance Use Type: Marijuana Female Reproductive History Menstrual Age of Menarche: 13 Review of Systems Const All systems reviewed & are unremarkable except as noted in HPI and below Reports as per HPI and Reports no additional complaints GI Reports no additional complaints Reports no additional complaints Telehealth Telehealth Telehealth Platform: [facility] Location of provider rendering services: practice address Location of patient: address on file Patient Identification confirmed using: Name, : Yes Telehealth method: video Patient verbally consented to treatment: Yes Patient verbally consented to billing insurance company: Yes Patient informed of any privacy concerns related to visit: Yes Minutes spent on Phone/Video with Pt.: 5 Assessment & Plan Assessment & Plan (1) Abnormal uterine bleeding: Comment: on nexplanon Code(s): N93.9 - Abnormal uterine and vaginal bleeding, unspecified Category: Medical Plan: Discussed with the patient the results of the work up done and options of treatment including staying on Nexplanon, replacing Nexplanon with BCP's, Mirena IUD. All pros, cons, risks and benefits if each option was discussed with the patient and the patient decided to think about it and get back to us. All questions answered the patient verbalized understanding. I spent a total of 20 minutes reviewing the chart, talking to the patient via video and documenting in the medical record. Coding Level of Care Code Tele Est Pt Level 3 (31759) Diagnoses Abnormal uterine bleeding N93.9
--- OUTSIDE RECORDS SUMMARY | 2025-08-15 14:05 | XMS_ITS | Clinical Summary ---
Author Organization [employer] Address [address] [place] [address] 7[address] [place] [address] Care Team Providers Care Jewelry Estimator Name Role Phone Inna Gallagher CORPORATE EVENT PLANNER Primary Care Provider [phone] Allergies No known active allergies Medications diphenhydrAMINE [...] Department Care Team Description 07/24/2025 Patient Outreach [facility] [address] [place] [address] Inna Gallagher FNP Care Coordination (C3 CM-W Lorrie Pandey telephone call outreach) 07/23/2025 Orders Only GENERIC EXTERNAL DATA DEPARTMENT Provider, Generic External Data 07/20/2025 Orders Only GENERIC EXTERNAL DATA DEPARTMENT Provider, Generic External Data 07/03/2025 11:15 AM EDT Office Visit [facility] [address] [place] [address] Elana Sabillon, OD Myopia, bilateral (Primary Dx); Encounter for examination of eyes and vision without abnormal findings 07/03/2025 Travel 06/19/2025 Results Follow-Up [facility] [address] [place] [phone] Inna Gallagher FNP US Pelvis Transvaginal 06/09/2025 Patient Outreach [facility] [address] [place], [place] [phone] Inna Gallagher FNP Care Management (C3CM- F/U call) 06/09/2025 Orders Only [facility] [address] [place] [address] Inna Gallagher FNP Adnexal mass (Primary Dx); Pelvic pain 06/08/2025 Telephone [facility] [address] [place] [phone] Inna Gallagher FNP Medication Question 06/07/2025 11:00 AM EDT Office Visit [facility] [address] [place] [phone] Inna Gallagher FNP Menorrhagia with irregular cycle (Primary Dx); Pelvic pain 06/07/2025 Travel 06/05/2025 Telephone [facility] [address] [place] [address] DoylineInna [facility] Nurse Triage 05/17/2025 Patient Outreach [facility] [address] [place] [address] DoylineInna [facility] Care Management (C3CM- F/U call # [phone]) from Last 3 Months Immunizations Immunization Administration Dates Next Due [id number] Combined 2000 HPV 9-Valent 06/05/2017,03/05/2016,05/11/2013 Hep A, [...] Procedure Name Priority Date/Time Associated Diagnosis Comments MR PELVIS W AND WO CONTRAST Routine 08/11/2025 3:55 PM EST Adnexal mass CT ABDOMEN PELVIS W CONTRAST Routine 07/23/2025 [...] Recently Relevant to Health Maintenance Results * MR Pelvis w/ and w/o Contrast (08/11/2025 3:55 PM EST) Anatomical Region Laterality Modality Body, Pelvis Magnetic Resonan ce 08/11/2025 3:55 PM EST Narrative 08/11/2025 5:05 PM EST [place] [address] Magnetic Resonance Report Signed Patient: Sharla Loera MR#: [id number] : 2000 Acct:[id number] Age/Sex: 25 / F ADM Date: 08/11/25 Loc: HO.MRI Attending Dr: Inna ABARCA Ordering Physician: Inna Gallagher Date of Service: 08/11/25 Procedure(s): MR pelvis wo/w con Accession Number(s): [id number] cc: Inna Gallagher Reason for Exam: Adnexal mass of female genital organs and menstrual cycle EXAMINATION: MR PELVIS WITHOUT AND WITH CONTRAST CLINICAL INFORMATION: Adnexal mass of female genital organs and menstrual cycle. Patient questionnaire : question endometriosis. Pain with menstrual cycles, intermittent for 2 to 3 months COMPARISON: Previous CT scans of the abdomen and pelvis most recent July 2025 and pelvic ultrasound most recent May 2025 TECHNIQUE: Sagittal axial and coronal sequences through the pelvis with and without contrast. Patient received 6.5 mL Gadavist this IV contrast. FINDINGS: The uterus is anteverted and measures 7.2 x 3.5 x 5.8 cm in dimension. No focal uterine lesion. The junctional zone does not appear thickened. Endometrial thickness is normal measuring 3 mm. No endometrial fluid or mass. The cervix is normal. The ovaries are normal appearing. The left ovary measures 3.7 x 1.8 x 1.8 cm. The right ovary measures 3.7 x 2 x 1.8 cm. No adnexal mass. The 3 cm right adnexal cyst seen on July 23, [address] scan has resolved. No abnormal signal in the pelvis to suggest endometriosis. Bladder is not optimally distended. Visualized bowel is normal. No ascites or adenopathy. Bone marrow signal is normal. No hernia. MR/MR pelvis wo/w con IMPRESSION: Unremarkable examination. No adnexal mass or evidence of endometriosis. Electronically signed by: Opal Hernandez MD 08/11/2025 05:02 PM [facility] Dictated By: Opal Hernandez MD Signed By: <Electronically signed by Opal Hernandez MD in OV> 08/11/25 1702 DD/ 1555 TD/TT: 08/11/25 1620 [employer] Manager: GARY Procedure Note Donotuseinterpreter, Image - 08/11/2025 [place] [address] Magnetic Resonance Report Signed Patient: Sharla Loera [facility]#: [id number] : 2000Acct:[id number] Age/Sex: 25 / FADM Date: 08/11/25 Loc: .MRI Attending Dr: Inna ABARCA Ordering Physician: Inna Gallagher Date of Service: 08/11/25 Procedure(s): MR pelvis wo/w con Accession Number(s): [id number] cc: Inna Gallagher Reason for Exam: Adnexal mass of female genital organs and menstrualcycle EXAMINATION: MR PELVIS WITHOUT AND WITH CONTRAST CLINICAL INFORMATION: Adnexal mass of female genital organs and menstrual cycle. Patient questionnaire : question endometriosis. Pain with menstrual cycles, intermittent for 2 to 3 months COMPARISON: Previous CT scans of the abdomen and pelvis most recent July 2025 and pelvic ultrasound most recent May 2025 TECHNIQUE: Sagittal axial and coronal sequences through the pelvis with and without contrast. Patient received 6.5 mL Gadavist this IV contrast. FINDINGS: The uterus is anteverted and measures 7.2 x 3.5 x 5.8 cm in dimension. No focal uterine lesion. The junctional zone does not appear thickened. Endometrial thickness is normal measuring 3 mm. No endometrial fluid or mass. The cervix is normal. The ovaries are normal appearing. The left ovary measures 3.7 x 1.8 x 1.8 cm. The right ovary measures 3.7 x 2 x 1.8 cm. No adnexal mass. The 3 cm right adnexal cyst seen on July 23, [address] scan has resolved. No abnormal signal in the pelvis to suggest endometriosis. Bladder is not optimally distended. Visualized bowel is normal. No ascites or adenopathy. Bone marrow signal is normal. No hernia. MR/MR pelvis wo/w con IMPRESSION: Unremarkable examination. No adnexal mass or evidence of endometriosis. Electronically signed by: Opal Hernandez MD 08/11/2025 05:02 PM EST Dictated By: Opal Hernandez MD Signed By: <Electronically signed by Opal Hernandez MD in OV> 08/11/25 1702 DD/ 1555 TD/TT: 08/11/25 1620 [employer] Manager: GARY [facility] IM MRI PROCEDURES Final Resu lt * CT Abdomen Pelvis w/ Contrast (07/23/2025 7:58 AM EST) Anatomical Region Laterality Modality Body, Pelvis, Abdomen Computed T omography 07/23/2025 7:58 AM EST Narrative 07/23/2025 8:01 AM EST [address] [address] [address] Scan Report Signed Patient: Sharla Loera MR#: [id number] : 2000 Acct:[id number] Age/Sex: 25 / F ADM Date: 07/23/25 Loc: HO.ED Attending Dr: Ordering Physician: Ryan Cole PA-C Date of Service: 07/23/25 Procedure(s): CT abdomen pelvis w IV con Accession Number(s): [id number] cc: Ryan Cole PA-C; [facility] Report Number: [id number]: Total DLP = 0.00 mGy-cm Reason for [...] OV> 07/23/25 0759 DD/ 7 TD/TT: 07/23/25757 [employer] Manager: Procedure Note Donotuseinterpreter, Image - 07/23/[address] [place] [address] [address] Scan Report Signed Patient: Sharla Loera [facility]#: [id number] : 2000Acct:[id number] Age/Sex: 25 / FADM Date: 07/23/25 Loc: HO.ED Attending Dr: Ordering Physician: Ryan Cole PA-C Date of Service: 07/23/25 Procedure(s): CT abdomen pelvis w IV con Accession Number(s): [id number] cc: Ryan Cole PA-C; [facility] Report Number: [id number]: Total DLP = 0.00 mGy-cm Reason for [...] 07/23/25 0759 DD/ 0758 TD/TT: 07/23/25 0758 [employer] Manager: [facility] External Provider IMG CT PROCEDURES Final [...] Final Result Performing Organization Address [facility] Co de Phone Number [facility] [address] [place] [phone] * Urinalysis w/reflex microscopic (07/23/2025 5:19 AM EST) Color Urine Yellow [facility] Appearance Urine Clear [facility] PH 5.5 5.0 - 9.0 [facility] Glucose Urine UA Negative Negative mg/dL [facility] Urine Blood Negative Negative [facility] Specific [place] - Urine 1.010 1.005 - 1.025 [facility] Urine Protein Negative Neg-Trace mg/dL [facility] Urine Ketones Trace Negative mg/dL [facility] Nitrite Urine Negative Negative [facility] Leukocyte Esterase Urine Negative Negative [facility] 07/23/2025 5:19 AM EST 07/23/2025 5:22 AM EST Narrative [facility] - 07/23/2025 5:36 AM EST [id number], Clean Catch Generic External Data Provider LAB URINE ORDERAB LES Final Result Performing Organization Address City/[facility]/ZIP Co de Phone Number [facility] [address] [place] [address] [place] [phone] * (ABNORMAL) CBC auto differential (07/23/2025 12:32 AM EST) White Blood Count 5.3 4.8 - 10.8 X10*3/uL [facility] Red Blood Count 3.77(L) 4.20 - 5.50 X10*6/uL [facility] Hemoglobin 12.0 12.0 - 16.0 g/dl [facility] Hematocrit 35.1(L) 37.0 - 47.0 % [facility] Mean Corpuscular Volume 93.1 80.0 - 98.0 fL [facility] Mean Corpuscular Hemoglobin 31.8 27.0 - 33.0 pg [facility] Mean Corpuscular HGB Conc 34.2 31.0 - 35.0 g/dl [facility] Red Cell Distribution Width 12.7 11.0 - 16.0 % [facility] Platelet Count 212 160 - 400 X10*3/uL [facility] Mean Platelet Volume 10.0 9.4 - 12.3 fL [facility] Neutrophils Percent Auto 67.0 45 - 73 % [facility] Imm Gran Pct Auto 0.2 0.0 - 0.4 % [facility] Lymphocytes Percent Auto 25.8 20 - 40 % [facility] Monocytes Percent Auto 5.7 2 - 11 % [facility] Eosinophils Percent Auto 1.1 0 - 4 % [facility] Basophils Percent Auto 0.2 0 - 2 % [facility] NRBC Pct Auto 0.0 0.0 - 0.2 /100WBC [facility] Neutrophils Absolute Auto 3.5 2.0 - 8.3 x10*3/uL [facility] Imm Gran Abs Auto 0.01 0.00 - 0.03 X10*3/uL [facility] Lymphocytes Absolute Auto 1.4 1.2 - 4.9 X10*3/uL [facility] Monocytes Absolute Auto 0.3 0.1 - 1.2 X10*3/uL [facility] Eosinophils Absolute Auto 0.1 0.0 - 0.4 X10*3/uL [facility] Basophils Absolute Auto 0.0 0.0 - 0.2 X10*3/uL [facility] NRBC Abs Auto 0.000 0.0 - 0.012 X10*3/uL [facility] 07/23/2025 12:3 2 AM EST 07/23/2025 12:35 AM EST us Generic External Data Provider LAB BLOOD ORDERAB LES Final Result [facility] [address] [place] [phone] * (ABNORMAL) Comprehensive Metabolic Panel (07/23/2025 12:32 AM EST) Sodium 139 135 - 145 mmol/L [facility] Potassium 4.0 3.3 - 5.1 mmol/L [facility] Chloride 109(H) 96 - 108 mmol/L [facility] Carbon Dioxide 23 22 - 29 mmol/L [facility] Anion Gap 11(L) 12 - 20 [facility] Urea Nitrogen (BUN) 8(L) 9 - 16 mg/dL [facility] Creatinine, Serum 0.53 0.5 - 1.4 mg/dL [facility] Creatinine Clr Calc Pharmacy 145.5 [facility] Comment:Provided height and weight: 160.02 cm,63.503 kg.eGFR (calculated from the MDRD study equation) and eCrCl(calculated from the Cockcroft-Gault equation) are based ondifferent parameters and may not yield comparable results.If eCrCl result is absurd, please check patient'sheight/weight. Estimated Glomerular Filt Rate >60 [facility] Comment:Chronic Kidney Disea se: Estimated GFR < 60 mL/min/1.23g0Jymbpw Kidney Disease: Estimated GFR < 15 mL/min/1.73m2 Glucose 107 60 - 115 mg/dL [facility] Calcium 9.1 8.4 - 10.2 mg/dL [facility] Bilirubin, Total 0.6 0.0 - 1.0 mg/dL [facility] Aspartate Amino Transferase 16 5 - 31 U/L [facility] Alanine Aminotransferase 10 0 - 31 U/L [facility] Total Protein 6.7 6.5 - 8.0 g/dL [facility] Albumin Level 4.3 3.5 - 5.0 g/dL [facility] Alkaline Phosphatase 42 39 - 117 U/L [facility] 07/23/2025 12:3 2 AM EST 07/23/2025 12:35 AM EST Generic External Data Provider LAB BLOOD ORDERAB LES Final Result Performing Organization Address City/[facility]/ZIP Co de Phone Number [facility] [address] [place] [phone] * TSH with Reflex to Free T4 (07/20/2025 1:07 PM EST) TSH reflex Free T4 0.51 0.32 - 4.0 uIU/mL [facility] 07/20/2025 1:07 PM EST 07/20/2025 1:07 PM EST us Generic External Data Provider LAB BLOOD ORDERAB LES Final Result Performing Organization Address [facility]/ZIP Co de Phone Number [facility] [address] [place] [phone] * CBC (07/20/2025 1:07 PM EST) White Blood Count 5.3 4.8 - 10.8 X10*3/uL [facility] Red Blood Count 4.20 4.20 - 5.50 X10*6/uL [facility] Hemoglobin 13.5 12.0 - 16.0 g/dl [facility] Hematocrit 39.1 37.0 - 47.0 % [facility] Mean Corpuscular Volume 93.1 80.0 - 98.0 fL [facility] Mean Corpuscular Hemoglobin 32.1 27.0 - 33.0 pg [facility] Mean Corpuscular HGB Conc 34.5 31.0 - 35.0 g/dl [facility] Red Cell Distribution Width 12.6 11.0 - 16.0 % [facility] Platelet Count 244 160 - 400 X10*3/uL [facility] Mean Platelet Volume 10.3 9.4 - 12.3 fL [facility] NRBC Pct Auto 0.0 0.0 - 0.2 /100WBC [facility] NRBC Abs Auto 0.000 0.0 - 0.012 X10*3/uL [facility] 07/20/2025 1:07 PM EST 07/20/2025 1:07 PM EST us Generic External Data Provider LAB BLOOD ORDERAB LES Final Result Performing Organization Address City/State/[facility] Co de Phone Number [facility] [address] [place] [phone] * hCG, Total, Quantitative (07/20/2025 1:07 PM EST) HCG Quantitative <2 mIU/mL [facility] Comment:Weeks post LMP Appro ximate hCG(Last Menstrual Period) Range (mIU/ml)3 - 4 weeks 9 - 1304 - 5 weeks 75 - 2,6005 - 6 weeks 850 - 20,8006 - 7 weeks 4000 - 100,2007 - 12 weeks 11,500 - 289,87397 - 16 weeks 18,300 - 137,97723 - 29 weeks (2nd trimester) 1,400 - 53,24857 - 41 weeks (3rd trimester) 940 - [...] Final Result Performing Organization Address [facility] Co de Phone Number [facility] [address] [place] [phone] * HPV DNA, Low/High Risk (07/20/2025 12:54 PM EST) HPV High Risk Negative Negative [facility] HPV Genotype 16 Negative Negative [facility] HPV Genotype 18 Negative Negative [facility] Comment:HPV testing performe d at [facility] (CLIA#[id number]), [address] [place] [address].Testing for HPV was performed using the [employer] RINA Reclutec0system. The presence of HPV in the female [...] 4 PM EST 07/21/2025 8:12 AM EST Generic External Data Provider LAB BLOOD ORDERAB LES Final Result Performing Organization Address [facility] Co de Phone Number [facility] [address] [place] [phone] * Pap Smear (07/20/2025 12:54 PM EST) 07/20/2025 12:5 4 PM EST 07/21/2025 8:12 AM EST Narrative [facility] - 07/28/2025 7:42 AM EST ----- ------- Name: Sharla Loera Age/Sex: 25/F : 2000 Unit#: [id number] Attend Dr: Carlos Eduardo Meyers MD Re07/20/25 Status: DEP [facility]F [facility] Disch: ----- ------- SPEC : [id number] RECD: 07/21/25 STATUS: SHERRIJuana SAMSON NUM: [id number] JOSE: 07/20/25-1254 [facility] DR: Carlos Eduardo Meyers MD ENTERED: 07/21/25 SP TYPE: Pap Smr OTHR DR: Inna Gallagher CORPORATE EVENT PLANNER ORDERED: Pap Smear, PAP path review Interpretation [...] and HPV testing will be performed at [facility] (CLIA #[id number]), [address] [place] [address]. Testing for HPV was performed using the [...] detected. All professional services are performed by [facility] ([address] [place] [address]; ; CLIA #[id number]). The PAP Test is a screening procedure with the inherent possibility of both false negative and false positive results. Results should be interpreted in the context of historic and current clinical findings. Reliability of the PAP Test is enhanced by performing the test on a regular repetitive basis. CONTINUED ON NEXT PAGE ----- ------- Name: LoeraJuan CarlosSharla Bertha Age/Sex: 25/F : 2000 Unit#: [id number] Attend Dr: Carlos Eduardo Meyers MD Re07/20/25 Status: DEP [facility]F [facility] Disch: ----- ------- SPEC : [id number] RECD: 07/21/25 STATUS: KOKO DAVIES NUM: [id number] JOSE: 07/20/25-1254 [facility] DR: Carlos Eduardo Meyers MD ENTERED: 07/21/25 SP TYPE: Pap Smr OTHR DR: Inna Gallagher ORDERED: Pap Smear, PAP path review Copies To: Elliott,Inna [facility] [address] [place] [address] Carlos Eduardo Meyers MD [facility] [address] [place] [address] ----- ------- Signed (signature on file) Mickey Martin MD 07/28/25 0742 ----- ------- END OF REPORT us Generic External Data Provider LAB CYTOLOGY JEFF CLANCY Final Result [facility] [address] [place] [phone] [phone] * Chlamydia/N. Gonorrhoeae RNA, TMA, Urogenitial (07/20/2025 12:30 PM EST) CT PCR NOT DETECTED Not Detect. [facility] Comment:A not detected test [...] psychologicalconsequences. NG PCR NOT DETECTED Not Detect. [facility] Comment:A not detected test [...] GENERAL ORDERABLES Final Result Performing Organization Address City/State/[facility] Co de Phone Number [facility] [address] [place] [phone] * US Pelvis Transvaginal (06/14/2025 2:17 PM EDT) Anatomical Region Laterality Modality Pelvis Ultrasound 06/14/2025 2:17 PM EDT Narrative 06/14/2025 2:18 PM EDT [address] [address] Ultrasound Report Signed Patient: Sharla Loera MR#: [id number] : 2000 Acct:[id number] Age/Sex: 25 / F ADM Date: 06/13/25 Loc: HO.US Attending Dr: Inna ABARCA Ordering Physician: Inna Gallagher Date of Service: 06/13/25 Procedure(s): US pelvic and transvaginal Accession Number(s): [id number] cc: Inna Gallagher Reason for Exam: PELVIC PAIN CLINICAL HISTORY: PELVIC PAIN US pelvis transabdominal and transvaginal with Doppler Comparison: CT/SR - CT GI BLEED ABD PEL WO/W IVCON - 02/05/25 10:50 EDT US/SC/SR - US PELVIS TRANSABDOMINAL AND TRANSVAGINAL - [...] Smith MD in OV> 06/14/25 1417 DD/ 141 TD/TT: 06/14/25 141 [employer] Manager: Procedure Note Donotuseinterpreter, Image - 06/14/2025 [place] [address] Ultrasound Report Signed Patient: Sharla Loera [facility]#: [id number] : 2000Acct:[id number] Age/Sex: 25 / FADM Date: 06/13/25 Loc: HO.US Attending Dr: Inna ABARCA Ordering Physician: Inna Gallagher Date of Service: 06/13/25 Procedure(s): US pelvic and transvaginal Accession Number(s): [id number] cc: [facility] Reason for Exam: PELVIC PAIN CLINICAL HISTORY: PELVIC PAIN US pelvis transabdominal and transvaginal with Doppler Comparison: CT/SR - CT GI BLEED ABD PEL WO/W IVCON - 02/05/25 10:50 EDT US/SC/SR - US PELVIS TRANSABDOMINAL AND TRANSVAGINAL - [...] Smith MD in OV> 06/14/25 1417 DD/ 1417 TD/TT: 06/14/25 141 [employer] Manager: [facility] IM US PROCEDURES Final Resul t * HEPATITIS C AB W/REFL TO HCV RNA, QN, PCR (06/03/2022 10:56 AM EDT) HEPATITIS C ANTIBODY NON-REACT NAYA NON-REACT NAYA [facility] INDEX 0.04 <1.00 [facility] Comment: HCV antibody was non-reactive. There is no laboratory evidence of HCV infection. In most cases, no further action is required. However, if recent HCV exposure is suspected, a test for HCV RNA (test code 79863) is suggested. For additional information please refer to http://Shidonni.HexAirbot/faq/FDA29m3 (This link is being provided for informational/ educational purposes only.) 06/03/2022 10:5 6 AM EDT [facility] CORPORATE EVENT PLANNER HISTORICAL/NON ORDERABLE LABS Final Result Performing Organization Address [facility] Co de Phone Number [facility] [address] * HIV 1/2 ANTIGEN/ANTIBODY,FOURTH GENERATION W/RFL [...] purpose. For additional information please refer to http://Shidonni.Mobile-XL.[employer] Integrity/faq/CCG704 (This link is being provided for informational/ educational purposes only.) The performance of this assay has not been clinically validated in patients less than 2 years old. 06/03/2022 10:5 6 AM EDT [facility] LAB BLOOD ORDERABLES Final Re sult Performing Organization Address [facility] Co de Phone Number [facility] [address] from Last 3 Months or Most Recently Relevant to Health Maintenance Insurance [facility] Care Teams Jewelry Estimator Relationship Specialty Start Date End Date DoylineInna CORPORATE EVENT PLANNER [address] [place] [phone] PCP - General Family Medicine 07/03/22
--- OUTSIDE RECORDS SUMMARY | 2025-08-15 14:05 | XMS_ITS | Encounter Summary ---
Author Organization [employer] Address [address] [place] [address] [address] [place] [address] Care Team Providers Care Locksmith Name Role Phone [facility] Primary Care Provider [phone] Reason for Visit * Reason Onset Date Comments triage 11/10/2022 Encounter Details Date Type Department Care Team ([facility] st Contact Info) Description 11/10/2022 Telephone [facility] [address] [place], [place] [phone] [facility] [address] [place], [place] [phone] triage Social History Tobacco Use Types Packs/Day [...] No answer LVM to return call to [facility] triage line. Nothing sooner with PCP [...] on filedocumented in this encounter Care Teams Locksmith Relationship Specialty Start Date End Date Inna Gallagher FNP [address] [place] [phone] PCP - General Family Medicine 07/03/22 documented as of this encounter
== END 2025-08-15 13:20 | disposition home or self-care (01) ==
LOC: HO.HWS 11:53
PROVIDERS: PCP Registered Nurse; Visit Provider Obstetrics & Gynecology
DX: N93.9 Abnormal uterine and vaginal bleeding, unspecified (principal)
CPT/HCPCS: 99213

== ENCOUNTER 2025-08-24 11:40 | Emergency (ER) | payer MEDICAID, SELFPAY ==
--- NOTE | ~2025-08-24 | XR_ITS ---
EXAMINATION: XR HIP, LEFT CLINICAL INFORMATION: pain s/p fall COMPARISON: None available. TECHNIQUE: Two views of the left hip. FINDINGS: No fracture. No bone lesion. Alignment is anatomic. Hip joint space is maintained. Normal acetabular coverage. Normal femoral head contour without evidence of AVN. Soft tissues are normal. XR/XR hip LT w PEL1V IMPRESSION: Normal left hip. Electronically signed by: Ryan Garcia MD 08/24/2025 01:04 PM [facility]
[2025-08-24 12:11] VITALS: BP 111/63; PULSE 77; RESP 18; TEMP 36.8; O2SAT 99; BMI 25.3
--- NOTE | 2025-08-24 12:11 | ED_ITS ---
HPI - Extremity Injury (Lower) General Chief Complaint: Fall Stated Complaint: Injury Time Seen by Provider: 08/24/25 13:25 Source: patient Mode of arrival: ambulatory Limitations: no limitations History of Present Illness ED Provider: Zina Cantrell PA-C HPI Narrative: Patient is a 25 year old female with a history of anxiety, PTSD, asthma, AUB presenting to the emergency department today with left hip pain. Patient states that she slipped on a couple of stairs and injured her left hip. Patient denies any head strike or loss of consciousness with the incident. Patient denies any other complaints at this time. Related Data Home Medications ?Medication ?Instructions ?Recorded ?Confirmed albuterol sulfate 2.5 mg/3 mL 2.5 mg inhalation Q4-6H PRN 10/25/24 07/20/25 (0.083 %) solution for nebulization albuterol sulfate 90 mcg/actuation 2 puff inhalation Q 4-6H PRN 10/25/24 07/20/25 aerosol inhaler budesonide-formoterol HFA 80 2 puff inhalation BID 08/0807/20/25 mcg-4.5 mcg/actuation aerosol inhaler (Symbicort) cetirizine 10 mg tablet (Zyrtec) 10 mg PO DAILY PRN 07/20/25 diphenhydramine HCl 25 mg capsule 25 mg PO BEDTIME PRN 10/25/24 07/20/25 (Benadryl) hydrocortisone acetate 25 mg 25 mg UT BID 10/25/2403/08 rectal suppository (Anusol-HC) lidocaine 5 % topical patch 1 patch topical DAILY 10/1507/20/25 (Lidoderm) Previous Rx's ?Medication ?Instructions ?Recorded hydrocortisone 2.5 % topical cream 1 appl UT BID-QID P RN hemorrhoids 11/03/24 with perineal applicator 30 days #30 grams sennosides 8.6 mg-docusate sodium 2 tab-cap (2 x 8.6-5 0 mg) PO 11/03/24 50 mg capsule (Senna Plus) BEDTIME 60 days #120 caps dicyclomine 20 mg tablet 20 mg PO TID #10 tabs prochlorperazine 25 mg rectal 25 mg UT BID PRN nausea and 07/24/25 suppository (Compazine) vomiting #12 ea diphenhydramine HCl 25 mg capsule 25 mg PO Q6H 3 days #12 caps 07/25/25 (Benadryl) Allergies Allergy/AdvReac Type Severity Reaction Status Date / Time haloperidol (From Haldol) Allergy Unknown Verified 08/24/25 12:12 Review of Systems Constitutional: Constitutional: Reports as per HPI Eyes: Eyes: Reports as per HPI ENT: Reports as per HPI Cardiovascular: Cardiovascular: Reports as per HPI Respiratory: Respiratory: Reports as per HPI Gastrointestinal: Gastrointestinal: Reports as per HPI Genitourinary: Genitourinary: Reports as per HPI Musculoskeletal: Musculoskeletal: Reports as per HPI Integumentary/Breasts: Skin/Breast: Reports as per HPI Neurologic: Reports as per HPI Psychiatric: Psychiatric: Reports as per HPI Endocrine: Endocrine: Reports as per HPI Hematologic/Lymphatic: Hematologic/Lymphatic: Reports as per HPI Allergic/Immunologic: Allergic/Immunologic: Reports as per HPI PMF Past Medical History Attestation statement: The following information was validated with the patient. Source: old records reviewed and nursing notes reviewed Surgical History History of facial surgery Family History Family History Maternal Grandfather Diabetes Mother Depression Anemia HTN (hypertension) Social History Social History Household Members: Family Alcohol intake: current Alcohol intake frequency: holidays/special occasions only Alcohol type: hard liquor Patient Tobacco Use Status: Never used Tobacco Substance Use Type: Marijuana Advance Directives: No Advance Directives Information Provided: No Physical Exam Vital Signs: Vital Signs: Last Vital Signs Temp 98.3 F 08/24/25 13:45 Pulse 77 08/24/25 13:45 Resp 18 08/24/25 13:45 BP 111/63 08/24/25 13:45 Pulse Ox 99 08/24/25 13:45 O2 Del Method Room Air 08/24/25 13:45 BMI result Body Mass Index 25.3 Const: General: cooperative, no acute distress, alert and awake Nutritional Appearance: well nourished Orientation/consciousness: patient oriented x3 HEENT: Head: Yes normal to inspection and Yes atraumatic Ears: hearing grossly normal bilaterally and external ears normal General nose exam: Normal external nose present, no nasal discharge noted and no epistaxis Face and sinus: Yes normal facial exam, No abrasion and No laceration Mouth: Normal oral and palatal mucosa present, no drooling and no muffled voice Eyes: General: appearance normal, both eyes and all related structures Periorbital: periorbital findings normal Eyelids: Yes eyelids normal Conjunctivae: conjunctivae normal Pupils: Equal, round and reactive pupils present EOM: EOMs intact bilaterally Neck: Neck: Yes normal visual inspection and Yes full ROM Resp: Effort & Inspection: normal respiratory effort and able to speak in complete sentences Neuro: General: patient oriented x3, moves all extremities and CN's II-XI intact bilaterally Cranial nerves: Yes Equal, round and reactive pupils present Cognition (Neuro): normal cognition Extrem: General: Yes normal to inspection, Yes full ROM and Yes capillary refill normal Psych: Appearance: grossly normal Mental Status: mental status grossly normal Affect: normal affect Attitude: cooperative Thought process: Normal thought process present Thought content: Normal thought content present Insight: Good insight present (Psych) Course Course Course Narrative: This is an RME: Additional HPI, ROS, PE not included below will be deferred to primary provider. RME assessment and note performed by: Sana Hermosillo PA-C This is a [id number]-female who presents to the ER with a complaint of left hip pain s/p slip and fall on ice at home. Landed onto left hip reporting pain. Pt ambulatory. No headstrike or LOC. Not anticoagulated Plan: xray left hip Medical Decision Making Medical Decision Making MDM Narrative: Patient is a 25 year old female with a history of anxiety, PTSD, asthma, AUB presenting to the emergency department today with left hip pain. Patient's physical exam was as noted in the physical exam portion of this note. Patient's left hip x-ray showed no acute process. Patient's clinical presentation is most consistent with left hip pain vs. left hip contusion. I explained my physical exam findings as well as all test results to the patient. I answered all questions asked by the patient. I stressed the importance of the patient taking her medication as directed (e ither prescribed or as the over the counter packaging recommends). I stressed the importance of the patient following up with her primary care provider. I stressed the importance of the patient returning to the emergency department immediately if her symptoms were to worsen or if she were to develop any dizziness, shortness of breath, difficulty breathing, chest pain, blurry vision, loss of vision, nausea, vomiting, abdominal pain, fever, chills, back pain, or any other complaints. Patient verbalized agreement and understanding with this treatment plan and discharge. Differential Diagnosis Differential Diagnoses: The differential diagnosis associated with the presentation includes Left hip pain Hip contusion Hip fracture Admission/Observation Consideration of admission/observation: Escalation of care including admission/observation considered Patient would have been admitted to the hospital had her work up had any findings where hospital admission was appropriate and her clinical presentation warranted hospital admission. Independent Interpretation I performed an independent interpretation of an: Plain X-Ray Interpretation: My interpretation is in agreement with the radiologist's impression of this imaging study as written below. EXAMINATION: XR HIP, LEFT COMPARISON: None available. TECHNIQUE: Two views of the left hip. FINDINGS: No fracture. No bone lesion. Alignment is anatomic. Hip joint space is maintained. Normal acetabular coverage. Normal femoral head contour without evidence of AVN. Soft tissues are normal. XR/XR hip LT w PEL1V IMPRESSION: Normal left hip. Electronically signed by: Ryan Garcia MD 08/24/2025 01:04 PM [facility] Dictated By: Ryan Garcia MD Signed By: Electronically signed by Ryan Garcia MD 08/24/25 1304 Discharge Plan Discharge Clinical Impression: Hip pain Patient Disposition: Home, Self-Care Instructions: Hip Pain (ED) Additional Instructions: Your x-ray showed no acute fracture / break. Apply ice to the area and rest. You may take tylenol and/or ibuprofen over the counter for pain. IF you are prescribed home medications and/or you are taking over the counter medications at home - it is very important you continue to do so as prescribed / directed unless told otherwise by a healthcare provider. Follow up with your primary care provider. Do your best to stay well hydrated and rest. Return to the emergency department immediately if your symptoms worsen or if you develop any numbness, tingling, dizziness, shortness of breath, difficulty breathing, chest pain, blurry vision, loss of vision, nausea, vomiting, abdominal pain, fever, chills, back pain, or any other complaints. If you do not have a primary care provider - call any of the below numbers to establish and follow up with a primary care provider. [facility] Primary Care ([place]) [phone] [place] [address], [address] [facility] Primary Care ([address] [place]) [phone] [place] [address], [address] [facility], [address] [facility] Primary Care ([address] [place]) [phone] [place] [address], [address] [facility], [address] [facility] ([place]) [phone] [place] [address] 2 [facility], [address] [facility] Family Medicine [phone] [place] [address], [address] Please see the information below about our Patient Portal. If you are not yet enrolled in the [facility] Patient Portal, you will receive an enrollment email invitation following your visit to any [facility] setting. You may also self-enroll in the Patient Portal by visiting our website: [email or web address] The following information is required to access the Patient Portal: - Your [facility] Medical Record Number - Your personal home email address (must match what is in your electronic medical record, Registration staff can assist with this) - Name - Date of Capabilities of the Patient Portal: - Message some providers - View upcoming appointments - Access your health summary, medical history, and visit history - View current conditions and allergies - View procedure and lab results - View your medications, including guidelines, side effects, and precautions - Complete pre-appointment questionnaires requested by your provider - Ready summary reports of your office visits and procedures To access the Patient Portal Mobile Mad[employer], follow these directions: - Search OneTouch in the Maday Store or Google Play Store - Download the Maday - Search for [facility] - Enter your login/password Prescriptions: No Action dicyclomine 20 mg tablet 20 mg PO TID Qty: 10 0RF prochlorperazine [Compazine] 25 mg suppository 25 mg UT BID PRN (Reason: nausea and vomiting) Qty: 12 0RF diphenhydramine HCl [Benadryl] 25 mg capsule 25 mg PO Q6H 3 Days Qty: 12 0RF albuterol sulfate 2.5 mg /3 mL (0.083 %) solution for nebulization 2.5 mg inhalation Q4-6H PRN albuterol sulfate 90 mcg/actuation HFA aerosol inhaler 2 puff inhalation Q4-6H PRN budesonide-formoterol [Symbicort] 80-4.5 mcg/actuation HFA aerosol inhaler 2 puff inhalation BID cetirizine [Zyrtec] 10 mg tablet 10 mg PO DAILY PRN diphenhydramine HCl [Benadryl] 25 mg capsule 25 mg PO BEDTIME PRN lidocaine [Lidoderm] 5 % adhesive patch,medicated 1 patch topical DAILY Rx Instructions: leave on most painful area for up to 12 hrs hydrocortisone acetate [Anusol-HC] 25 mg suppository 25 mg UT BID Senna Plus 8.6-50 mg capsule 2 tab-cap PO BEDTIME 60 Days Qty: 120 1RF hydrocortisone 2.5 % cream with perineal applicator 1 appl UT BID-QID PRN (Reason: hemorrhoids) 30 Days Qty: 30 1RF Stand Alone Forms: Work/School Release Interventions: ED Discharge Assessment Last Done: 08/24/25 13:45 Discharge Date/Time: 08/24/25 13:48 Print Language: Bulgarian
[2025-08-24 13:45] VITALS: BP 111/63; PULSE 77; RESP 18; TEMP 36.8; O2SAT 99
== END 2025-08-24 13:48 | disposition home or self-care (01) ==
PROVIDERS: Emergency Provider Emergency Medicine; PCP Registered Nurse
DX: M25.552 Pain in left hip (principal); Z79.899 Other long term (current) drug therapy
CPT/HCPCS: 73502; 99282; 99283

== ENCOUNTER → 2025-08-24 12:12 | Outpatient (BNV) | payer MEDICAID, SELFPAY | PROVIDERS: Emergency Provider Emergency Medicine; PCP Registered Nurse; Visit Provider Radiology Diagnostic Radiology | DX: M25.552 Pain in left hip (principal); Z04.3 Encounter for examination and observation following other accident | CPT/HCPCS: 73502 ==